=== PATIENT | male | born 1955 | race Caucasian/White ===

== ENCOUNTER 2017-11-01 14:13 | Inpatient (IN) | payer OTHER ==
[2017-11-01] MEDS ORDERED: SODIUM CHLORIDE 1,000 ML IV STA (15:47)
[2017-11-01] MEDS ORDERED: ACETAMINOPHEN 500 MG TABLET (FP) PO ONE (15:47)
[2017-11-01] MEDS ORDERED: ACETAMINOPHEN INJECTION 100 ML IVPB ONE (16:06)
--- NOTE | 2017-11-01 16:16 | PDOC ---
Attending Attestation - Resident Resident Name: Micki Bunch - ED Attending Attestation I have performed the following: I have examined & evaluated the patient, The case was reviewed & discussed with the resident, I agree w/resident's findings & plan, Exceptions are as noted - HPI HPI: 11/01/17 18:05 61yo male with hx of DM with L heel wound with black eschar and sacral wound with boggy tissue. Also with intermittent episodes of prolapse of his colostomy site. Pt denies f/c. Did not notice the eschar until today. He went to urgent care who sent her in for eval. - Physicial Exam PE: 11/01/17 18:06 Gen: aaox3, poor dentition heart: +s1s2 tachy lungs: cta b/l abd: soft, ostomy with brown stool in the bag, no prolapse at this time, buttock with 2 stage 2 sacral wounds with red/boggy tissue surrounding ext: no c/c/e, L heel with 3x2 black eschar with red warm tissue neuro: awake, alert, at baseline ms, no focal deficits - Medical Decision Making 11/01/17 16:15 I, Dr. Rose Hannah, DO, attest that this document has been prepared under my direction and personally reviewed by me in its entirety. I further attest, that it accurately reflects all work, treatment, procedures and medical decision -making performed by me. 11/01/17 18:10 61yo male with sacral wounds with surrounding erythema and diabetic foot wound -will send labs, cultures -will start broad spectrum abx to cover for gram + and gram negative -will need admission with wound care eval 11/01/17 19:08 labs reviewed abx ordered 11/01/17 19:09 resident discussed the case with CAROLINE who accepts pt to service Heart Score/ECG Review - ECG Intrepretation Comment:: 11/01/17 20:12 sinus at 89, nl axis, nl interval, sinus arrhythmia, no acute st/t wave findings
[2017-11-01 17:20] LABS: BASO % 1.3 % (0-2.0); EOS % 3.7 % (0-4.5); HEMATOCRIT 25.4 % (35.4-49); LYMPH % 18.9 % (8-40); MCH 24.5 pg (25.7-33.7); MCHC 31.6 g/dl (32.0-35.9); MEAN CELL VOLUME 77.7 fl (80-96); MEAN PLT VOLUME 7.8 fl (7.5-11.1); MONO % 5.1 % (3.8-10.2); PLATELET COUNT 611 K/MM3 (134-434); RBC 3.27 M/mm3 (4.00-5.60); RDW 20.1 % (11.9-15.9); WHITE BLOOD COUNT 6.7 K/mm3 (4.0-10.0)
[2017-11-01 17:32] LABS: INR 1.15 (0.83-1.09); VENOUS PC02 48.2 mmHg (38-52); VENOUS PH 7.33 (7.32-7.42); VENOUS PO2 40.9 mmHg (28-48)
[2017-11-01] MEDS ORDERED: AZTREONAM 2 GM in DEXTROSE 5%-WATER 100 ML IVPB ONE (17:32)
[2017-11-01] MEDS ORDERED: VANCOMYCIN 1,000 MG in DEXTROSE 5%-WATER - 250 ML IVPB ONE (17:32)
[2017-11-01 17:34] LABS: ACTIVATED PTT 29.7 SECONDS (25.2-36.5)
[2017-11-01] MEDS ORDERED: VANCOMYCIN 1 GRAM (PRE-DOCKED) 1,000 MG/250 ML BAG IVPB ONE (17:52)
[2017-11-01 18:02] LABS: URINE APPEARANCE CLEAR; URINE BILIRUBIN NEGATIVE (<2.0 mg/dL); URINE COLOR LTYELLOW; URINE GLUCOSE (UA) NEGATIVE (NEGATIVE); URINE KETONE NEGATIVE (NEGATIVE); URINE LEUK ESTERASE NEGATIVE (NEGATIVE); URINE NITRITE NEGATIVE (NEGATIVE); URINE UROBILINOGEN NEGATIVE mg/dL (0.2-1.0)
--- NOTE | 2017-11-01 18:38 | PDOC ---
History of Present Illness - General Chief Complaint: Pain Stated Complaint: LEG PAIN Time Seen by Provider: 11/01/17 15:00 History Source: Patient Exam Limitations: No Limitations - History of Present Illness Initial Comments: 11/01/17 18:33 Pt is a 61yo m somewhat poor historian with PMH of DM, colon cancer s/p colectomy with colostomy, lung ca presenting to ED with complaints of L foot pain. Pt said he was at [facility] a month ago when his foot was injured by an IV pole. Pt said the pain was getting worse and was worse yesterday when "the pain blew up". He went to a clinic and told him to go to the ED. He states his foot started to smell. He also said that he developed a decubitus ulcer on his L buttock during his stay at the hospital which also hurts. He denies fever, chills, chest pain, SOB, headache, neck pain, abdominal pain, n/v/d, dysuria, frequency, weakness. Pt says he only takes insulin for his diabetes, denies other medication use. Not on blood thinners. PCP: none PMH: see hpi PSH: colectomy 2017 Meds: insulin Allergies: PCN Social: quit tobaco 5 years ago, was smoking 2-3ppd, denies alcohol, marijuana, illlicit drug use Past History - Past Medical History Allergies/Adverse Reactions: Allergies Allergy/AdvReac Type Severity Reaction Status Date / Time Penicillins Allergy Verified 11/19/17 19:06 Home Medications: Ambulatory Orders Acetaminophen [Tylenol .Regular Strength -] 650 mg PO Q6H PRN tablet 11/15/17 Aztreonam [Azactam (Restricted To Id) -] 2 gm IVPB BID vial 11/15/17 Collagenase Clostridium Hist. [Santyl -] 1 applic TP DAILY tube 11/15/17 Insulin (Levemir) [Levemir Vial] 10 units SQ HS units 11/15/17 Lactobacillus Acidophilus [Bacid -] 1 tab PO DAILY tab 11/15/17 Picc Line Flush [Picc Line Flush -] 8 ml IVPUSH PRN PRN ml 11/15/17 Sodium Hypochlorite [Dakin's Solution 0.25% (Half-Strength) -] 1 applic TP DAILY ml 11/15/17 Vancomycin 750 mg IVPB Q24H vial 11/15/17 metroNIDAZOLE [Flagyl -] 500 mg PO TID tablet 11/15/17 Insulin Sliding Scale [Novolog Vial Sliding Scale -] 12 vial SQ DAILY 11/20/17 Melatonin/Pyridoxine HCl (B6) [Melatonin 5 mg Tablet] 1 each PO HS 11/20/17 oxyCODONE HCL [Roxicodone -] 10 mg PO Q4H PRN MDD 30mg 11/20/17 Cancer: Yes (lung,bladder,colon) CVA: No COPD: No Diabetes: Yes - Surgical History Abdominal Surgery: Yes (colon resection, with colostomy) Appendectomy: Yes - Suicide/Smoking/Psychosocial Hx Smoking History: Former smoker Have you smoked in the past 12 months: No Information on smoking cessation initiated: No Hx Alcohol Use: No Drug/Substance Use Hx: No Review of Systems - Review of Systems Able to Perform ROS?: Yes Constitutional: Yes: See HPI, Weakness, Unexplained wgt Loss. No: Chills, Fever HEENTM: No: Recent change in vision, Double Vision, Nose Congestion, Throat Pain Respiratory: No: Cough, Shortness of Breath, Wheezing, Hemoptysis Cardiac (ROS): No: Chest Pain, Lightheadedness, Palpitations, Syncope ABD/GI: No: Constipated, Diarrhea, Nausea, Rectal Bleeding, Vomiting, Abdominal cramping : No: Burning, Dysuria, Frequency, Hematuria, Incontinence Musculoskeletal: No: Back Pain, Joint Pain, Joint Swelling, Muscle Pain Integumentary: Yes: See HPI, Other (Black skin on heel of L foot. decubitus ulcer on L buttock) Neurological: No: Headache, Numbness, Paresthesia, Tingling, Tremors Hematologic/Lymphatic: No: Anemia, Blood Clots *Physical Exam - Vital Signs Last Vital Signs Temp Pulse Resp BP Pulse Ox 99.2 F 100 H 18 90/60 100 11/01/17 16:55 11/01/17 14:31 11/01/17 14:31 11/01/17 14:31 11/01/17 14:31 - Physical Exam Comments: 11/01/17 18:39 Pt is lying in bed, not comfortable, pale appearing General Appearance: Yes: Appropriately Dressed, Cachetic. No: Apparent Distress HEENT: positive: EOMI, CONCETTA, Pharynx Normal, Pale Conjunctivae, Hearing Grossly Normal. negative: Scleral Icterus (R), Scleral Icterus (L), Rhinorrhea, Sinus Tenderness Neck: positive: Trachea midline, Supple. negative: Lymphadenopathy (R), Lymphadenopathy (L) Respiratory/Chest: positive: Lungs Clear, Normal Breath Sounds. negative: Decreased Breath Sounds, Crackles, Rales, Rhonchi, Stridor, Wheezing Cardiovascular: positive: Regular Rhythm, Tachycardia. negative: Edema, JVD, Murmur Vascular Pulses: Femoral (R): 2+, Femoral (L): 2+, Carotid (R): 2+, Carotid (L) : 2+, Dorsalis-Pedis (R): 2+, Doralis-Pedis (L): 2+ Gastrointestinal/Abdominal: positive: Normal Bowel Sounds, Soft. negative: Distended, Guarding, Rebound, Tenderness Male Genitalia: positive: normal genitalia, other (no scrotal erythema). negative: testicular tenderness, testicular mass Lymphatic: negative: Adenopathy Musculoskeletal: negative: CVA Tenderness, CVA Tenderness (R), CVA Tenderness (L ) Extremity: positive: Normal Capillary Refill, Pedal Edema (of L foot with warmth ), Other (cool digits). negative: Erythema Integumentary: positive: Dry, Warm, Pale, Other (8x6cm necrotic/black eschar overlying L heel, boggy. 1 cmx2cm decubitus ulcer on L buttock, no bone or muscle exposure. Surrounding erythema and warmth. No absceses). negative: Mottled, Clammy, Diaphoresis, Petechiae Neurologic: positive: emergency management coordinator II-XII NML intact, Fully Oriented, Alert, Normal Mood/ Affect, Normal Response, Motor Strength 5/5. negative: Numbness, Sensory Deficit (full sensation in feet) ED Treatment Course - LABORATORY CBC & Chemistry Diagram: 11/15/17 12:00 11/15/17 06:24 - ADDITIONAL ORDERS Additional order review: Laboratory Results 11/01/17 11/01/17 11/01/17 16:30 16:30 16:30 PT with INR INR PTT (Actin FS) VBG pH POC VBG pCO2 POC VBG pO2 Mixed VBG HCO3 Sodium Potassium Chloride Carbon Dioxide Anion Gap BUN Creatinine Creat Clearance w eGFR Random Glucose Lactic Acid 1.5 Calcium Total Bilirubin AST ALT Alkaline Phosphatase Creatine Kinase Troponin I < 0.02 Total Protein Albumin Anti-A Titer Cancelled Blood Type Cancelled Antibody Screen Cancelled 11/01/17 11/01/17 11/01/17 16:30 16:30 16:30 PT with INR 13.00 INR 1.15 H PTT (Actin FS) 29.7 VBG pH 7.33 POC VBG pCO2 48.2 POC VBG pO2 40.9 Mixed VBG HCO3 24.9 Sodium Cancelled Potassium Cancelled Chloride Cancelled Carbon Dioxide Cancelled Anion Gap Cancelled BUN Cancelled Creatinine Cancelled Creat Clearance w eGFR Cancelled Random Glucose Cancelled Lactic Acid Calcium Cancelled Total Bilirubin Cancelled AST Cancelled ALT Cancelled Alkaline Phosphatase Cancelled Creatine Kinase Cancelled Troponin I Total Protein Cancelled Albumin Cancelled Anti-A Titer Blood Type Antibody Screen 11/01/17 16:30 RBC 3.27 L MCV 77.7 L MCHC 31.6 L RDW 20.1 H MPV 7.8 Neutrophils % 71.0 Lymphocytes % 18.9 Monocytes % 5.1 Eosinophils % 3.7 Basophils % 1.3 - RADIOLOGY Radiology Studies Ordered: Category Date Time Status ANKLE & FOOT-LEFT* [RAD] Stat Radiology 11/01/17 15:47 Completed CHEST X-RAY PORTABLE* [RAD] Stat Radiology 11/01/17 15:44 Completed - Medications Given in the ED: ED Medications Discontinued Medications Generic Name Dose Route Start Last Admin Trade Name Freq PRN Reason Stop Dose Admin Acetaminophen 1,000 mg 11/01/17 15:47 11/01/17 16:54 Tylenol - PO 11/01/17 15:48 1,000 mg ONCE ONE Administration Sodium Chloride 1,000 mls @ 1,000 mls/hr 11/01/17 15:47 11/01/17 16:54 Normal Saline - IV 11/01/17 16:46 1,000 mls/hr ASDIR STA Administration Medical Decision Making - Medical Decision Making 11/01/17 18:44 61yo m with PMH of DM, colon ca, lung ca presenting to ED with diabetic foot ulcer of L heel and decubitus ulcer on L buttock. Vitals: tachycardic, bp 90/60 on arrival however 146/90 in the room, saturating 100%ra not tachypneic Rectal temp 99.6 DDx: diabetic foot ulcer, cellulitis. Sepsis workup ordered, EKG, T&S, cadiac enzymes, cxr , UA. wound culture from L heel obtained. Pt given IV Tylenol and bolus. Pt allergic to PCN. Started on Vanc and Pt will be admitted for diabetic foot ulcer and cellulitis. Vascular consulted. 11/01/17 18:51 Still waiting for EKG! Cr 1.0, WBC 6.7, hgb 8.0 (unsure of baseline). Labs sig for K of 5.3. Waiting for UA CXR UA negative for infection. Pt admitted *DC/Admit/Observation/Transfer Diagnosis at time of Disposition: Diabetic foot ulcer Qualifiers: Diabetic foot ulcer location: heel Diabetes mellitus type: type 1 Laterality: left Non-pressure ulcer stage: with necrosis of muscle Qualified Code(s): E10.621 - Type 1 diabetes mellitus with foot ulcer; L97.423 - Non-pressure chronic ulcer of left heel and midfoot with necrosis of muscle Cellulitis Qualifiers: Site of cellulitis: unspecified site Qualified Code(s): L03.90 - Cellulitis, unspecified - Discharge Dispostion Disposition: HALFWAY FACILITY Condition at time of disposition: Improved Decision to Admit order Date/Time: Decision to Admit Order Category Date Time Status Decision to Admit to Hospital Routine Admission 11/01/17 17:35 Active - Referrals - Patient Instructions - Post Discharge Activity
[2017-11-01 18:42] LABS: URINE PROTEIN 1+ (NEGATIVE)
[2017-11-01 18:44] LABS: ALBUMIN 2.2 g/dl (3.4-5.0); ALK PHOS 77 U/L (45-117); ANION GAP 12 MMOL/L (8-16); BILIRUBIN,TOTAL 0.2 mg/dL (0.2-1); BLOOD UREA NITROGEN 22 mg/dL (7-18); CALCIUM 9.5 mg/dL (8.5-10.1); CHLORIDE 100 mmol/L (98-107); CO2 23 mmol/L (21-32); GLUCOSE,RANDOM 100 mg/dL (74-106); POTASSIUM 5.3 mmol/L (3.5-5.1); SGOT/AST 11 U/L (15-37); SGPT/ALT 12 U/L (13-61); SODIUM 135 mmol/L (136-145); TOT PROT 7.5 g/dl (6.4-8.2)
[2017-11-01 18:53] LABS: EPI CELLS RARE /HPF (FEW); URINE HYALINE CAST 3 /lpf; URINE MUCUS RARE
[2017-11-01] MEDS ORDERED: morphine CARPU-JECT 2 MG/1 ML DISP.SYRIN IVPUSH ONE (19:17)
[2017-11-01] MEDS ORDERED: MORPHINE SULFATE 2 MG/ML VIAL ONE (19:26)
--- NOTE | 2017-11-01 19:32 | PN ---
Teaching Attending Note Name of Resident: Sada Ch ATTENDING PHYSICIAN STATEMENT I saw and evaluated the patient. I reviewed the resident's note and discussed the case with the resident. I agree with the resident's findings and plan as documented. SUBJECTIVE: 61 y/o M presented with left foot nonhealing wound. 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 OBJECTIVE: Agree with physical exam as documented in H&P. CBCD WBC 6.7 K/mm3 (4.0-10.0) 11/01/17 16:30 RBC 3.27 M/mm3 (4.00-5.60) L 11/01/17 16:30 Hgb 8.0 GM/dL (11.7-16.9) L 11/01/17 16:30 Hct 25.4 % (35.4-49) L 11/01/17 16:30 MCV 77.7 fl (80-96) L 11/01/17 16:30 MCHC 31.6 g/dl (32.0-35.9) L 11/01/17 16:30 RDW 20.1 % (11.9-15.9) H 11/01/17 16:30 Plt Count 611 K/MM3 (134-434) H 11/01/17 16:30 MPV 7.8 fl (7.5-11.1) 11/01/17 16:30 CMP Sodium 135 mmol/L (136-145) L 11/01/17 17:55 Potassium 5.3 mmol/L (3.5-5.1) H 11/01/17 17:55 Chloride 100 mmol/L (98-107) 11/01/17 17:55 Carbon Dioxide 23 mmol/L (21-32) 11/01/17 17:55 Anion Gap 12 MMOL/L (8-16) 11/01/17 17:55 BUN 22 mg/dL (7-18) H 11/01/17 17:55 Creatinine 1.0 mg/dL (0.55-1.3) 11/01/17 17:55 Creat Clearance w eGFR > 60 (>60) 11/01/17 17:55 Calcium 9.5 mg/dL (8.5-10.1) 11/01/17 17:55 Total Bilirubin 0.2 mg/dL (0.2-1) 11/01/17 17:55 AST 11 U/L (15-37) L 11/01/17 17:55 ALT 12 U/L (13-61) L 11/01/17 17:55 Alkaline Phosphatase 77 U/L (45-117) 11/01/17 17:55 Total Protein 7.5 g/dl (6.4-8.2) 11/01/17 17:55 Albumin 2.2 g/dl (3.4-5.0) L 11/01/17 17:55 ASSESSMENT AND PLAN: Diabetic Foot ulcer r/o Osteomyelitis Vancomycin Follow Vanco trough Podiatry consult Hyperkalemia- D50 and insulin Repeat BMP EKG Decubitus Ulcer Wound care daily Colon CA s/p colectomy Change ostomy bag as needed
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
[2017-11-01 23:51] VITALS: BMI 19.3
--- NOTE | 2017-11-02 00:38 | HP ---
CHIEF COMPLAINT: PCP: HISTORY OF PRESENT ILLNESS: ER course was notable for: (1) (2) (3) Recent Travel: PAST MEDICAL HISTORY: PAST SURGICAL HISTORY: Social History: Smoking: Alcohol: Drugs: Family History: Allergies Penicillins Allergy (Verified 11/01/17 14:29) HOME MEDICATIONS: Home Medications Medication Instructions Recorded Insulin Aspart Prot/Insuln Asp 12 unit SQ DAILY 11/01/17 [Novolog Mix 70-30 Flexpen Syrn] REVIEW OF SYSTEMS CONSTITUTIONAL: Absent: fever, chills, diaphoresis, generalized weakness, malaise, loss of appetite, weight change HEENT: Absent: rhinorrhea, nasal congestion, throat pain, throat swelling, difficulty swallowing, mouth swelling, ear pain, eye pain, visual changes CARDIOVASCULAR: Absent: chest pain, syncope, palpitations, irregular heart rate, lightheadedness , peripheral edema RESPIRATORY: Absent: cough, shortness of breath, dyspnea with exertion, orthopnea, wheezing, stridor, hemoptysis GASTROINTESTINAL: Absent: abdominal pain, abdominal distension, nausea, vomiting, diarrhea, constipation, melena, hematochezia GENITOURINARY: Absent: dysuria, frequency, urgency, hesitancy, hematuria, flank pain, genital pain MUSCULOSKELETAL: Absent: myalgia, arthralgia, joint swelling, back pain, neck pain SKIN: Absent: rash, itching, pallor HEMATOLOGIC/IMMUNOLOGIC: Absent: easy bleeding, easy bruising, lymphadenopathy, frequent infections ENDOCRINE: Absent: unexplained weight gain, unexplained weight loss, heat intolerance, cold intolerance NEUROLOGIC: Absent: headache, focal weakness or paresthesias, dizziness, unsteady gait, seizure, mental status changes, bladder or bowel incontinence PSYCHIATRIC: Absent: anxiety, depression, suicidal or homicidal ideation, hallucinations. PHYSICAL EXAMINATION Vital Signs - 24 hr 11/01/17 11/01/17 11/01/17 14:31 16:55 17:35 Temperature 98.4 F 99.2 F Pulse Rate 100 H Pulse Rate [ Right Radial] Respiratory 18 Rate Blood Pressure 90/60 Blood Pressure [Left Arm] O2 Sat by Pulse 100 98 Oximetry (%) 11/01/17 11/01/17 11/01/17 19:08 19:09 21:00 Temperature 98.1 F Pulse Rate Pulse Rate [ 81 Right Radial] Respiratory 17 17 18 Rate Blood Pressure Blood Pressure 112/64 [Left Arm] O2 Sat by Pulse 97 97 100 Oximetry (%) 11/01/17 11/01/17 21:17 22:00 Temperature 99.0 F 98.2 F Pulse Rate 86 Pulse Rate [ 83 Right Radial] Respiratory 20 18 Rate Blood Pressure 106/65 Blood Pressure 115/66 [Left Arm] O2 Sat by Pulse 100 Oximetry (%) GENERAL: Awake, alert, and fully oriented, in no acute distress. HEAD: Normal with no signs of trauma. EYES: Pupils equal, round and reactive to light, extraocular movements intact, sclera anicteric, conjunctiva clear. No lid lag. EARS, NOSE, THROAT: Ears normal, nares patent, oropharynx clear without exudates. Moist mucous membranes. NECK: Normal range of motion, supple without lymphadenopathy, JVD, or masses. LUNGS: Breath sounds equal, clear to auscultation bilaterally. No wheezes, and no crackles. No accessory muscle use. HEART: Regular rate and rhythm, normal S1 and S2 without murmur, rub or gallop. ABDOMEN: Soft, nontender, not distended, normoactive bowel sounds, no guarding, no rebound, no masses. No hepatomegaly or splenomegaly. MUSCULOSKELETAL: Normal range of motion at all joints. No bony deformities or tenderness. No CVA tenderness. UPPER EXTREMITIES: 2+ pulses, warm, well-perfused. No cyanosis. No clubbing. No peripheral edema. LOWER EXTREMITIES: 2+ pulses, warm, well-perfused. No calf tenderness. No peripheral edema. NEUROLOGICAL: Cranial nerves II-XII intact. Normal speech. Normal gait. PSYCHIATRIC: Cooperative. Good eye contact. Appropriate mood and affect. SKIN: Warm, dry, normal turgor, no rashes or lesions noted, normal capillary refill. Laboratory Results - last 24 hr 11/01/17 11/01/17 11/01/17 16:30 16:30 16:30 WBC 6.7 RBC 3.27 L Hgb 8.0 L Hct 25.4 L MCV 77.7 L MCH 24.5 L MCHC 31.6 L RDW 20.1 H Plt Count 611 H MPV 7.8 Absolute Neuts (auto) 4.8 Neutrophils % 71.0 Lymphocytes % 18.9 Monocytes % 5.1 Eosinophils % 3.7 Basophils % 1.3 Nucleated RBC % 0 PT with INR 13.00 INR 1.15 H PTT (Actin FS) 29.7 VBG pH 7.33 POC VBG pCO2 48.2 POC VBG pO2 40.9 Mixed VBG HCO3 24.9 Sodium Potassium Chloride Carbon Dioxide Anion Gap BUN Creatinine Creat Clearance w eGFR Random Glucose Lactic Acid Calcium Total Bilirubin AST ALT Alkaline Phosphatase Creatine Kinase Troponin I Total Protein Albumin Urine Color Urine Appearance Urine pH Ur Specific [place] Urine Protein Urine Glucose (UA) Urine Ketones Urine Blood Urine Nitrite Urine Bilirubin Urine Urobilinogen Ur Leukocyte Esterase Urine WBC (Auto) Urine RBC (Auto) Ur Epithelial Cells Hyaline Casts Urine Mucus Anti-A Titer Blood Type Antibody Screen 11/01/17 11/01/17 11/01/17 16:30 16:30 16:30 WBC RBC Hgb Hct MCV MCH MCHC RDW Plt Count MPV Absolute Neuts (auto) Neutrophils % Lymphocytes % Monocytes % Eosinophils % Basophils % Nucleated RBC % PT with INR INR PTT (Actin FS) VBG pH POC VBG pCO2 POC VBG pO2 Mixed VBG HCO3 Sodium Cancelled Potassium Cancelled Chloride Cancelled Carbon Dioxide Cancelled Anion Gap Cancelled BUN Cancelled Creatinine Cancelled Creat Clearance w eGFR Cancelled Random Glucose Cancelled Lactic Acid 1.5 Calcium Cancelled Total Bilirubin Cancelled AST Cancelled ALT Cancelled Alkaline Phosphatase Cancelled Creatine Kinase Cancelled Troponin I < 0.02 Total Protein Cancelled Albumin Cancelled Urine Color Urine Appearance Urine pH Ur Specific [place] Urine Protein Urine Glucose (UA) Urine Ketones Urine Blood Urine Nitrite Urine Bilirubin Urine Urobilinogen Ur Leukocyte Esterase Urine WBC (Auto) Urine RBC (Auto) Ur Epithelial Cells Hyaline Casts Urine Mucus Anti-A Titer Blood Type Antibody Screen 11/01/17 11/01/17 11/01/17 16:30 17:41 17:55 WBC RBC Hgb Hct MCV MCH MCHC RDW Plt Count MPV Absolute Neuts (auto) Neutrophils % Lymphocytes % Monocytes % Eosinophils % Basophils % Nucleated RBC % PT with INR INR PTT (Actin FS) VBG pH POC VBG pCO2 POC VBG pO2 Mixed VBG HCO3 Sodium 135 L Potassium 5.3 H Chloride 100 Carbon Dioxide 23 Anion Gap 12 BUN 22 H Creatinine 1.0 Creat Clearance w eGFR > 60 Random Glucose 100 Lactic Acid Calcium 9.5 Total Bilirubin 0.2 AST 11 L ALT 12 L Alkaline Phosphatase 77 Creatine Kinase Troponin I Total Protein 7.5 Albumin 2.2 L Urine Color Ltyellow Urine Appearance Clear Urine pH 5.0 Ur Specific [place] 1.010 Urine Protein 1+ H Urine Glucose (UA) Negative Urine Ketones Negative Urine Blood 2+ H Urine Nitrite Negative Urine Bilirubin Negative Urine Urobilinogen Negative Ur Leukocyte Esterase Negative Urine WBC (Auto) 4 Urine RBC (Auto) 7 Ur Epithelial Cells Rare Hyaline Casts 3 Urine Mucus Rare Anti-A Titer Cancelled Blood Type Cancelled Antibody Screen Cancelled ASSESSMENT/PLAN: Hospitalist Screening - Colonoscopy Questionnaire Colonoscopy Questionnaire: Colonoscopy Questionnaire
[2017-11-02] MEDS: SODIUM CHLORIDE 1,000 ML IV SCH ×2 (05:15→18:53)
[2017-11-02] MEDS: INSULIN SLIDING SCALE (NOVOLOG) 1 VIAL SQ SCH ×4 (06:31→21:54)
[2017-11-02 07:25] LABS: BASO % 1.2 % (0-2.0); EOS % 4.5 % (0-4.5); HEMATOCRIT 25.2 % (35.4-49); HEMOGLOBIN 7.8 GM/dL (11.7-16.9); LYMPH % 14.3 % (8-40); MEAN CELL VOLUME 77.4 fl (80-96); MEAN PLT VOLUME 7.3 fl (7.5-11.1); MONO % 5.9 % (3.8-10.2); NEUT % 74.1 % (42.8-82.8); PLATELET COUNT 570 K/MM3 (134-434); RBC 3.26 M/mm3 (4.00-5.60); RDW 20.2 % (11.9-15.9); WHITE BLOOD COUNT 8.1 K/mm3 (4.0-10.0)
[2017-11-02 08:08] LABS: ALK PHOS 72 U/L (45-117); ANION GAP 10 MMOL/L (8-16); BILIRUBIN,TOTAL 0.2 mg/dL (0.2-1); BLOOD UREA NITROGEN 21 mg/dL (7-18); CHLORIDE 103 mmol/L (98-107); CO2 23 mmol/L (21-32); CREATININE 1.1 mg/dL (0.55-1.3); GLUCOSE,RANDOM 153 mg/dL (74-106); PHOSPHOROUS 3.4 mg/dL (2.5-4.9); SGOT/AST 6 U/L (15-37); SGPT/ALT 11 U/L (13-61); SODIUM 136 mmol/L (136-145); TOT PROT 6.9 g/dl (6.4-8.2)
[2017-11-02] MEDS ORDERED: MORPHINE SULFATE 2 MG/ML VIAL IVPUSH ONE (09:03)
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
[2017-11-02] MEDS: ENOXAPARIN NA (PORCINE) 40 MG/0.4 ML DISP.SYRIN SQ SCH (10:44)
--- NOTE | 2017-11-02 11:25 | EKG ---
Test Reason : Blood Pressure : / mmHG Vent. Rate : 089 BPM Atrial Rate : 089 BPM P-R Int : 124 ms QRS Dur : 076 ms QT Int : 370 ms P-R-T Axes : 033 000 022 degrees QTc Int : 450 ms SINUS RHYTHM WITH MARKED SINUS ARRHYTHMIA OTHERWISE NORMAL ECG NO PREVIOUS ECGS AVAILABLE Confirmed by ROBSON THOMAS, NANCY ([id number]) on 11/02/2017 11:25:27 AM Referred By: Confirmed By:NANCY CHANCE MD
--- NOTE | 2017-11-02 12:37 | ECHO ---
Version: 1 Name: PEDRO OLIVER Exam: Adult Echocardiogram Study Date: 11/02/2017, 8:32 AM Age: 61 Years MMode/2D Measurements & Calculations IVSd: 0.74 cm LVIDs: 3.0 cm LVIDd: 4.0 cm LVPWd: 0.81 cm Ao root diam: 3.1 cm LA dimension: 3.1 cm Doppler Measurements & Calculations MV E max cosme: 60.2 cm/sec MV A max cosme: 105.1 cm/sec MV E/A: 0.57 TR max cosme: 254.5 cm/sec TR max P.2 mmHg Procedure A two-dimensional transthoracic echocardiogram with color flow and Doppler was performed. Left Ventricle The left ventricular size, thickness and function are normal. The left ventricular ejection fraction is normal. E/A reversal consistent with but not diagnostic of poor LV compliance. The left ventricular wall motion is normal. Right Ventricle The right ventricle is normal in size and function. Atria Normal left and right atrial size and function. Mitral Valve There is mild mitral valve thickening. There is no mitral valve stenosis. There is trace to mild gi ral regurgitation. Tricuspid Valve There is mild tricuspid valve thickening. There is no tricuspid stenosis. There is mild tricuspid regurgitation. Right ventricular systolic pressure is elevated at 30-40mmHg. Aortic Valve The aortic valve is not well visualized. No hemodynamically significant valvular aortic stenosis. No aortic regurgitation is present. Pulmonic Valve The pulmonic valve is not well visualized. Great Vessels The aortic root is not well visualized. Pericardium/Pleura There is no pericardial effusion. Summary Statements The left ventricular size, thickness and function are normal The left ventricular ejection fraction is normal. The left ventricular wall motion is normal. The right ventricle is normal in size and function. There is mild tricuspid regurgitation. Right ventricular systolic pressure is elevated at 30-40mmHg. E/A reversal consistent with but not diagnostic of poor LV compliance There is trace to mild mitral regurgitation. MD Stephan Birmingham 11/02/2017, 12:37 PM Ordering Physician: MICHAEL PRIETO Referring Physician: ALEJO AMAYA Performed By: Aura Nicholson Measurements and Calculations Lat E/e': 6.2 Lat Peak E' Cosme: 9.7 Med E/e': 8.0 Med Peak E' Cosme: 7 .5 cm/sec cm/sec
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
--- NOTE | 2017-11-02 14:07 | CON.ID ---
Consult Consult Specialty:: infectious disease Referred by:: hospitalist service Reason for Consultation:: nonhealing left foot wound - History of Present Illness Chief Complaint: foot wound History of Present Illness: 61 year old man with metastaatic bladder cancer - lung, colon, s/p obstruction requiring colostomy one year ago admitted 2 months to [facility] for falls at home- lives with daughter d/marilee home with a heel ulcer- was getting VNS services at home never followed up with anyone after discharge doesn't seem to believe he has bladder cancer- no chemo or RT- no followup +43 pound weight loss no fevers - History Source History Provided By: Patient, Medical Record Limitations to Obtaining History: Clinical Condition - Past Medical History Heme/Onc: Yes: Other (bladder cancer) Endocrine: Yes: Diabetes Mellitus - Past Surgical History Past Surgical History: Yes: Colostomy - Alcohol/Substance Use Hx Alcohol Use: No - Smoking History Smoking history: Former smoker Have you smoked in the past 12 months: No - Social History Usual Living Arrangement: With Child 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 Place of : Other ([facility]) History of Recent Travel: No Home Medications - Allergies Allergies/Adverse Reactions: Allergies Allergy/AdvReac Type Severity Reaction Status Date / Time Penicillins Allergy Verified 11/01/17 14:29 - Home Medications Home Medications: Ambulatory Orders Insulin Aspart Prot/Insuln Asp [Novolog Mix 70-30 Flexpen Syrn] 12 unit SQ DAILY 11/01/17 Family Disease History - Family Disease History Family Disease History: Other: Mother ( of PUD) Review of Systems - Review of Systems Constitutional: reports: Chills, Fever Eyes: reports: No Symptoms HENT: reports: No Symptoms Neck: reports: No Symptoms Cardiovascular: reports: No Symptoms Respiratory: reports: No Symptoms Gastrointestinal: reports: No Symptoms. denies: Nausea, Vomiting Genitourinary: reports: No Symptoms Musculoskeletal: reports: Extremity Pain (bilateral leg pain) Physical Exam Vital Signs: Vital Signs Temperature 97.9 F 11/02/17 09:00 Pulse Rate 92 H 11/02/17 09:00 Respiratory Rate 20 11/02/17 09:00 Blood Pressure 118/60 11/02/17 09:00 O2 Sat by Pulse Oximetry (%) 100 11/01/17 21:17 Constitutional: Yes: Thin Eyes: Yes: WNL HENT: Yes: Atraumatic, Normocephalic. No: Pharyngeal Erythema, Thrush Neck: Yes: Supple Cardiovascular: Yes: Regular Rate and Rhythm Respiratory: Yes: Regular, CTA Bilaterally Gastrointestinal: Yes: Normal Bowel Sounds, Soft, Other (colostomy) ...Rectal Exam: Yes: Deferred Extremities: Yes: Other (foulsmelling necrotic left heel ulcer 6 by 4.5 cm, + malodor, +eschar) Edema: No Wound/Incision: Yes: Other (buttock ulcer stage 2 clean) Psychiatric: Yes: Alert, Oriented Labs: CBC, BMP 11/02/17 06:00 11/02/17 06:00 Imaging - Results Chest X-ray: Report Reviewed (multiple pulmonary masses) X-ray: Report Reviewed (foot- no bony destruction) Problem List - Problems (1) Ulcer of left heel Assessment/Plan: podiatry to evaluate for debridement clindamycin/azactam given pen allergy f/u cultures probiotics Code(s): L97.429 - NON-PRS CHRONIC ULCER OF LEFT HEEL AND MIDFOOT W UNSP SEVERT Qualifiers: Non-pressure ulcer stage: unspecified non-pressure ulcer stage Qualified Code(s): L97.429 - Non-pressure chronic ulcer of left heel and midfoot with unspecified severity (2) H/O carcinoma of bladder Code(s): Z85.51 - PERSONAL HISTORY OF MALIGNANT NEOPLASM OF BLADDER (3) Diabetes Assessment/Plan: hgb aic 8.5 Code(s): E11.9 - TYPE 2 DIABETES MELLITUS WITHOUT COMPLICATIONS (4) Anemia Code(s): D64.9 - ANEMIA, UNSPECIFIED (5) Penicillin allergy Code(s): Z88.0 - ALLERGY STATUS TO PENICILLIN
[2017-11-02] MEDS: oxyCODONE HCL 5 MG TABLET PO PRN (17:25)
[2017-11-02] MEDS: ACETAMINOPHEN 325 MG TABLET (FP) PO PRN (17:26)
--- NOTE | 2017-11-02 18:20 | PN ---
Physical Exam: SUBJECTIVE: Patient seen and examined at bedside this morning. Patient is complaining of shoulder pain, back pain, leg pain. OBJECTIVE: Vital Signs Period Temp Pulse Resp BP Sys/Kevin Pulse Ox Last 24 Hr 97.9 F-99.0 F 81-98 17-20 105-136/48-66 96-100 GENERAL: The patient is awake, alert, and fully oriented, in no acute distress. HEAD: Normal with no signs of trauma. EYES: PERRLA, EOMI, sclera anicteric, conjunctiva clear. ENT: Ears normal, nares patent, oropharynx clear without exudates, dry mucous membranes. LUNGS: Breath sounds equal, clear to auscultation bilaterally, no wheezes, no crackles, no accessory muscle use. HEART: Regular rate and rhythm, S1, S2 without murmur, rub or gallop. ABDOMEN: Soft, nontender, nondistended, normoactive bowel sounds. Colostomy bag in place. UPPER EXTREMITIES: 2+ pulses, warm, well-perfused, no edema. LOWER EXTREMITIES: + foul-smelling necrotic ulcer, heel of left foot, 2+pulses, warm, well-perfused, no edema. NEUROLOGICAL: Cranial nerves II through XII grossly intact. Normal speech, gait not observed. PSYCH: Normal mood, normal affect. SKIN: +stage 2 nonpurulent ulcer at the sacral area Laboratory Results - last 24 hr 11/01/17 11/01/17 11/01/17 16:30 17:41 17:55 WBC RBC Hgb Hct MCV MCH MCHC RDW Plt Count MPV Absolute Neuts (auto) Neutrophils % Lymphocytes % Monocytes % Eosinophils % Basophils % Nucleated RBC % ESR VBG pH 7.33 POC VBG pCO2 48.2 POC VBG pO2 40.9 Mixed VBG HCO3 24.9 Sodium 135 L Potassium 5.3 H Chloride 100 Carbon Dioxide 23 Anion Gap 12 BUN 22 H Creatinine 1.0 Creat Clearance w eGFR > 60 POC Glucometer Random Glucose 100 Hemoglobin A1c % Calcium 9.5 Phosphorus Magnesium Total Bilirubin 0.2 AST 11 L ALT 12 L Alkaline Phosphatase 77 C-Reactive Protein Total Protein 7.5 Albumin 2.2 L Urine Color Ltyellow Urine Appearance Clear Urine pH 5.0 Ur Specific [place] 1.010 Urine Protein 1+ H Urine Glucose (UA) Negative Urine Ketones Negative Urine Blood 2+ H Urine Nitrite Negative Urine Bilirubin Negative Urine Urobilinogen Negative Ur Leukocyte Esterase Negative Urine WBC (Auto) 4 Urine RBC (Auto) 7 Ur Epithelial Cells Rare Hyaline Casts 3 Urine Mucus Rare 11/02/17 11/02/17 11/02/17 06:00 06:00 06:00 WBC 8.1 RBC 3.26 L Hgb 7.8 L Hct 25.2 L MCV 77.4 L MCH 24.0 L MCHC 31.0 L RDW 20.2 H Plt Count 570 H MPV 7.3 L Absolute Neuts (auto) 6.0 Neutrophils % 74.1 Lymphocytes % 14.3 D Monocytes % 5.9 Eosinophils % 4.5 Basophils % 1.2 Nucleated RBC % 0 ESR VBG pH POC VBG pCO2 POC VBG pO2 Mixed VBG HCO3 Sodium 136 Potassium 5.0 Chloride 103 Carbon Dioxide 23 Anion Gap 10 BUN 21 H Creatinine 1.1 Creat Clearance w eGFR > 60 POC Glucometer Random Glucose 153 H Hemoglobin A1c % 8.5 H Calcium 9.0 Phosphorus 3.4 Magnesium 2.0 Total Bilirubin 0.2 AST 6 L ALT 11 L Alkaline Phosphatase 72 C-Reactive Protein 7.3 H Total Protein 6.9 Albumin 2.0 L Urine Color Urine Appearance Urine pH Ur Specific [place] Urine Protein Urine Glucose (UA) Urine Ketones Urine Blood Urine Nitrite Urine Bilirubin Urine Urobilinogen Ur Leukocyte Esterase Urine WBC (Auto) Urine RBC (Auto) Ur Epithelial Cells Hyaline Casts Urine Mucus 11/02/17 11/02/17 11/02/17 06:00 06:00 06:27 WBC RBC Hgb Hct MCV MCH MCHC RDW Plt Count MPV Absolute Neuts (auto) Neutrophils % Lymphocytes % Monocytes % Eosinophils % Basophils % Nucleated RBC % ESR 109 H VBG pH POC VBG pCO2 POC VBG pO2 Mixed VBG HCO3 Sodium Potassium Chloride Carbon Dioxide Anion Gap BUN Creatinine Creat Clearance w eGFR POC Glucometer 177 Random Glucose Hemoglobin A1c % Calcium Phosphorus Magnesium Total Bilirubin AST ALT Alkaline Phosphatase C-Reactive Protein Cancelled Total Protein Albumin Urine Color Urine Appearance Urine pH Ur Specific [place] Urine Protein Urine Glucose (UA) Urine Ketones Urine Blood Urine Nitrite Urine Bilirubin Urine Urobilinogen Ur Leukocyte Esterase Urine WBC (Auto) Urine RBC (Auto) Ur Epithelial Cells Hyaline Casts Urine Mucus 11/02/17 11/02/17 12:18 16:48 WBC RBC Hgb Hct MCV MCH MCHC RDW Plt Count MPV Absolute Neuts (auto) Neutrophils % Lymphocytes % Monocytes % Eosinophils % Basophils % Nucleated RBC % ESR VBG pH POC VBG pCO2 POC VBG pO2 Mixed VBG HCO3 Sodium Potassium Chloride Carbon Dioxide Anion Gap BUN Creatinine Creat Clearance w eGFR POC Glucometer 170 217 Random Glucose Hemoglobin A1c % Calcium Phosphorus Magnesium Total Bilirubin AST ALT Alkaline Phosphatase C-Reactive Protein Total Protein Albumin Urine Color Urine Appearance Urine pH Ur Specific [place] Urine Protein Urine Glucose (UA) Urine Ketones Urine Blood Urine Nitrite Urine Bilirubin Urine Urobilinogen Ur Leukocyte Esterase Urine WBC (Auto) Urine RBC (Auto) Ur Epithelial Cells Hyaline Casts Urine Mucus Active Medications Generic Name Dose Route Start Last Admin Trade Name Freq PRN Reason Stop Dose Admin Acetaminophen 650 mg 11/01/17 23:56 11/02/17 17:26 Tylenol - PO 650 mg Q6H PRN Administration PAIN LEVEL 1 - 3 Enoxaparin Sodium 40 mg 11/02/17 10:00 11/02/17 10:44 Lovenox - SQ 40 mg DAILY STEPHANIE Administration Sodium Chloride 1,000 mls @ 75 mls/hr 11/02/17 03:00 11/02/17 05:15 Normal Saline - IV 75 mls/hr ASDIR STEPHANIE Administration Insulin Aspart 1 vial 11/02/17 07:00 11/02/17 16:59 Novolog Vial Sliding Scale - SQ 4 unit ACHS STEPHANIE Administration Protocol Insulin Detemir 10 units 11/02/17 22:00 Levemir Vial SQ HS STEPHANIE Oxycodone HCl 5 mg 11/02/17 17:03 11/02/17 17:25 Roxicodone - PO 5 mg Q6H PRN Administration PAIN LEVEL 7 - 10 ASSESSMENT/PLAN: Patient is a 61 year old male with past medical history of DM, hx of bladder cancer with primary mets to lung and colon (currently with colostomy bag placed 1 year ago) admitted for nonhealing diabetic left heel wound. #Nonhealing diabetic wound, left heel: r/o osteomyelitis -L foot xray - no evidence of focal bone destruction or soft tissue air. -Vancomycin 1g given and Aztrenonam 2g given. -Oxycodone 5mg q6h PRN for pain. -CRP 7.3 -ID (Dr. Romero) consulted. Recommendations appreciated. -Podiatry to evaluate for debridement. -Clindamycin and Azactam started given penicillin allergy. -Continue Vancomycin and follow vanc trough levels -Daily wound care. -blood culture pending. -Probiotics. -Podiatry (Dr. An) consulted. -Vascular (Dr. Barbour) consulted. #Sacral decubitus ulcer -Proper wound care -Tylenol 650 mg PO Q6H for pain and Oxycodone 5mg q6h PRN for pain 7-10 -Turn and position Q2H #Bladder cancer w/ metastasis to lung and colon: s/p colostomy bag since 1 year ago. -Due for removal 6 months ago but patient does not want to go back to [facility] to have it removed. -Refused to go back [facility] to continue treatment and is seeking new care. -Oncology (Dr. Fried) consulted. Recommendations appreciated. -Would consider CT of chest, abdomen, pelvis to assess current state of bladder cancer. -Bone scan in view of back pains. -Currently attention to be directed toward left heel ulcer and therapy. -Diabetic control. #Sinus arrhythmia, found on EKG, no prior EKG for comparison. -Echocardiogram - LV size, thickness, and function normal; LV EF normal; RV normal in size and function; Mild TR; RV systolic pressure is elevated at 30- 40mmHg; E/A reveral consistent with but not diagnostic of poor LV complaince. Trace MR. -Electrolytes wnl #DM -HbA1c - 8.5 -Levemir 10U SQ HS -ISS -BGM ACHS #Severely malnourished: significant weight loss likely 2/2 to CA -dietitian consult #FEN -IV NS @ 75ml/hr -electrolytes wnl, routine bmp monitoring -Diabetic diet #Prophylaxis -Lovenox 40 mg SQ QD #Disposition -admit to tele -needs advanced directives, otherwise consider palliative care consult -needs prior records from [facility] Visit type - Emergency Visit Emergency Visit: Yes ED Registration Date: 11/01/17 Care time: The patient presented to the Emergency Department on the above date and was hospitalized for further evaluation of their emergent condition. - New Patient This patient is new to me today: Yes Date on this admission: 11/02/17 - Critical Care Critical Care patient: No
--- NOTE | 2017-11-02 18:36 | PN ---
Teaching Attending Note Name of Resident: Hazel Boyle ATTENDING PHYSICIAN STATEMENT I saw and evaluated the patient. I reviewed the resident's note and discussed the case with the resident. I agree with the resident's findings and plan as documented with exceptions below. SUBJECTIVE: patient seen and examined. generalized pain, no specific abdominal or left foot pain noted. Poor historian. OBJECTIVE: Vital Signs Period Temp Pulse Resp BP Sys/Kevin Pulse Ox Last 24 Hr 97.9 F-99.0 F 81-98 17-20 105-136/48-66 96-100 Intake & Output 10/30/17 10/31/17 11/01/17 11/02/17 23:59 23:59 23:59 23:59 Intake Total 100 1325 Output Total 400 1100 Balance -300 225 Weight 127 lb 1.6 oz 127 lb General: lying in bed in no acute distress Abdomen:soft, NT, ND, colostomy with soft brown stool present, positive bowel sounds Extremities: Left heel eschar with no surrounding swelling/erythema or tenderness, positive DP pulses, RLE toe scab, positive pulses Active Medications Acetaminophen (Tylenol -) 650 mg PO Q6H PRN PRN Reason: PAIN LEVEL 1 - 3 Last Admin: 11/02/17 17:26 Dose: 650 mg Enoxaparin Sodium (Lovenox -) 40 mg SQ DAILY [facility] Last Admin: 11/02/17 10:44 Dose: 40 mg Sodium Chloride (Normal Saline -) 1,000 mls @ 75 mls/hr IV ASDIR [facility] Last Admin: 11/02/17 05:15 Dose: 75 mls/hr Insulin Aspart (Novolog Vial Sliding Scale -) 1 vial SQ [facility]; Protocol Last Admin: 11/02/17 16:59 Dose: 4 unit Insulin Detemir (Levemir Vial) 10 units SQ [facility] Oxycodone HCl (Roxicodone -) 5 mg PO Q6H PRN PRN Reason: PAIN LEVEL 7 - 10 Last Admin: 11/02/17 17:25 Dose: 5 mg Laboratory Results - last 24 hr 11/01/17 11/01/17 11/01/17 16:30 17:41 17:55 WBC RBC Hgb Hct MCV MCH MCHC RDW Plt Count MPV Absolute Neuts (auto) Neutrophils % Lymphocytes % Monocytes % Eosinophils % Basophils % Nucleated RBC % ESR VBG pH 7.33 POC VBG pCO2 48.2 POC VBG pO2 40.9 Mixed VBG HCO3 24.9 Sodium 135 L Potassium 5.3 H Chloride 100 Carbon Dioxide 23 Anion Gap 12 BUN 22 H Creatinine 1.0 Creat Clearance w eGFR > 60 POC Glucometer Random Glucose 100 Hemoglobin A1c % Calcium 9.5 Phosphorus Magnesium Total Bilirubin 0.2 AST 11 L ALT 12 L Alkaline Phosphatase 77 C-Reactive Protein Total Protein 7.5 Albumin 2.2 L Urine Color Ltyellow Urine Appearance Clear Urine pH 5.0 Ur Specific [place] 1.010 Urine Protein 1+ H Urine Glucose (UA) Negative Urine Ketones Negative Urine Blood 2+ H Urine Nitrite Negative Urine Bilirubin Negative Urine Urobilinogen Negative Ur Leukocyte Esterase Negative Urine WBC (Auto) 4 Urine RBC (Auto) 7 Ur Epithelial Cells Rare Hyaline Casts 3 Urine Mucus Rare 11/02/17 11/02/17 11/02/17 06:00 06:00 06:00 WBC 8.1 RBC 3.26 L Hgb 7.8 L Hct 25.2 L MCV 77.4 L MCH 24.0 L MCHC 31.0 L RDW 20.2 H Plt Count 570 H MPV 7.3 L Absolute Neuts (auto) 6.0 Neutrophils % 74.1 Lymphocytes % 14.3 D Monocytes % 5.9 Eosinophils % 4.5 Basophils % 1.2 Nucleated RBC % 0 ESR VBG pH POC VBG pCO2 POC VBG pO2 Mixed VBG HCO3 Sodium 136 Potassium 5.0 Chloride 103 Carbon Dioxide 23 Anion Gap 10 BUN 21 H Creatinine 1.1 Creat Clearance w eGFR > 60 POC Glucometer Random Glucose 153 H Hemoglobin A1c % 8.5 H Calcium 9.0 Phosphorus 3.4 Magnesium 2.0 Total Bilirubin 0.2 AST 6 L ALT 11 L Alkaline Phosphatase 72 C-Reactive Protein 7.3 H Total Protein 6.9 Albumin 2.0 L Urine Color Urine Appearance Urine pH Ur Specific [place] Urine Protein Urine Glucose (UA) Urine Ketones Urine Blood Urine Nitrite Urine Bilirubin Urine Urobilinogen Ur Leukocyte Esterase Urine WBC (Auto) Urine RBC (Auto) Ur Epithelial Cells Hyaline Casts Urine Mucus 11/02/17 11/02/17 11/02/17 06:00 06:00 06:27 WBC RBC Hgb Hct MCV MCH MCHC RDW Plt Count MPV Absolute Neuts (auto) Neutrophils % Lymphocytes % Monocytes % Eosinophils % Basophils % Nucleated RBC % ESR 109 H VBG pH POC VBG pCO2 POC VBG pO2 Mixed VBG HCO3 Sodium Potassium Chloride Carbon Dioxide Anion Gap BUN Creatinine Creat Clearance w eGFR POC Glucometer 177 Random Glucose Hemoglobin A1c % Calcium Phosphorus Magnesium Total Bilirubin AST ALT Alkaline Phosphatase C-Reactive Protein Cancelled Total Protein Albumin Urine Color Urine Appearance Urine pH Ur Specific [place] Urine Protein Urine Glucose (UA) Urine Ketones Urine Blood Urine Nitrite Urine Bilirubin Urine Urobilinogen Ur Leukocyte Esterase Urine WBC (Auto) Urine RBC (Auto) Ur Epithelial Cells Hyaline Casts Urine Mucus 11/02/17 11/02/17 12:18 16:48 WBC RBC Hgb Hct MCV MCH MCHC RDW Plt Count MPV Absolute Neuts (auto) Neutrophils % Lymphocytes % Monocytes % Eosinophils % Basophils % Nucleated RBC % ESR VBG pH POC VBG pCO2 POC VBG pO2 Mixed VBG HCO3 Sodium Potassium Chloride Carbon Dioxide Anion Gap BUN Creatinine Creat Clearance w eGFR POC Glucometer 170 217 Random Glucose Hemoglobin A1c % Calcium Phosphorus Magnesium Total Bilirubin AST ALT Alkaline Phosphatase C-Reactive Protein Total Protein Albumin Urine Color Urine Appearance Urine pH Ur Specific [place] Urine Protein Urine Glucose (UA) Urine Ketones Urine Blood Urine Nitrite Urine Bilirubin Urine Urobilinogen Ur Leukocyte Esterase Urine WBC (Auto) Urine RBC (Auto) Ur Epithelial Cells Hyaline Casts Urine Mucus Microbiology 11/01/17 15:57 Foot - Left Heel Gram Stain - Final ASSESSMENT AND PLAN: 61 yom with reported history of bladder ca with mets to lung/colon s/p colostomy 1 year ago, IDDM, recurrent falls, admitted with Left heel eschar+/- cellulitis -Left heel eschar, r/o cellulitis -Reported bladder ca with mets to lung/colon s/p colostomy 1 year ago -IDDM -Recurrent falls Plan: ID input noted, Aztreonam/clindamcyin. Follow up blood/wound cx. Follow up podiatry input, anticipate debridement. Continue levemir 10 units for now, ISS,diabetic diet. Gentle hydration. Retrive more info from PCP/[facility]. Pain control with oxycodone/tylenol prn. DVTPPX heparin Dispo pending clinical improvement. Will need PT eval/social work consult for dispo planning once improved Plan discussed with patient in detail, all questions answered.
[2017-11-02] MEDS: LACTOBACILLUS ACIDOPHILUS 1 TABLET PO SCH (18:53)
[2017-11-02] MEDS: CLINDAMYCIN 600MG PREMIX IVPB 600 MG/50 ML BAG IVPB SCH (18:53)
[2017-11-02] MEDS: AZTREONAM 1 GM in DEXTROSE 5%-WATER - 50 ML IVPB SCH (20:23)
[2017-11-02] MEDS ORDERED: INSULIN (NOVOLOG) ASPART 100 UNITS/ML 10ML VIAL ONE (21:08)
[2017-11-02] MEDS: INSULIN (LEVEMIR) 100 UNITS/ML UNITS SQ SCH (21:54)
[2017-11-03] MEDS: ACETAMINOPHEN 325 MG TABLET (FP) PO PRN ×4 (01:38→23:17)
[2017-11-03] MEDS: oxyCODONE HCL 5 MG TABLET PO PRN ×4 (01:38→23:16)
[2017-11-03] MEDS: CLINDAMYCIN 600MG PREMIX IVPB 600 MG/50 ML BAG IVPB SCH ×3 (01:42→17:20)
[2017-11-03] MEDS: AZTREONAM 1 GM in DEXTROSE 5%-WATER - 50 ML IVPB SCH ×3 (03:03→17:20)
[2017-11-03] MEDS: SODIUM CHLORIDE 1,000 ML IV SCH ×4 (03:06→23:12)
--- NOTE | 2017-11-03 05:48 | PN ---
Progress Note (short form) - Note Progress Note: VAscular surgery Pt seen and examined. pt has extensive medical hisotory with bladder cancer, lung cancer. Pt with 2 month history of left heel ulcer. PE Left heel with eschar, with odor. Pt does not have any palpable pulses. Pt has smoked 2-3 PPD for many years. Will need imaging to look at runoff prior to any intervention on the heel Will order CTA to look at runoff. Creatinine is normal. Santyl to left heel daily Abel Barbour DO
[2017-11-03] MEDS: INSULIN SLIDING SCALE (NOVOLOG) 1 VIAL SQ SCH ×4 (06:36→23:13)
--- NOTE | 2017-11-03 07:29 | CONSULT ---
Consult - text type - Consultation Consultation Note: Podiatry Consultation: 61 year old DM M, history of bladder CA with mets, former heavy smoker, presents with 2 month history of non-healing pressure ulcer. Patient notes increased odor to the left heel. Denies F/V/N/C/SOB/CP. Afebrile. PMHx: bladder CA with mets, DM, HTN, HLP Meds: noted ALL: PCN DIOGO: L foot: DP 1/4, PT non-palpable, TG warm-warm. Medial heel pressure ulcer unstageable with eschar and underlying bogginess, periwound erythema present, malodor present, no purulent drainage, no fluctuance, no streaking cellulitis, no soft tissue crepitus, no pain to palpation. WBC: 8.1 ESR: 109 Wound Cx: pending L foot/ankle XR: no gross destruction or evidence of ST air Imp: 61 year old poorly controlled DM M with L heel unstageable pressure ulcer 1. IV abx 2. Vascular workup in progress 3. Local wound care 4. Recommend advanced imaging with triphase bone scan to evaluate for OM 5. Will need debridement, +/- bone biopsy once cleared from vascular standpoint 6. Heel offloading measures. 7. Will be on standby, thank you for the courtesy of this consultation Scott An DPM
[2017-11-03 08:10] LABS: ALBUMIN 1.9 g/dl (3.4-5.0); ALK PHOS 87 U/L (45-117); ANION GAP 8 MMOL/L (8-16); BILIRUBIN,TOTAL 0.1 mg/dL (0.2-1); BLOOD UREA NITROGEN 25 mg/dL (7-18); CALCIUM 8.2 mg/dL (8.5-10.1); CHLORIDE 105 mmol/L (98-107); CO2 23 mmol/L (21-32); CREATININE 1.3 mg/dL (0.55-1.3); GLUCOSE,RANDOM 164 mg/dL (74-106); MAGNESIUM 2.1 mg/dL (1.8-2.4); PHOSPHOROUS 3.7 mg/dL (2.5-4.9); POTASSIUM 5.1 mmol/L (3.5-5.1); SGOT/AST 13 U/L (15-37); SGPT/ALT 10 U/L (13-61); SODIUM 136 mmol/L (136-145); TOT PROT 6.8 g/dl (6.4-8.2)
[2017-11-03 08:14] LABS: BASO % 0.9 % (0-2.0); EOS % 3.6 % (0-4.5); HEMATOCRIT 23.2 % (35.4-49); HEMOGLOBIN 7.4 GM/dL (11.7-16.9); LYMPH % 22.5 % (8-40); MCH 24.9 pg (25.7-33.7); MCHC 31.9 g/dl (32.0-35.9); MEAN CELL VOLUME 78.1 fl (80-96); MEAN PLT VOLUME 7.4 fl (7.5-11.1); MONO % 5.6 % (3.8-10.2); NEUT % 67.4 % (42.8-82.8); PLATELET COUNT 560 K/MM3 (134-434); RBC 2.97 M/mm3 (4.00-5.60); RDW 20.1 % (11.9-15.9); WHITE BLOOD COUNT 8.6 K/mm3 (4.0-10.0)
--- NOTE | 2017-11-03 08:35 | PN ---
Physical Exam: SUBJECTIVE: Patient seen and examined at bedside. Complains of pain in his LLE. Complains of being cold. Denies any other associated symptoms. Denies chest pain , SOB, nausea, vomiting, diarrhea, fevers, chills. OBJECTIVE: Vital Signs Period Temp Pulse Resp BP Sys/Kevin Pulse Ox Last 24 Hr 97.8 F-98.9 F 85-98 18-20 98-124/50-66 96-96 GENERAL: A&Ox3, no acute distress EYES: PERRLA, EOMI ENT: Moist mucus membranes NECK: No JVD LUNGS: CTA, no wheezes HEART: RRR, no murmurs ABDOMEN: Soft, nontender, BS present MUSCULOSKELETAL: No CVA Tenderness EXTREMITIES: LLE has large, unstagable ulcer >4cm on heel with black eschar, pulses palpable NEUROLOGICAL: Cranial nerves II-XII intact. Laboratory Results - last 24 hr 11/02/17 11/02/17 11/02/17 06:00 12:18 16:48 WBC RBC Hgb Hct MCV MCH MCHC RDW Plt Count MPV Absolute Neuts (auto) Neutrophils % Lymphocytes % Monocytes % Eosinophils % Basophils % Nucleated RBC % ESR 109 H POC Glucometer 170 217 11/02/17 11/03/17 11/03/17 21:52 06:30 06:33 WBC 8.6 RBC 2.97 L Hgb 7.4 L Hct 23.2 L MCV 78.1 L MCH 24.9 L MCHC 31.9 L RDW 20.1 H Plt Count 560 H MPV 7.4 L Absolute Neuts (auto) 5.8 Neutrophils % 67.4 Lymphocytes % 22.5 D Monocytes % 5.6 Eosinophils % 3.6 Basophils % 0.9 Nucleated RBC % 0 ESR POC Glucometer 228 199 Active Medications Generic Name Dose Route Start Last Admin Trade Name Freq PRN Reason Stop Dose Admin Acetaminophen 650 mg 11/01/17 23:56 11/03/17 08:08 Tylenol - PO 650 mg Q6H PRN Administration PAIN LEVEL 1 - 3 Collagenase 1 applic 11/03/17 10:00 Santyl - TP DAILY STEPHANIE Protocol Enoxaparin Sodium 40 mg 11/02/17 10:00 11/02/17 10:44 Lovenox - SQ 40 mg DAILY STEPHANIE Administration Sodium Chloride 1,000 mls @ 75 mls/hr 11/02/17 03:00 11/03/17 08:09 Normal Saline - IV 75 mls/hr ASDIR STEPHANIE Administration Aztreonam 1 gm/ Dextrose 50 mls @ 100 mls/hr 11/02/17 18:45 11/03/17 03:03 IVPB 100 mls/hr Q8H-IV STEPHANIE Administration Protocol Clindamycin Phosphate 600 mg in 50 mls @ 100 mls/hr 11/02/17 18:45 11/03/17 01:42 Cleocin 600 Mg Premix Ivpb - IVPB 100 mls/hr Q8H-IV STEPHANIE Administration Protocol Insulin Aspart 1 vial 11/02/17 07:00 11/03/17 06:36 Novolog Vial Sliding Scale - SQ 2 unit ACHS STEPHANIE Administration Protocol Insulin Detemir 10 units 11/02/17 22:00 11/02/17 21:54 Levemir Vial SQ 10 unit HS STEPHANIE Administration Lactobacillus Acidophilus 1 tab 11/02/17 18:45 11/02/17 18:53 Bacid - PO 1 tab DAILY STEPHANIE Administration Oxycodone HCl 5 mg 11/02/17 17:03 11/03/17 08:08 Roxicodone - PO 5 mg Q6H PRN Administration PAIN LEVEL 7 - 10 ASSESSMENT/PLAN: Patient is a 61 year old male with past medical history of DM, hx of bladder cancer with primary mets to lung and colon (currently with colostomy bag placed 1 year ago) admitted for nonhealing diabetic left heel wound. #Nonhealing diabetic wound, left heel: currently in process of r/o osteomyelitis -L foot xray - no evidence of focal bone destruction or soft tissue air. -Podiatry recommends debridement and bone biopsy -continue aztreonam/clindamycin, probiotics -Oxycodone 5mg q6h PRN for pain. -CRP 7.3 -ID (Dr. Romero) consulted. Recommendations appreciated. -vascular Dr. Barbour following, ordered CTA w/ runoff to evaluate vasculature -Daily wound care. -blood culture negative q4 days, wound culture pending -Podiatry (Dr. An) consulted. #Sacral decubitus ulcer: stable and unchanged -Proper wound care -Tylenol 650 mg PO Q6H for pain and Oxycodone 5mg q6h PRN for pain 7-10 -Turn and position Q2H #Bladder cancer w/ metastasis to lung and colon: s/p colostomy 1 year ago. -Due for removal 6 months ago but patient does not want to go back to Surgeon to have it removed. -Refused to go back [facility] to continue treatment and is seeking new care. -Oncology (Dr. Fried) consulted. Recommendations appreciated. -Would consider CT of chest, abdomen, pelvis to assess current state of metastatic burden -Bone scan in view of back pains. -Currently attention to be directed toward left heel ulcer and therapy. -Diabetic control. #Sinus arrhythmia: found on EKG, no prior EKG for comparison. -Echocardiogram - LV size, thickness, and function normal; LV EF normal; RV normal in size and function; Mild TR; RV systolic pressure is elevated at 30- 40mmHg; E/A reveral consistent with but not diagnostic of poor LV complaince. Trace MR. -Electrolytes wnl #Diabetes: -HbA1c - 8.5 -Levemir 10U SQ HS -ISS -BGM ACHS #Severely malnourished: significant weight loss likely 2/2 to CA -dietitian consult #FEN -IV NS @ 75ml/hr -electrolytes wnl, routine bmp monitoring -Diabetic diet #Prophylaxis -Lovenox 40 mg SQ QD #Disposition -monitor on med surg -needs advanced directives, otherwise consider palliative care consult Visit type - Emergency Visit Emergency Visit: No - New Patient This patient is new to me today: No - Critical Care Critical Care patient: No
--- NOTE | 2017-11-03 11:26 | PN ---
Teaching Attending Note Name of Resident: Cyril Evans ATTENDING PHYSICIAN STATEMENT I saw and evaluated the patient. I reviewed the resident's note and discussed the case with the resident. I agree with the resident's findings and plan as documented with exceptions below. SUBJECTIVE: Patient seen and examined. no new complaints. generalized bodyaches. OBJECTIVE: Vital Signs Period Temp Pulse Resp BP Sys/Kevin Pulse Ox Last 24 Hr 97.8 F-98.9 F 85-98 18-18 98-124/50-66 96 Intake & Output 10/31/17 11/01/17 11/02/17 11/03/17 23:59 23:59 23:59 23:59 Intake Total 100 1325 150 Output Total 400 1400 100 Balance -300 -75 50 Weight 127 lb 1.6 oz 127 lb General: lying in bed in no acute distress Extermities: Palpable DP warm. Medial heel pressure ulcer unstageable with eschar and underlying bogginess, periwound erythema present, malodor present, no purulent drainage, no fluctuance, no streaking cellulitis, no soft tissue crepitus, no pain to palpation. Abdomen:soft, nT, positive colostomy Active Medications Acetaminophen (Tylenol -) 650 mg PO Q6H PRN PRN Reason: PAIN LEVEL 1 - 3 Last Admin: 11/03/17 08:08 Dose: 650 mg Collagenase (Santyl -) 1 applic TP DAILY [facility]; Protocol Enoxaparin Sodium (Lovenox -) 40 mg SQ DAILY STEPHANIE Last Admin: 11/02/17 10:44 Dose: 40 mg Aztreonam 1 gm/ Dextrose 50 mls @ 100 mls/hr IVPB Q8H-IV STEPHANIE; Protocol Last Admin: 11/03/17 03:03 Dose: 100 mls/hr Clindamycin Phosphate (Cleocin 600 Mg Premix Ivpb -) 600 mg in 50 mls @ 100 mls /hr IVPB Q8H-IV STEPHANIE; Protocol Last Admin: 11/03/17 01:42 Dose: 100 mls/hr Sodium Chloride (Normal Saline -) 1,000 mls @ 100 mls/hr IV ASDIR STEPHANIE Insulin Aspart (Novolog Vial Sliding Scale -) 1 vial SQ ACHS [facility]; Protocol Last Admin: 11/03/17 06:36 Dose: 2 unit Insulin Detemir (Levemir Vial) 10 units SQ HS [facility] Last Admin: 11/02/17 21:54 Dose: 10 unit Lactobacillus Acidophilus (Bacid -) 1 tab PO DAILY STEPHANIE Last Admin: 11/02/17 18:53 Dose: 1 tab Oxycodone HCl (Roxicodone -) 5 mg PO Q6H PRN PRN Reason: PAIN LEVEL 7 - 10 Last Admin: 11/03/17 08:08 Dose: 5 mg Sodium Polystyrene Sulfonate (Kayexalate -) 15 gm PO ONCE ONE Stop: 11/03/17 11:24 Laboratory Results - last 24 hr 11/02/17 11/02/17 11/02/17 12:18 16:48 21:52 WBC RBC Hgb Hct MCV MCH MCHC RDW Plt Count MPV Absolute Neuts (auto) Neutrophils % Lymphocytes % Monocytes % Eosinophils % Basophils % Nucleated RBC % Sodium Potassium Chloride Carbon Dioxide Anion Gap BUN Creatinine Creat Clearance w eGFR POC Glucometer 170 217 228 Random Glucose Calcium Phosphorus Magnesium Total Bilirubin AST ALT Alkaline Phosphatase Total Protein Albumin 11/03/17 11/03/17 11/03/17 06:30 06:33 08:57 WBC 8.6 RBC 2.97 L Hgb 7.4 L Hct 23.2 L MCV 78.1 L MCH 24.9 L MCHC 31.9 L RDW 20.1 H Plt Count 560 H MPV 7.4 L Absolute Neuts (auto) 5.8 Neutrophils % 67.4 Lymphocytes % 22.5 D Monocytes % 5.6 Eosinophils % 3.6 Basophils % 0.9 Nucleated RBC % 0 Sodium 136 Potassium 5.1 Chloride 105 Carbon Dioxide 23 Anion Gap 8 BUN 25 H Creatinine 1.3 Creat Clearance w eGFR 55.94 POC Glucometer 199 Random Glucose 164 H Calcium 8.2 L Phosphorus 3.7 Magnesium 2.1 Total Bilirubin 0.1 L AST 13 L ALT 10 L Alkaline Phosphatase 87 Total Protein 6.8 Albumin 1.9 L Microbiology 11/01/17 15:57 Foot - Left Heel Gram Stain - Final 11/01/17 15:57 Foot - Left Heel Wound Culture - Preliminary Proteus Species Pending Organism Pending Organism#2 Lactose Fermenting Neg Bacilli Pending Organism#3 11/01/17 17:41 Urine - Urine Clean Catch Urine Culture - Final Contaminated: Please Repeat 11/01/17 15:45 Blood - Peripheral Venous Blood Culture - Preliminary NO GROWTH OBTAINED AFTER 24 HOURS, INCUBATION TO CONTINUE FOR 4 DAYS. 11/01/17 16:40 Blood - Peripheral Venous Blood Culture - Preliminary NO GROWTH OBTAINED AFTER 24 HOURS, INCUBATION TO CONTINUE FOR 4 DAYS. ASSESSMENT AND PLAN: 61 yom with reported history of bladder ca with mets to lung/colon s/p colostomy 1 year ago, IDDM, recurrent falls, admitted with Left heel eschar+/- cellulitis -Left heel eschar, r/o cellulitis -Reported bladder ca with mets to lung/colon s/p colostomy 1 year ago -IDDM -Recurrent falls -Hyperkalemia, resolved Plan: ID input noted, Aztreonam/clindamcyin day 1. Follow up blood/wound cx. Podiatry/vascular input noted. CTA LE. Continue levemir 10 units for now, ISS,diabetic diet. Gentle hydration. Kayexalate x 1, low K diet. Retrive more info from PCP/[facility]. Oncology input noted. Pain control with oxycodone/tylenol prn. DVTPPX heparin Dispo pending clinical improvement. Will need PT eval/social work consult for dispo planning once improved Plan discussed with patient in detail, all questions answered.
[2017-11-03] MEDS: COLLAGENASE CLOSTRIDIUM HIST. 30 GRAMS TUBE TP SCH (11:27)
[2017-11-03] MEDS: LACTOBACILLUS ACIDOPHILUS 1 TABLET PO SCH (11:27)
[2017-11-03] MEDS: ENOXAPARIN NA (PORCINE) 40 MG/0.4 ML DISP.SYRIN SQ SCH (11:27)
[2017-11-03] MEDS ORDERED: SODIUM POLYSTYRENE SULFONATE 15 GM/60 ML BOTTLE PO ONE (11:30)
[2017-11-03] MEDS ORDERED: PT OWN MED DRAWER 7, Y5N ONE (17:00)
[2017-11-03] MEDS: INSULIN (LEVEMIR) 100 UNITS/ML UNITS SQ SCH (23:12)
[2017-11-04] MEDS: CLINDAMYCIN 600MG PREMIX IVPB 600 MG/50 ML BAG IVPB SCH ×3 (01:00→17:15)
[2017-11-04] MEDS ORDERED: PT OWN MED DRAWER 7, Y5N ONE (01:45)
[2017-11-04] MEDS: AZTREONAM 1 GM in DEXTROSE 5%-WATER - 50 ML IVPB SCH ×3 (01:45→17:14)
[2017-11-04] MEDS: oxyCODONE HCL 5 MG TABLET PO PRN ×3 (05:58→23:09)
[2017-11-04] MEDS: INSULIN SLIDING SCALE (NOVOLOG) 1 VIAL SQ SCH ×4 (05:59→23:08)
[2017-11-04] MEDS: ACETAMINOPHEN 325 MG TABLET (FP) PO PRN ×2 (06:02→13:57)
[2017-11-04] MEDS: COLLAGENASE CLOSTRIDIUM HIST. 30 GRAMS TUBE TP SCH (09:17)
[2017-11-04] MEDS: ENOXAPARIN NA (PORCINE) 40 MG/0.4 ML DISP.SYRIN SQ SCH (09:17)
[2017-11-04] MEDS: LACTOBACILLUS ACIDOPHILUS 1 TABLET PO SCH (09:17)
[2017-11-04] MEDS: SODIUM CHLORIDE 1,000 ML IV SCH ×2 (09:18→13:36)
--- NOTE | 2017-11-04 11:47 | PN ---
Progress Note, Physician History of Present Illness: Awake, alert No complaints offerred BC + GPCCL Afebrile WBC WNL - Current Medication List Current Medications: Active Medications Acetaminophen (Tylenol -) 650 mg PO Q6H PRN PRN Reason: PAIN LEVEL 1 - 3 Last Admin: 11/04/17 06:02 Dose: 650 mg Collagenase (Santyl -) 1 applic TP DAILY STEPHANIE; Protocol Last Admin: 11/04/17 09:17 Dose: 1 applic Enoxaparin Sodium (Lovenox -) 40 mg SQ DAILY STEPHANIE Last Admin: 11/04/17 09:17 Dose: 40 mg Aztreonam 1 gm/ Dextrose 50 mls @ 100 mls/hr IVPB Q8H-IV STEPHANIE; Protocol Last Admin: 11/04/17 09:17 Dose: 100 mls/hr Clindamycin Phosphate (Cleocin 600 Mg Premix Ivpb -) 600 mg in 50 mls @ 100 mls /hr IVPB Q8H-IV STEPHANIE; Protocol Last Admin: 11/04/17 09:17 Dose: 100 mls/hr Sodium Chloride (Normal Saline -) 1,000 mls @ 100 mls/hr IV ASDIR STEPHANIE Last Admin: 11/04/17 09:18 Dose: 100 mls/hr Insulin Aspart (Novolog Vial Sliding Scale -) 1 vial SQ ACHS [facility]; Protocol Last Admin: 11/04/17 11:21 Dose: 2 unit Insulin Detemir (Levemir Vial) 10 units SQ HS STEPHANIE Last Admin: 11/03/17 23:12 Dose: 10 unit Lactobacillus Acidophilus (Bacid -) 1 tab PO DAILY STEPHANIE Last Admin: 11/04/17 09:17 Dose: 1 tab Oxycodone HCl (Roxicodone -) 5 mg PO Q4H PRN PRN Reason: PAIN LEVEL 7 - 10 Last Admin: 11/04/17 05:58 Dose: 5 mg - Objective Vital Signs: Vital Signs Temperature 98.2 F 11/04/17 10:00 Pulse Rate 86 11/04/17 10:00 Respiratory Rate 18 11/04/17 10:00 Blood Pressure 128/63 11/04/17 10:00 O2 Sat by Pulse Oximetry (%) 99 11/04/17 09:00 Constitutional: Yes: Thin Cardiovascular: Yes: Regular Rate and Rhythm, S1, S2 Respiratory: Yes: CTA Bilaterally Gastrointestinal: Yes: Normal Bowel Sounds, Soft, Other (+ colostomy) Extremities: Yes: Other (+ L heel ulcer with foul odor) Labs: CBC, BMP 11/03/17 06:30 11/03/17 08:57 INR, PTT INR 1.15 (0.83-1.09) H 11/01/17 16:30 Assessment/Plan + BC ? significance Infected L heel ulcer Metastatic bladder ca PCN allergy Repeat BC obtained Continue clindamycin/ aztreonam Vancomycin x 1dose
[2017-11-04] MEDS ORDERED: VANCOMYCIN 1 GM PREMIX - 1 GM/200 ML BAG IVPB ONE (12:30)
[2017-11-04 12:54] LABS: ANION GAP 8 MMOL/L (8-16); BASO % 0.8 % (0-2.0); BLOOD UREA NITROGEN 28 mg/dL (7-18); CALCIUM 8.2 mg/dL (8.5-10.1); CHLORIDE 106 mmol/L (98-107); CO2 23 mmol/L (21-32); CREATININE 1.2 mg/dL (0.55-1.3); EOS % 3.7 % (0-4.5); GLUCOSE,RANDOM 172 mg/dL (74-106); HEMATOCRIT 21.3 % (35.4-49); LYMPH % 16.7 % (8-40); MCH 24.1 pg (25.7-33.7); MCHC 30.8 g/dl (32.0-35.9); MEAN CELL VOLUME 78.2 fl (80-96); MEAN PLT VOLUME 7.3 fl (7.5-11.1); MONO % 6.6 % (3.8-10.2); NEUT % 72.2 % (42.8-82.8); PLATELET COUNT 455 K/MM3 (134-434); POTASSIUM 4.7 mmol/L (3.5-5.1); RBC 2.72 M/mm3 (4.00-5.60); RDW 20.8 % (11.9-15.9); SODIUM 138 mmol/L (136-145); WHITE BLOOD COUNT 7.9 K/mm3 (4.0-10.0)
[2017-11-04 13:02] LABS: HEMOGLOBIN 6.6 GM/dL (11.7-16.9)
[2017-11-04 13:13] LABS: ANISOCYTOSIS 2+; PLATELET ESTIMATE INCREASED; TARGET CELLS 1+
--- NOTE | 2017-11-04 18:00 | PN ---
Physical Exam: SUBJECTIVE: Patient seen and examined, generalized pain, no new complaints. OBJECTIVE: Vital Signs Period Temp Pulse Resp BP Sys/Kevin Pulse Ox Last 24 Hr 97.9 F-98.4 F 86-99 18-18 100-134/55-84 96-99 General: lying in bed in no acute distress Extremities: Palpable DP warm. Medial heel pressure ulcer unstageable with eschar and underlying bogginess, periwound erythema present, malodor present, no purulent drainage, no fluctuance, no streaking cellulitis, no soft tissue crepitus, no pain to palpation. Abdomen:soft, non tender, positive colostomy Chest: decreased effort, no rales or wheezing CVS:S1S2 regular Laboratory Results - last 24 hr 11/03/17 11/04/17 11/04/17 21:18 05:57 11:20 WBC RBC Hgb Hct MCV MCH MCHC RDW Plt Count MPV Absolute Neuts (auto) Neutrophils % Lymphocytes % Monocytes % Eosinophils % Basophils % Nucleated RBC % Hypochromia Platelet Estimate Platelet Comment Basophilic Stippling Anisocytosis Microcytosis Target Cells Sodium Potassium Chloride Carbon Dioxide Anion Gap BUN Creatinine Creat Clearance w eGFR POC Glucometer 206 150 182 Random Glucose Calcium Blood Type Antibody Screen Crossmatch 11/04/17 11/04/17 11/04/17 11:50 11:50 13:46 WBC 7.9 RBC 2.72 L Hgb 6.6 L* Hct 21.3 L MCV 78.2 L MCH 24.1 L MCHC 30.8 L RDW 20.8 H Plt Count 455 H MPV 7.3 L Absolute Neuts (auto) 5.7 Neutrophils % 72.2 Lymphocytes % 16.7 D Monocytes % 6.6 Eosinophils % 3.7 Basophils % 0.8 Nucleated RBC % 0 Hypochromia 2+ Platelet Estimate Increased Platelet Comment No clumping noted Basophilic Stippling 1+ Anisocytosis 2+ Microcytosis 1+ Target Cells 1+ Sodium 138 Potassium 4.7 Chloride 106 Carbon Dioxide 23 Anion Gap 8 BUN 28 H Creatinine 1.2 Creat Clearance w eGFR > 60 POC Glucometer Random Glucose 172 H Calcium 8.2 L Blood Type O POSITIVE Antibody Screen Negative Crossmatch See Detail 11/04/17 11/04/17 15:45 16:30 WBC RBC Hgb Hct MCV MCH MCHC RDW Plt Count MPV Absolute Neuts (auto) Neutrophils % Lymphocytes % Monocytes % Eosinophils % Basophils % Nucleated RBC % Hypochromia Platelet Estimate Platelet Comment Basophilic Stippling Anisocytosis Microcytosis Target Cells Sodium Potassium Chloride Carbon Dioxide Anion Gap BUN Creatinine Creat Clearance w eGFR POC Glucometer 222 Random Glucose Calcium Blood Type O POSITIVE Antibody Screen Crossmatch Active Medications Generic Name Dose Route Start Last Admin Trade Name Vicq PRN Reason Stop Dose Admin Acetaminophen 650 mg 11/01/17 23:56 11/04/17 13:57 Tylenol - PO 650 mg Q6H PRN Administration PAIN LEVEL 1 - 3 Collagenase 1 applic 11/03/17 10:00 11/04/17 09:17 Santyl - TP 1 applic DAILY STEPHANIE Administration Protocol Enoxaparin Sodium 40 mg 11/02/17 10:00 11/04/17 09:17 Lovenox - SQ 40 mg DAILY STEPHANIE Administration Aztreonam 1 gm/ Dextrose 50 mls @ 100 mls/hr 11/02/17 18:45 11/04/17 17:14 IVPB 100 mls/hr Q8H-IV STEPHANIE Administration Protocol Clindamycin Phosphate 600 mg in 50 mls @ 100 mls/hr 11/02/17 18:45 11/04/17 17:15 Cleocin 600 Mg Premix Ivpb - IVPB 100 mls/hr Q8H-IV STEPHANIE Administration Protocol Sodium Chloride 1,000 mls @ 100 mls/hr 11/03/17 11:24 11/04/17 13:36 Normal Saline - IV Not Given ASDIR STEPHANIE Insulin Aspart 1 vial 11/02/17 07:00 11/04/17 16:31 Novolog Vial Sliding Scale - SQ 4 unit ACHS STEPHANIE Administration Protocol Insulin Detemir 10 units 11/02/17 22:00 11/03/17 23:12 Levemir Vial SQ 10 unit HS STEPHANIE Administration Lactobacillus Acidophilus 1 tab 11/02/17 18:45 11/04/17 09:17 Bacid - PO 1 tab DAILY STEPHANIE Administration Oxycodone HCl 5 mg 11/03/17 19:37 11/04/17 13:58 Roxicodone - PO 5 mg Q4H PRN Administration PAIN LEVEL 7 - 10 Microbiology 11/01/17 15:57 Foot - Left Heel Gram Stain - Final 11/01/17 15:57 Foot - Left Heel Wound Culture - Preliminary Proteus Mirabilis Staphylococcus Latex Coag Pos Group D Strep Or Entero Coccus Lactose Fermenting Neg Bacilli Lactose Fermenting Neg Bacilli#2 11/01/17 15:45 Blood - Peripheral Venous Blood Culture - Preliminary Pending Organism 11/01/17 16:40 Blood - Peripheral Venous Blood Culture - Preliminary NO GROWTH OBTAINED AFTER 48 HOURS, INCUBATION TO CONTINUE FOR 3 DAYS. 11/01/17 17:41 Urine - Urine Clean Catch Urine Culture - Final Contaminated: Please Repeat ASSESSMENT/PLAN: 61 yom with reported history of bladder ca with mets to lung/colon s/p colostomy 1 year ago, IDDM, recurrent falls, admitted with Left heel eschar+/- cellulitis -Left heel eschar, r/o cellulitis -GPC bacteremia -Acute on chronic anemia -Reported bladder ca with mets to lung/colon s/p colostomy 1 year ago -IDDM -Recurrent falls -Hyperkalemia, resolved Plan: Blood cx noted, discussed with DR. Mobley, staci IV x 1. Aztreonam/clindamcyin day 2. Follow up wound Cx. Podiatry/vascular input noted. f/u LE CTA Transfuse 1 unit PRBC, monitor h/h. Check FOBT. Heme/onc input noted. Continue levemir 10 units for now, ISS,diabetic diet. Gentle hydration. low k diet. Retrive more info from PCP/[facility]. Oncology input noted. Pain control with oxycodone/tylenol prn. DVTPPX heparin Dispo pending clinical improvement. Will need PT eval/social work consult for dispo planning once improved Plan discussed with patient and nursing in detail, all questions answered. Visit type - Emergency Visit Emergency Visit: Yes ED Registration Date: 11/01/17 Care time: The patient presented to the Emergency Department on the above date and was hospitalized for further evaluation of their emergent condition. - New Patient This patient is new to me today: No - Critical Care Critical Care patient: No - Discharge Referral Referred to [facility] Med P.C.: No
[2017-11-04] MEDS: INSULIN (LEVEMIR) 100 UNITS/ML UNITS SQ SCH (23:08)
[2017-11-05] MEDS ORDERED: PT OWN MED DRAWER 7, Y5N ONE ×2 (02:27→08:51)
[2017-11-05] MEDS: AZTREONAM 1 GM in DEXTROSE 5%-WATER - 50 ML IVPB SCH ×3 (02:32→17:07)
[2017-11-05] MEDS: CLINDAMYCIN 600MG PREMIX IVPB 600 MG/50 ML BAG IVPB SCH ×2 (02:32→09:09)
[2017-11-05] MEDS: oxyCODONE HCL 5 MG TABLET PO PRN ×4 (02:54→21:39)
[2017-11-05] MEDS: INSULIN SLIDING SCALE (NOVOLOG) 1 VIAL SQ SCH ×4 (06:13→21:40)
[2017-11-05 06:49] LABS: BASO % 0.7 % (0-2.0); EOS % 3.2 % (0-4.5); HEMOGLOBIN 8.1 GM/dL (11.7-16.9); LYMPH % 16.9 % (8-40); MCH 25.3 pg (25.7-33.7); MCHC 32.3 g/dl (32.0-35.9); MEAN CELL VOLUME 78.3 fl (80-96); MEAN PLT VOLUME 7.1 fl (7.5-11.1); MONO % 6.1 % (3.8-10.2); NEUT % 73.1 % (42.8-82.8); PLATELET COUNT 454 K/MM3 (134-434); RDW 18.9 % (11.9-15.9); WHITE BLOOD COUNT 9.3 K/mm3 (4.0-10.0)
[2017-11-05 07:21] LABS: ANION GAP 11 MMOL/L (8-16); BLOOD UREA NITROGEN 29 mg/dL (7-18); CALCIUM 8.2 mg/dL (8.5-10.1); CHLORIDE 106 mmol/L (98-107); CO2 19 mmol/L (21-32); CREATININE 1.1 mg/dL (0.55-1.3); GLUCOSE,RANDOM 143 mg/dL (74-106); MAGNESIUM 1.9 mg/dL (1.8-2.4); PHOSPHOROUS 3.4 mg/dL (2.5-4.9); POTASSIUM 4.8 mmol/L (3.5-5.1); SODIUM 136 mmol/L (136-145)
--- NOTE | 2017-11-05 08:52 | PN ---
Progress Note (short form) - Note Progress Note: Vascular surgery CTA reviewed. Awaiting CTA official read from radiology Can then formulate plan Awaiting podiatry input Abel Barbour DO
[2017-11-05] MEDS: ENOXAPARIN NA (PORCINE) 40 MG/0.4 ML DISP.SYRIN SQ SCH (09:09)
[2017-11-05] MEDS: LACTOBACILLUS ACIDOPHILUS 1 TABLET PO SCH (09:09)
[2017-11-05] MEDS: SODIUM CHLORIDE 1,000 ML IV SCH ×3 (09:10→23:05)
[2017-11-05] MEDS: COLLAGENASE CLOSTRIDIUM HIST. 30 GRAMS TUBE TP SCH (09:26)
--- NOTE | 2017-11-05 13:57 | PN ---
Progress Note (short form) - Note Progress Note: awake alert awaiting vascular and podiatry workup malodorous eschar on the heel unchanged loose stools Vital Signs Period Temp Pulse Resp BP Sys/Kevin Pulse Ox Last 24 Hr 98.2 F-98.9 F 84-101 99-139/51-76 96 cor-rrr lungs clear abd soft,nt +colostomy foor bandaged (just done by surgery) CBC, BMP 11/05/17 06:00 11/05/17 06:00 Microbiology 11/05/17 03:07 Stool Clostridium difficile Antigen (JASVIR) - Final 11/05/17 03:07 Stool Clostridium difficile Toxin Assay - Final 11/01/17 15:57 Foot - Left Heel Gram Stain - Final 11/01/17 15:57 Foot - Left Heel Wound Culture - Preliminary Proteus Mirabilis Staphylococcus Aureus Enterococcus Faecalis Klebsiella Pneumoniae Escherichia Coli 11/04/17 09:10 Blood - Peripheral Venous Blood Culture - Preliminary NO GROWTH OBTAINED AFTER 24 HOURS, INCUBATION TO CONTINUE FOR 4 DAYS. 11/04/17 08:15 Blood - Peripheral Venous Blood Culture - Preliminary NO GROWTH OBTAINED AFTER 24 HOURS, INCUBATION TO CONTINUE FOR 4 DAYS. 11/01/17 16:40 Blood - Peripheral Venous Blood Culture - Preliminary NO GROWTH OBTAINED AFTER 72 HOURS, INCUBATION TO CONTINUE FOR 2 DAYS. 11/01/17 15:45 Blood - Peripheral Venous Blood Culture - Preliminary Pending Organism 11/01/17 17:41 Urine - Urine Clean Catch Urine Culture - Final Contaminated: Please Repeat a/p bacteremia- awaiting further ID of blood culture continue vancomycin infected heel ulcer d/c clindamycin, continue azactam, add flagyl +cdiff antigen- will treat in the setting of diarrhea metastatic bladder cancer Problem List - Problems (1) Ulcer of left heel Code(s): L97.429 - NON-PRS CHRONIC ULCER OF LEFT HEEL AND MIDFOOT W UNSP SEVERT Qualifiers: Non-pressure ulcer stage: unspecified non-pressure ulcer stage Qualified Code(s): L97.429 - Non-pressure chronic ulcer of left heel and midfoot with unspecified severity (2) H/O carcinoma of bladder Code(s): Z85.51 - PERSONAL HISTORY OF MALIGNANT NEOPLASM OF BLADDER (3) Diabetes Code(s): E11.9 - TYPE 2 DIABETES MELLITUS WITHOUT COMPLICATIONS Qualifiers: Diabetes mellitus type: type 1 Diabetes mellitus complication status: with skin complications (4) Anemia Code(s): D64.9 - ANEMIA, UNSPECIFIED Qualifiers: Anemia type: iron deficiency Iron deficiency anemia type: unspecified iron deficiency Qualified Code(s): D50.9 - Iron deficiency anemia, unspecified (5) Penicillin allergy Code(s): Z88.0 - ALLERGY STATUS TO PENICILLIN
--- NOTE | 2017-11-05 14:16 | PN ---
Teaching Attending Note Name of Resident: Hazel Boyle ATTENDING PHYSICIAN STATEMENT I saw and evaluated the patient. I reviewed the resident's note and discussed the case with the resident. I agree with the resident's findings and plan as documented with exceptions below. SUBJECTIVE: Patient seen and examined. Generalized pain but no new complaints. no other complaints. OBJECTIVE: Vital Signs Period Temp Pulse Resp BP Sys/Kevin Pulse Ox Last 24 Hr 98.2 F-98.9 F 84-101 - 99-139/51-76 96 Intake & Output 11/02/17 11/03/17 11/04/17 11/05/17 23:59 23:59 23:59 23:59 Intake Total 1325 1050 2900 240 Output Total 1400 400 400 800 Balance -75 650 2500 -560 Weight 127 lb General: sitting in bed in no acute distress Chest: no rales or wheezing Abdomen: soft, NT throughout, watery brown stool in colostomy bag, positive bowel sounds Extremities: Left heel dressing opened, foul smelling, unchanged eschar with surrounding erythema seems mildly worse, mild tenderness, positive DP pulses Active Medications Acetaminophen (Tylenol -) 650 mg PO Q6H PRN PRN Reason: PAIN LEVEL 1 - 3 Last Admin: 11/04/17 13:57 Dose: 650 mg Collagenase (Santyl -) 1 applic TP DAILY STEPHANIE; Protocol Last Admin: 11/05/17 09:26 Dose: 1 applic Enoxaparin Sodium (Lovenox -) 40 mg SQ DAILY STEPHANIE Last Admin: 11/05/17 09:09 Dose: 40 mg Aztreonam 1 gm/ Dextrose 50 mls @ 100 mls/hr IVPB Q8H-IV STEPHANIE; Protocol Last Admin: 11/05/17 09:09 Dose: 100 mls/hr Sodium Chloride (Normal Saline -) 1,000 mls @ 100 mls/hr IV ASDIR STEPHANIE Last Admin: 11/05/17 12:30 Dose: Not Given Vancomycin HCl 1,000 mg/ (Dextrose) 250 mls @ 166.667 mls/hr IVPB Q12H STEPHANIE; Protocol Metronidazole (Flagyl 500mg Premixed Ivpb -) 500 mg in 100 mls @ 100 mls/hr IVPB Q8H-IV STEPHANIE Insulin Aspart (Novolog Vial Sliding Scale -) 1 vial SQ ACHS STEPHANIE; Protocol Last Admin: 11/05/17 11:04 Dose: 2 unit Insulin Detemir (Levemir Vial) 10 units SQ HS [facility] Last Admin: 11/04/17 23:08 Dose: 10 unit Lactobacillus Acidophilus (Bacid -) 1 tab PO DAILY [facility] Last Admin: 11/05/17 09:09 Dose: 1 tab Oxycodone HCl (Roxicodone -) 5 mg PO Q4H PRN PRN Reason: PAIN LEVEL 7 - 10 Last Admin: 11/05/17 11:00 Dose: 5 mg Vancomycin HCl (Vancomycin Oral Solution) 125 mg PO Q6HPO [facility] Laboratory Results - last 24 hr 11/04/17 11/04/17 11/04/17 13:46 15:45 16:30 WBC RBC Hgb Hct MCV MCH MCHC RDW Plt Count MPV Absolute Neuts (auto) Neutrophils % Lymphocytes % Monocytes % Eosinophils % Basophils % Nucleated RBC % Sodium Potassium Chloride Carbon Dioxide Anion Gap BUN Creatinine Creat Clearance w eGFR POC Glucometer 222 Random Glucose Calcium Phosphorus Magnesium Stool Occult Blood Blood Type O POSITIVE O POSITIVE Antibody Screen Negative Crossmatch See Detail 11/04/17 11/05/17 11/05/17 23:00 03:07 05:37 WBC RBC Hgb Hct MCV MCH MCHC RDW Plt Count MPV Absolute Neuts (auto) Neutrophils % Lymphocytes % Monocytes % Eosinophils % Basophils % Nucleated RBC % Sodium Potassium Chloride Carbon Dioxide Anion Gap BUN Creatinine Creat Clearance w eGFR POC Glucometer 193 183 Random Glucose Calcium Phosphorus Magnesium Stool Occult Blood Positive Blood Type Antibody Screen Crossmatch 11/05/17 11/05/17 11/05/17 06:00 06:00 11:03 WBC 9.3 RBC 3.20 L Hgb 8.1 L Hct 25.0 L D MCV 78.3 L MCH 25.3 L MCHC 32.3 RDW 18.9 H Plt Count 454 H MPV 7.1 L Absolute Neuts (auto) 6.8 Neutrophils % 73.1 Lymphocytes % 16.9 Monocytes % 6.1 Eosinophils % 3.2 Basophils % 0.7 Nucleated RBC % 0 Sodium 136 Potassium 4.8 Chloride 106 Carbon Dioxide 19 L Anion Gap 11 BUN 29 H Creatinine 1.1 Creat Clearance w eGFR > 60 POC Glucometer 168 Random Glucose 143 H Calcium 8.2 L Phosphorus 3.4 Magnesium 1.9 Stool Occult Blood Blood Type Antibody Screen Crossmatch Microbiology 11/05/17 03:07 Stool Clostridium difficile Antigen (JASVIR) - Final 11/05/17 03:07 Stool Clostridium difficile Toxin Assay - Final 11/01/17 15:57 Foot - Left Heel Gram Stain - Final 11/01/17 15:57 Foot - Left Heel Wound Culture - Preliminary Proteus Mirabilis Staphylococcus Aureus Enterococcus Faecalis Klebsiella Pneumoniae Escherichia Coli 11/04/17 09:10 Blood - Peripheral Venous Blood Culture - Preliminary NO GROWTH OBTAINED AFTER 24 HOURS, INCUBATION TO CONTINUE FOR 4 DAYS. 11/04/17 08:15 Blood - Peripheral Venous Blood Culture - Preliminary NO GROWTH OBTAINED AFTER 24 HOURS, INCUBATION TO CONTINUE FOR 4 DAYS. 11/01/17 16:40 Blood - Peripheral Venous Blood Culture - Preliminary NO GROWTH OBTAINED AFTER 72 HOURS, INCUBATION TO CONTINUE FOR 2 DAYS. 11/01/17 15:45 Blood - Peripheral Venous Blood Culture - Preliminary Pending Organism 11/01/17 17:41 Urine - Urine Clean Catch Urine Culture - Final Contaminated: Please Repeat ASSESSMENT AND PLAN: 61 yom with reported history of bladder ca with mets to lung/colon s/p colostomy 1 year ago, IDDM, recurrent falls, admitted with Left heel eschar+/- cellulitis -Left heel eschar, r/o cellulitis -GPC bacteremia -Suspected acute C defficile diarrhea -Acute on chronic anemia -Reported bladder ca with mets to lung/colon s/p colostomy 1 year ago -IDDM -Recurrent falls -Hyperkalemia, resolved Plan: Blood cx noted, ID input noted. Aztreoname day 3, vancomycin day/flagyl 1. CLindamycin d/marilee C defficile ag positive, start PO vanco given watery foul smelling stools, new from admission. FOBT pos, s/p 1 unit PRBC 11/04, appropriate response to PRBC H/o colectomy for suspected Mets to colon. Monitor h/h for now. GI input if gross bleed or h/h continues to drift down. Will need surgery follow up to address colostomy once active infection concerns resolve. Wound cx noted, polymicrobial Podiatry/vascular input noted. Called radiology, follow CTA official read. If neg, anticipate debridement with podiatry. Heme/onc input noted. Continue levemir 10 units for now, ISS,diabetic diet. Gentle hydration. low k diet. Retrive more info from PCP/Einstein. Pain control with oxycodone/tylenol prn. DVTPPX heparin Dispo pending clinical improvement. Will need PT eval/social work consult for dispo planning once improved Plan discussed with patient and nursing in detail, all questions answered.
[2017-11-05] MEDS ORDERED: VANCOMYCIN 1,000 MG in DEXTROSE 5%-WATER - 250 ML IVPB SCH (15:00)
[2017-11-05] MEDS: VANCOMYCIN 250 MG/5 ML ORAL SOLUTION PO SCH (17:06)
--- NOTE | 2017-11-05 20:02 | PN ---
Physical Exam: SUBJECTIVE: Patient seen and examined at bedside this morning. No acute events overnight. Patient has no new complaints. OBJECTIVE: Vital Signs Period Temp Pulse Resp BP Sys/Kevin Pulse Ox Last 24 Hr 98.2 F-99.1 F 84-98 -18 107-139/52-76 96 GENERAL: The patient is awake, alert, and fully oriented, in no acute distress. HEAD: Normal with no signs of trauma. EYES: PERRLA, EOMI, sclera anicteric, conjunctiva clear. ENT: Ears normal, nares patent, oropharynx clear without exudates, dry mucous membranes. LUNGS: Breath sounds equal, clear to auscultation bilaterally, no wheezes, no crackles, no accessory muscle use. HEART: Regular rate and rhythm, S1, S2 without murmur, rub or gallop. ABDOMEN: Soft, nontender, nondistended, normoactive bowel sounds. Colostomy bag in place. UPPER EXTREMITIES: 2+ pulses, warm, well-perfused, no edema. LOWER EXTREMITIES: + foul-smelling necrotic ulcer, heel of left foot, 2+pulses, warm, well-perfused, no edema. NEUROLOGICAL: Cranial nerves II through XII grossly intact. Normal speech, gait not observed. PSYCH: Normal mood, normal affect. SKIN: +stage 2 nonpurulent ulcer at the sacral area Laboratory Results - last 24 hr 11/04/17 11/05/17 11/05/17 23:00 03:07 05:37 WBC RBC Hgb Hct MCV MCH MCHC RDW Plt Count MPV Absolute Neuts (auto) Neutrophils % Lymphocytes % Monocytes % Eosinophils % Basophils % Nucleated RBC % Sodium Potassium Chloride Carbon Dioxide Anion Gap BUN Creatinine Creat Clearance w eGFR POC Glucometer 193 183 Random Glucose Calcium Phosphorus Magnesium Stool Occult Blood Positive 11/05/17 11/05/17 11/05/17 06:00 06:00 11:03 WBC 9.3 RBC 3.20 L Hgb 8.1 L Hct 25.0 L D MCV 78.3 L MCH 25.3 L MCHC 32.3 RDW 18.9 H Plt Count 454 H MPV 7.1 L Absolute Neuts (auto) 6.8 Neutrophils % 73.1 Lymphocytes % 16.9 Monocytes % 6.1 Eosinophils % 3.2 Basophils % 0.7 Nucleated RBC % 0 Sodium 136 Potassium 4.8 Chloride 106 Carbon Dioxide 19 L Anion Gap 11 BUN 29 H Creatinine 1.1 Creat Clearance w eGFR > 60 POC Glucometer 168 Random Glucose 143 H Calcium 8.2 L Phosphorus 3.4 Magnesium 1.9 Stool Occult Blood 11/05/17 16:46 WBC RBC Hgb Hct MCV MCH MCHC RDW Plt Count MPV Absolute Neuts (auto) Neutrophils % Lymphocytes % Monocytes % Eosinophils % Basophils % Nucleated RBC % Sodium Potassium Chloride Carbon Dioxide Anion Gap BUN Creatinine Creat Clearance w eGFR POC Glucometer 213 Random Glucose Calcium Phosphorus Magnesium Stool Occult Blood Active Medications Generic Name Dose Route Start Last Admin Trade Name Freq PRN Reason Stop Dose Admin Acetaminophen 650 mg 11/01/17 23:56 11/04/17 13:57 Tylenol - PO 650 mg Q6H PRN Administration PAIN LEVEL 1 - 3 Collagenase 1 applic 11/03/17 10:00 11/05/17 09:26 Santyl - TP 1 applic DAILY STEPHANIE Administration Protocol Enoxaparin Sodium 40 mg 11/02/17 10:00 11/05/17 09:09 Lovenox - SQ 40 mg DAILY STEPHANIE Administration Aztreonam 1 gm/ Dextrose 50 mls @ 100 mls/hr 11/02/17 18:45 11/05/17 17:07 IVPB 100 mls/hr Q8H-IV STEPHANIE Administration Protocol Sodium Chloride 1,000 mls @ 100 mls/hr 11/03/17 11:24 11/05/17 12:30 Normal Saline - IV Not Given ASDIR STEPHANIE Vancomycin HCl 1,000 mg/ 250 mls @ 166.667 mls/hr 11/05/17 15:00 11/05/17 15: 42 Dextrose IVPB 166.667 mls/hr BID@0300,1500 STEPHANIE Administration Protocol Metronidazole 500 mg in 100 mls @ 100 mls/hr 11/05/17 18:00 11/05/17 17:29 Flagyl 500mg Premixed Ivpb - IVPB 100 mls/hr Q8H-IV STEPHANIE Administration Insulin Aspart 1 vial 11/02/17 07:00 11/05/17 16:45 Novolog Vial Sliding Scale - SQ 4 unit ACHS STEPHANIE Administration Protocol Insulin Detemir 10 units 11/02/17 22:00 11/04/17 23:08 Levemir Vial SQ 10 unit HS STEPHANIE Administration Lactobacillus Acidophilus 1 tab 11/02/17 18:45 11/05/17 09:09 Bacid - PO 1 tab DAILY STEPHANIE Administration Oxycodone HCl 5 mg 11/03/17 19:37 11/05/17 15:07 Roxicodone - PO 5 mg Q4H PRN Administration PAIN LEVEL 7 - 10 Vancomycin HCl 125 mg 11/05/17 18:00 11/05/17 17:06 Vancomycin Oral Solution PO 125 mg Q6HPO STEPHANIE Administration ASSESSMENT/PLAN: Patient is a 61 year old male with past medical history of DM, hx of bladder cancer with primary mets to lung and colon (currently with colostomy bag placed 1 year ago) admitted for nonhealing diabetic left heel wound. #Nonhealing diabetic wound, left heel: r/o osteomyelitis -L foot xray - no evidence of focal bone destruction or soft tissue air. -Oxycodone 5mg q6h PRN for pain. -CRP 7.3 -Wound cx - Proteus mirabilis, staph coagulase positive, enterococcus, lactose fermenting gram negative bacilli -ID (Dr. Romero) consulted. Recommendations appreciated. -Podiatry to evaluate for debridement. -Azactam, Vancomycin, Flagyl -Discontinue clindamycin -Daily wound care. -blood culture pending. -Probiotics. -Podiatry (Dr. An) consulted. Recommendations appreciated. -Vascular (Dr. Barbour) consulted. Recoomedations appreciated. -Aorta with runoff CTA done. #C. difficile infection -Vancomycin 125mg PO q6h started -Isolation precaution #Sacral decubitus ulcer -Proper wound care -Tylenol 650 mg PO Q6H for pain and Oxycodone 5mg q6h PRN for pain 7-10 -Turn and position Q2H #Bladder cancer w/ metastasis to lung and colon: s/p colostomy bag since 1 year ago. -Due for removal 6 months ago but patient does not want to go back to [facility] to have it removed. -Refused to go back [facility] to continue treatment and is seeking new care. -Oncology (Dr. Fried) consulted. Recommendations appreciated. -Would consider CT of chest, abdomen, pelvis to assess current state of bladder cancer. -Bone scan in view of back pains. -Currently attention to be directed toward left heel ulcer and therapy. -Diabetic control. -Urology consulted. -Surgery consulted. #Sinus arrhythmia, found on EKG, no prior EKG for comparison. -Echocardiogram - LV size, thickness, and function normal; LV EF normal; RV normal in size and function; Mild TR; RV systolic pressure is elevated at 30- 40mmHg; E/A reveral consistent with but not diagnostic of poor LV complaince. Trace MR. -Electrolytes wnl #DM -HbA1c - 8.5 -Levemir 10U SQ HS -ISS -BGM ACHS #Severely malnourished: significant weight loss likely 2/2 to CA -dietitian consult #FEN -IV NS @ 75ml/hr -electrolytes wnl, routine bmp monitoring -Diabetic diet #Prophylaxis -Lovenox 40 mg SQ QD #Disposition -admit to tele -needs advanced directives, otherwise consider palliative care consult -needs prior records from [facility] Visit type - Emergency Visit Emergency Visit: Yes ED Registration Date: 11/01/17 Care time: The patient presented to the Emergency Department on the above date and was hospitalized for further evaluation of their emergent condition. - New Patient This patient is new to me today: Yes Date on this admission: 11/06/17 - Critical Care Critical Care patient: No
[2017-11-05] MEDS: INSULIN (LEVEMIR) 100 UNITS/ML UNITS SQ SCH (21:40)
[2017-11-05] MEDS: ACETAMINOPHEN 325 MG TABLET (FP) PO PRN (21:40)
--- NOTE | 2017-11-05 22:59 | CONSULT ---
Consult Consult Specialty:: General Surgery Reason for Consultation:: Possible SBO - History of Present Illness Chief Complaint: foot ulcer/ bladder tumor History of Present Illness: 61 yo male PMH DM, metastatic bladder cancer with mets to lung and colon (end colostomy 1 year ago) presented to the ED with complaints of a non-healing foot wound. Pt states that about 2 months ago, he was recently admitted at [facility] after a fall in his own home. During his hospital stay, he stated that he had fallen again and an IV pole ran into his foot causing his left heel foot wound. He has no abdominal pain, no vomiting or nausea, his colosomy is fucntional with normal production of gas and stool. He reports having a colostomy approximately one year ago at [facility], he was obstructed at the time. He has not had any primary treatment of the bladder cancer. He has refused radiation and chemotherapy in the past, and was a given a 1 survival prognosis more than 5 years ago. He denies fever/chills, n/v, LEO/d. Additionally, since his last hospital admission at [facility], he has had poor appetite with unintentional weight loss. We were asked to assess. 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 Place of : Other History of Recent Travel: No Home Medications - Allergies Allergies/Adverse Reactions: Allergies Allergy/AdvReac Type Severity Reaction Status Date / Time Penicillins Allergy Verified 11/01/17 14:29 - Home Medications Home Medications: Ambulatory Orders Insulin Aspart Prot/Insuln Asp [Novolog Mix 70-30 Flexpen Syrn] 12 unit SQ DAILY 11/01/17 Acetaminophen [Tylenol .Regular Strength -] 325 mg PO PRN PRN 11/02/17 Insulin Glargine,Hum.rec.anlog [Lantus] SQ 11/02/17 Family Disease History - Family Disease History Family Disease History: Other: Mother ( of PUD) Review of Systems - Review of Systems Constitutional: reports: Lethargy, Loss of Appetite, Unintentional Wgt. Loss. denies: Chills, Fever Eyes: denies: Blind Spots, Recent Change in Vision HENT: denies: Difficult Swallowing, Ocular Prosthesis, Throat Pain Neck: denies: Decreased ROM, Pain on Movement Cardiovascular: denies: Chest Pain, Palpitations Respiratory: denies: Cough, SOB Gastrointestinal: reports: Other (end colostomy). denies: Abdominal Pain, Bloating, Constipation, Diarrhea Breasts: denies: No Symptoms Reported, Pain Musculoskeletal: denies: Back Pain, Joint Swelling Integumentary: denies: Lesions, Lump Neurological: denies: Seizure, Syncope Endocrine: denies: Unexplained Weight Gain, Unexplained Weight Loss Hematology/Lymphatic: denies: Easily Bruised, Excessive Bleeding Psychiatric: denies: Anxiety, Depression Physical Exam Vital Signs: Vital Signs Temperature 99.1 F 11/05/17 19:02 Pulse Rate 91 H 11/05/17 19:02 Respiratory Rate 18 11/05/17 19:02 Blood Pressure 133/62 11/05/17 19:02 O2 Sat by Pulse Oximetry (%) 96 11/05/17 09:00 Vital Signs Period Temp Pulse Resp BP Sys/Kevin Pulse Ox Last 24 Hr 97.9 F-99.1 F 84-96 18-20 107-145/53-69 96 Constitutional: Yes: No Distress, Calm, Cachectic, Thin Eyes: Yes: Conjunctiva Clear, EOM Intact HENT: Yes: Atraumatic, Normocephalic Neck: Yes: Supple, Trachea Midline Cardiovascular: Yes: Regular Rate and Rhythm, S1, S2 Respiratory: Yes: Regular, CTA Bilaterally Gastrointestinal: Yes: Normal Bowel Sounds, Soft, Other (RLQ end colostomy, fucntional and viable). No: Distention, Tenderness ...Rectal Exam: Yes: Deferred Renal/: Yes: Bladder Distention, Hematuria. No: CVA Tenderness - Left, CVA Tenderness - Right Extremities: Yes: Other (left heel ulcer). No: Cool, Cyanosis Edema: No Peripheral Pulses WNL: Yes Integumentary: Yes: Pressure Ulcer (Scarum). No: Jaundice, Rash Neurological: Yes: Alert, Oriented Psychiatric: Yes: Alert, Oriented Labs: CBC, BMP 11/05/17 06:00 11/05/17 06:00 Imaging - Results Chest X-ray: Report Reviewed, Image Reviewed Cat Scan: Report Reviewed (large bladder tumor with local and distant mets), Image Reviewed Problem List - Problems (1) H/O carcinoma of bladder Assessment/Plan: 61 yo Male with Large obstructing bladder carcinoma with Right Hydronephrosis, with an associated SBO pattern with out obstructive symptoms clinically. His end colostomy is functional. He is not having emesis passing BM and flatus. No indication for general surgery intervention. he was not willing to consider chemo or radiation therapy in the past or now. Diet as tolerated Urology evaluation Hospice consult - goals of care, comfort care Thank you for the opportunity to participate in the care of this patient. Code(s): Z85.51 - PERSONAL HISTORY OF MALIGNANT NEOPLASM OF BLADDER (2) Anemia Code(s): D64.9 - ANEMIA, UNSPECIFIED Qualifiers: Anemia type: iron deficiency Iron deficiency anemia type: unspecified iron deficiency Qualified Code(s): D50.9 - Iron deficiency anemia, unspecified (3) Diabetes Code(s): E11.9 - TYPE 2 DIABETES MELLITUS WITHOUT COMPLICATIONS Qualifiers: Diabetes mellitus type: type 1 Diabetes mellitus complication status: with skin complications (4) Diabetic foot ulcer Code(s): E11.621 - TYPE 2 DIABETES MELLITUS WITH FOOT ULCER; L97.509 - NON- PRESSURE CHRONIC ULCER OTH PRT UNSP FOOT W UNSP SEVERITY Qualifiers: Diabetic foot ulcer location: heel Diabetes mellitus type: type 1 Laterality: left Non-pressure ulcer stage: with necrosis of muscle Qualified Code(s): E10.621 - Type 1 diabetes mellitus with foot ulcer; L97.423 - Non-pressure chronic ulcer of left heel and midfoot with necrosis of muscle (5) Ulcer of left heel Code(s): L97.429 - NON-PRS CHRONIC ULCER OF LEFT HEEL AND MIDFOOT W UNSP SEVERT Qualifiers: Non-pressure ulcer stage: unspecified non-pressure ulcer stage Qualified Code(s): L97.429 - Non-pressure chronic ulcer of left heel and midfoot with unspecified severity
[2017-11-06] MEDS: VANCOMYCIN 250 MG/5 ML ORAL SOLUTION PO SCH ×4 (00:04→17:08)
[2017-11-06] MEDS ORDERED: PT OWN MED DRAWER 7, Y5N ONE ×4 (01:38→17:03)
[2017-11-06] MEDS: oxyCODONE HCL 5 MG TABLET PO PRN ×4 (02:01→17:04)
[2017-11-06] MEDS: AZTREONAM 1 GM in DEXTROSE 5%-WATER - 50 ML IVPB SCH ×3 (02:52→17:05)
[2017-11-06] MEDS: VANCOMYCIN 1 GRAM (PRE-DOCKED) 1,000 MG/250 ML BAG IVPB SCH ×2 (03:34→14:51)
[2017-11-06] MEDS: INSULIN SLIDING SCALE (NOVOLOG) 1 VIAL SQ SCH ×4 (06:12→22:00)
[2017-11-06 07:49] LABS: BASO % 0.9 % (0-2.0); EOS % 4.8 % (0-4.5); HEMOGLOBIN 8.4 GM/dL (11.7-16.9); LYMPH % 17.3 % (8-40); MCH 25.5 pg (25.7-33.7); MCHC 32.5 g/dl (32.0-35.9); MEAN CELL VOLUME 78.5 fl (80-96); MEAN PLT VOLUME 7.1 fl (7.5-11.1); MONO % 6.1 % (3.8-10.2); NEUT % 70.9 % (42.8-82.8); PLATELET COUNT 474 K/MM3 (134-434); RBC 3.31 M/mm3 (4.00-5.60); RDW 19.7 % (11.9-15.9); WHITE BLOOD COUNT 9.1 K/mm3 (4.0-10.0)
[2017-11-06 08:48] LABS: ALBUMIN 1.5 g/dl (3.4-5.0); ALK PHOS 69 U/L (45-117); ANION GAP 6 MMOL/L (8-16); BILIRUBIN,TOTAL 0.2 mg/dL (0.2-1); BLOOD UREA NITROGEN 31 mg/dL (7-18); CALCIUM 8.1 mg/dL (8.5-10.1); CHLORIDE 104 mmol/L (98-107); CO2 24 mmol/L (21-32); CREATININE 1.1 mg/dL (0.55-1.3); GLUCOSE,RANDOM 128 mg/dL (74-106); MAGNESIUM 2.1 mg/dL (1.8-2.4); PHOSPHOROUS 3.2 mg/dL (2.5-4.9); POTASSIUM 4.8 mmol/L (3.5-5.1); SGOT/AST 11 U/L (15-37); SGPT/ALT 7 U/L (13-61); SODIUM 134 mmol/L (136-145); TOT PROT 6.2 g/dl (6.4-8.2)
--- NOTE | 2017-11-06 09:11 | PN ---
Progress Note (short form) - Note Progress Note: Podiatry F/U; Seen/evaluated at [facility]. Denies F/V/N/C/SOB/CP. Afebrile. DIOGO: L foot: lateral heel diabetic ulcer necrotic eschar that is loose, surrounding bogginess, periwound erythema, malodor present, no purulence, no soft tissue crepitus, no tenderness to palpation. Blood Cx: staph Imp: 61 year old DM M with L heel diabetic ulcer, cellulitis 1. IV abx per ID 2. Discussed case with Dr. Barbour, he said that vasculature looks okay and can proceed with foot sx 3. Plan for L heel debridement and bone biopsy in OR. NPO past midnight. Scott An DPM
[2017-11-06] MEDS: LACTOBACILLUS ACIDOPHILUS 1 TABLET PO SCH (10:21)
[2017-11-06] MEDS: COLLAGENASE CLOSTRIDIUM HIST. 30 GRAMS TUBE TP SCH (10:22)
[2017-11-06] MEDS: ENOXAPARIN NA (PORCINE) 40 MG/0.4 ML DISP.SYRIN SQ SCH (10:22)
--- NOTE | 2017-11-06 14:00 | PN ---
Progress Note, Physician Chief Complaint: left heel ulcer - Current Medication List Current Medications: Active Medications Acetaminophen (Tylenol -) 650 mg PO Q6H PRN PRN Reason: PAIN LEVEL 1 - 3 Last Admin: 11/05/17 21:40 Dose: 650 mg Collagenase (Santyl -) 1 applic TP DAILY [facility]; Protocol Last Admin: 11/06/17 10:22 Dose: Not Given Enoxaparin Sodium (Lovenox -) 40 mg SQ DAILY STEPHANIE Last Admin: 11/06/17 10:22 Dose: Not Given Aztreonam 1 gm/ Dextrose 50 mls @ 100 mls/hr IVPB Q8H-IV STEPHANIE; Protocol Last Admin: 11/06/17 10:21 Dose: 100 mls/hr Sodium Chloride (Normal Saline -) 1,000 mls @ 100 mls/hr IV ASDIR STEPHANIE Last Admin: 11/05/17 23:05 Dose: 100 mls/hr Metronidazole (Flagyl 500mg Premixed Ivpb -) 500 mg in 100 mls @ 100 mls/hr IVPB Q8H-IV STEPHANIE Last Admin: 11/06/17 11:06 Dose: 100 mls/hr Vancomycin HCl (Vancomycin (Pre-Docked)) 1,000 mg in 250 mls @ 166.667 mls/hr IVPB BID@0300,1500 STEPHANIE; Protocol Last Admin: 11/06/17 03:34 Dose: 166.667 mls/hr Insulin Aspart (Novolog Vial Sliding Scale -) 1 vial SQ ACHS [facility]; Protocol Last Admin: 11/06/17 12:38 Dose: Not Given Insulin Detemir (Levemir Vial) 10 units SQ HS [facility] Last Admin: 11/05/17 21:40 Dose: 10 unit Lactobacillus Acidophilus (Bacid -) 1 tab PO DAILY STEPHANIE Last Admin: 11/06/17 10:21 Dose: 1 tab Oxycodone HCl (Roxicodone -) 5 mg PO Q4H PRN PRN Reason: PAIN LEVEL 7 - 10 Last Admin: 11/06/17 11:06 Dose: 5 mg Vancomycin HCl (Vancomycin Oral Solution) 125 mg PO Q6HPO STEPHANIE Last Admin: 11/06/17 06:12 Dose: 125 mg - Objective Vital Signs: Vital Signs Temperature 97.9 F 11/06/17 05:00 Pulse Rate 87 11/06/17 05:00 Respiratory Rate 20 10/02/18 05:00 Blood Pressure 145/69 11/06/17 05:00 O2 Sat by Pulse Oximetry (%) 96 11/05/17 21:00 Constitutional: Yes: Calm Eyes: Yes: WNL HENT: Yes: WNL Neck: Yes: WNL Cardiovascular: Yes: WNL Respiratory: Yes: WNL Gastrointestinal: Yes: WNL Musculoskeletal: Yes: WNL Extremities: Yes: Other (left heel eschar) Edema: No Edema: LLE: Trace, RLE: Trace Peripheral Pulses WNL: No Peripheral Pulses: Left Femoral: 2+, Right Femoral: 2+ Neurological: Yes: WNL ...Motor Strength: WNL Psychiatric: Yes: WNL Labs: CBC, BMP 11/06/17 06:15 11/06/17 06:15 INR, PTT INR 1.15 (0.83-1.09) H 11/01/17 16:30 Problem List - Problems (1) Ulcer of left heel Assessment/Plan: CTA reviewed. NO areas of stenosis Cleared for podiatry intervention for heel debridement. Code(s): L97.429 - NON-PRS CHRONIC ULCER OF LEFT HEEL AND MIDFOOT W UNSP SEVERT Qualifiers: Non-pressure ulcer stage: unspecified non-pressure ulcer stage Qualified Code(s): L97.429 - Non-pressure chronic ulcer of left heel and midfoot with unspecified severity
--- NOTE | 2017-11-06 14:11 | PN ---
Physical Exam: SUBJECTIVE: Patient seen and examined at bedside this morning. No acute events overnight. Patient has no new complaints. OBJECTIVE: Vital Signs Period Temp Pulse Resp BP Sys/Kevin Pulse Ox Last 24 Hr 97.9 F-99.1 F 84-96 18-20 107-145/53-69 96 GENERAL: The patient is awake, alert, and fully oriented, in no acute distress. HEAD: Normal with no signs of trauma. EYES: PERRLA, EOMI, sclera anicteric, conjunctiva clear. ENT: Ears normal, nares patent, oropharynx clear without exudates, dry mucous membranes. LUNGS: Breath sounds equal, clear to auscultation bilaterally, no wheezes, no crackles, no accessory muscle use. HEART: Regular rate and rhythm, S1, S2 without murmur, rub or gallop. ABDOMEN: Soft, nontender, nondistended, normoactive bowel sounds. Colostomy bag with loose stool. UPPER EXTREMITIES: 2+ pulses, warm, well-perfused, no edema. LOWER EXTREMITIES: + foul-smelling necrotic ulcer with surrounding erythema, heel of left foot, 2+pulses, warm, well-perfused, no edema. NEUROLOGICAL: Cranial nerves II through XII grossly intact. Normal speech, gait not observed. PSYCH: Normal mood, normal affect. SKIN: +stage 2 nonpurulent ulcer at the sacral area Laboratory Results - last 24 hr 11/05/17 11/05/17 11/06/17 16:46 21:37 06:08 WBC RBC Hgb Hct MCV MCH MCHC RDW Plt Count MPV Absolute Neuts (auto) Neutrophils % Lymphocytes % Monocytes % Eosinophils % Basophils % Nucleated RBC % Sodium Potassium Chloride Carbon Dioxide Anion Gap BUN Creatinine Creat Clearance w eGFR POC Glucometer 213 233 140 Random Glucose Calcium Phosphorus Magnesium Total Bilirubin AST ALT Alkaline Phosphatase Total Protein Albumin 11/06/17 11/06/17 11/06/17 06:15 06:15 11:22 WBC 9.1 RBC 3.31 L Hgb 8.4 L Hct 26.0 L MCV 78.5 L MCH 25.5 L MCHC 32.5 RDW 19.7 H Plt Count 474 H MPV 7.1 L Absolute Neuts (auto) 6.4 Neutrophils % 70.9 Lymphocytes % 17.3 Monocytes % 6.1 Eosinophils % 4.8 H Basophils % 0.9 Nucleated RBC % 0 Sodium 134 L Potassium 4.8 Chloride 104 Carbon Dioxide 24 Anion Gap 6 L BUN 31 H Creatinine 1.1 Creat Clearance w eGFR > 60 POC Glucometer 138 Random Glucose 128 H Calcium 8.1 L Phosphorus 3.2 Magnesium 2.1 Total Bilirubin 0.2 AST 11 L ALT 7 L Alkaline Phosphatase 69 Total Protein 6.2 L Albumin 1.5 L Active Medications Generic Name Dose Route Start Last Admin Trade Name Freq PRN Reason Stop Dose Admin Acetaminophen 650 mg 11/01/17 23:56 11/05/17 21:40 Tylenol - PO 650 mg Q6H PRN Administration PAIN LEVEL 1 - 3 Collagenase 1 applic 11/03/17 10:00 11/06/17 10:22 Santyl - TP Not Given DAILY STEPHANIE Protocol Enoxaparin Sodium 40 mg 11/02/17 10:00 11/06/17 10:22 Lovenox - SQ Not Given DAILY STEPHANIE Aztreonam 1 gm/ Dextrose 50 mls @ 100 mls/hr 11/02/17 18:45 11/06/17 10:21 IVPB 100 mls/hr Q8H-IV STEPHANIE Administration Protocol Sodium Chloride 1,000 mls @ 100 mls/hr 11/03/17 11:24 11/05/17 23:05 Normal Saline - IV 100 mls/hr ASDIR STEPHANIE Administration Metronidazole 500 mg in 100 mls @ 100 mls/hr 11/05/17 18:00 11/06/17 11:06 Flagyl 500mg Premixed Ivpb - IVPB 100 mls/hr Q8H-IV STEPAHNIE Administration Vancomycin HCl 1,000 mg in 250 mls @ 166.667 mls/hr 11/06/17 03:00 11/06/17 03:34 Vancomycin (Pre-Docked) IVPB 166.667 mls/hr BID@0300,1500 STEPHANIE Administration Protocol Insulin Aspart 1 vial 11/02/17 07:00 11/06/17 12:38 Novolog Vial Sliding Scale - SQ Not Given ACHS STEPHANIE Protocol Insulin Detemir 10 units 11/02/17 22:00 11/05/17 21:40 Levemir Vial SQ 10 unit HS STEPHANIE Administration Lactobacillus Acidophilus 1 tab 11/02/17 18:45 11/06/17 10:21 Bacid - PO 1 tab DAILY STEPHANIE Administration Oxycodone HCl 5 mg 11/03/17 19:37 11/06/17 11:06 Roxicodone - PO 5 mg Q4H PRN Administration PAIN LEVEL 7 - 10 Vancomycin HCl 125 mg 11/05/17 18:00 11/06/17 14:01 Vancomycin Oral Solution PO 125 mg Q6HPO STEPHANIE Administration ASSESSMENT/PLAN: Patient is a 61 year old male with past medical history of DM, hx of bladder cancer with primary mets to lung and colon (currently with colostomy bag placed 1 year ago) admitted for nonhealing diabetic left heel wound. #Nonhealing diabetic wound, left heel: r/o osteomyelitis -L foot xray - no evidence of focal bone destruction or soft tissue air. -Oxycodone 5mg q6h PRN for pain. -CRP 7.3 -Wound cx - Proteus mirabilis, staph coagulase positive, enterococcus, lactose fermenting gram negative bacilli -ID (Dr. Romero) consulted. Recommendations appreciated. -Podiatry to evaluate for debridement. -Azactam, IV Vancomycin, IV Flagyl -Vanc trough level prior to 4th dose in the am. -Daily wound care. -blood culture pending. -Probiotics. -Podiatry (Dr. An) consulted. Recommendations appreciated. -IV antibiotics per ID -Plan for L heel debridement and bone biopsy in OR. -NPO past midnight. -Will hold lovenox in the AM. -Vascular (Dr. Barbour) consulted. Recommedations appreciated. -Aorta with runoff CTA done. #C. difficile infection -Vancomycin 125mg PO q6h started -Isolation precaution #Sacral decubitus ulcer -On antibiotics. -Proper wound care -Tylenol 650 mg PO Q6H for pain and Oxycodone 5mg q6h PRN for pain 7-10 -Turn and position Q2H #Bladder cancer w/ metastasis to lung and colon: s/p colostomy bag since 1 year ago. -Due for removal 6 months ago but patient does not want to go back to Surgeon to have it removed. -Refused to go back [facility] to continue treatment and is seeking new care. -Oncology (Dr. Fried) consulted. Recommendations appreciated. -Would consider CT of chest, abdomen, pelvis to assess current state of bladder cancer. -Bone scan in view of back pains. -Currently attention to be directed toward left heel ulcer and therapy. -Diabetic control. -Urology consulted. -Surgery consulted. Recommendations appreciated. #Sinus arrhythmia, found on EKG, no prior EKG for comparison. -Echocardiogram - LV size, thickness, and function normal; LV EF normal; RV normal in size and function; Mild TR; RV systolic pressure is elevated at 30- 40mmHg; E/A reveral consistent with but not diagnostic of poor LV complaince. Trace MR. -Electrolytes wnl #DM -HbA1c - 8.5 -Levemir 10U SQ HS -ISS -BGM ACHS #Severely malnourished: significant weight loss likely 2/2 to CA -dietitian consult #FEN -IV NS @ 75ml/hr -electrolytes wnl, routine bmp monitoring -Diabetic diet #Prophylaxis -Lovenox 40 mg SQ QD #Disposition -admit to tele -needs advanced directives, otherwise consider palliative care consult Visit type - Emergency Visit Emergency Visit: Yes ED Registration Date: 11/01/17 Care time: The patient presented to the Emergency Department on the above date and was hospitalized for further evaluation of their emergent condition. - New Patient This patient is new to me today: Yes Date on this admission: 11/06/17 - Critical Care Critical Care patient: No
--- NOTE | 2017-11-06 14:52 | PN ---
Progress Note (short form) - Note Progress Note: awake alert comfortable for heel debridement in am malodorous eschar on the heel unchanged Vital Signs Period Temp Pulse Resp BP Sys/Kevin Pulse Ox Last 24 Hr 97.9 F-99.1 F 84-96 18-20 107-145/53-69 96 cor-rrr lungs clear abd soft,nt +ostomy +stool ext dressing intact CBC, BMP 11/06/17 06:15 11/06/17 06:15 Microbiology 11/04/17 09:10 Blood - Peripheral Venous Blood Culture - Preliminary NO GROWTH OBTAINED AFTER 48 HOURS, INCUBATION TO CONTINUE FOR 3 DAYS. 11/01/17 15:45 Blood - Peripheral Venous Blood Culture - Preliminary Staphylococcus Species 11/04/17 08:15 Blood - Peripheral Venous Blood Culture - Preliminary NO GROWTH OBTAINED AFTER 48 HOURS, INCUBATION TO CONTINUE FOR 3 DAYS. 11/01/17 16:40 Blood - Peripheral Venous Blood Culture - Preliminary NO GROWTH OBTAINED AFTER 96 HOURS, INCUBATION TO CONTINUE FOR 1 DAYS. 11/01/17 15:57 Foot - Left Heel Gram Stain - Final 11/01/17 15:57 Foot - Left Heel Wound Culture - Final Proteus Mirabilis Staphylococcus Aureus Enterococcus Faecalis Klebsiella Pneumoniae Escherichia Coli 11/05/17 03:07 Stool Clostridium difficile Antigen (JASVIR) - Final 11/05/17 03:07 Stool Clostridium difficile Toxin Assay - Final 11/01/17 17:41 Urine - Urine Clean Catch Urine Culture - Final Contaminated: Please Repeat a/p bacteremia- awaiting further ID of blood culture continue vancomycin check trough in am infected heel ulcer d/c clindamycin, continue azactam, add flagyl +cdiff antigen- will treat in the setting of diarrhea metastatic bladder cancer - ct scan noted, consider pallliative care Problem List - Problems (1) Ulcer of left heel Code(s): L97.429 - NON-PRS CHRONIC ULCER OF LEFT HEEL AND MIDFOOT W UNSP SEVERT Qualifiers: Non-pressure ulcer stage: unspecified non-pressure ulcer stage Qualified Code(s): L97.429 - Non-pressure chronic ulcer of left heel and midfoot with unspecified severity (2) H/O carcinoma of bladder Code(s): Z85.51 - PERSONAL HISTORY OF MALIGNANT NEOPLASM OF BLADDER (3) Diabetes Code(s): E11.9 - TYPE 2 DIABETES MELLITUS WITHOUT COMPLICATIONS Qualifiers: Diabetes mellitus type: type 1 Diabetes mellitus complication status: with skin complications (4) Anemia Code(s): D64.9 - ANEMIA, UNSPECIFIED Qualifiers: Anemia type: iron deficiency Iron deficiency anemia type: unspecified iron deficiency Qualified Code(s): D50.9 - Iron deficiency anemia, unspecified (5) Penicillin allergy Code(s): Z88.0 - ALLERGY STATUS TO PENICILLIN
--- NOTE | 2017-11-06 15:08 | PN ---
Teaching Attending Note Name of Resident: Hazel Boyle ATTENDING PHYSICIAN STATEMENT I saw and evaluated the patient. I reviewed the resident's note and discussed the case with the resident. I agree with the resident's findings and plan as documented. SUBJECTIVE:asymptomatic. states BM are less frequent. denies CP, SOB, fever, chills, N/V/C/D OBJECTIVE: Last Vital Signs Temp Pulse Resp BP Pulse Ox 98.5 F 90 20 91/50 L 96 11/06/17 14:51 11/06/17 14:51 11/06/17 14:51 11/06/17 14:51 11/05/17 21:00 General NAD Extremiteis L foot wrapped. requested that I do not remove dressing as just changed ASSESSMENT AND PLAN: 61 yo M with reported history of bladder ca with mets to lung/colon s/p colostomy 1 year ago, IDDM, recurrent falls, admitted with Left heel eschar+/- cellulitis 1. Left heel eschar, r/o cellulitis- CTA showing good blood flow to extremity. NPO tonight for debridement in the AM. on Aztreonam/flagyl. further recommendations per podiatry post-op. pain control. vasc surgeon on board. 2.GPC bacteremia- was not speciated. repeat Bcx negative. on Vanco IV. ID on board 3. Suspected acute C defficile diarrhea- cdiff toxin neg ag pos. would treat in setting of active diarrhea. started on vanco po. monitor BM. on bacid. ID on board. contact precautions 4. Acute on chronic anemia- s/p 1 unit PRBC this hospital stay. hgb now stable. no indication for transfusion 5. Reported bladder ca with mets to lung/colon s/p colostomy 1 year ago- bladder obstruction iwth mild hydro. outpatient follow up 6. DM- cont home regimen. titrate to optimize control. 7. Hyperkalemia- resolved 8. DVT ppx- lovenox.
[2017-11-06] MEDS: SODIUM CHLORIDE 1,000 ML IV SCH (17:07)
[2017-11-06] MEDS: INSULIN (LEVEMIR) 100 UNITS/ML UNITS SQ SCH (22:01)
[2017-11-07] MEDS: VANCOMYCIN 250 MG/5 ML ORAL SOLUTION PO SCH ×4 (00:25→17:34)
[2017-11-07] MEDS: AZTREONAM 1 GM in DEXTROSE 5%-WATER - 50 ML IVPB SCH ×3 (03:17→17:34)
[2017-11-07] MEDS: VANCOMYCIN 1 GRAM (PRE-DOCKED) 1,000 MG/250 ML BAG IVPB SCH ×2 (03:57→14:17)
[2017-11-07] MEDS: SODIUM CHLORIDE 1,000 ML IV SCH ×3 (03:59→22:15)
[2017-11-07] MEDS: INSULIN SLIDING SCALE (NOVOLOG) 1 VIAL SQ SCH ×4 (06:17→22:17)
[2017-11-07] MEDS ORDERED: MIDAZOLAM HCL 2 MG/2 ML SINGLE DOSE VIAL ONE (07:29)
[2017-11-07] MEDS ORDERED: PROPOFOL 20 ML ONE ×2 (07:29→08:19)
[2017-11-07] MEDS ORDERED: DEXAMETHASONE SOD PHOSPHATE 4 MG/1 ML VIAL ONE (07:30)
[2017-11-07] MEDS ORDERED: ONDANSETRON 4 MG/2 ML VIAL IVPUSH PRN ×2 (07:31→09:19)
[2017-11-07] MEDS ORDERED: BUPIVACAINE HCL/PF 0.5% (5MG/ML) 10 ML VIAL ONE (07:34)
[2017-11-07] MEDS ORDERED: LIDOCAINE HCL 2% (20ML MULTI-DOSE VIAL) NR ONE (07:34)
[2017-11-07] MEDS ORDERED: SODIUM CHLORIDE 0.9% P/F 10 ML VIAL IJ ONE (07:38)
[2017-11-07] MEDS ORDERED: LACTATED RINGERS SOLUTION 1,000 ML IV SCH ×2 (07:45→09:19)
[2017-11-07 07:46] LABS: HEMATOCRIT 26.8 % (35.4-49); HEMOGLOBIN 8.4 GM/dL (11.7-16.9); MCH 24.9 pg (25.7-33.7); MCHC 31.3 g/dl (32.0-35.9); MEAN CELL VOLUME 79.5 fl (80-96); MEAN PLT VOLUME 7.4 fl (7.5-11.1); PLATELET COUNT 498 K/MM3 (134-434); RBC 3.37 M/mm3 (4.00-5.60); RDW 19.5 % (11.9-15.9); WHITE BLOOD COUNT 9.6 K/mm3 (4.0-10.0)
[2017-11-07] MEDS ORDERED: BUPIVACAINE HCL/PF 0.5% (5MG/ML) 10 ML VIAL IJ ONE (08:01)
[2017-11-07] MEDS ORDERED: LIDOCAINE HCL 2% (50ML VIAL) INF ONE ×2 (08:01)
[2017-11-07] MEDS ORDERED: SUCCINYLCHOLINE CHLORIDE 200 MG/10 ML VIAL ONE (08:12)
[2017-11-07 08:24] LABS: ALBUMIN 1.5 g/dl (3.4-5.0); ALK PHOS 67 U/L (45-117); ANION GAP 7 MMOL/L (8-16); BILIRUBIN,TOTAL 0.2 mg/dL (0.2-1); BLOOD UREA NITROGEN 28 mg/dL (7-18); CHLORIDE 104 mmol/L (98-107); CO2 24 mmol/L (21-32); GLUCOSE,RANDOM 99 mg/dL (74-106); POTASSIUM 4.9 mmol/L (3.5-5.1); SGOT/AST 14 U/L (15-37); SGPT/ALT 9 U/L (13-61); SODIUM 135 mmol/L (136-145); TOT PROT 6.2 g/dl (6.4-8.2)
--- NOTE | 2017-11-07 08:46 | OP ---
Operative Note - Note: Operative Date: 11/07/17 Pre-Operative Diagnosis: L heel diabetic ulcer, cellulitis, osteomyelitis Operation: L heel debridement with bone biopsy Findings: see op note Post-Operative Diagnosis: Same as Pre-op Surgeon: Puneet An Anesthesiologist/HOTEL [employer] MOTEL ROOM SERVICE SUPERVISOR: Jigar Gardner Anesthesia: Local, MAC Specimens Removed: bone and soft tissue left heel Estimated Blood Loss (mls): 10 Instrument used (Debridements only): #15 blade scalpel and scissors Operative Report Dictated: Yes
[2017-11-07] MEDS ORDERED: oxyCODONE HCL 5 MG TABLET PO PRN (08:51)
--- NOTE | 2017-11-07 09:39 | OP ---
DATE OF OPERATION: 11/07/2017 PREOPERATIVE DIAGNOSIS: Left heel diabetic ulcer, cellulitis, and osteomyelitis. POSTOPERATIVE DIAGNOSIS: Left heel diabetic ulcer, cellulitis, and osteomyelitis. PROCEDURE: Left heel debridement and lavage with bony biopsy. SURGEON: Puneet An DPM UROLOGIC SURGEON: None. ANESTHESIA: IV sedation with location. HEMOSTASIS: Surgical dissection. ESTIMATED BLOOD LOSS: 10 mL. PATHOLOGY: Bone and soft tissue, left heel. COMPLICATIONS: None. DESCRIPTION OF PROCEDURE: The patient was brought to the operating room and placed on the operating table in the supine position. Following the induction of IV sedation, local anesthesia was achieved utilizing 14 mL of a mix of 1% lidocaine plain and 0.5% Marcaine plain. The left heel was scrubbed, prepped, and draped in the usual aseptic fashion. Attention was directed to the left heel, where a foul-smelling necrotic ulcer with surrounding cellulitis was visualized and appreciated. I began by performing an excisional debridement of the left heel ulcer to the level of subcutaneous tissue, eschar, and fat utilizing a sterile 15 blade and scissors. There was extensive necrotic liquefactive tissue from the heel. Debridement was continued until there was fairly viable tissue persistent. Surgical site was copiously irrigated with sterile saline mixed with Bacitracin in pulse lavage fashion. A wound culture was taken. Next a 0.5-cm linear longitudinal incision was made just lateral and superior to the heel ulcer. The incision was deepened using blunt dissection, taking care to retract vital neural and vascular structures. Next, a Jamshidi type needle was introduced into the incision site until there was calcaneus palpated. A small cylinder of bone was removed from the calcaneus. This was sent for bone culture. The Jamshidi was introduced again, and again, a small cylinder of bone was taken for bone pathology. Following conclusion of the procedure, the surgical site was coapted utilizing 3-0 nylon in a simple interrupted suture fashion. Following the conclusion of the procedure, the surgical site was covered with Xeroform, and a sterile compressive dressing was applied to the left foot consisting of sterile gauze, ABD, Kerlix, and Thomas wrap. Patient tolerated the procedure and anesthesia well without complications. He was transferred from the operating room to the recovery unit with vital signs stable and neurovasculature intact to the left foot. JOCELYNN CROSS/[id number] cc: [facility]
[2017-11-07] MEDS: COLLAGENASE CLOSTRIDIUM HIST. 30 GRAMS TUBE TP SCH (10:59)
--- NOTE | 2017-11-07 11:42 | PN ---
Teaching Attending Note Name of Resident: Hazel Boyle ATTENDING PHYSICIAN STATEMENT I reviewed the resident's note and discussed the case with the resident. I agree with the resident's findings and plan as documented. OBJECTIVE:pt not seen as was in the [employer] SPECIALIST reports decreased diarrhea Last Vital Signs Temp Pulse Resp BP Pulse Ox 98.2 F 84 20 140/62 100 11/07/17 09:35 11/07/17 09:35 11/07/17 09:35 11/07/17 09:35 11/07/17 09:15 ASSESSMENT AND PLAN: 61 yo M with reported history of bladder ca with mets to lung/colon s/p colostomy 1 year ago, IDDM, recurrent falls, admitted with Left heel eschar+/- cellulitis 1. Left heel eschar, r/o cellulitis- currently in the OR for debridement of heel eschar. will f/u recommendations. on Aztreonam/flagyl. further recommendations per podiatry post-op. pain control. vasc surgeon on board. 2.GPC bacteremia- was not speciated. repeat Bcx negative. on Vanco IV. ID on board 3. Suspected acute C difficile diarrhea- cdiff toxin neg ag pos. would treat in setting of active diarrhea. on vanco po. monitor BM. on bacid. ID on board. contact precautions 4. Acute on chronic anemia- s/p 1 unit PRBC this hospital stay. hgb now stable. no indication for transfusion 5. Reported bladder ca with mets to lung/colon s/p colostomy 1 year ago- bladder obstruction iwth mild hydro. outpatient follow up 6. DM- cont home regimen. titrate to optimize control. 7. Hyperkalemia- resolved 8. DVT ppx- lovenox.
--- NOTE | 2017-11-07 11:45 | PN ---
Progress Note (short form) - Note Progress Note: awake alert hungry wants to eat comfortable s/p debridement of the heel Vital Signs Period Temp Pulse Resp BP Sys/Kevin Pulse Ox Last 24 Hr 97.6 F-98.8 F 84-899 14-20 91-146/50-82 98-100 cor-rrr lungs clear abd soft,nt ext -post op dressing intact CBC, BMP 11/07/17 06:25 11/07/17 06:25 Microbiology 11/04/17 09:10 Blood - Peripheral Venous Blood Culture - Preliminary NO GROWTH OBTAINED AFTER 72 HOURS, INCUBATION TO CONTINUE FOR 2 DAYS. 11/04/17 08:15 Blood - Peripheral Venous Blood Culture - Preliminary NO GROWTH OBTAINED AFTER 72 HOURS, INCUBATION TO CONTINUE FOR 2 DAYS. 11/01/17 16:40 Blood - Peripheral Venous Blood Culture - Final NO GROWTH AFTER 5 DAYS INCUBATION 11/01/17 15:45 Blood - Peripheral Venous Blood Culture - Preliminary Staphylococcus Species 11/01/17 15:57 Foot - Left Heel Gram Stain - Final 11/01/17 15:57 Foot - Left Heel Wound Culture - Final Proteus Mirabilis Staphylococcus Aureus Enterococcus Faecalis Klebsiella Pneumoniae Escherichia Coli 11/05/17 03:07 Stool Clostridium difficile Antigen (JASVIR) - Final 11/05/17 03:07 Stool Clostridium difficile Toxin Assay - Final 11/01/17 17:41 Urine - Urine Clean Catch Urine Culture - Final Contaminated: Please Repeat Current Medications Acetaminophen (Tylenol -) 650 mg PO Q6H PRN PRN Reason: PAIN LEVEL 1 - 3 Collagenase (Santyl -) 1 applic TP DAILY STEPHANIE; Protocol Last Admin: 11/07/17 10:59 Dose: 1 applic Enoxaparin Sodium (Lovenox -) 40 mg SQ DAILY STEPHANIE Aztreonam 1 gm/ Dextrose 50 mls @ 100 mls/hr IVPB Q8H-IV STEPHANIE; Protocol Last Admin: 11/07/17 10:58 Dose: 100 mls/hr Metronidazole (Flagyl 500mg Premixed Ivpb -) 500 mg in 100 mls @ 100 mls/hr IVPB Q8H-IV STEPHANIE Last Admin: 11/07/17 10:55 Dose: 100 mls/hr Lactated Ringer's (Lactated Ringers Solution) 1,000 mls @ 75 mls/hr IV ASDIR STEPHANIE Last Admin: 11/07/17 10:59 Dose: Not Given Sodium Chloride (Normal Saline -) 1,000 mls @ 100 mls/hr IV ASDIR STEPHANIE Last Admin: 11/07/17 10:54 Dose: 100 mls/hr Vancomycin HCl (Vancomycin (Pre-Docked)) 1,000 mg in 250 mls @ 166.667 mls/hr IVPB BID@0300,1500 STEPHANIE; Protocol Insulin Aspart (Novolog Vial Sliding Scale -) 1 vial SQ ACHS STEPHANIE; Protocol Insulin Detemir (Levemir Vial) 10 units SQ HS STEPHANIE Lactobacillus Acidophilus (Bacid -) 1 tab PO DAILY STEPHANIE Ondansetron HCl (Zofran Injection) 4 mg IVPUSH Q6H PRN PRN Reason: NAUSEA AND/OR VOMITING Oxycodone HCl (Roxicodone -) 5 mg PO Q4H PRN PRN Reason: PAIN LEVEL 7 - 10 Sodium Hypochlorite (Dakin's Solution 0.25% (Half-Strength) -) 1 applic TP DAILY STEPHANIE Vancomycin HCl (Vancomycin Oral Solution) 125 mg PO Q6HPO STEPHANIE a/p bacteremia- awaiting further ID of blood culture-d/w Micro continue vancomycin check trough today infected heel ulcer vanco/flagyl/azactam +cdiff antigen- will treat in the setting of diarrhea metastatic bladder cancer - ct scan noted, consider pallliative care penicillin allergy noted- no details available Problem List - Problems (1) Ulcer of left heel Code(s): L97.429 - NON-PRS CHRONIC ULCER OF LEFT HEEL AND MIDFOOT W UNSP SEVERT Qualifiers: Qualified Code(s): L97.429 - Non-pressure chronic ulcer of left heel and midfoot with unspecified severity (2) H/O carcinoma of bladder Code(s): Z85.51 - PERSONAL HISTORY OF MALIGNANT NEOPLASM OF BLADDER (3) Diabetes Code(s): E11.9 - TYPE 2 DIABETES MELLITUS WITHOUT COMPLICATIONS (4) Anemia Code(s): D64.9 - ANEMIA, UNSPECIFIED Qualifiers: Qualified Code(s): D50.9 - Iron deficiency anemia, unspecified (5) Penicillin allergy Code(s): Z88.0 - ALLERGY STATUS TO PENICILLIN
[2017-11-07] MEDS: SODIUM HYPOCHLORITE 0.25%- 473 ML BULK BOTTLE TP SCH (12:09)
--- NOTE | 2017-11-07 14:13 | PN ---
Physical Exam: SUBJECTIVE: Patient seen and examined at bedside. Patient was brought to the OR this morning and underwent left heel debridement with bone biopsy. As per nursing, patient had less diarrhea last night with some small solid stools. OBJECTIVE: Vital Signs Period Temp Pulse Resp BP Sys/Kevin Pulse Ox Last 24 Hr 97.6 F-98.8 F 84-899 14-20 91-146/50-82 98-100 GENERAL: The patient is awake, alert, and fully oriented, in no acute distress. HEAD: Normal with no signs of trauma. EYES: PERRLA, EOMI, sclera anicteric, conjunctiva clear. ENT: Ears normal, nares patent, oropharynx clear without exudates, dry mucous membranes. LUNGS: Breath sounds equal, clear to auscultation bilaterally, no wheezes, no crackles, no accessory muscle use. HEART: Regular rate and rhythm, S1, S2 without murmur, rub or gallop. ABDOMEN: Soft, nontender, nondistended, normoactive bowel sounds. Colostomy bag with loose stool. UPPER EXTREMITIES: 2+ pulses, warm, well-perfused, no edema. LOWER EXTREMITIES: L foot - post-op dressing intact. NEUROLOGICAL: Cranial nerves II through XII grossly intact. Normal speech, gait not observed. PSYCH: Normal mood, normal affect. SKIN: +stage 2 nonpurulent ulcer at the sacral area Laboratory Results - last 24 hr 11/06/17 11/06/17 11/07/17 16:29 21:59 06:13 WBC RBC Hgb Hct MCV MCH MCHC RDW Plt Count MPV Sodium Potassium Chloride Carbon Dioxide Anion Gap BUN Creatinine Creat Clearance w eGFR POC Glucometer 250 199 113 Random Glucose Calcium Phosphorus Magnesium Total Bilirubin AST ALT Alkaline Phosphatase Total Protein Albumin 11/07/17 11/07/17 11/07/17 06:25 06:25 12:07 WBC 9.6 RBC 3.37 L Hgb 8.4 L Hct 26.8 L MCV 79.5 L MCH 24.9 L MCHC 31.3 L RDW 19.5 H Plt Count 498 H MPV 7.4 L Sodium 135 L Potassium 4.9 Chloride 104 Carbon Dioxide 24 Anion Gap 7 L BUN 28 H Creatinine 1.0 Creat Clearance w eGFR > 60 POC Glucometer 107 Random Glucose 99 Calcium 8.0 L Phosphorus 3.0 Magnesium 2.0 Total Bilirubin 0.2 AST 14 L ALT 9 L Alkaline Phosphatase 67 Total Protein 6.2 L Albumin 1.5 L Active Medications Generic Name Dose Route Start Last Admin Trade Name Freq PRN Reason Stop Dose Admin Acetaminophen 650 mg 11/07/17 09:19 Tylenol - PO Q6H PRN PAIN LEVEL 1 - 3 Collagenase 1 applic 11/07/17 10:00 11/07/17 10:59 Santyl - TP 1 applic DAILY STEPHANIE Administration Protocol Enoxaparin Sodium 40 mg 11/07/17 10:00 Lovenox - SQ DAILY STEPHANIE Aztreonam 1 gm/ Dextrose 50 mls @ 100 mls/hr 11/07/17 10:45 11/07/17 10:58 IVPB 100 mls/hr Q8H-IV STEPHANIE Administration Protocol Metronidazole 500 mg in 100 mls @ 100 mls/hr 11/07/17 10:00 11/07/17 10:55 Flagyl 500mg Premixed Ivpb - IVPB 100 mls/hr Q8H-IV STEPHANIE Administration Lactated Ringer's 1,000 mls @ 75 mls/hr 11/07/17 09:19 11/07/17 10:59 Lactated Ringers Solution IV Not Given ASDIR STEPHANIE Sodium Chloride 1,000 mls @ 100 mls/hr 11/07/17 09:19 11/07/17 10:54 Normal Saline - IV 100 mls/hr ASDIR STEPHANIE Administration Vancomycin HCl 1,000 mg in 250 mls @ 166.667 mls/hr 11/07/17 15:00 Vancomycin (Pre-Docked) IVPB BID@0300,1500 [facility] Protocol Insulin Aspart 1 vial 11/07/17 11:00 11/07/17 12:09 Novolog Vial Sliding Scale - SQ Not Given ACHS [facility] Protocol Insulin Detemir 10 units 11/07/17 22:00 Levemir Vial SQ HS STEPHANIE Lactobacillus Acidophilus 1 tab 11/07/17 10:00 Bacid - PO DAILY STEPHANIE Ondansetron HCl 4 mg 11/07/17 09:19 Zofran Injection IVPUSH Q6H PRN NAUSEA AND/OR VOMITING Oxycodone HCl 5 mg 11/07/17 09:19 Roxicodone - PO Q4H PRN PAIN LEVEL 7 - 10 Sodium Hypochlorite 1 applic 11/07/17 10:00 11/07/17 12:09 Dakin's Solution 0.25% (Half-Strength) - TP Not Given DAILY [facility] Vancomycin HCl 125 mg 11/07/17 12:00 Vancomycin Oral Solution PO Q6HPO [facility] ASSESSMENT/PLAN: Patient is a 61 year old male with past medical history of DM, hx of bladder cancer with primary mets to lung and colon (currently with colostomy bag placed 1 year ago) admitted for nonhealing diabetic left heel wound. #Nonhealing diabetic wound, left heel: r/o osteomyelitis -L foot xray - no evidence of focal bone destruction or soft tissue air. -Oxycodone 5mg q6h PRN for pain. -CRP 7.3 -Wound cx - Proteus mirabilis, staph coagulase positive, enterococcus, lactose fermenting gram negative bacilli -ID (Dr. Romero) consulted. Recommendations appreciated. -Podiatry to evaluate for debridement. -IV Azactam, IV Vancomycin, IV Flagyl -Vanc trough level prior to 4th dose today -Daily wound care. -blood culture negative -Probiotics. -Podiatry (Dr. An) consulted. Recommendations appreciated. -IV antibiotics per ID -s/p L heel debridement and bone biopsy -Resume diabetic diet and lovenox. -Vascular (Dr. Barbour) consulted. Recommedations appreciated. -Aorta with runoff CTA done. #C. difficile infection: will treat in the setting of diarrhea -Continue Vancomycin 125mg PO q6h -Isolation precaution #Sacral decubitus ulcer -On antibiotics. -Proper wound care -Tylenol 650 mg PO Q6H for pain and Oxycodone 5mg q6h PRN for pain 7-10 -Turn and position Q2H #Bladder cancer w/ metastasis to lung and colon: s/p colostomy bag since 1 year ago. -Due for removal 6 months ago but patient does not want to go back to [facility] to have it removed. -Refused to go back [facility] to continue treatment and is seeking new care. -Oncology (Dr. Fried) consulted. Recommendations appreciated. -Would consider CT of chest, abdomen, pelvis to assess current state of bladder cancer. -Bone scan in view of back pains. -Currently attention to be directed toward left heel ulcer and therapy. -Diabetic control. -Urology consulted. -Surgery consulted. Recommendations appreciated. #Sinus arrhythmia, found on EKG, no prior EKG for comparison. -Echocardiogram - LV size, thickness, and function normal; LV EF normal; RV normal in size and function; Mild TR; RV systolic pressure is elevated at 30- 40mmHg; E/A reveral consistent with but not diagnostic of poor LV complaince. Trace MR. -Electrolytes wnl #DM -HbA1c - 8.5 -Levemir 10U SQ HS -ISS -BGM ACHS #Severely malnourished: significant weight loss likely 2/2 to CA -dietitian consult #FEN -IV NS @ 75ml/hr -electrolytes wnl, routine bmp monitoring -Diabetic diet #Prophylaxis -Lovenox 40 mg SQ QD #Disposition -admit to tele -Palliative care consulted Visit type - Emergency Visit Emergency Visit: Yes ED Registration Date: 11/01/17 Care time: The patient presented to the Emergency Department on the above date and was hospitalized for further evaluation of their emergent condition. - New Patient This patient is new to me today: Yes Date on this admission: 11/07/17 - Critical Care Critical Care patient: No
[2017-11-07] MEDS: LACTOBACILLUS ACIDOPHILUS 1 TABLET PO SCH (14:17)
[2017-11-07] MEDS: ACETAMINOPHEN 325 MG TABLET (FP) PO PRN ×2 (14:17→23:26)
[2017-11-07] MEDS: oxyCODONE HCL 5 MG TABLET PO PRN ×3 (14:18→23:27)
[2017-11-07] MEDS: INSULIN (LEVEMIR) 100 UNITS/ML UNITS SQ SCH (22:18)
[2017-11-08] MEDS: VANCOMYCIN 250 MG/5 ML ORAL SOLUTION PO SCH ×4 (00:23→18:03)
[2017-11-08] MEDS: AZTREONAM 1 GM in DEXTROSE 5%-WATER - 50 ML IVPB SCH ×3 (02:17→18:03)
[2017-11-08] MEDS ORDERED: PT OWN MED DRAWER 7, Y5N ONE (02:18)
[2017-11-08] MEDS: VANCOMYCIN 1 GRAM (PRE-DOCKED) 1,000 MG/250 ML BAG IVPB SCH ×2 (02:43→15:17)
[2017-11-08] MEDS: SODIUM CHLORIDE 1,000 ML IV SCH ×2 (06:02→09:35)
[2017-11-08] MEDS: INSULIN SLIDING SCALE (NOVOLOG) 1 VIAL SQ SCH ×4 (06:03→22:31)
[2017-11-08] MEDS: oxyCODONE HCL 5 MG TABLET PO PRN ×4 (06:06→22:26)
[2017-11-08] MEDS: ACETAMINOPHEN 325 MG TABLET (FP) PO PRN ×2 (06:07→18:19)
[2017-11-08] MEDS ORDERED: INSULIN (NOVOLOG) ASPART 100 UNITS/ML 10ML VIAL ONE (06:35)
[2017-11-08] MEDS ORDERED: INSULIN (LEVEMIR) 100 UNITS/ML UNITS SQ ONE (06:35)
[2017-11-08 08:34] LABS: HEMOGLOBIN 7.9 GM/dL (11.7-16.9); MCH 25.3 pg (25.7-33.7); MCHC 31.5 g/dl (32.0-35.9); MEAN CELL VOLUME 80.1 fl (80-96); MEAN PLT VOLUME 7.1 fl (7.5-11.1); PLATELET COUNT 462 K/MM3 (134-434); RBC 3.12 M/mm3 (4.00-5.60); RDW 19.8 % (11.9-15.9); WHITE BLOOD COUNT 7.2 K/mm3 (4.0-10.0)
[2017-11-08 08:55] LABS: ANION GAP 4 MMOL/L (8-16); BLOOD UREA NITROGEN 29 mg/dL (7-18); CALCIUM 7.8 mg/dL (8.5-10.1); CHLORIDE 109 mmol/L (98-107); CO2 26 mmol/L (21-32); GLUCOSE,RANDOM 121 mg/dL (74-106); POTASSIUM 4.6 mmol/L (3.5-5.1); SODIUM 139 mmol/L (136-145)
[2017-11-08] MEDS: ENOXAPARIN NA (PORCINE) 40 MG/0.4 ML DISP.SYRIN SQ SCH (09:43)
[2017-11-08] MEDS: SODIUM HYPOCHLORITE 0.25%- 473 ML BULK BOTTLE TP SCH (09:43)
[2017-11-08] MEDS: LACTOBACILLUS ACIDOPHILUS 1 TABLET PO SCH (09:43)
[2017-11-08] MEDS: COLLAGENASE CLOSTRIDIUM HIST. 30 GRAMS TUBE TP SCH (09:44)
--- NOTE | 2017-11-08 12:20 | PN ---
Progress Note (short form) - Note Progress Note: Podiatry F/U: Seen/evaluated at bedside NAD. Denies F/V/N/C/SOB/CP. AFebrile. S/p L heel debridement and bone biopsy POD#1. DIOGO: L foot: heel ulcer fibrotic, no malodor, no purulence, no fluctuance, decreasing periwound erythema, no streaking cellulitis, no signs of acute infection. Sutures coapted laterally. No gangrenous changes. OR Cx: pending OR Path: pending IMp: 61 year old DM M s/p L heel debridement and bone biopsy POD#1 1. IV abx per ID 2. F/U OR cx 3. Dakins wet to dry L foot 4. Toe touch WB L foot 5. Recommend JASMYNE placement, assuming he'll need detention IV abx Scott An DPM
--- NOTE | 2017-11-08 17:08 | PN ---
Progress Note (short form) - Note Progress Note: awake alert s/p debridement of the heel Vital Signs Period Temp Pulse Resp BP Sys/Kevin Pulse Ox Last 24 Hr 97.1 F-98.3 F 77-91 20-20 116-141/64-73 98-98 cor-rrr lungs clear foot is bandaged pathology pending CBC, BMP 11/08/17 08:00 11/08/17 08:00 Microbiology 11/07/17 08:15 Foot - Left Heel Gram Stain - Final 11/07/17 08:15 Foot - Left Heel Wound Culture - Preliminary Proteus Species Group D Strep Or Entero Coccus Lactose Fermenting Neg Bacilli Pending Organism 11/07/17 08:15 Bone Gram Stain - Final 11/07/17 08:15 Bone Tissue Culture - Preliminary Proteus Species Group D Strep Or Entero Coccus 11/01/17 15:45 Blood - Peripheral Venous Blood Culture - Final Staphylococcus Auricularis 11/04/17 09:10 Blood - Peripheral Venous Blood Culture - Preliminary NO GROWTH OBTAINED AFTER 96 HOURS, INCUBATION TO CONTINUE FOR 1 DAYS. 11/04/17 08:15 Blood - Peripheral Venous Blood Culture - Preliminary NO GROWTH OBTAINED AFTER 96 HOURS, INCUBATION TO CONTINUE FOR 1 DAYS. 11/01/17 16:40 Blood - Peripheral Venous Blood Culture - Final NO GROWTH AFTER 5 DAYS INCUBATION 11/01/17 15:57 Foot - Left Heel Gram Stain - Final 11/01/17 15:57 Foot - Left Heel Wound Culture - Final Proteus Mirabilis Staphylococcus Aureus Enterococcus Faecalis Klebsiella Pneumoniae Escherichia Coli 11/05/17 03:07 Stool Clostridium difficile Antigen (JASVIR) - Final 11/05/17 03:07 Stool Clostridium difficile Toxin Assay - Final 11/01/17 17:41 Urine - Urine Clean Catch Urine Culture - Final Contaminated: Please Repeat a/p bacteremia- contaminant-no need to treat infected heel ulcer- r/o osteo vanco/flagyl/azactam vanco trough 24, decrease dose to daily +cdiff antigen- will treat in the setting of diarrhea metastatic bladder cancer - ct scan noted, consider pallliative care penicillin allergy noted- no details available Problem List - Problems (1) Ulcer of left heel Code(s): L97.429 - NON-PRS CHRONIC ULCER OF LEFT HEEL AND MIDFOOT W UNSP SEVERT Qualifiers: Non-pressure ulcer stage: unspecified non-pressure ulcer stage Qualified Code(s): L97.429 - Non-pressure chronic ulcer of left heel and midfoot with unspecified severity (2) H/O carcinoma of bladder Code(s): Z85.51 - PERSONAL HISTORY OF MALIGNANT NEOPLASM OF BLADDER (3) Diabetes Code(s): E11.9 - TYPE 2 DIABETES MELLITUS WITHOUT COMPLICATIONS Qualifiers: Diabetes mellitus type: type 1 Diabetes mellitus complication status: with skin complications (4) Anemia Code(s): D64.9 - ANEMIA, UNSPECIFIED Qualifiers: Anemia type: iron deficiency Iron deficiency anemia type: unspecified iron deficiency Qualified Code(s): D50.9 - Iron deficiency anemia, unspecified (5) Penicillin allergy Code(s): Z88.0 - ALLERGY STATUS TO PENICILLIN
--- NOTE | 2017-11-08 17:28 | PATH ---
Surgical Pathology Report Patient Name: PEDRO OLIVER Med. Rec. #: [id number] /Age/Gender: 1955 (Age: 61) / M Account: [id number] Location: [facility] MED/SURG Taken: 11/07/2017 Received: 11/07/2017 Reported: 11/08/2017 Physicians: JOCELYNN Hurst M.D. Specimen(s) Received A: BONE TISSUE LEFT FOOT B: SOFT TISSUE DEBRIDEMENT LEFT FOOT Clinical History Diabetic foot ulcer, cellulitis Final Diagnosis A. BONE TISSUE, LEFT FOOT, BIOPSY: FRAGMENT OF BONE, NEGATIVE FOR OSTEOMYELITIS. B. SOFT TISSUE DEBRIDEMENT, LEFT FOOT, EXCISION: FIBROADIPOSE TISSUE SHOWING NECROSIS, ACUTE AND CHRONIC INFLAMMATION WITH ABSCESS FORMATION. Electronically Signed Clinton Montano M.D. Gross Description A. Received in formalin labeled "bone tissue left foot," is a 0.5 cm in length x 0.1 cm in diameter frausto, cylindrical portion of bone. The specimen is submitted in toto in one cassette. B. Received in formalin labeled "soft tissue debridement left foot," is a 6.0 x 5.8 x 0.8 cm aggregate of frausto-lima, necrotic portions of skin and soft tissue. Transmissions Systems Operator sections are submitted in one cassette. /11/07/2017 saudi11/07/2017
--- NOTE | 2017-11-08 17:45 | PN ---
Teaching Attending Note Name of Resident: Hazel Boyle ATTENDING PHYSICIAN STATEMENT I saw and evaluated the patient. I reviewed the resident's note and discussed the case with the resident. I agree with the resident's findings and plan as documented. SUBJECTIVE:c/o urinary frequency and some some suprapubic tenderness. denies CP , SOB, fever, chills, N/V/C/D OBJECTIVE: Last Vital Signs Temp Pulse Resp BP Pulse Ox 97.5 F L 91 H 20 129/68 98 11/08/17 15:03 11/08/17 15:03 11/08/17 15:03 11/08/17 15:03 11/08/17 09:00 general NAD Abdomen soft +suprapubic tendenress. +colostomy ASSESSMENT AND PLAN: 61 yo M with reported history of bladder ca with mets to lung/colon s/p colostomy 1 year ago, IDDM, recurrent falls, admitted with Left heel eschar+/- cellulitis 1. Left heel eschar, r/o cellulitis-s/p L heel debridement with bone cx 11/07. will f/u Cx sent. cont aztreonam/flagyl. pain control. vasc surgeon, podiatry, ID on board. 2.GPC bacteremia- was not speciated. repeat Bcx negative. on Vanco IV. vanco level elevated. d/w ID about dose adjustment. ID on board 3. suprapubic tenderness- will check UA for infection although been on abx. 4 Suspected acute C difficile diarrhea- cdiff toxin neg ag pos. diarrhea is improving with less frequency. on vanco po and bacid. ID on board. contact precautions 5. Acute on chronic anemia- s/p 1 unit PRBC this hospital stay. hgb now stable. no indication for transfusion 6. Reported bladder ca with mets to lung/colon s/p colostomy 1 year ago- bladder obstruction iwth mild hydro. outpatient follow up 7. DM- cont home regimen. titrate to optimize control. 8. Hyperkalemia- resolved 9. DVT ppx- lovenox.
--- NOTE | 2017-11-08 19:29 | PN ---
Physical Exam: SUBJECTIVE: Patient seen and examined at bedside this morning. No acute events overnight. Patient complains of abdominal pain today with sitting, relieved by lying down. Otherwise, denies chest pain, shortness of breath, palpitations or urinary symptoms. OBJECTIVE: Vital Signs Period Temp Pulse Resp BP Sys/Kevin Pulse Ox Last 24 Hr 97.1 F-98.2 F 77-91 20-20 126-141/65-73 98-98 GENERAL: The patient is awake, alert, and fully oriented, in no acute distress. HEAD: Normal with no signs of trauma. EYES: PERRLA, EOMI, sclera anicteric, conjunctiva clear. ENT: Ears normal, nares patent, oropharynx clear without exudates, dry mucous membranes. LUNGS: Breath sounds equal, clear to auscultation bilaterally, no wheezes, no crackles, no accessory muscle use. HEART: Regular rate and rhythm, S1, S2 without murmur, rub or gallop. ABDOMEN: Soft, +suprapubic tenderness on palpation, nondistended, normoactive bowel sounds. Colostomy bag empty. UPPER EXTREMITIES: 2+ pulses, warm, well-perfused, no edema. LOWER EXTREMITIES: L foot - post-op dressing intact. NEUROLOGICAL: Cranial nerves II through XII grossly intact. Normal speech, gait not observed. PSYCH: Normal mood, normal affect. SKIN: +stage 2 nonpurulent ulcer at the sacral area Laboratory Results - last 24 hr 11/07/17 11/08/17 11/08/17 22:16 06:00 08:00 WBC 7.2 RBC 3.12 L Hgb 7.9 L Hct 25.0 L MCV 80.1 MCH 25.3 L MCHC 31.5 L RDW 19.8 H Plt Count 462 H MPV 7.1 L Sodium Potassium Chloride Carbon Dioxide Anion Gap BUN Creatinine Creat Clearance w eGFR POC Glucometer 181 196 Random Glucose Calcium 11/08/17 11/08/17 11/08/17 08:00 11:54 16:46 WBC RBC Hgb Hct MCV MCH MCHC RDW Plt Count MPV Sodium 139 Potassium 4.6 Chloride 109 H Carbon Dioxide 26 Anion Gap 4 L BUN 29 H Creatinine 1.0 Creat Clearance w eGFR > 60 POC Glucometer 112 211 Random Glucose 121 H Calcium 7.8 L Active Medications Generic Name Dose Route Start Last Admin Trade Name Freq PRN Reason Stop Dose Admin Acetaminophen 650 mg 11/07/17 09:19 11/08/17 18:19 Tylenol - PO 650 mg Q6H PRN Administration PAIN LEVEL 1 - 3 Collagenase 1 applic 11/07/17 10:00 11/08/17 09:44 Santyl - TP Not Given DAILY [facility] Protocol Enoxaparin Sodium 40 mg 11/07/17 10:00 11/08/17 09:43 Lovenox - SQ 40 mg DAILY STEPHANIE Administration Aztreonam 1 gm/ Dextrose 50 mls @ 100 mls/hr 11/07/17 10:45 11/08/17 18:03 IVPB 100 mls/hr Q8H-IV STEPHANIE Administration Protocol Metronidazole 500 mg in 100 mls @ 100 mls/hr 11/07/17 10:00 11/08/17 18:02 Flagyl 500mg Premixed Ivpb - IVPB 100 mls/hr Q8H-IV STEPHANIE Administration Vancomycin HCl 1 gm in 200 mls @ 200 mls/hr 11/09/17 10:00 Vancomycin 1 Gm Premix - IVPB DAILY STEPHANIE Insulin Aspart 1 vial 11/07/17 11:00 11/08/17 16:55 Novolog Vial Sliding Scale - SQ 4 units ACHS STEPHANIE Administration Protocol Insulin Detemir 10 units 11/07/17 22:00 11/07/17 22:18 Levemir Vial SQ 10 unit HS STEPHANIE Administration Lactobacillus Acidophilus 1 tab 11/07/17 10:00 11/08/17 09:43 Bacid - PO 1 tab DAILY STEPHANIE Administration Ondansetron HCl 4 mg 11/07/17 09:19 Zofran Injection IVPUSH Q6H PRN NAUSEA AND/OR VOMITING Oxycodone HCl 5 mg 11/07/17 09:19 11/08/17 15:38 Roxicodone - PO 5 mg Q4H PRN Administration PAIN LEVEL 7 - 10 Sodium Hypochlorite 1 applic 11/07/17 10:00 11/08/17 09:43 Dakin's Solution 0.25% (Half-Strength) - TP Not Given DAILY STEPHANIE Vancomycin HCl 125 mg 11/07/17 12:00 11/08/17 18:03 Vancomycin Oral Solution PO 125 mg Q6HPO STEPHANIE Administration Imaging Echo - LV size, thickness and function are normal. LVEF is normal. LV wall motion is normal. RV is normal in size and function. Mild tricuspid regurgitation. Right ventricular systolic pressure is elevated at 30-40mmHg. E/ A reversal consistent with but not diagnostic of poor LV compliance. There is trace to mild mitral regurgitation. CTA of abd/pelvis with BLE runoffs - Limited study for the evaluation of the SFAs due to motion however within the limitations of the exam and no significant stenotic or occlusive disease seen in the aortoiliac, femoro- popliteal or infrapopliteal arteries. Multiple large lobulated masses some containing calcifications and other demonstrating low internal density suggestive of necrosis. These masses are inseparable from the dome of the urinary bladder and terminal ileum. Findings could be secondary to either mesenteric primary neoplasm, adenocarcinoma within urachal remnant or small bowel in origin. Innumerable metastatic lesions seen throughout the mesentery and both lung doan. Multiple mildly dilated small bowel loops up to 3.4 cm suspicious for early bowel obstruction. Distal right ureter obstructed by large right pelvic inlet mass resulting in moderate hydronephrosis. Architectural distortion with irregular interlobular septal thickening in the right lung bases and lingula with traction bronchiectasis likely lung scarring however underlying lymphangitic spread of tumor cannot be excluded. Xray of Left foot and ankle - The ankle mortise is intact. There is mild soft tissue swelling over the lateral malleolus. The alignment is satisfactory without gross evidence of a fracture or dislocation. Mild soft tissue swelling over dorsal aspect of the foot. Mild osteoarthritic changes involving the first MTP joint. There is no gross evidence of focal bone destruction or soft tissue air. CXR - Multiple nodular opacities in the lungs suggestive of metastasis. Microbiology 11/07/17 08:15 Foot - Left Heel Gram Stain - Final 11/07/17 08:15 Foot - Left Heel Wound Culture - Preliminary Proteus Species Group D Strep Or Entero Coccus Lactose Fermenting Neg Bacilli Pending Organism 11/07/17 08:15 Bone Gram Stain - Final 11/07/17 08:15 Bone Tissue Culture - Preliminary Proteus Species Group D Strep Or Entero Coccus 11/01/17 15:45 Blood - Peripheral Venous Blood Culture - Final Staphylococcus Auricularis 11/04/17 09:10 Blood - Peripheral Venous Blood Culture - Preliminary NO GROWTH OBTAINED AFTER 96 HOURS, INCUBATION TO CONTINUE FOR 1 DAYS. 11/04/17 08:15 Blood - Peripheral Venous Blood Culture - Preliminary NO GROWTH OBTAINED AFTER 96 HOURS, INCUBATION TO CONTINUE FOR 1 DAYS. ASSESSMENT/PLAN: Patient is a 61 year old male with past medical history of DM, hx of bladder cancer with primary mets to lung and colon (currently with colostomy bag placed 1 year ago) admitted for nonhealing diabetic left heel wound. #Nonhealing diabetic wound, left heel: s/p L heel debridement and bone biopsy POD1 -Oxycodone 5mg q6h PRN for pain. -Wound cx - Proteus mirabilis, staph coagulase positive, enterococcus, lactose fermenting gram negative bacilli -Bone cx - Proteus mirabilis, enterococcus -ID (Dr. Romero) consulted. Recommendations appreciated. -IV Azactam, IV Vancomycin, IV Flagyl -Vanc trough level -24. Reduce Vanc dose to daily. -Daily wound care. -Probiotics. -Podiatry (Dr. An) consulted. Recommendations appreciated. -IV antibiotics per ID -s/p L heel debridement and bone biopsy -Dakins wet to dry L foot -Toe touch WB L foot -Recommend JASMYNE placement, assuming he'll need senior care IV antibiotics. -Vascular (Dr. Barbour) consulted. Recommedations appreciated. #C. difficile infection: will treat in the setting of diarrhea -Continue Vancomycin 125mg PO q6h -Isolation precaution #Abdominal tenderness -Patient complains of suprapubic tenderness today. -UA and Urine cx done to rule out UTI. #Sacral decubitus ulcer -On antibiotics. -Proper wound care -Tylenol 650 mg PO Q6H for pain and Oxycodone 5mg q6h PRN for pain 7-10 -Turn and position Q2H #Bladder cancer w/ metastasis to lung and colon: s/p colostomy bag since 1 year ago. -Due for removal 6 months ago but patient does not want to go back to [facility] to have it removed. -Refused to go back [facility] to continue treatment and is seeking new care. -Oncology (Dr. Fried) consulted. Recommendations appreciated. -Would consider CT of chest, abdomen, pelvis to assess current state of bladder cancer. -Bone scan in view of back pains. -Currently attention to be directed toward left heel ulcer and therapy. -Diabetic control. -Urology consulted. -Surgery consulted. Recommendations appreciated. #Sinus arrhythmia, found on EKG, no prior EKG for comparison. -Echocardiogram - LV size, thickness, and function normal; LV EF normal; RV normal in size and function; Mild TR; RV systolic pressure is elevated at 30- 40mmHg; E/A reveral consistent with but not diagnostic of poor LV complaince. Trace MR. -Electrolytes wnl #DM -HbA1c - 8.5 -Levemir 10U SQ HS -ISS -BGM ACHS #Severely malnourished: significant weight loss likely 2/2 to CA -dietitian consult #FEN -not on any standing fluids -encourage increased oral fluid intake -electrolytes wnl, routine bmp monitoring -Diabetic diet #Prophylaxis -Lovenox 40 mg SQ QD #Disposition -admit to tele -Palliative care consulted Visit type - Emergency Visit Emergency Visit: Yes ED Registration Date: 11/01/17 Care time: The patient presented to the Emergency Department on the above date and was hospitalized for further evaluation of their emergent condition. - New Patient This patient is new to me today: Yes Date on this admission: 11/08/17 - Critical Care Critical Care patient: No
[2017-11-08] MEDS: INSULIN (LEVEMIR) 100 UNITS/ML UNITS SQ SCH (22:27)
[2017-11-09] MEDS: VANCOMYCIN 250 MG/5 ML ORAL SOLUTION PO SCH ×3 (00:05→12:30)
[2017-11-09] MEDS: AZTREONAM 1 GM in DEXTROSE 5%-WATER - 50 ML IVPB SCH ×3 (01:32→17:25)
[2017-11-09] MEDS ORDERED: INSULIN (NOVOLOG) ASPART 100 UNITS/ML 10ML VIAL ONE ×3 (05:46→21:00)
[2017-11-09] MEDS: INSULIN SLIDING SCALE (NOVOLOG) 1 VIAL SQ SCH ×4 (06:20→21:38)
--- NOTE | 2017-11-09 07:30 | PN ---
Progress Note (short form) - Note Progress Note: Podiatry F/U: Seen/evaluated at bedside NAD. Denies F/V/N/C/SOB/CP. Afebrile. S/p L heel debridement and bone biopsy. DIOGO: L foot: posterior heel diabetic ulcer fibrotic base, no purulence, no fluctuance , no malodor, mild decrease in periwound erythema, no streaking cellulitis, no signs of active infection. Minimal tenderness to palpation. Bone Cx: proteus, group D strep Imp: 61 year old M s/p L heel debridement and bone biopsy 1. IV abx 2. Can cleanse with dakins and use santyl daily to L heel 3. Heel offloading measures 4. Needs IV abx for tx of osteomyelitis 5. Will f/u in wound healing center upon discharge. [phone]. Scott An DPM
[2017-11-09 08:15] LABS: HEMATOCRIT 26.4 % (35.4-49); HEMOGLOBIN 8.3 GM/dL (11.7-16.9); MCH 25.1 pg (25.7-33.7); MCHC 31.6 g/dl (32.0-35.9); MEAN CELL VOLUME 79.5 fl (80-96); PLATELET COUNT 480 K/MM3 (134-434); RBC 3.32 M/mm3 (4.00-5.60); RDW 19.6 % (11.9-15.9); WHITE BLOOD COUNT 9.1 K/mm3 (4.0-10.0)
[2017-11-09 08:21] LABS: ANION GAP 5 MMOL/L (8-16); BLOOD UREA NITROGEN 32 mg/dL (7-18); CALCIUM 7.9 mg/dL (8.5-10.1); CHLORIDE 107 mmol/L (98-107); CO2 25 mmol/L (21-32); CREATININE 1.1 mg/dL (0.55-1.3); GLUCOSE,RANDOM 104 mg/dL (74-106); SODIUM 137 mmol/L (136-145)
[2017-11-09] MEDS ORDERED: PT OWN MED DRAWER 7, Y5N ONE (09:44)
[2017-11-09] MEDS: SODIUM HYPOCHLORITE 0.25%- 473 ML BULK BOTTLE TP SCH (09:58)
[2017-11-09] MEDS: VANCOMYCIN 1 GM PREMIX - 1 GM/200 ML BAG IVPB SCH (09:58)
[2017-11-09] MEDS: ENOXAPARIN NA (PORCINE) 40 MG/0.4 ML DISP.SYRIN SQ SCH (09:58)
[2017-11-09] MEDS: oxyCODONE HCL 5 MG TABLET PO PRN ×3 (09:59→18:12)
[2017-11-09] MEDS: LACTOBACILLUS ACIDOPHILUS 1 TABLET PO SCH (09:59)
[2017-11-09] MEDS: COLLAGENASE CLOSTRIDIUM HIST. 30 GRAMS TUBE TP SCH (10:00)
[2017-11-09] MEDS ORDERED: VANCOMYCIN 1 GRAM (PRE-DOCKED) 1,000 MG/250 ML BAG IVPB SCH (10:00)
--- NOTE | 2017-11-09 13:40 | PN ---
Teaching Attending Note Name of Resident: Hazel Boyle ATTENDING PHYSICIAN STATEMENT I saw and evaluated the patient. I reviewed the resident's note and discussed the case with the resident. I agree with the resident's findings and plan as documented. SUBJECTIVE:continues to have suprapbic pain which he now states starts in his lower back and radiates around. states hes had this pain for several months since he has been mostly bedbound since his colostomy surgery. said he is unable to sit in a chair as his intestines sticks into the bag several inches and similar when ambulating. denies CP, SOB, fever, chills, N/V/C/D RN reports less frequent BM OBJECTIVE: Last Vital Signs Temp Pulse Resp BP Pulse Ox 98.4 F 89 20 146/72 99 11/09/17 10:00 11/09/17 10:00 11/09/17 10:00 11/09/17 10:00 11/09/17 09:00 general NAD Abdomen soft +suprapubic tendenress. +colostomy ASSESSMENT AND PLAN: 61 yo M with reported history of bladder ca with mets to lung/colon s/p colostomy 1 year ago, IDDM, recurrent falls, admitted with Left heel eschar+/- cellulitis 1. Left heel OM with surrounding cellulitis-s/p L heel debridement with bone cx 11/07. +Bone Cx showing now OM. will need 6-8weeks of IV abx. cont aztreonam/ flagyl. PICC line placement prior to d/c. pain control. [facility] surgeon, podiatry , ID on board. f/u official cx report 2.GPC bacteremia- was not speciated. repeat Bcx negative. on Vanco IV. vanco level elevated and vanco decreased to daily. will need to check trough prior to 4th dose. (Sunday) ID on board 3. suprapubic tenderness- UCx pending. appears to be more referred pain and chronic issue. will f/u 4 Suspected acute C difficile diarrhea- cdiff toxin neg ag pos. diarrhea is improving with less frequency. on vanco po and bacid. ID on board. contact precautions 5. Acute on chronic anemia- s/p 1 unit PRBC this hospital stay. hgb now stable. no indication for transfusion 6. Reported bladder ca with mets to lung/colon s/p colostomy 1 year ago- appears pt likely has a stomal hernia which can be repaired although it may be of benefit to have reversal of the colostomy if able to be reversed. pt states he is unable to reach his doctor informed him that he should try to make appt with a doctor in the same group if his specific doctor is not available. 7. DM- cont home regimen. titrate to optimize control. 8. Hyperkalemia- resolved 9. DVT ppx- lovenox. 10. pt will likely require JASMYNE for intermediate IV abx for OM treatment. agreeable to placement. will notify CM to start paperwork
--- NOTE | 2017-11-09 14:53 | PN ---
Progress Note (short form) - Note Progress Note: awake alert s/p debridement of the heel Vital Signs Period Temp Pulse Resp BP Sys/Kevin Pulse Ox Last 24 Hr 97.5 F-98.4 F 87-96 20-20 129-146/68-77 99-99 cor-rrr lungs clear abd soft, ext heel wound is clean, no purulence, no exposed bone CBC, BMP 11/09/17 07:30 11/09/17 07:30 Microbiology 11/07/17 08:15 Bone Gram Stain - Final 11/07/17 08:15 Bone Tissue Culture - Final Proteus Mirabilis Enterococcus Faecalis 11/07/17 08:15 Bone Anaerobic Culture - Preliminary Pending Organism 11/07/17 08:15 Foot - Left Heel Gram Stain - Final 11/07/17 08:15 Foot - Left Heel Wound Culture - Preliminary Proteus Mirabilis Group D Strep Or Entero Coccus Lactose Fermenting Neg Bacilli Presumptive Mssa (Pbp2a Neg) Pending Organism#2 11/07/17 17:00 Urine - Urine Clean Catch Urine Culture - Final 11/04/17 09:10 Blood - Peripheral Venous Blood Culture - Final NO GROWTH AFTER 5 DAYS INCUBATION 11/04/17 08:15 Blood - Peripheral Venous Blood Culture - Final NO GROWTH AFTER 5 DAYS INCUBATION 11/01/17 15:45 Blood - Peripheral Venous Blood Culture - Final Staphylococcus Auricularis 11/01/17 16:40 Blood - Peripheral Venous Blood Culture - Final NO GROWTH AFTER 5 DAYS INCUBATION 11/01/17 15:57 Foot - Left Heel Gram Stain - Final 11/01/17 15:57 Foot - Left Heel Wound Culture - Final Proteus Mirabilis Staphylococcus Aureus Enterococcus Faecalis Klebsiella Pneumoniae Escherichia Coli 11/05/17 03:07 Stool Clostridium difficile Antigen (JASVIR) - Final 11/05/17 03:07 Stool Clostridium difficile Toxin Assay - Final 11/01/17 17:41 Urine - Urine Clean Catch Urine Culture - Final Contaminated: Please Repeat a/p bacteremia- contaminant-no need to treat infected heel ulcer- + bone biopsy vanco/flagyl/azactam vanco trough 24, decrease dose to daily +cdiff antigen- d/c vancomycin po, he is on flagyl metastatic bladder cancer - ct scan noted, consider pallliative care penicillin allergy noted- no details available Problem List - Problems (1) Ulcer of left heel Code(s): L97.429 - NON-PRS CHRONIC ULCER OF LEFT HEEL AND MIDFOOT W UNSP SEVERT Qualifiers: Non-pressure ulcer stage: unspecified non-pressure ulcer stage Qualified Code(s): L97.429 - Non-pressure chronic ulcer of left heel and midfoot with unspecified severity (2) H/O carcinoma of bladder Code(s): Z85.51 - PERSONAL HISTORY OF MALIGNANT NEOPLASM OF BLADDER (3) Diabetes Code(s): E11.9 - TYPE 2 DIABETES MELLITUS WITHOUT COMPLICATIONS Qualifiers: Diabetes mellitus type: type 1 Diabetes mellitus complication status: with skin complications (4) Anemia Code(s): D64.9 - ANEMIA, UNSPECIFIED Qualifiers: Anemia type: iron deficiency Iron deficiency anemia type: unspecified iron deficiency Qualified Code(s): D50.9 - Iron deficiency anemia, unspecified (5) Penicillin allergy Code(s): Z88.0 - ALLERGY STATUS TO PENICILLIN
--- NOTE | 2017-11-09 14:59 | PN ---
Physical Exam: SUBJECTIVE: Patient seen and examined at bedside this morning. No acute events overnight. Patient still complains of abdominal pain. Patient reports that he is more comfortable lying down, as sitting up or walking around makes his intestines stick out into the colostomy bag. OBJECTIVE: Vital Signs Period Temp Pulse Resp BP Sys/Kevin Pulse Ox Last 24 Hr 97.5 F-98.4 F 87-96 20-20 129-146/68-77 99-99 GENERAL: The patient is awake, alert, and fully oriented, in no acute distress. HEAD: Normal with no signs of trauma. EYES: PERRLA, EOMI, sclera anicteric, conjunctiva clear. ENT: Ears normal, nares patent, oropharynx clear without exudates, dry mucous membranes. LUNGS: Breath sounds equal, clear to auscultation bilaterally, no wheezes, no crackles, no accessory muscle use. HEART: Regular rate and rhythm, S1, S2 without murmur, rub or gallop. ABDOMEN: Soft, +suprapubic tenderness on palpation, nondistended, normoactive bowel sounds. Colostomy bag empty. UPPER EXTREMITIES: 2+ pulses, warm, well-perfused, no edema. LOWER EXTREMITIES: L foot - post-op dressing intact. NEUROLOGICAL: Cranial nerves II through XII grossly intact. Normal speech, gait not observed. PSYCH: Normal mood, normal affect. SKIN: +stage 2 nonpurulent ulcer at the sacral area Laboratory Results - last 24 hr 11/08/17 11/08/17 11/09/17 16:46 22:29 06:17 WBC RBC Hgb Hct MCV MCH MCHC RDW Plt Count MPV Sodium Potassium Chloride Carbon Dioxide Anion Gap BUN Creatinine Creat Clearance w eGFR POC Glucometer 211 189 114 Random Glucose Calcium 11/09/17 11/09/17 07:30 07:30 WBC 9.1 RBC 3.32 L Hgb 8.3 L Hct 26.4 L MCV 79.5 L MCH 25.1 L MCHC 31.6 L RDW 19.6 H Plt Count 480 H MPV 7.0 L Sodium 137 Potassium 5.0 Chloride 107 Carbon Dioxide 25 Anion Gap 5 L BUN 32 H Creatinine 1.1 Creat Clearance w eGFR > 60 POC Glucometer Random Glucose 104 Calcium 7.9 L Active Medications Generic Name Dose Route Start Last Admin Trade Name Freq PRN Reason Stop Dose Admin Acetaminophen 650 mg 11/07/17 09:19 11/08/17 18:19 Tylenol - PO 650 mg Q6H PRN Administration PAIN LEVEL 1 - 3 Amino Acids 30 ml 11/09/17 17:30 Prosource No Carb Liquid Pkt PO BID@0800,1730 STEPHANIE Collagenase 1 applic 11/07/17 10:00 11/09/17 10:00 Santyl - TP Not Given DAILY STEPHANIE Protocol Enoxaparin Sodium 40 mg 11/07/17 10:00 11/09/17 09:58 Lovenox - SQ 40 mg DAILY STEPHANIE Administration Aztreonam 1 gm/ Dextrose 50 mls @ 100 mls/hr 11/07/17 10:45 11/09/17 09:57 IVPB 100 mls/hr Q8H-IV STEPHANIE Administration Protocol Metronidazole 500 mg in 100 mls @ 100 mls/hr 11/07/17 10:00 11/09/17 09:57 Flagyl 500mg Premixed Ivpb - IVPB 100 mls/hr Q8H-IV STEPHANIE Administration Vancomycin HCl 1 gm in 200 mls @ 200 mls/hr 11/09/17 10:00 11/09/17 09:58 Vancomycin 1 Gm Premix - IVPB 200 mls/hr DAILY STEPHANIE Administration Insulin Aspart 1 vial 11/07/17 11:00 11/09/17 11:00 Novolog Vial Sliding Scale - SQ Not Given ACHS [facility] Protocol Insulin Detemir 10 units 11/07/17 22:00 11/08/17 22:27 Levemir Vial SQ 10 unit HS STEPHANIE Administration Lactobacillus Acidophilus 1 tab 11/07/17 10:00 11/09/17 09:59 Bacid - PO 1 tab DAILY STEPHANIE Administration Ondansetron HCl 4 mg 11/07/17 09:19 Zofran Injection IVPUSH Q6H PRN NAUSEA AND/OR VOMITING Oxycodone HCl 5 mg 11/07/17 09:19 11/09/17 13:28 Roxicodone - PO 5 mg Q4H PRN Administration PAIN LEVEL 7 - 10 Sodium Hypochlorite 1 applic 11/07/17 10:00 11/09/17 09:58 Dakin's Solution 0.25% (Half-Strength) - TP Not Given DAILY STEPHANIE Imaging Echo - LV size, thickness and function are normal. LVEF is normal. LV wall motion is normal. RV is normal in size and function. Mild tricuspid regurgitation. Right ventricular systolic pressure is elevated at 30-40mmHg. E/ A reversal consistent with but not diagnostic of poor LV compliance. There is trace to mild mitral regurgitation. CTA of abd/pelvis with BLE runoffs - Limited study for the evaluation of the SFAs due to motion however within the limitations of the exam and no significant stenotic or occlusive disease seen in the aortoiliac, femoro- popliteal or infrapopliteal arteries. Multiple large lobulated masses some containing calcifications and other demonstrating low internal density suggestive of necrosis. These masses are inseparable from the dome of the urinary bladder and terminal ileum. Findings could be secondary to either mesenteric primary neoplasm, adenocarcinoma within urachal remnant or small bowel in origin. Innumerable metastatic lesions seen throughout the mesentery and both lung doan. Multiple mildly dilated small bowel loops up to 3.4 cm suspicious for early bowel obstruction. Distal right ureter obstructed by large right pelvic inlet mass resulting in moderate hydronephrosis. Architectural distortion with irregular interlobular septal thickening in the right lung bases and lingula with traction bronchiectasis likely lung scarring however underlying lymphangitic spread of tumor cannot be excluded. Xray of Left foot and ankle - The ankle mortise is intact. There is mild soft tissue swelling over the lateral malleolus. The alignment is satisfactory without gross evidence of a fracture or dislocation. Mild soft tissue swelling over dorsal aspect of the foot. Mild osteoarthritic changes involving the first MTP joint. There is no gross evidence of focal bone destruction or soft tissue air. CXR - Multiple nodular opacities in the lungs suggestive of metastasis. Microbiology 11/07/17 08:15 Foot - Left Heel Gram Stain - Final 11/07/17 08:15 Foot - Left Heel Wound Culture - Preliminary Proteus Mirabilis Group D Strep Or Entero Coccus Lactose Fermenting Neg Bacilli Presumptive Mssa (Pbp2a Neg) Bacteroides Fragilis 11/07/17 08:15 Bone Gram Stain - Final 11/07/17 08:15 Bone Tissue Culture - Final Proteus Mirabilis Enterococcus Faecalis 11/07/17 08:15 Bone Anaerobic Culture - Preliminary Pending Organism 11/07/17 17:00 Urine - Urine Clean Catch Urine Culture - Final 11/04/17 09:10 Blood - Peripheral Venous Blood Culture - Final NO GROWTH AFTER 5 DAYS INCUBATION 11/04/17 08:15 Blood - Peripheral Venous Blood Culture - Final NO GROWTH AFTER 5 DAYS INCUBATION ASSESSMENT/PLAN: Patient is a 61 year old male with past medical history of DM, hx of bladder cancer with primary mets to lung and colon (currently with colostomy bag placed 1 year ago) admitted for nonhealing diabetic left heel wound. #Nonhealing diabetic wound, left heel: s/p L heel debridement and bone biopsy POD1 -Oxycodone 5mg q6h PRN for pain. -Wound cx - Proteus mirabilis, enterococcus, lactose fermenting gram negative bacilli, presumptive MSSA, Bacteroides fragilis -Bone cx - Proteus mirabilis, enterococcus faecalis -ID (Dr. Romero) consulted. Recommendations appreciated. -IV Azactam, IV Vancomycin, IV Flagyl -Vanc trough level -24. Reduce Vanc dose to daily. -Daily wound care. -Probiotics. -Podiatry (Dr. An) consulted. Recommendations appreciated. -IV antibiotics per ID -s/p L heel debridement and bone biopsy -Dakins wet to dry L foot -Toe touch WB L foot -Recommend JASMYNE placement, needs IV abx for tx of osteomyelitis -Will f/u in wound healing center upon discharge. [phone]. -Vascular (Dr. Barbour) consulted. Recommedations appreciated. #C. difficile infection: will treat in the setting of diarrhea -Continue Vancomycin 125mg PO q6h -Isolation precaution #Sacral decubitus ulcer -On antibiotics. -Proper wound care -Tylenol 650 mg PO Q6H for pain and Oxycodone 5mg q6h PRN for pain 7-10 -Turn and position Q2H #Bladder cancer w/ metastasis to lung and colon: s/p colostomy bag since 1 year ago. -Due for removal 6 months ago but patient does not want to go back to Surgeon to have it removed. -Refused to go back [facility] to continue treatment and is seeking new care. -Called daughterIzzy to ask about hospital records. She said they could not find the doctors or the records and in the process of looking for them. -Faxed a release form signed by patient to [facility] to request for patient's records. -Oncology (Dr. Fried) consulted. Recommendations appreciated. -Would consider CT of chest, abdomen, pelvis to assess current state of bladder cancer. -Bone scan in view of back pains. -Currently attention to be directed toward left heel ulcer and therapy. -Diabetic control. -Urology consulted. -Surgery consulted. Recommendations appreciated. #Sinus arrhythmia, found on EKG, no prior EKG for comparison. -Echocardiogram - LV size, thickness, and function normal; LV EF normal; RV normal in size and function; Mild TR; RV systolic pressure is elevated at 30- 40mmHg; E/A reveral consistent with but not diagnostic of poor LV complaince. Trace MR. -Electrolytes wnl #DM -HbA1c - 8.5 -Levemir 10U SQ HS -ISS -BGM ACHS #Severely malnourished: significant weight loss likely 2/2 to CA -dietitian consult #FEN -not on any standing fluids -encourage increased oral fluid intake -electrolytes wnl, routine bmp monitoring -Diabetic diet #Prophylaxis -Lovenox 40 mg SQ QD #Disposition -admit to tele -Palliative care consulted Visit type - Emergency Visit Emergency Visit: Yes ED Registration Date: 11/01/17 Care time: The patient presented to the Emergency Department on the above date and was hospitalized for further evaluation of their emergent condition. - New Patient This patient is new to me today: Yes Date on this admission: 11/10/17 - Critical Care Critical Care patient: No
[2017-11-09] MEDS: ACETAMINOPHEN 325 MG TABLET (FP) PO PRN (17:08)
[2017-11-09] MEDS: AMINO ACIDS/PROTEIN HYDROLYS 30 ML LIQUID.PKT PO SCH (17:24)
[2017-11-09] MEDS: INSULIN (LEVEMIR) 100 UNITS/ML UNITS SQ SCH (21:33)
[2017-11-10] MEDS: AZTREONAM 1 GM in DEXTROSE 5%-WATER - 50 ML IVPB SCH ×3 (01:35→18:22)
[2017-11-10] MEDS: INSULIN SLIDING SCALE (NOVOLOG) 1 VIAL SQ SCH ×4 (06:14→22:12)
[2017-11-10 08:52] LABS: HEMATOCRIT 26.2 % (35.4-49); HEMOGLOBIN 8.3 GM/dL (11.7-16.9); MCHC 31.8 g/dl (32.0-35.9); MEAN CELL VOLUME 78.5 fl (80-96); PLATELET COUNT 473 K/MM3 (134-434); RBC 3.34 M/mm3 (4.00-5.60); RDW 19.6 % (11.9-15.9); WHITE BLOOD COUNT 8.4 K/mm3 (4.0-10.0)
[2017-11-10 09:39] LABS: ANION GAP 7 MMOL/L (8-16); BLOOD UREA NITROGEN 30 mg/dL (7-18); CALCIUM 8.2 mg/dL (8.5-10.1); CHLORIDE 105 mmol/L (98-107); CO2 25 mmol/L (21-32); CREATININE 0.9 mg/dL (0.55-1.3); GLUCOSE,RANDOM 92 mg/dL (74-106); SODIUM 137 mmol/L (136-145)
[2017-11-10] MEDS: oxyCODONE HCL 5 MG TABLET PO PRN ×3 (09:41→23:58)
[2017-11-10] MEDS: LACTOBACILLUS ACIDOPHILUS 1 TABLET PO SCH (09:41)
[2017-11-10] MEDS: ACETAMINOPHEN 325 MG TABLET (FP) PO PRN ×2 (09:43→19:05)
[2017-11-10] MEDS: AMINO ACIDS/PROTEIN HYDROLYS 30 ML LIQUID.PKT PO SCH ×2 (09:45→18:22)
[2017-11-10] MEDS: ENOXAPARIN NA (PORCINE) 40 MG/0.4 ML DISP.SYRIN SQ SCH (09:45)
[2017-11-10] MEDS: SODIUM HYPOCHLORITE 0.25%- 473 ML BULK BOTTLE TP SCH (09:46)
[2017-11-10] MEDS: COLLAGENASE CLOSTRIDIUM HIST. 30 GRAMS TUBE TP SCH (09:47)
--- NOTE | 2017-11-10 10:11 | PN ---
Progress Note (short form) - Note Progress Note: asymptomatic today. dneies Cp, SOB, fever, chills, N/v/. cont to have loose stool through colostomy Current Medications Generic Name Dose Route Start Last Admin Trade Name Freq PRN Reason Stop Dose Admin Acetaminophen 650 mg 11/07/17 09:19 11/10/17 09:43 Tylenol - PO 650 mg Q6H PRN Administration PAIN LEVEL 1 - 3 Amino Acids 30 ml 11/09/17 17:30 11/10/17 09:45 Prosource No Carb Liquid Pkt PO 30 ml BID@0800,1730 STEPHANIE Administration Collagenase 1 applic 11/07/17 10:00 11/10/17 09:47 Santyl - TP 1 applic DAILY STEPHANIE Administration Protocol Enoxaparin Sodium 40 mg 11/07/17 10:00 11/10/17 09:45 Lovenox - SQ 40 mg DAILY STEPHANIE Administration Aztreonam 1 gm/ Dextrose 50 mls @ 100 mls/hr 11/07/17 10:45 11/10/17 09:44 IVPB 100 mls/hr Q8H-IV STEPHANIE Administration Protocol Metronidazole 500 mg in 100 mls @ 100 mls/hr 11/07/17 10:00 11/10/17 09:44 Flagyl 500mg Premixed Ivpb - IVPB 100 mls/hr Q8H-IV STEPHANIE Administration Vancomycin HCl 1 gm in 200 mls @ 200 mls/hr 11/09/17 10:00 11/09/17 09:58 Vancomycin 1 Gm Premix - IVPB 200 mls/hr DAILY STEPHANIE Administration Insulin Aspart 1 vial 11/07/17 11:00 11/10/17 06:14 Novolog Vial Sliding Scale - SQ Not Given ACHS STEPHANIE Protocol Insulin Detemir 10 units 11/07/17 22:00 11/09/17 21:33 Levemir Vial SQ 10 unit HS STEPHANIE Administration Lactobacillus Acidophilus 1 tab 11/07/17 10:00 11/10/17 09:41 Bacid - PO 1 tab DAILY STEPHANIE Administration Ondansetron HCl 4 mg 11/07/17 09:19 Zofran Injection IVPUSH Q6H PRN NAUSEA AND/OR VOMITING Oxycodone HCl 5 mg 11/07/17 09:19 11/10/17 09:41 Roxicodone - PO 5 mg Q4H PRN Administration PAIN LEVEL 7 - 10 Sodium Hypochlorite 1 applic 11/07/17 10:00 11/10/17 09:46 Dakin's Solution 0.25% (Half-Strength) - TP 1 applic DAILY STEPHANIE Administration Last Vital Signs Temp Pulse Resp BP Pulse Ox 98.3 F 92 H 20 150/83 99 11/10/17 06:00 11/10/17 06:00 11/10/17 06:00 11/10/17 06:00 11/09/17 21:00 general NAD Abdomen soft +suprapubic tendenress. +colostomy CBCD WBC 8.4 K/mm3 (4.0-10.0) 11/10/17 08:10 RBC 3.34 M/mm3 (4.00-5.60) L 11/10/17 08:10 Hgb 8.3 GM/dL (11.7-16.9) L 11/10/17 08:10 Hct 26.2 % (35.4-49) L 11/10/17 08:10 MCV 78.5 fl (80-96) L 11/10/17 08:10 MCHC 31.8 g/dl (32.0-35.9) L 11/10/17 08:10 RDW 19.6 % (11.9-15.9) H 11/10/17 08:10 Plt Count 473 K/MM3 (134-434) H 11/10/17 08:10 MPV 7.0 fl (7.5-11.1) L 11/10/17 08:10 CMP Sodium 137 mmol/L (136-145) 11/10/17 08:10 Potassium 5.0 mmol/L (3.5-5.1) 11/10/17 08:10 Chloride 105 mmol/L (98-107) 11/10/17 08:10 Carbon Dioxide 25 mmol/L (21-32) 11/10/17 08:10 Anion Gap 7 MMOL/L (8-16) L 11/10/17 08:10 BUN 30 mg/dL (7-18) H 11/10/17 08:10 Creatinine 0.9 mg/dL (0.55-1.3) 11/10/17 08:10 Creat Clearance w eGFR > 60 (>60) 11/10/17 08:10 Calcium 8.2 mg/dL (8.5-10.1) L 11/10/17 08:10 Total Bilirubin 0.2 mg/dL (0.2-1) 11/07/17 06:25 AST 14 U/L (15-37) L 11/07/17 06:25 ALT 9 U/L (13-61) L 11/07/17 06:25 Alkaline Phosphatase 67 U/L (45-117) 11/07/17 06:25 Total Protein 6.2 g/dl (6.4-8.2) L 11/07/17 06:25 Albumin 1.5 g/dl (3.4-5.0) L 11/07/17 06:25 Microbiology 11/07/17 08:15 Gram Stain - Final Foot - Left Heel Wound Culture - Preliminary Proteus Mirabilis Enterococcus Faecalis Escherichia Coli Staphylococcus Aureus Bacteroides Fragilis 11/07/17 08:15 Gram Stain - Final Bone Tissue Culture - Final Proteus Mirabilis Enterococcus Faecalis Anaerobic Culture - Preliminary Pending Organism 11/07/17 17:00 Urine Culture - Final Urine - Urine Clean Catch 11/04/17 09:10 Blood Culture - Final Blood - Peripheral Venous NO GROWTH AFTER 5 DAYS INCUBATION 11/04/17 08:15 Blood Culture - Final Blood - Peripheral Venous NO GROWTH AFTER 5 DAYS INCUBATION ASSESSMENT AND PLAN: 61 yo M with reported history of bladder ca with mets to lung/colon s/p colostomy 1 year ago, IDDM, recurrent falls, admitted with Left heel eschar+/- cellulitis 1. Left heel OM with surrounding cellulitis-s/p L heel debridement with bone cx 11/07. +Bone Cx showing now OM. will need 6-8weeks of IV abx. cont aztreonam/ flagyl. PICC line placement prior to d/c. pain control. vasc surgeon, podiatry , ID on board. f/u official cx report 2.Staph Auricularis bacteremia- repeat Bcx negative. on Vanco IV. vanco level elevated and vanco decreased to daily. will need to check trough prior to 4th dose. (Sunday) ID on board 3. suprapubic tenderness- more likely back pain radiating to the front as pt resistant to getting out of bed. symptoms now resolvd. Ucx negative. 4 Suspected acute C difficile diarrhea- cdiff toxin neg ag pos. claims stool output is now his baseline. vanco po d/c is still on flagyl and bacid. ID on board. contact precautions 5. Acute on chronic anemia- s/p 1 unit PRBC this hospital stay. hgb now stable. no indication for transfusion 6. Reported bladder ca with mets to lung/colon s/p colostomy 1 year ago- appears pt likely has a stomal hernia which can be repaired although it may be of benefit to have reversal of the colostomy if able to be reversed. pt states he is unable to reach his doctor informed him that he should try to make appt with a doctor in the same group if his specific doctor is not available. 7. DM- cont home regimen. titrate to optimize control. 8. Hyperkalemia- resolved 9. DVT ppx- lovenox. 10. 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 agreeable to placement. awaiting acceptance Visit type - Emergency Visit Emergency Visit: Yes ED Registration Date: 11/01/17 Care time: The patient presented to the Emergency Department on the above date and was hospitalized for further evaluation of their emergent condition. - New Patient This patient is new to me today: No - Critical Care Critical Care patient: No - Discharge Referral Referred to [facility] No
[2017-11-10] MEDS: VANCOMYCIN 1 GM PREMIX - 1 GM/200 ML BAG IVPB SCH (11:17)
--- NOTE | 2017-11-10 15:07 | PN ---
Progress Note (short form) - Note Progress Note: Podiatry F/U: S/P L heel debridement and bone biopsy. Doing well, afebrile VSS. Pain controlled to L heel. DIOGO: L foot: posterior medial heel ulcer fibrotic, mild periwound erythema, no purulence, no fluctuance, no streaking cellulitis, no soft tissue crepitus, no signs of active infection. OR Cx: mixed orgs Imp: 61 year old DM M s/p L heel debridement and bone bx 1. IV abx per ID 2. For PICC line 3. Local wound care: santyl + dakins wet to dry 4. Heel offloading 5. Will f/u in wound care upon discharge Scott An DPM
[2017-11-10] MEDS ORDERED: MELATONIN 5 MG TABLETS PO ONE (21:15)
[2017-11-10] MEDS: INSULIN (LEVEMIR) 100 UNITS/ML UNITS SQ SCH (22:12)
[2017-11-11] MEDS: AZTREONAM 1 GM in DEXTROSE 5%-WATER - 50 ML IVPB SCH ×3 (01:32→17:26)
[2017-11-11] MEDS: INSULIN SLIDING SCALE (NOVOLOG) 1 VIAL SQ SCH ×4 (06:36→23:08)
[2017-11-11] MEDS: ACETAMINOPHEN 325 MG TABLET (FP) PO PRN ×2 (10:33→19:56)
[2017-11-11] MEDS: oxyCODONE HCL 5 MG TABLET PO PRN ×2 (10:33→19:56)
[2017-11-11] MEDS: AMINO ACIDS/PROTEIN HYDROLYS 30 ML LIQUID.PKT PO SCH ×2 (10:34→17:26)
[2017-11-11] MEDS: VANCOMYCIN 1 GM PREMIX - 1 GM/200 ML BAG IVPB SCH (10:35)
[2017-11-11] MEDS: LACTOBACILLUS ACIDOPHILUS 1 TABLET PO SCH (10:35)
[2017-11-11] MEDS: ENOXAPARIN NA (PORCINE) 40 MG/0.4 ML DISP.SYRIN SQ SCH (10:35)
[2017-11-11] MEDS: COLLAGENASE CLOSTRIDIUM HIST. 30 GRAMS TUBE TP SCH (10:36)
[2017-11-11] MEDS: SODIUM HYPOCHLORITE 0.25%- 473 ML BULK BOTTLE TP SCH (10:36)
[2017-11-11] MEDS ORDERED: INSULIN (NOVOLOG) ASPART 100 UNITS/ML 10ML VIAL ONE (11:29)
--- NOTE | 2017-11-11 14:14 | PN ---
Teaching Attending Note Name of Resident: Cyril Evans ATTENDING PHYSICIAN STATEMENT I saw and evaluated the patient. I reviewed the resident's note and discussed the case with the resident. I agree with the resident's findings and plan as documented. SUBJECTIVE:asymptomatic. denies CP, SOB, fever, chills, N/V/C/D OBJECTIVE: Last Vital Signs Temp Pulse Resp BP Pulse Ox 97.8 F 83 18 148/75 99 11/11/17 10:00 11/11/17 10:00 11/11/17 10:00 11/11/17 10:11/10/17 21:00 General NAD ASSESSMENT AND PLAN: 61 yo M with reported history of bladder ca with mets to lung/colon s/p colostomy 1 year ago, IDDM, recurrent falls, admitted with Left heel eschar+/- cellulitis 1. Left heel OM with surrounding cellulitis-s/p L heel debridement with bone cx 11/07. +Bone Cx showing now OM. will need 6-8weeks of IV abx. cont aztreonam/ flagyl. PICC line placement prior to d/c. pain control. vasc surgeon, podiatry , ID on board. f/u official cx report 2.Staph Auricularis bacteremia- repeat Bcx negative. on Vanco IV. vanco level elevated and vanco decreased to daily. will need to check trough prior to 4th dose. (Sunday) ID on board 3. suprapubic tenderness- more likely back pain radiating to the front as pt resistant to getting out of bed. symptoms now resolvd. Ucx negative. 4 Suspected acute C difficile diarrhea- cdiff toxin neg ag pos. claims stool output is now his baseline. vanco po d/c is still on flagyl and bacid. ID on board. contact precautions 5. Acute on chronic anemia- s/p 1 unit PRBC this hospital stay. hgb now stable. no indication for transfusion 6. Reported bladder ca with mets to lung/colon s/p colostomy 1 year ago- appears pt likely has a stomal hernia which can be repaired although it may be of benefit to have reversal of the colostomy if able to be reversed. pt states he is unable to reach his doctor informed him that he should try to make appt with a doctor in the same group if his specific doctor is not available. 7. DM- cont home regimen. titrate to optimize control. 8. Hyperkalemia- resolved 9. DVT ppx- lovenox. 10. pt will likely require JASMYNE for halfway IV abx for OM treatment. agreeable to placement. awaiting acceptance
--- NOTE | 2017-11-11 16:05 | PN ---
Physical Exam: SUBJECTIVE: Patient seen and examined at bedside. Denies chest pain, SOB, nausea ,vomiting, diarrhea, fevers, chills. Denies pain on the foot. No overnight events OBJECTIVE: Vital Signs Period Temp Pulse Resp BP Sys/Kevin Pulse Ox Last 24 Hr 97.4 F-98.4 F 83-90 18-20 128-148/69-75 99-99 GENERAL: A&Ox3, no acute distress EYES: PERRLA, EOMI ENT: Moist mucus membranes NECK: No JVD LUNGS: CTA, no wheezes HEART: RRR, no murmurs ABDOMEN: Soft, nontender, BS present, ostomy in place MUSCULOSKELETAL: No CVA Tenderness EXTREMITIES: 2+ pulses, no edema. NEUROLOGICAL: Cranial nerves II-XII intact. Laboratory Results - last 24 hr 11/10/17 11/10/17 11/11/17 17:10 22:10 05:44 POC Glucometer 241 235 223 11/11/17 11:47 POC Glucometer 114 Active Medications Generic Name Dose Route Start Last Admin Trade Name Freq PRN Reason Stop Dose Admin Acetaminophen 650 mg 11/07/17 09:19 11/11/17 10:33 Tylenol - PO 650 mg Q6H PRN Administration PAIN LEVEL 1 - 3 Amino Acids 30 ml 11/09/17 17:30 11/11/17 10:34 Prosource No Carb Liquid Pkt PO 30 ml BID@0800,1730 STEPHANIE Administration Collagenase 1 applic 11/07/17 10:00 11/11/17 10:36 Santyl - TP 1 applic DAILY STEPHANIE Administration Protocol Enoxaparin Sodium 40 mg 11/07/17 10:00 11/11/17 10:35 Lovenox - SQ 40 mg DAILY STEPHANIE Administration Aztreonam 1 gm/ Dextrose 50 mls @ 100 mls/hr 11/07/17 10:45 11/11/17 10:34 IVPB 100 mls/hr Q8H-IV STEPHANIE Administration Protocol Metronidazole 500 mg in 100 mls @ 100 mls/hr 11/07/17 10:00 11/11/17 10:34 Flagyl 500mg Premixed Ivpb - IVPB 100 mls/hr Q8H-IV STEPHANIE Administration Vancomycin HCl 1 gm in 200 mls @ 200 mls/hr 11/09/17 10:00 11/11/17 10:35 Vancomycin 1 Gm Premix - IVPB 200 mls/hr DAILY STEPHANIE Administration Insulin Aspart 1 vial 11/07/17 11:00 11/11/17 11:48 Novolog Vial Sliding Scale - SQ Not Given ACHS [facility] Protocol Insulin Detemir 10 units 11/07/17 22:00 11/10/17 22:12 Levemir Vial SQ 10 unit HS STEPHANIE Administration Lactobacillus Acidophilus 1 tab 11/07/17 10:00 11/11/17 10:35 Bacid - PO 1 tab DAILY STEPHANIE Administration Ondansetron HCl 4 mg 11/07/17 09:19 Zofran Injection IVPUSH Q6H PRN NAUSEA AND/OR VOMITING Oxycodone HCl 5 mg 11/07/17 09:19 11/11/17 10:33 Roxicodone - PO 5 mg Q4H PRN Administration PAIN LEVEL 7 - 10 Sodium Hypochlorite 1 applic 11/07/17 10:00 11/11/17 10:36 Dakin's Solution 0.25% (Half-Strength) - TP 1 applic DAILY STEPHANIE Administration -Wound cx - Proteus mirabilis, enterococcus, lactose fermenting gram negative bacilli, presumptive MSSA, Bacteroides fragilis -Bone cx - Proteus mirabilis, enterococcus faecalis ASSESSMENT/PLAN: Patient is a 61 year old male with past medical history of DM, hx of bladder cancer with primary mets to lung and colon (currently with colostomy bag placed 1 year ago) admitted for nonhealing diabetic left heel wound. #L Heel Osteomyelitis: s/p bone biopsy on 11/07 -Oxycodone 5mg q6h PRN for pain. -ID (Dr. Romero) consulted -continue IV Azactam, IV Vancomycin daily, IV Flagyl -Podiatry (Dr. An) consulted. Recommendations appreciated. -will need picc line for 6-8 weeks of IV abx -Vascular (Dr. Barbour) consulted. Recommedations appreciated. #C. difficile infection: will treat in the setting of diarrhea -Continue Vancomycin 125mg PO q6h -Isolation precaution #Sacral decubitus ulcer -On antibiotics. -Proper wound care -Tylenol 650 mg PO Q6H for pain and Oxycodone 5mg q6h PRN for pain 7-10 -Turn and position Q2H #Bladder cancer w/ metastasis to lung and colon: s/p colostomy bag since 1 year ago, does not want it removed -Refused to go back [facility] to continue treatment and is seeking new care. -Oncology (Dr. Fried) consulted. Recommendations appreciated. -Diabetic control. -Urology consulted. -Surgery consulted #DM -HbA1c - 8.5 -Levemir 10U SQ HS -ISS -BGM ACHS #Severely malnourished: significant weight loss likely 2/2 to CA -dietitian consult #FEN -not on any standing fluids -encourage increased oral fluid intake -electrolytes wnl, routine bmp monitoring -Diabetic diet #Prophylaxis -Lovenox 40 mg SQ QD #Disposition -continue to monitor on med surg -will send on ceftriaxone/flagyl -awaiting rehab placement -Palliative care consulted Visit type - Emergency Visit Emergency Visit: No - New Patient This patient is new to me today: No - Critical Care Critical Care patient: No
[2017-11-11] MEDS: INSULIN (LEVEMIR) 100 UNITS/ML UNITS SQ SCH (23:09)
[2017-11-12] MEDS: AZTREONAM 1 GM in DEXTROSE 5%-WATER - 50 ML IVPB SCH ×2 (02:03→09:35)
[2017-11-12] MEDS: INSULIN SLIDING SCALE (NOVOLOG) 1 VIAL SQ SCH ×4 (06:42→23:00)
[2017-11-12] MEDS ORDERED: INSULIN (LEVEMIR) 100 UNITS/ML UNITS SQ ONE (06:45)
[2017-11-12] MEDS ORDERED: INSULIN (NOVOLOG) ASPART 100 UNITS/ML 10ML VIAL ONE (06:46)
[2017-11-12] MEDS ORDERED: PT OWN MED DRAWER 7, Y5N ONE ×3 (09:24→22:42)
[2017-11-12] MEDS: oxyCODONE HCL 5 MG TABLET PO PRN ×2 (09:33→19:48)
[2017-11-12] MEDS: ACETAMINOPHEN 325 MG TABLET (FP) PO PRN ×2 (09:34→19:47)
[2017-11-12] MEDS: AMINO ACIDS/PROTEIN HYDROLYS 30 ML LIQUID.PKT PO SCH ×2 (09:35→17:56)
[2017-11-12] MEDS: LACTOBACILLUS ACIDOPHILUS 1 TABLET PO SCH (09:36)
[2017-11-12] MEDS: ENOXAPARIN NA (PORCINE) 40 MG/0.4 ML DISP.SYRIN SQ SCH (09:37)
[2017-11-12] MEDS: VANCOMYCIN 1 GM PREMIX - 1 GM/200 ML BAG IVPB SCH (12:26)
--- NOTE | 2017-11-12 14:14 | PN ---
Progress Note (short form) - Note Progress Note: awake alert s/p debridement of the heel daughter reports he gets sob with penicilin Vital Signs Period Temp Pulse Resp BP Sys/Kevin Pulse Ox Last 24 Hr 97.6 F-98.3 F 83-89 17-20 122-141/64-74 99 cor-rrr lungs clear heel examined +yellow exudate, +erythema, no purulence Microbiology 11/07/17 08:15 Bone Gram Stain - Final 11/07/17 08:15 Bone Tissue Culture - Final Proteus Mirabilis Enterococcus Faecalis 11/07/17 08:15 Bone Anaerobic Culture - Final Bacteroides Fragilis a/p bacteremia- contaminant-no need to treat infected heel ulcer- + bone biopsy-osteo repeat vancomycin trough in am, change flagyl to po continue vanco/azacatam given nature of penicillin allergy to complete 6 weeks, now on day #11 iv antibiotics will need picc line +cdiff antigen- d/c vancomycin po, he is on flagyl-am not convinced he had cdiff colitis metastatic bladder cancer - ct scan noted, consider pallliative care penicillin allergy noted- per daughter gets SOB Problem List - Problems (1) Ulcer of left heel Code(s): L97.429 - NON-PRS CHRONIC ULCER OF LEFT HEEL AND MIDFOOT W UNSP SEVERT Qualifiers: Non-pressure ulcer stage: unspecified non-pressure ulcer stage Qualified Code(s): L97.429 - Non-pressure chronic ulcer of left heel and midfoot with unspecified severity (2) H/O carcinoma of bladder Code(s): Z85.51 - PERSONAL HISTORY OF MALIGNANT NEOPLASM OF BLADDER (3) Diabetes Code(s): E11.9 - TYPE 2 DIABETES MELLITUS WITHOUT COMPLICATIONS Qualifiers: Diabetes mellitus type: type 1 Diabetes mellitus complication status: with skin complications (4) Anemia Code(s): D64.9 - ANEMIA, UNSPECIFIED Qualifiers: Anemia type: iron deficiency Iron deficiency anemia type: unspecified iron deficiency Qualified Code(s): D50.9 - Iron deficiency anemia, unspecified (5) Penicillin allergy Code(s): Z88.0 - ALLERGY STATUS TO PENICILLIN
--- NOTE | 2017-11-12 14:45 | PN ---
Teaching Attending Note Name of Resident: Hazel Boyle ATTENDING PHYSICIAN STATEMENT I saw and evaluated the patient. I reviewed the resident's note and discussed the case with the resident. I agree with the resident's findings and plan as documented. SUBJECTIVE:resting comfortable OBJECTIVE: Last Vital Signs Temp Pulse Resp BP Pulse Ox 98.4 F 88 18 154/79 99 11/12/17 14:25 11/12/17 14:25 11/12/17 14:25 11/12/17 14:25 11/11/17 21:00 General NAD ASSESSMENT AND PLAN: 61 yo M with reported history of bladder ca with mets to lung/colon s/p colostomy 1 year ago, IDDM, recurrent falls, admitted with Left heel eschar+/- cellulitis 1. Left heel OM with surrounding cellulitis-s/p L heel debridement with bone cx 11/07. +Bone Cx with polymicrobial organisms. on Azactam/Vanco day 11. dose adjust based off todays vanco level. will need PICC line and 6 weeks of abx. pain control. vasc surgeon, podiatry, ID on board. f/u official cx report 2.Staph Auricularis bacteremia- contaminate. does not require treatment 3. suprapubic tenderness- more likely back pain radiating to the front as pt resistant to getting out of bed. symptoms now resolvd. Ucx negative. 4 Suspected acute C difficile diarrhea- cdiff toxin neg ag pos. claims stool output is now his baseline. flagyl IV can switch to po. add bacid. ID on board. contact precautions 5. Acute on chronic anemia- s/p 1 unit PRBC this hospital stay. hgb now stable. no indication for transfusion 6. Reported bladder ca with mets to lung/colon s/p colostomy 1 year ago- appears pt likely has a stomal hernia or prolapse of the intestines. as per pt his colostomy was to be reversed but was unable to reach surgeon. unsure if pt is a candidate for reversal with mets to the colon. pt to f/u with oncologist and surgeon. 7. DM- cont home regimen. titrate to optimize control. 8. Hyperkalemia- resolved 9. DVT ppx- lovenox. 10. pt will likely require [facility] for jail IV abx for OM treatment. agreeable to placement. awaiting acceptance
[2017-11-12] MEDS: SODIUM HYPOCHLORITE 0.25%- 473 ML BULK BOTTLE TP SCH (15:01)
[2017-11-12] MEDS: COLLAGENASE CLOSTRIDIUM HIST. 30 GRAMS TUBE TP SCH (15:01)
--- NOTE | 2017-11-12 15:29 | PN ---
Physical Exam: SUBJECTIVE: Patient seen and examined at bedside. No overnight events. No new complaints. OBJECTIVE: Vital Signs Period Temp Pulse Resp BP Sys/Kevin Pulse Ox Last 24 Hr 97.6 F-98.4 F 83-89 17-20 122-154/64-79 99 GENERAL: AAOx3, NAD EYES: PERRLA, EOMI, sclera anicteric, conjunctiva clear. ENT: Ears normal, nares patent, oropharynx clear without exudates, dry mucous membranes. LUNGS:CTAB, no wheezes, no crackles, no accessory muscle use. HEART: RRR, S1, S2 without murmur, rub or gallop. ABDOMEN: Soft, +suprapubic tenderness on palpation, nondistended, normoactive bowel sounds. Colostomy bag empty. UPPER EXTREMITIES: 2+ pulses, warm, well-perfused, no edema. LOWER EXTREMITIES: L heel - +erythema around the wound, no purulent discharge NEUROLOGICAL: No focal def. Normal speech, gait not observed. PSYCH: Normal mood, normal affect. SKIN: +stage 2 nonpurulent ulcer at the sacral area Laboratory Results - last 24 hr 11/11/17 11/11/17 11/12/17 17:21 21:28 06:41 POC Glucometer 250 219 174 Vancomycin Pre-Dose 11/12/17 11/12/17 09:20 12:09 POC Glucometer 145 Vancomycin Pre-Dose 21.2 Active Medications Generic Name Dose Route Start Last Admin Trade Name Freq PRN Reason Stop Dose Admin Acetaminophen 650 mg 11/07/17 09:19 11/12/17 09:34 Tylenol - PO 650 mg Q6H PRN Administration PAIN LEVEL 1 - 3 Amino Acids 30 ml 11/09/17 17:30 11/12/17 09:35 Prosource No Carb Liquid Pkt PO 30 ml BID@0800,1730 STEPHANIE Administration Collagenase 1 applic 11/07/17 10:00 11/12/17 15:01 Santyl - TP 1 applic DAILY STEPHANIE Administration Protocol Enoxaparin Sodium 40 mg 11/07/17 10:00 11/12/17 09:37 Lovenox - SQ 40 mg DAILY STEPHANIE Administration Metronidazole 500 mg in 100 mls @ 100 mls/hr 11/07/17 10:00 11/12/17 09:36 Flagyl 500mg Premixed Ivpb - IVPB 100 mls/hr Q8H-IV STEPHANIE Administration Aztreonam 2 gm/ Dextrose 100 mls @ 100 mls/hr 11/12/17 22:00 IVPB BID STEPHANIE Protocol Vancomycin HCl 1,000 mg in 250 mls @ 200 mls/hr 11/13/17 13:00 Vancomycin (Pre-Docked) IVPB DAILY@1300 STEPHANIE Protocol Insulin Aspart 1 vial 11/07/17 11:00 11/12/17 12:25 Novolog Vial Sliding Scale - SQ Not Given ACHS STEPHANIE Protocol Insulin Detemir 10 units 11/07/17 22:00 11/11/17 23:09 Levemir Vial SQ 10 unit HS STEPHANIE Administration Lactobacillus Acidophilus 1 tab 11/07/17 10:00 11/12/17 09:36 Bacid - PO 1 tab DAILY STEPHANIE Administration Ondansetron HCl 4 mg 11/07/17 09:19 Zofran Injection IVPUSH Q6H PRN NAUSEA AND/OR VOMITING Oxycodone HCl 5 mg 11/11/17 19:22 11/12/17 09:33 Roxicodone - PO 5 mg Q4H PRN Administration PAIN LEVEL 7 - 10 Sodium Hypochlorite 1 applic 11/07/17 10:00 11/12/17 15:01 Dakin's Solution 0.25% (Half-Strength) - TP 1 applic DAILY STEPHANIE Administration ASSESSMENT/PLAN: Patient is a 61 year old male with past medical history of DM, hx of bladder cancer with primary mets to lung and colon (currently with colostomy bag placed 1 year ago) admitted for nonhealing diabetic left heel wound. Problem List - Problems (1) H/O carcinoma of bladder Assessment/Plan: Unlcear as to prior treaments. Had been seen at [facility]. * Known colon and liver mets. * His most pressing issue is the foot ulcer but while this is being treated we can continue evaluation of bladder ca. * Triphasic bone scan * CT chest/ abdomen and pelvis for staging purposes. (2) Diabetic foot ulcer Assessment/Plan: * s/p debridment and biopsy. * ID consult appreciated- on Aztreonam and Vanco (3) Anemia Assessment/Plan: His anemia most likely multifactorial * May represent anemia chronic disease. (4) Diabetes Assessment/Plan: Insulin dependent diabetic. * ADA diet. * ISS with novolog. * BGM ACHS * poor control * endocrine consulted Visit type - Emergency Visit Emergency Visit: Yes ED Registration Date: 11/01/17 Care time: The patient presented to the Emergency Department on the above date and was hospitalized for further evaluation of their emergent condition. - New Patient This patient is new to me today: No - Critical Care Critical Care patient: No
--- NOTE | 2017-11-12 17:28 | PN ---
Physical Exam: SUBJECTIVE: Patient seen and examined at bedside this morning. No acute events overnight. Patient still reports abdominal pain when sitting down and refuses physical therapy. OBJECTIVE: Vital Signs Period Temp Pulse Resp BP Sys/Kevin Pulse Ox Last 24 Hr 97.6 F-98.4 F 83-89 17-20 122-154/64-79 99 GENERAL: The patient is awake, alert, and fully oriented, in no acute distress. HEAD: Normal with no signs of trauma. EYES: PERRLA, EOMI, sclera anicteric, conjunctiva clear. ENT: Ears normal, nares patent, oropharynx clear without exudates, dry mucous membranes. LUNGS: Breath sounds equal, clear to auscultation bilaterally, no wheezes, no crackles, no accessory muscle use. HEART: Regular rate and rhythm, S1, S2 without murmur, rub or gallop. ABDOMEN: Soft, +suprapubic tenderness on palpation, nondistended, normoactive bowel sounds. Colostomy bag empty. UPPER EXTREMITIES: 2+ pulses, warm, well-perfused, no edema. LOWER EXTREMITIES: L heel - +erythema around the wound, no purulent discharge NEUROLOGICAL: Cranial nerves II through XII grossly intact. Normal speech, gait not observed. PSYCH: Normal mood, normal affect. SKIN: +stage 2 nonpurulent ulcer at the sacral area Laboratory Results - last 24 hr 11/11/17 11/11/17 11/12/17 17:21 21:28 06:41 POC Glucometer 250 219 174 Vancomycin Pre-Dose 11/12/17 11/12/17 09:20 12:09 POC Glucometer 145 Vancomycin Pre-Dose 21.2 Active Medications Generic Name Dose Route Start Last Admin Trade Name Freq PRN Reason Stop Dose Admin Acetaminophen 650 mg 11/07/17 09:19 11/12/17 09:34 Tylenol - PO 650 mg Q6H PRN Administration PAIN LEVEL 1 - 3 Amino Acids 30 ml 11/09/17 17:30 11/12/17 09:35 Prosource No Carb Liquid Pkt PO 30 ml BID@0800,1730 STEPHANIE Administration Collagenase 1 applic 11/07/17 10:00 11/12/17 15:01 Santyl - TP 1 applic DAILY STEPHANIE Administration Protocol Enoxaparin Sodium 40 mg 11/07/17 10:00 11/12/17 09:37 Lovenox - SQ 40 mg DAILY STEPHANIE Administration Aztreonam 2 gm/ Dextrose 100 mls @ 100 mls/hr 11/12/17 22:00 IVPB BID STEPHANIE Protocol Vancomycin HCl 1,000 mg in 250 mls @ 200 mls/hr 11/13/17 13:00 Vancomycin (Pre-Docked) IVPB DAILY@1300 STEPHANIE Protocol Insulin Aspart 1 vial 11/07/17 11:00 11/12/17 12:25 Novolog Vial Sliding Scale - SQ Not Given ACHS [facility] Protocol Insulin Detemir 10 units 11/07/17 22:00 11/11/17 23:09 Levemir Vial SQ 10 unit HS STEPHANIE Administration Lactobacillus Acidophilus 1 tab 11/07/17 10:00 11/12/17 09:36 Bacid - PO 1 tab DAILY STEPHANIE Administration Metronidazole 500 mg 11/12/17 22:00 Flagyl - PO TID STEPHANIE Ondansetron HCl 4 mg 11/07/17 09:19 Zofran Injection IVPUSH Q6H PRN NAUSEA AND/OR VOMITING Oxycodone HCl 5 mg 11/11/17 19:22 11/12/17 09:33 Roxicodone - PO 5 mg Q4H PRN Administration PAIN LEVEL 7 - 10 Sodium Hypochlorite 1 applic 11/07/17 10:00 11/12/17 15:01 Dakin's Solution 0.25% (Half-Strength) - TP 1 applic DAILY STEPHANIE Administration Imaging Echo - LV size, thickness and function are normal. LVEF is normal. LV wall motion is normal. RV is normal in size and function. Mild tricuspid regurgitation. Right ventricular systolic pressure is elevated at 30-40mmHg. E/ A reversal consistent with but not diagnostic of poor LV compliance. There is trace to mild mitral regurgitation. CTA of abd/pelvis with BLE runoffs - Limited study for the evaluation of the SFAs due to motion however within the limitations of the exam and no significant stenotic or occlusive disease seen in the aortoiliac, femoro- popliteal or infrapopliteal arteries. Multiple large lobulated masses some containing calcifications and other demonstrating low internal density suggestive of necrosis. These masses are inseparable from the dome of the urinary bladder and terminal ileum. Findings could be secondary to either mesenteric primary neoplasm, adenocarcinoma within urachal remnant or small bowel in origin. Innumerable metastatic lesions seen throughout the mesentery and both lung doan. Multiple mildly dilated small bowel loops up to 3.4 cm suspicious for early bowel obstruction. Distal right ureter obstructed by large right pelvic inlet mass resulting in moderate hydronephrosis. Architectural distortion with irregular interlobular septal thickening in the right lung bases and lingula with traction bronchiectasis likely lung scarring however underlying lymphangitic spread of tumor cannot be excluded. Xray of Left foot and ankle - The ankle mortise is intact. There is mild soft tissue swelling over the lateral malleolus. The alignment is satisfactory without gross evidence of a fracture or dislocation. Mild soft tissue swelling over dorsal aspect of the foot. Mild osteoarthritic changes involving the first MTP joint. There is no gross evidence of focal bone destruction or soft tissue air. CXR - Multiple nodular opacities in the lungs suggestive of metastasis. Microbiology 11/07/17 08:15 Foot - Left Heel Gram Stain - Final 11/07/17 08:15 Foot - Left Heel Wound Culture - Preliminary Proteus Mirabilis Group D Strep Or Entero Coccus Lactose Fermenting Neg Bacilli Presumptive Mssa (Pbp2a Neg) Bacteroides Fragilis 11/07/17 08:15 Bone Gram Stain - Final 11/07/17 08:15 Bone Tissue Culture - Final Proteus Mirabilis Enterococcus Faecalis 11/07/17 08:15 Bone Anaerobic Culture - Preliminary Pending Organism 11/07/17 17:00 Urine - Urine Clean Catch Urine Culture - Final 11/04/17 09:10 Blood - Peripheral Venous Blood Culture - Final NO GROWTH AFTER 5 DAYS INCUBATION 11/04/17 08:15 Blood - Peripheral Venous Blood Culture - Final NO GROWTH AFTER 5 DAYS INCUBATION ASSESSMENT/PLAN: Patient is a 61 year old male with past medical history of DM, hx of bladder cancer with primary mets to lung and colon (currently with colostomy bag placed 1 year ago) admitted for nonhealing diabetic left heel wound. #Nonhealing diabetic wound, left heel: s/p L heel debridement and bone biopsy POD1 -Oxycodone 5mg q6h PRN for pain. -Wound cx - Proteus mirabilis, enterococcus, lactose fermenting gram negative bacilli, presumptive MSSA, Bacteroides fragilis -Bone cx - Proteus mirabilis, enterococcus faecalis -ID (Dr. Romero) consulted. Recommendations appreciated. -Continue IV vancomycin and aztreonam -Can switch Flagyl to PO. -Vanc trough level -21. Vanc dose reduced to daily already. -Will monitor renal function and repeat vanc trough in the AM. -Will continue IV antibiotics for 1 months as outpatient. -Refer to IR prior to discharge for PICC line. -Daily wound care. -Probiotics. -Podiatry (Dr. An) consulted. Recommendations appreciated. -s/p L heel debridement and bone biopsy -Dakins wet to dry L foot -Toe touch WB L foot -Recommend JASMYNE placement, needs IV abx for tx of osteomyelitis -Will f/u in wound healing center upon discharge. [phone]. -Vascular (Dr. Barbour) consulted. Recommendations appreciated. #+ C. difficile -Discontinue Vancomycin 125mg PO q6h -Isolation precaution #Sacral decubitus ulcer -On antibiotics. -Proper wound care -Tylenol 650 mg PO Q6H for pain and Oxycodone 5mg q6h PRN for pain 7-10 -Turn and position Q2H #Bladder cancer w/ metastasis to lung and colon: s/p colostomy bag since 1 year ago. -Due for removal 6 months ago but patient does not want to go back to Sur[facility] to have it removed. -Refused to go back [facility] to continue treatment and is seeking new care. -Called daughter, Izzy to ask about hospital records. She said they could not find the doctors or the records and in the process of looking for them. -Faxed a release form signed by patient to [facility] to request for patient's records. -Oncology (Dr. Fried) consulted. Recommendations appreciated. -Would consider CT of chest, abdomen, pelvis to assess current state of bladder cancer. -Bone scan in view of back pains. -Currently attention to be directed toward left heel ulcer and therapy. -Diabetic control. -Urology consulted. -Surgery consulted. Recommendations appreciated. #Sinus arrhythmia, found on EKG, no prior EKG for comparison. -Echocardiogram - LV size, thickness, and function normal; LV EF normal; RV normal in size and function; Mild TR; RV systolic pressure is elevated at 30- 40mmHg; E/A reveral consistent with but not diagnostic of poor LV complaince. Trace MR. -Electrolytes wnl #DM -HbA1c - 8.5 -Levemir 10U SQ HS -ISS -BGM ACHS #Severely malnourished: significant weight loss likely 2/2 to CA -dietitian consult #FEN -not on any standing fluids -encourage increased oral fluid intake -electrolytes wnl, routine bmp monitoring -Diabetic diet #Prophylaxis -Lovenox 40 mg SQ QD #Disposition -admit to tele -Palliative care consulted -Will need 1 month of IV antibiotics as outpatient. Will discharge to SNF. Visit type - Emergency Visit Emergency Visit: Yes ED Registration Date: 11/01/17 Care time: The patient presented to the Emergency Department on the above date and was hospitalized for further evaluation of their emergent condition. - New Patient This patient is new to me today: Yes Date on this admission: 11/12/17 - Critical Care Critical Care patient: No
[2017-11-12] MEDS: AZTREONAM 2 GM in DEXTROSE 5%-WATER 100 ML IVPB SCH (22:43)
[2017-11-12] MEDS: INSULIN (LEVEMIR) 100 UNITS/ML UNITS SQ SCH (22:44)
[2017-11-12] MEDS: metroNIDAZOLE 250 MG TABLET PO SCH (22:44)
[2017-11-13] MEDS: oxyCODONE HCL 5 MG TABLET PO PRN ×3 (00:12→20:25)
[2017-11-13] MEDS: INSULIN SLIDING SCALE (NOVOLOG) 1 VIAL SQ SCH ×4 (06:02→22:39)
[2017-11-13] MEDS: metroNIDAZOLE 250 MG TABLET PO SCH ×3 (06:04→22:39)
[2017-11-13 07:13] LABS: BASO % 1.1 % (0-2.0); EOS % 6.9 % (0-4.5); HEMATOCRIT 24.2 % (35.4-49); HEMOGLOBIN 7.6 GM/dL (11.7-16.9); LYMPH % 21.1 % (8-40); MCH 24.9 pg (25.7-33.7); MCHC 31.4 g/dl (32.0-35.9); MEAN CELL VOLUME 79.3 fl (80-96); MEAN PLT VOLUME 7.3 fl (7.5-11.1); MONO % 7.2 % (3.8-10.2); NEUT % 63.7 % (42.8-82.8); PLATELET COUNT 458 K/MM3 (134-434); RBC 3.05 M/mm3 (4.00-5.60); RDW 20.5 % (11.9-15.9)
[2017-11-13 07:42] LABS: ALBUMIN 1.5 g/dl (3.4-5.0); ALK PHOS 82 U/L (45-117); ANION GAP 2 MMOL/L (8-16); BILIRUBIN,TOTAL 0.1 mg/dL (0.2-1); BLOOD UREA NITROGEN 36 mg/dL (7-18); CALCIUM 8.4 mg/dL (8.5-10.1); CHLORIDE 106 mmol/L (98-107); CO2 26 mmol/L (21-32); CREATININE 0.9 mg/dL (0.55-1.3); GLUCOSE,RANDOM 104 mg/dL (74-106); MAGNESIUM 2.1 mg/dL (1.8-2.4); PHOSPHOROUS 3.2 mg/dL (2.5-4.9); POTASSIUM 4.7 mmol/L (3.5-5.1); SGOT/AST 14 U/L (15-37); SGPT/ALT 10 U/L (13-61); SODIUM 134 mmol/L (136-145); TOT PROT 6.2 g/dl (6.4-8.2)
[2017-11-13] MEDS: LACTOBACILLUS ACIDOPHILUS 1 TABLET PO SCH (09:42)
[2017-11-13] MEDS: AMINO ACIDS/PROTEIN HYDROLYS 30 ML LIQUID.PKT PO SCH ×2 (09:42→18:18)
[2017-11-13] MEDS: ENOXAPARIN NA (PORCINE) 40 MG/0.4 ML DISP.SYRIN SQ SCH (09:42)
[2017-11-13] MEDS ORDERED: PT OWN MED DRAWER 7, Y5N ONE ×2 (09:43→20:43)
[2017-11-13] MEDS: COLLAGENASE CLOSTRIDIUM HIST. 30 GRAMS TUBE TP SCH (09:46)
[2017-11-13] MEDS: SODIUM HYPOCHLORITE 0.25%- 473 ML BULK BOTTLE TP SCH (09:46)
[2017-11-13 10:58] LABS: ANISOCYTOSIS 1+; MACROCYTOSIS 1+; OVALOCYTE 1+; PLATELET ESTIMATE NORMAL
[2017-11-13] MEDS: AZTREONAM 2 GM in DEXTROSE 5%-WATER 100 ML IVPB SCH ×2 (11:34→22:39)
--- NOTE | 2017-11-13 12:30 | CON.GU ---
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 History of Recent Travel: No Home Medications - Allergies Allergies/Adverse Reactions: Allergies Allergy/AdvReac Type Severity Reaction Status Date / Time Penicillins Allergy Verified 11/01/17 14:29 - Home Medications Home Medications: Ambulatory Orders Insulin Aspart Prot/Insuln Asp [Novolog Mix 70-30 Flexpen Syrn] 12 unit SQ DAILY 11/01/17 Acetaminophen [Tylenol .Regular Strength -] 325 mg PO PRN PRN 11/02/17 Insulin Glargine,Hum.rec.anlog [Lantus] SQ 11/02/17 Family Disease History - Family Disease History Family Disease History: Other: Mother ( of PUD) Physical Exam- Vital Signs: Vital Signs Temperature 98.2 F 11/13/17 09:06 Pulse Rate 87 11/13/17 09:06 Respiratory Rate 17 11/13/17 09:06 Blood Pressure 137/69 11/13/17 09:06 O2 Sat by Pulse Oximetry (%) 99 11/12/17 21:00 Labs: CBC, BMP 11/13/17 06:45 11/13/17 06:45 Imaging - Results X-ray: Report Reviewed Problem List - Problems (1) Bladder cancer metastasized to intrapelvic lymph nodes Assessment/Plan: Pt w long hx of bladder ca w lymph node lung and colon mets pt now w finding of bladder mass. Prior tx unclear as pt not reported to been seen for condition in over one year Will need PRT scan and lung abd and head ct Currently voiding follow pvr and cr (currently 0.9) no indication for cystoscopy at this time Code(s): C67.9 - MALIGNANT NEOPLASM OF BLADDER, UNSPECIFIED; C77.5 - SECONDARY AND UNSP MALIGNANT NEOPLASM OF INTRAPELV NODES
[2017-11-13] MEDS ORDERED: VANCOMYCIN 1 GRAM (PRE-DOCKED) 1,000 MG/250 ML BAG IVPB SCH (13:00)
--- NOTE | 2017-11-13 15:20 | PN ---
Teaching Attending Note Name of Resident: Hazel Boyle ATTENDING PHYSICIAN STATEMENT I saw and evaluated the patient. I reviewed the resident's note and discussed the case with the resident. I agree with the resident's findings and plan as documented with exceptions below. SUBJECTIVE: Patient seen and examined. no pain or new concerns today. OBJECTIVE: Vital Signs Period Temp Pulse Resp BP Sys/Kevin Pulse Ox Last 24 Hr 98.1 F-98.5 F 84-118 17-22 130-158/66-78 99-99 Intake & Output 11/10/17 11/11/17 11/12/17 11/13/17 23:59 23:59 23:59 23:59 Intake Total 434 668 8476 100 Output Total 500 1050 400 900 Balance 50 -300 810 -800 General; sitting in bed in no acute distress Chest: no rales or wheezing Abdomen:soft, mild suprapubic tenderness, no CVA tenderness Extremities: left heel dressing Active Medications Acetaminophen (Tylenol -) 650 mg PO Q6H PRN PRN Reason: PAIN LEVEL 1 - 3 Last Admin: 11/12/17 19:47 Dose: 650 mg Amino Acids (Prosource No Carb Liquid Pkt) 30 ml PO BID@0800,1730 [facility] Last Admin: 11/13/17 09:42 Dose: 30 ml Collagenase (Santyl -) 1 applic TP DAILY [facility]; Protocol Last Admin: 11/13/17 09:46 Dose: 1 applic Enoxaparin Sodium (Lovenox -) 40 mg SQ DAILY [facility] Last Admin: 11/13/17 09:42 Dose: 40 mg Aztreonam 2 gm/ Dextrose 100 mls @ 100 mls/hr IVPB BID [facility]; Protocol Last Admin: 11/13/17 11:34 Dose: 100 mls/hr Insulin Aspart (Novolog Vial Sliding Scale -) 1 vial SQ ACHS [facility]; Protocol Last Admin: 11/13/17 12:31 Dose: Not Given Insulin Detemir (Levemir Vial) 10 units SQ HS [facility] Last Admin: 11/12/17 22:44 Dose: 10 unit Lactobacillus Acidophilus (Bacid -) 1 tab PO DAILY [facility] Last Admin: 11/13/17 09:42 Dose: 1 tab Metronidazole (Flagyl -) 500 mg PO TID [facility] Last Admin: 11/13/17 06:04 Dose: 500 mg Ondansetron HCl (Zofran Injection) 4 mg IVPUSH Q6H PRN PRN Reason: NAUSEA AND/OR VOMITING Oxycodone HCl (Roxicodone -) 5 mg PO Q4H PRN PRN Reason: PAIN LEVEL 7 - 10 Last Admin: 11/13/17 00:12 Dose: 5 mg Sodium Hypochlorite (Dakin's Solution 0.25% (Half-Strength) -) 1 applic TP DAILY [facility] Last Admin: 11/13/17 09:46 Dose: 1 applic Laboratory Results - last 24 hr 11/12/17 11/12/17 11/13/17 17:39 22:37 05:59 WBC RBC Hgb Hct MCV MCH MCHC RDW Plt Count MPV Absolute Neuts (auto) Neutrophils % Lymphocytes % Monocytes % Eosinophils % Basophils % Nucleated RBC % Hypochromia Platelet Estimate Polychromasia Poikilocytosis Anisocytosis Microcytosis Macrocytosis Ovalocytes Sodium Potassium Chloride Carbon Dioxide Anion Gap BUN Creatinine Creat Clearance w eGFR POC Glucometer 176 230 117 Random Glucose Calcium Phosphorus Magnesium Total Bilirubin AST ALT Alkaline Phosphatase Total Protein Albumin Vancomycin Pre-Dose 11/13/17 11/13/17 11/13/17 06:45 06:45 11:10 WBC 8.0 RBC 3.05 L Hgb 7.6 L Hct 24.2 L MCV 79.3 L MCH 24.9 L MCHC 31.4 L RDW 20.5 H Plt Count 458 H MPV 7.3 L Absolute Neuts (auto) 5.1 Neutrophils % 63.7 Lymphocytes % 21.1 D Monocytes % 7.2 Eosinophils % 6.9 H Basophils % 1.1 Nucleated RBC % 0 Hypochromia 1+ Platelet Estimate Normal Polychromasia 0 Poikilocytosis 0 Anisocytosis 1+ Microcytosis 1+ Macrocytosis 1+ Ovalocytes 1+ Sodium 134 L Potassium 4.7 Chloride 106 Carbon Dioxide 26 Anion Gap 2 L BUN 36 H Creatinine 0.9 Creat Clearance w eGFR > 60 POC Glucometer Random Glucose 104 Calcium 8.4 L Phosphorus 3.2 Magnesium 2.1 Total Bilirubin 0.1 L AST 14 L ALT 10 L Alkaline Phosphatase 82 Total Protein 6.2 L Albumin 1.5 L Vancomycin Pre-Dose 20.2 11/13/17 12:04 WBC RBC Hgb Hct MCV MCH MCHC RDW Plt Count MPV Absolute Neuts (auto) Neutrophils % Lymphocytes % Monocytes % Eosinophils % Basophils % Nucleated RBC % Hypochromia Platelet Estimate Polychromasia Poikilocytosis Anisocytosis Microcytosis Macrocytosis Ovalocytes Sodium Potassium Chloride Carbon Dioxide Anion Gap BUN Creatinine Creat Clearance w eGFR POC Glucometer 128 Random Glucose Calcium Phosphorus Magnesium Total Bilirubin AST ALT Alkaline Phosphatase Total Protein Albumin Vancomycin Pre-Dose Microbiology 11/07/17 08:15 Bone Gram Stain - Final 11/07/17 08:15 Bone Tissue Culture - Final Proteus Mirabilis Enterococcus Faecalis 11/07/17 08:15 Bone Anaerobic Culture - Final Bacteroides Fragilis 11/07/17 08:15 Foot - Left Heel Gram Stain - Final 11/07/17 08:15 Foot - Left Heel Wound Culture - Final Proteus Mirabilis Enterococcus Faecalis Escherichia Coli Staphylococcus Aureus Bacteroides Fragilis 11/07/17 17:00 Urine - Urine Clean Catch Urine Culture - Final 11/04/17 09:10 Blood - Peripheral Venous Blood Culture - Final NO GROWTH AFTER 5 DAYS INCUBATION 11/04/17 08:15 Blood - Peripheral Venous Blood Culture - Final NO GROWTH AFTER 5 DAYS INCUBATION 11/01/17 15:45 Blood - Peripheral Venous Blood Culture - Final Staphylococcus Auricularis 11/01/17 16:40 Blood - Peripheral Venous Blood Culture - Final NO GROWTH AFTER 5 DAYS INCUBATION 11/01/17 15:57 Foot - Left Heel Gram Stain - Final 11/01/17 15:57 Foot - Left Heel Wound Culture - Final Proteus Mirabilis Staphylococcus Aureus Enterococcus Faecalis Klebsiella Pneumoniae Escherichia Coli 11/05/17 03:07 Stool Clostridium difficile Antigen (JASVIR) - Final 11/05/17 03:07 Stool Clostridium difficile Toxin Assay - Final 11/01/17 17:41 Urine - Urine Clean Catch Urine Culture - Final Contaminated: Please Repeat ASSESSMENT AND PLAN: 61 yom with reported history of bladder ca with mets to lung/colon s/p colostomy 1 year ago, IDDM, recurrent falls, admitted with Left heel eschar+/- cellulitis -Left heel osteomyelitis/Cellulits s/p Debridement -Staph auricularis bacteremia, likely contaminant -Suspected acute C defficile diarrhea -Acute on chronic anemia -Reported bladder ca with mets to lung/colon s/p colostomy 1 year ago with necrotic bladder mass and right hydronephrosis -IDDM -Recurrent falls -Hyperkalemia, resolved Plan: Vanco level noted. discussed with Dr. sotelo, hold vanco dose tomorrow. Start 750 mg daily from 11/15 Aztreonam/vanco day . Heel offloading, dressing per podiatry. Flagyl PO. off po vancomycin. Oncology/urology input noted. Outpatient follow up. Patient interested in estabilishing care in the area, wondering about chemotx/ surgery. Discussed in detail about the extensive spread, guarded prognosis and need for follow up with oncology/urology and surgery. Patient relays understanding and agreable to comply with the same. ISS, levtabir. Bowel regimen on narcotics once diarrhea concerns resolved DVTPPX lovenox Dispo to SNF in 24 hours pending disposition arrangements. Plan discussed with patient in detail, all questions answered.
[2017-11-13] MEDS: ACETAMINOPHEN 325 MG TABLET (FP) PO PRN (16:26)
--- NOTE | 2017-11-13 19:05 | PN ---
Physical Exam: SUBJECTIVE: Patient seen and examined at bedside this morning. No acute events overnight. Patient has no new complaints. OBJECTIVE: Vital Signs Period Temp Pulse Resp BP Sys/Kevin Pulse Ox Last 24 Hr 98.2 F-98.5 F 84-94 17-22 130-137/66-74 99-99 GENERAL: The patient is awake, alert, and fully oriented, in no acute distress. HEAD: Normal with no signs of trauma. EYES: PERRLA, EOMI, sclera anicteric, conjunctiva clear. ENT: Ears normal, nares patent, oropharynx clear without exudates, dry mucous membranes. LUNGS: Breath sounds equal, clear to auscultation bilaterally, no wheezes, no crackles, no accessory muscle use. HEART: Regular rate and rhythm, S1, S2 without murmur, rub or gallop. ABDOMEN: Soft, +suprapubic tenderness on palpation, nondistended, normoactive bowel sounds. Colostomy bag empty. UPPER EXTREMITIES: 2+ pulses, warm, well-perfused, no edema. LOWER EXTREMITIES: L heel - +erythema around the wound, no purulent discharge NEUROLOGICAL: Cranial nerves II through XII grossly intact. Normal speech, gait not observed. PSYCH: Normal mood, normal affect. SKIN: +stage 2 nonpurulent ulcer at the sacral area Laboratory Results - last 24 hr 11/12/17 11/13/17 11/13/17 22:37 05:59 06:45 WBC 8.0 RBC 3.05 L Hgb 7.6 L Hct 24.2 L MCV 79.3 L MCH 24.9 L MCHC 31.4 L RDW 20.5 H Plt Count 458 H MPV 7.3 L Absolute Neuts (auto) 5.1 Neutrophils % 63.7 Lymphocytes % 21.1 D Monocytes % 7.2 Eosinophils % 6.9 H Basophils % 1.1 Nucleated RBC % 0 Hypochromia 1+ Platelet Estimate Normal Polychromasia 0 Poikilocytosis 0 Anisocytosis 1+ Microcytosis 1+ Macrocytosis 1+ Ovalocytes 1+ Sodium Potassium Chloride Carbon Dioxide Anion Gap BUN Creatinine Creat Clearance w eGFR POC Glucometer 230 117 Random Glucose Calcium Phosphorus Magnesium Total Bilirubin AST ALT Alkaline Phosphatase Total Protein Albumin Vancomycin Pre-Dose 11/13/17 11/13/17 11/13/17 06:45 11:10 12:04 WBC RBC Hgb Hct MCV MCH MCHC RDW Plt Count MPV Absolute Neuts (auto) Neutrophils % Lymphocytes % Monocytes % Eosinophils % Basophils % Nucleated RBC % Hypochromia Platelet Estimate Polychromasia Poikilocytosis Anisocytosis Microcytosis Macrocytosis Ovalocytes Sodium 134 L Potassium 4.7 Chloride 106 Carbon Dioxide 26 Anion Gap 2 L BUN 36 H Creatinine 0.9 Creat Clearance w eGFR > 60 POC Glucometer 128 Random Glucose 104 Calcium 8.4 L Phosphorus 3.2 Magnesium 2.1 Total Bilirubin 0.1 L AST 14 L ALT 10 L Alkaline Phosphatase 82 Total Protein 6.2 L Albumin 1.5 L Vancomycin Pre-Dose 20.2 11/13/17 17:50 WBC RBC Hgb Hct MCV MCH MCHC RDW Plt Count MPV Absolute Neuts (auto) Neutrophils % Lymphocytes % Monocytes % Eosinophils % Basophils % Nucleated RBC % Hypochromia Platelet Estimate Polychromasia Poikilocytosis Anisocytosis Microcytosis Macrocytosis Ovalocytes Sodium Potassium Chloride Carbon Dioxide Anion Gap BUN Creatinine Creat Clearance w eGFR POC Glucometer 192 Random Glucose Calcium Phosphorus Magnesium Total Bilirubin AST ALT Alkaline Phosphatase Total Protein Albumin Vancomycin Pre-Dose Active Medications Generic Name Dose Route Start Last Admin Trade Name Freq PRN Reason Stop Dose Admin Acetaminophen 650 mg 11/07/17 09:19 11/13/17 16:26 Tylenol - PO 650 mg Q6H PRN Administration PAIN LEVEL 1 - 3 Amino Acids 30 ml 11/09/17 17:30 11/13/17 18:18 Prosource No Carb Liquid Pkt PO 30 ml BID@0800,1730 [facility] Administration Collagenase 1 applic 11/07/17 10:00 11/13/17 09:46 Santyl - TP 1 applic DAILY [facility] Administration Protocol Enoxaparin Sodium 40 mg 11/07/17 10:00 11/13/17 09:42 Lovenox - SQ 40 mg DAILY [facility] Administration Aztreonam 2 gm/ Dextrose 100 mls @ 100 mls/hr 11/12/17 22:00 11/13/17 11:34 IVPB 100 mls/hr BID [facility] Administration Protocol Insulin Aspart 1 vial 11/07/17 11:00 11/13/17 18:18 Novolog Vial Sliding Scale - SQ 2 units ACHS [facility] Administration Protocol Insulin Detemir 10 units 11/07/17 22:00 11/12/17 22:44 Levemir Vial SQ 10 unit HS [facility] Administration Lactobacillus Acidophilus 1 tab 11/07/17 10:00 11/13/17 09:42 Bacid - PO 1 tab DAILY [facility] Administration Metronidazole 500 mg 11/12/17 22:00 11/13/17 16:11 Flagyl - PO 500 mg TID [facility] Administration Ondansetron HCl 4 mg 11/07/17 09:19 Zofran Injection IVPUSH Q6H PRN NAUSEA AND/OR VOMITING Oxycodone HCl 5 mg 11/11/17 19:22 11/13/17 16:25 Roxicodone - PO 5 mg Q4H PRN Administration PAIN LEVEL 7 - 10 Sodium Hypochlorite 1 applic 11/07/17 10:00 11/13/17 09:46 Dakin's Solution 0.25% (Half-Strength) - TP 1 applic DAILY [facility] Administration Imaging Echo - LV size, thickness and function are normal. LVEF is normal. LV wall motion is normal. RV is normal in size and function. Mild tricuspid regurgitation. Right ventricular systolic pressure is elevated at 30-40mmHg. E/ A reversal consistent with but not diagnostic of poor LV compliance. There is trace to mild mitral regurgitation. CTA of abd/pelvis with BLE runoffs - Limited study for the evaluation of the SFAs due to motion however within the limitations of the exam and no significant stenotic or occlusive disease seen in the aortoiliac, femoro- popliteal or infrapopliteal arteries. Multiple large lobulated masses some containing calcifications and other demonstrating low internal density suggestive of necrosis. These masses are inseparable from the dome of the urinary bladder and terminal ileum. Findings could be secondary to either mesenteric primary neoplasm, adenocarcinoma within urachal remnant or small bowel in origin. Innumerable metastatic lesions seen throughout the mesentery and both lung doan. Multiple mildly dilated small bowel loops up to 3.4 cm suspicious for early bowel obstruction. Distal right ureter obstructed by large right pelvic inlet mass resulting in moderate hydronephrosis. Architectural distortion with irregular interlobular septal thickening in the right lung bases and lingula with traction bronchiectasis likely lung scarring however underlying lymphangitic spread of tumor cannot be excluded. Xray of Left foot and ankle - The ankle mortise is intact. There is mild soft tissue swelling over the lateral malleolus. The alignment is satisfactory without gross evidence of a fracture or dislocation. Mild soft tissue swelling over dorsal aspect of the foot. Mild osteoarthritic changes involving the first MTP joint. There is no gross evidence of focal bone destruction or soft tissue air. CXR - Multiple nodular opacities in the lungs suggestive of metastasis. Microbiology 11/07/17 08:15 Foot - Left Heel Gram Stain - Final 11/07/17 08:15 Foot - Left Heel Wound Culture - Preliminary Proteus Mirabilis Group D Strep Or Entero Coccus Lactose Fermenting Neg Bacilli Presumptive Mssa (Pbp2a Neg) Bacteroides Fragilis 11/07/17 08:15 Bone Gram Stain - Final 11/07/17 08:15 Bone Tissue Culture - Final Proteus Mirabilis Enterococcus Faecalis 11/07/17 08:15 Bone Anaerobic Culture - Preliminary Pending Organism 11/07/17 17:00 Urine - Urine Clean Catch Urine Culture - Final 11/04/17 09:10 Blood - Peripheral Venous Blood Culture - Final NO GROWTH AFTER 5 DAYS INCUBATION 11/04/17 08:15 Blood - Peripheral Venous Blood Culture - Final NO GROWTH AFTER 5 DAYS INCUBATION ASSESSMENT/PLAN: Patient is a 61 year old male with past medical history of DM, hx of bladder cancer with primary mets to lung and colon (currently with colostomy bag placed 1 year ago) admitted for nonhealing diabetic left heel wound. #Nonhealing diabetic wound, left heel: s/p L heel debridement and bone biopsy POD1 -Oxycodone 5mg q6h PRN for pain. -Wound cx - Proteus mirabilis, enterococcus, lactose fermenting gram negative bacilli, presumptive MSSA, Bacteroides fragilis -Bone cx - Proteus mirabilis, enterococcus faecalis -ID (Dr. Romero) consulted. Recommendations appreciated. -Continue IV vancomycin and aztreonam, PO Flagyl. -Vanc trough level -20.2. Will hold vancomycin tomorrow. -Repeat vanc trough level tomorrow. -If remains elevated, will reduce dose to 750mg on . -renal function wnl -Will continue IV antibiotics for 1 month as outpatient. -Refer to IR prior to discharge for PICC line. -Daily wound care. -Probiotics. -Podiatry (Dr. An) consulted. Recommendations appreciated. -s/p L heel debridement and bone biopsy -Dakins wet to dry L foot -Toe touch WB L foot -Recommend JASMYNE placement, needs IV abx for tx of osteomyelitis -Will f/u in wound healing center upon discharge. [phone]. -Vascular (Dr. Barbour) consulted. Recommendations appreciated. #+ C. difficile -Discontinue Vancomycin 125mg PO q6h -Isolation precaution #Sacral decubitus ulcer -On antibiotics. -Proper wound care -Tylenol 650 mg PO Q6H for pain and Oxycodone 5mg q6h PRN for pain 7-10 -Turn and position Q2H #Bladder cancer w/ metastasis to lung and colon: s/p colostomy bag since 1 year ago. -Due for removal 6 months ago but patient does not want to go back to [facility] to have it removed. -Refused to go back [facility] to continue treatment and is seeking new care. -Called daughter, Izzy to ask about hospital records. She said they could not find the doctors or the records and in the process of looking for them. -Faxed a release form signed by patient to [facility] to request for patient's records. -Oncology (Dr. Fried) consulted. Recommendations appreciated. -Would consider CT of chest, abdomen, pelvis to assess current state of bladder cancer. -Bone scan in view of back pains. -Currently attention to be directed toward left heel ulcer and therapy. -Diabetic control. -Urology (Dr. Hernandez) consulted. Recommendations appreciated. -Will need PRT scan and lung, abd and head CT -Currently voiding follow pvr and cr -No indication for cystoscopy at this time. -Surgery consulted. Recommendations appreciated. #Sinus arrhythmia, found on EKG, no prior EKG for comparison. -Echocardiogram - LV size, thickness, and function normal; LV EF normal; RV normal in size and function; Mild TR; RV systolic pressure is elevated at 30- 40mmHg; E/A reveral consistent with but not diagnostic of poor LV complaince. Trace MR. -Electrolytes wnl #DM -HbA1c - 8.5 -Levemir 10U SQ HS -ISS -BGM ACHS #Severely malnourished: significant weight loss likely 2/2 to CA -dietitian consult #FEN -not on any standing fluids -encourage increased oral fluid intake -electrolytes wnl, routine bmp monitoring -Diabetic diet #Prophylaxis -Lovenox 40 mg SQ QD #Disposition -Palliative care consulted -Will need 1 month of IV antibiotics as outpatient. Will discharge to SNF. Visit type - Emergency Visit Emergency Visit: Yes ED Registration Date: 11/01/17 Care time: The patient presented to the Emergency Department on the above date and was hospitalized for further evaluation of their emergent condition. - New Patient This patient is new to me today: Yes Date on this admission: 11/13/17 - Critical Care Critical Care patient: No
[2017-11-13] MEDS: INSULIN (LEVEMIR) 100 UNITS/ML UNITS SQ SCH (22:40)
[2017-11-14] MEDS: ACETAMINOPHEN 325 MG TABLET (FP) PO PRN ×2 (00:52→23:53)
[2017-11-14] MEDS: oxyCODONE HCL 5 MG TABLET PO PRN ×4 (00:53→23:53)
[2017-11-14 06:12] LABS: BASO % 0.8 % (0-2.0); EOS % 6.1 % (0-4.5); HEMATOCRIT 23.7 % (35.4-49); HEMOGLOBIN 7.4 GM/dL (11.7-16.9); LYMPH % 17.4 % (8-40); MCHC 31.3 g/dl (32.0-35.9); MEAN CELL VOLUME 79.9 fl (80-96); MEAN PLT VOLUME 7.3 fl (7.5-11.1); NEUT % 68.7 % (42.8-82.8); PLATELET COUNT 451 K/MM3 (134-434); RBC 2.97 M/mm3 (4.00-5.60); RDW 20.4 % (11.9-15.9); WHITE BLOOD COUNT 8.3 K/mm3 (4.0-10.0)
[2017-11-14] MEDS: metroNIDAZOLE 250 MG TABLET PO SCH ×3 (06:30→23:04)
[2017-11-14] MEDS: INSULIN SLIDING SCALE (NOVOLOG) 1 VIAL SQ SCH ×4 (06:31→23:05)
[2017-11-14 06:35] LABS: ANION GAP 9 MMOL/L (8-16); BLOOD UREA NITROGEN 39 mg/dL (7-18); CALCIUM 8.4 mg/dL (8.5-10.1); CHLORIDE 105 mmol/L (98-107); CO2 24 mmol/L (21-32); CREATININE 0.9 mg/dL (0.55-1.3); GLUCOSE,RANDOM 147 mg/dL (74-106); POTASSIUM 4.6 mmol/L (3.5-5.1); SODIUM 138 mmol/L (136-145)
[2017-11-14] MEDS: LACTOBACILLUS ACIDOPHILUS 1 TABLET PO SCH (10:57)
[2017-11-14] MEDS: ENOXAPARIN NA (PORCINE) 40 MG/0.4 ML DISP.SYRIN SQ SCH (10:57)
[2017-11-14] MEDS: AMINO ACIDS/PROTEIN HYDROLYS 30 ML LIQUID.PKT PO SCH ×2 (10:58→17:45)
[2017-11-14] MEDS: COLLAGENASE CLOSTRIDIUM HIST. 30 GRAMS TUBE TP SCH (10:59)
[2017-11-14] MEDS: SODIUM HYPOCHLORITE 0.25%- 473 ML BULK BOTTLE TP SCH (10:59)
[2017-11-14] MEDS: AZTREONAM 2 GM in DEXTROSE 5%-WATER 100 ML IVPB SCH ×2 (11:04→23:04)
--- NOTE | 2017-11-14 13:02 | PN ---
Progress Note (short form) - Note Progress Note: awake alert s/p debridement of the heel daughter reports he gets sob with penicilin feels well eating lunch Vital Signs Period Temp Pulse Resp BP Sys/Kevin Pulse Ox Last 24 Hr 98.1 F-98.5 F 85-94 18-22 127-142/64-79 99 cor-rrr lungs clear abd soft, +ostomy ext no edema dressing just done by nurse CBC, BMP 11/14/17 06:00 11/14/17 06:00 Microbiology 11/07/17 08:15 Bone Gram Stain - Final 11/07/17 08:15 Bone Tissue Culture - Final Proteus Mirabilis Enterococcus Faecalis 11/07/17 08:15 Bone Anaerobic Culture - Final Bacteroides Fragilis 11/07/17 08:15 Foot - Left Heel Gram Stain - Final 11/07/17 08:15 Foot - Left Heel Wound Culture - Final Proteus Mirabilis Enterococcus Faecalis Escherichia Coli Staphylococcus Aureus Bacteroides Fragilis 11/07/17 17:00 Urine - Urine Clean Catch Urine Culture - Final 11/04/17 09:10 Blood - Peripheral Venous Blood Culture - Final NO GROWTH AFTER 5 DAYS INCUBATION 11/04/17 08:15 Blood - Peripheral Venous Blood Culture - Final NO GROWTH AFTER 5 DAYS INCUBATION 11/01/17 15:45 Blood - Peripheral Venous Blood Culture - Final Staphylococcus Auricularis 11/01/17 16:40 Blood - Peripheral Venous Blood Culture - Final NO GROWTH AFTER 5 DAYS INCUBATION 11/01/17 15:57 Foot - Left Heel Gram Stain - Final 11/01/17 15:57 Foot - Left Heel Wound Culture - Final Proteus Mirabilis Staphylococcus Aureus Enterococcus Faecalis Klebsiella Pneumoniae Escherichia Coli 11/05/17 03:07 Stool Clostridium difficile Antigen (JASVIR) - Final 11/05/17 03:07 Stool Clostridium difficile Toxin Assay - Final 11/01/17 17:41 Urine - Urine Clean Catch Urine Culture - Final Contaminated: Please Repeat a/p bacteremia- contaminant-no need to treat infected heel ulcer- + bone biopsy culture-osteo change flagyl to po continue vanco/azacatam given nature of penicillin allergy, continue po flagyl for bacteroides to complete 6 weeks, now on day #13 iv antibiotics reduce dose of vancomycin to 750 will need picc line +cdiff antigen- d/c vancomycin po, he is on flagyl-am not convinced he had cdiff colitis metastatic bladder cancer - ct scan noted, consider pallliative care penicillin allergy noted- per daughter gets SOB d/w hospitalist please call back if needed Problem List - Problems (1) Ulcer of left heel Code(s): L97.429 - NON-PRS CHRONIC ULCER OF LEFT HEEL AND MIDFOOT W UNSP SEVERT Qualifiers: Non-pressure ulcer stage: unspecified non-pressure ulcer stage Qualified Code(s): L97.429 - Non-pressure chronic ulcer of left heel and midfoot with unspecified severity (2) H/O carcinoma of bladder Code(s): Z85.51 - PERSONAL HISTORY OF MALIGNANT NEOPLASM OF BLADDER (3) Diabetes Code(s): E11.9 - TYPE 2 DIABETES MELLITUS WITHOUT COMPLICATIONS Qualifiers: Diabetes mellitus type: type 1 Diabetes mellitus complication status: with skin complications (4) Anemia Code(s): D64.9 - ANEMIA, UNSPECIFIED Qualifiers: Anemia type: iron deficiency Iron deficiency anemia type: unspecified iron deficiency Qualified Code(s): D50.9 - Iron deficiency anemia, unspecified (5) Penicillin allergy Code(s): Z88.0 - ALLERGY STATUS TO PENICILLIN
[2017-11-14] MEDS ORDERED: PICC LINE 8 ML FLUSH PROTOCOL IVPUSH PRN (13:58)
--- NOTE | 2017-11-14 15:10 | PN ---
Teaching Attending Note Name of Resident: Hazel Boyle ATTENDING PHYSICIAN STATEMENT I saw and evaluated the patient. I reviewed the resident's note and discussed the case with the resident. I agree with the resident's findings and plan as documented with exceptions below. SUBJECTIVE: Patient seen and examined. no new complaints. OBJECTIVE: Vital Signs Period Temp Pulse Resp BP Sys/Kevin Pulse Ox Last 24 Hr 98.1 F-98.5 F 85-94 18-22 127-142/64-79 98-99 Intake & Output 11/11/17 11/12/17 11/13/17 11/14/17 23:59 23:59 23:59 23:59 Intake Total 750 1210 100 Output Total 9626 441 4977 800 Balance -300 810 -1700 -800 General: lying in bed in no acute distress Chest: no rales or wheezing Abdomen:soft, NT, colostomy in place, no suprapubic tenderness or CVA tenderness Extremities: left foot dressing Active Medications Acetaminophen (Tylenol -) 650 mg PO Q6H PRN PRN Reason: PAIN LEVEL 1 - 3 Last Admin: 11/14/17 00:52 Dose: 650 mg Amino Acids (Prosource No Carb Liquid Pkt) 30 ml PO BID@0800,1730 [facility] Last Admin: 11/14/17 10:58 Dose: 30 ml Collagenase (Santyl -) 1 applic TP DAILY [facility]; Protocol Last Admin: 11/14/17 10:59 Dose: 1 applic IV Flush (Picc Line Flush) 8 ml IVPUSH PRN PRN PRN Reason: Protocol Aztreonam 2 gm/ Dextrose 100 mls @ 100 mls/hr IVPB BID [facility]; Protocol Last Admin: 11/14/17 11:04 Dose: 100 mls/hr Insulin Aspart (Novolog Vial Sliding Scale -) 1 vial SQ ACHS [facility]; Protocol Last Admin: 11/14/17 11:16 Dose: Not Given Insulin Detemir (Levemir Vial) 10 units SQ HS [facility] Last Admin: 11/13/17 22:40 Dose: 10 unit Lactobacillus Acidophilus (Bacid -) 1 tab PO DAILY [facility] Last Admin: 11/14/17 10:57 Dose: 1 tab Metronidazole (Flagyl -) 500 mg PO TID [facility] Last Admin: 11/14/17 14:58 Dose: 500 mg Ondansetron HCl (Zofran Injection) 4 mg IVPUSH Q6H PRN PRN Reason: NAUSEA AND/OR VOMITING Oxycodone HCl (Roxicodone -) 5 mg PO Q4H PRN PRN Reason: PAIN LEVEL 7 - 10 Last Admin: 11/14/17 10:57 Dose: 5 mg Sodium Hypochlorite (Dakin's Solution 0.25% (Half-Strength) -) 1 applic TP DAILY [facility] Last Admin: 11/14/17 10:59 Dose: 1 applic Laboratory Results - last 24 hr 11/13/17 11/13/17 11/14/17 17:50 22:37 06:00 WBC RBC Hgb Hct MCV MCH MCHC RDW Plt Count MPV Absolute Neuts (auto) Neutrophils % Lymphocytes % Monocytes % Eosinophils % Basophils % Nucleated RBC % Sodium Potassium Chloride Carbon Dioxide Anion Gap BUN Creatinine Creat Clearance w eGFR POC Glucometer 192 296 Random Glucose Calcium Random Vancomycin 20.9 11/14/17 11/14/17 11/14/17 06:00 06:00 06:27 WBC 8.3 RBC 2.97 L Hgb 7.4 L Hct 23.7 L MCV 79.9 L MCH 25.0 L MCHC 31.3 L RDW 20.4 H Plt Count 451 H MPV 7.3 L Absolute Neuts (auto) 5.7 Neutrophils % 68.7 Lymphocytes % 17.4 Monocytes % 7.0 Eosinophils % 6.1 H Basophils % 0.8 Nucleated RBC % 0 Sodium 138 Potassium 4.6 Chloride 105 Carbon Dioxide 24 Anion Gap 9 BUN 39 H Creatinine 0.9 Creat Clearance w eGFR > 60 POC Glucometer 178 Random Glucose 147 H Calcium 8.4 L Random Vancomycin 11/14/17 11:14 WBC RBC Hgb Hct MCV MCH MCHC RDW Plt Count MPV Absolute Neuts (auto) Neutrophils % Lymphocytes % Monocytes % Eosinophils % Basophils % Nucleated RBC % Sodium Potassium Chloride Carbon Dioxide Anion Gap BUN Creatinine Creat Clearance w eGFR POC Glucometer 122 Random Glucose Calcium Random Vancomycin Microbiology 11/07/17 08:15 Bone Gram Stain - Final 11/07/17 08:15 Bone Tissue Culture - Final Proteus Mirabilis Enterococcus Faecalis 11/07/17 08:15 Bone Anaerobic Culture - Final Bacteroides Fragilis 11/07/17 08:15 Foot - Left Heel Gram Stain - Final 11/07/17 08:15 Foot - Left Heel Wound Culture - Final Proteus Mirabilis Enterococcus Faecalis Escherichia Coli Staphylococcus Aureus Bacteroides Fragilis 11/07/17 17:00 Urine - Urine Clean Catch Urine Culture - Final 11/04/17 09:10 Blood - Peripheral Venous Blood Culture - Final NO GROWTH AFTER 5 DAYS INCUBATION 11/04/17 08:15 Blood - Peripheral Venous Blood Culture - Final NO GROWTH AFTER 5 DAYS INCUBATION 11/01/17 15:45 Blood - Peripheral Venous Blood Culture - Final Staphylococcus Auricularis 11/01/17 16:40 Blood - Peripheral Venous Blood Culture - Final NO GROWTH AFTER 5 DAYS INCUBATION 11/01/17 15:57 Foot - Left Heel Gram Stain - Final 11/01/17 15:57 Foot - Left Heel Wound Culture - Final Proteus Mirabilis Staphylococcus Aureus Enterococcus Faecalis Klebsiella Pneumoniae Escherichia Coli 11/05/17 03:07 Stool Clostridium difficile Antigen (JASVIR) - Final 11/05/17 03:07 Stool Clostridium difficile Toxin Assay - Final 11/01/17 17:41 Urine - Urine Clean Catch Urine Culture - Final Contaminated: Please Repeat ASSESSMENT AND PLAN: 61 yom with reported history of bladder ca with mets to lung/colon s/p colostomy 1 year ago, IDDM, recurrent falls, admitted with Left heel eschar+/- cellulitis -Left heel osteomyelitis/Cellulits s/p Debridement -Staph auricularis bacteremia, likely contaminant -Suspected acute C defficile diarrhea -Acute on chronic anemia -Reported bladder ca with mets to lung/colon s/p colostomy 1 year ago with necrotic bladder mass and right hydronephrosis -IDDM -Recurrent falls -Hyperkalemia, resolved Plan: Vanco level noted. discussed with Dr. sotelo, hold vanco dose today, Start 750 mg daily tomorrow. . Aztreonam/vanco/PO flagyl day . PICC line prior to d.c. Heel offloading, dressing per podiatry. Oncology/urology input noted. Outpatient follow up. Patient interested in estabilishing care in the area, wondering about chemotx/ surgery. Discussed in detail about the extensive spread, guarded prognosis and need for follow up with oncology/urology and surgery. Patient relays understanding and agreable to comply with the same. Transfuse 1 unit PRBC. ISS, levemir. Bowel regimen on narcotics once diarrhea concerns resolved Bladder scan with no concerns for retention DVTPPX lovenox Dispo to SNF pending disposition arrangements. Plan discussed with patient in detail, all questions answered.
--- NOTE | 2017-11-14 15:54 | PN ---
Physical Exam: SUBJECTIVE: Patient seen and examined at bedside. Patient reported 2 episodes of hematuria that started in the afternoon. No shortness of breath, no weakness , no palpitations, no dysuria, no abdominal pain. OBJECTIVE: Vital Signs Period Temp Pulse Resp BP Sys/Kevin Pulse Ox Last 24 Hr 97.9 F-98.5 F 85-94 18-22 127-142/64-80 98-99 GENERAL: The patient is awake, alert, and fully oriented, in no acute distress. HEAD: Normal with no signs of trauma. EYES: PERRLA, EOMI, sclera anicteric, conjunctiva clear. ENT: Ears normal, nares patent, oropharynx clear without exudates, dry mucous membranes. LUNGS: Breath sounds equal, clear to auscultation bilaterally, no wheezes, no crackles, no accessory muscle use. HEART: Regular rate and rhythm, S1, S2 without murmur, rub or gallop. ABDOMEN: Soft, +suprapubic tenderness on palpation, nondistended, normoactive bowel sounds. Colostomy bag empty. UPPER EXTREMITIES: 2+ pulses, warm, well-perfused, no edema. LOWER EXTREMITIES: L heel - +erythema around the wound, no purulent discharge NEUROLOGICAL: Cranial nerves II through XII grossly intact. Normal speech, gait not observed. PSYCH: Normal mood, normal affect. SKIN: +stage 2 nonpurulent ulcer at the sacral area Laboratory Results - last 24 hr 11/13/17 11/13/17 11/14/17 17:50 22:37 06:00 WBC RBC Hgb Hct MCV MCH MCHC RDW Plt Count MPV Absolute Neuts (auto) Neutrophils % Lymphocytes % Monocytes % Eosinophils % Basophils % Nucleated RBC % Sodium Potassium Chloride Carbon Dioxide Anion Gap BUN Creatinine Creat Clearance w eGFR POC Glucometer 192 296 Random Glucose Calcium Random Vancomycin 20.9 11/14/17 11/14/17 11/14/17 06:00 06:00 06:27 WBC 8.3 RBC 2.97 L Hgb 7.4 L Hct 23.7 L MCV 79.9 L MCH 25.0 L MCHC 31.3 L RDW 20.4 H Plt Count 451 H MPV 7.3 L Absolute Neuts (auto) 5.7 Neutrophils % 68.7 Lymphocytes % 17.4 Monocytes % 7.0 Eosinophils % 6.1 H Basophils % 0.8 Nucleated RBC % 0 Sodium 138 Potassium 4.6 Chloride 105 Carbon Dioxide 24 Anion Gap 9 BUN 39 H Creatinine 0.9 Creat Clearance w eGFR > 60 POC Glucometer 178 Random Glucose 147 H Calcium 8.4 L Random Vancomycin 11/14/17 11:14 WBC RBC Hgb Hct MCV MCH MCHC RDW Plt Count MPV Absolute Neuts (auto) Neutrophils % Lymphocytes % Monocytes % Eosinophils % Basophils % Nucleated RBC % Sodium Potassium Chloride Carbon Dioxide Anion Gap BUN Creatinine Creat Clearance w eGFR POC Glucometer 122 Random Glucose Calcium Random Vancomycin Active Medications Generic Name Dose Route Start Last Admin Trade Name Freq PRN Reason Stop Dose Admin Acetaminophen 650 mg 11/07/17 09:19 11/14/17 00:52 Tylenol - PO 650 mg Q6H PRN Administration PAIN LEVEL 1 - 3 Amino Acids 30 ml 11/09/17 17:30 11/14/17 10:58 Prosource No Carb Liquid Pkt PO 30 ml BID@0800,1730 [facility] Administration Collagenase 1 applic 11/07/17 10:00 11/14/17 10:59 Santyl - TP 1 applic DAILY [facility] Administration Protocol IV Flush 8 ml 11/14/17 13:58 Picc Line Flush IVPUSH PRN PRN Protocol Aztreonam 2 gm/ Dextrose 100 mls @ 100 mls/hr 11/12/17 22:00 11/14/17 11:04 IVPB 100 mls/hr BID [facility]PH[facility]IE Administration Protocol Insulin Aspart 1 vial 11/07/17 11:00 11/14/17 11:16 Novolog Vial Sliding Scale - SQ Not Given ACHS [facility] Protocol Insulin Detemir 10 units 11/07/17 22:00 11/13/17 22:40 Levemir Vial SQ 10 unit HS [facility] Administration Lactobacillus Acidophilus 1 tab 11/07/17 10:00 11/14/17 10:57 Bacid - PO 1 tab DAILY [facility] Administration Metronidazole 500 mg 11/12/17 22:00 11/14/17 14:58 Flagyl - PO 500 mg TID [facility] Administration Ondansetron HCl 4 mg 11/07/17 09:19 Zofran Injection IVPUSH Q6H PRN NAUSEA AND/OR VOMITING Oxycodone HCl 5 mg 11/11/17 19:22 11/14/17 10:57 Roxicodone - PO 5 mg Q4H PRN Administration PAIN LEVEL 7 - 10 Sodium Hypochlorite 1 applic 11/07/17 10:00 11/14/17 10:59 Dakin's Solution 0.25% (Half-Strength) - TP 1 applic DAILY [facility] Administration Imaging Echo - LV size, thickness and function are normal. LVEF is normal. LV wall motion is normal. RV is normal in size and function. Mild tricuspid regurgitation. Right ventricular systolic pressure is elevated at 30-40mmHg. E/ A reversal consistent with but not diagnostic of poor LV compliance. There is trace to mild mitral regurgitation. CTA of abd/pelvis with BLE runoffs - Limited study for the evaluation of the SFAs due to motion however within the limitations of the exam and no significant stenotic or occlusive disease seen in the aortoiliac, femoro- popliteal or infrapopliteal arteries. Multiple large lobulated masses some containing calcifications and other demonstrating low internal density suggestive of necrosis. These masses are inseparable from the dome of the urinary bladder and terminal ileum. Findings could be secondary to either mesenteric primary neoplasm, adenocarcinoma within urachal remnant or small bowel in origin. Innumerable metastatic lesions seen throughout the mesentery and both lung doan. Multiple mildly dilated small bowel loops up to 3.4 cm suspicious for early bowel obstruction. Distal right ureter obstructed by large right pelvic inlet mass resulting in moderate hydronephrosis. Architectural distortion with irregular interlobular septal thickening in the right lung bases and lingula with traction bronchiectasis likely lung scarring however underlying lymphangitic spread of tumor cannot be excluded. Xray of Left foot and ankle - The ankle mortise is intact. There is mild soft tissue swelling over the lateral malleolus. The alignment is satisfactory without gross evidence of a fracture or dislocation. Mild soft tissue swelling over dorsal aspect of the foot. Mild osteoarthritic changes involving the first MTP joint. There is no gross evidence of focal bone destruction or soft tissue air. CXR - Multiple nodular opacities in the lungs suggestive of metastasis. Microbiology 11/07/17 08:15 Foot - Left Heel Gram Stain - Final 11/07/17 08:15 Foot - Left Heel Wound Culture - Preliminary Proteus Mirabilis Group D Strep Or Entero Coccus Lactose Fermenting Neg Bacilli Presumptive Mssa (Pbp2a Neg) Bacteroides Fragilis 11/07/17 08:15 Bone Gram Stain - Final 11/07/17 08:15 Bone Tissue Culture - Final Proteus Mirabilis Enterococcus Faecalis 11/07/17 08:15 Bone Anaerobic Culture - Preliminary Pending Organism 11/07/17 17:00 Urine - Urine Clean Catch Urine Culture - Final 11/04/17 09:10 Blood - Peripheral Venous Blood Culture - Final NO GROWTH AFTER 5 DAYS INCUBATION 11/04/17 08:15 Blood - Peripheral Venous Blood Culture - Final NO GROWTH AFTER 5 DAYS INCUBATION ASSESSMENT/PLAN: Patient is a 61 year old male with past medical history of DM, hx of bladder cancer with primary mets to lung and colon (currently with colostomy bag placed 1 year ago) admitted for nonhealing diabetic left heel wound. #Nonhealing diabetic wound, left heel: s/p L heel debridement and bone biopsy POD1 -Oxycodone 5mg q6h PRN for pain. -Wound cx - Proteus mirabilis, enterococcus, lactose fermenting gram negative bacilli, presumptive MSSA, Bacteroides fragilis -Bone cx - Proteus mirabilis, enterococcus faecalis -ID (Dr. Romero) consulted. Recommendations appreciated. -Continue IV vancomycin and aztreonam, PO Flagyl. To complete 6 weeks, now on day #13 -Vanc trough level -20.9. -Reduce vancomycin dose to 750mg. -renal function wnl -For PICC line prior to discharge. -Daily wound care. -Probiotics. -Podiatry (Dr. An) consulted. Recommendations appreciated. -s/p L heel debridement and bone biopsy -Dakins wet to dry L foot -Toe touch WB L foot -Recommend JASMYNE placement, needs IV abx for tx of osteomyelitis -Will f/u in wound healing center upon discharge. [phone]. -Vascular (Dr. Barbour) consulted. Recommendations appreciated. #+ C. difficile -Discontinue Vancomycin 125mg PO q6h -Isolation precaution #Sacral decubitus ulcer -On antibiotics. -Proper wound care -Tylenol 650 mg PO Q6H for pain and Oxycodone 5mg q6h PRN for pain 7-10 -Turn and position Q2H #Bladder cancer w/ metastasis to lung and colon: s/p colostomy bag since 1 year ago. -Patient today reports 2 bouts of gross hematuria; likely from Bladder CA. -Bladder scan q6h ordered. Insert junior with >300. -Will monitor H/H. -Called daughterIzzy to ask about hospital records. She said they could not find the doctors or the records and in the process of looking for them. -Faxed a release form signed by patient to [facility] to request for patient's records. -Oncology (Dr. Fried) consulted. Recommendations appreciated. -Would consider CT of chest, abdomen, pelvis to assess current state of bladder cancer. -Bone scan in view of back pains. -Currently attention to be directed toward left heel ulcer and therapy. -Diabetic control. -Urology (Dr. Hernandez) consulted. Recommendations appreciated. -Will need PRT scan and lung, abd and head CT -Currently voiding follow pvr and cr -No indication for cystoscopy at this time. -Surgery consulted. Recommendations appreciated. #Sinus arrhythmia, found on EKG, no prior EKG for comparison. -Echocardiogram - LV size, thickness, and function normal; LV EF normal; RV normal in size and function; Mild TR; RV systolic pressure is elevated at 30- 40mmHg; E/A reveral consistent with but not diagnostic of poor LV complaince. Trace MR. -Electrolytes wnl #DM -HbA1c - 8.5 -Levemir 10U SQ HS -ISS -BGM ACHS #Severely malnourished: significant weight loss likely 2/2 to CA -dietitian consult #FEN -not on any standing fluids -encourage increased oral fluid intake -electrolytes wnl, routine bmp monitoring -Diabetic diet #Prophylaxis -Lovenox 40 mg SQ QD #Disposition -Palliative care consulted -Will need 1 month of IV antibiotics as outpatient. Will discharge to SNF. Visit type - Emergency Visit Emergency Visit: Yes ED Registration Date: 11/01/17 Care time: The patient presented to the Emergency Department on the above date and was hospitalized for further evaluation of their emergent condition. - New Patient This patient is new to me today: Yes Date on this admission: 11/14/17 - Critical Care Critical Care patient: No
[2017-11-14] MEDS ORDERED: INSULIN (NOVOLOG) ASPART 100 UNITS/ML 10ML VIAL ONE (18:15)
[2017-11-14] MEDS: INSULIN (LEVEMIR) 100 UNITS/ML UNITS SQ SCH (23:05)
[2017-11-15] MEDS: INSULIN SLIDING SCALE (NOVOLOG) 1 VIAL SQ SCH ×3 (06:21→16:48)
[2017-11-15] MEDS: metroNIDAZOLE 250 MG TABLET PO SCH ×2 (06:21→16:47)
[2017-11-15] MEDS ORDERED: INSULIN (LEVEMIR) 100 UNITS/ML UNITS SQ ONE (06:55)
[2017-11-15] MEDS ORDERED: INSULIN (NOVOLOG) ASPART 100 UNITS/ML 10ML VIAL ONE (06:55)
[2017-11-15 07:15] LABS: EOS % 6.3 % (0-4.5); HEMOGLOBIN 7.2 GM/dL (11.7-16.9); LYMPH % 19.6 % (8-40); MCH 24.8 pg (25.7-33.7); MCHC 31.1 g/dl (32.0-35.9); MEAN CELL VOLUME 79.6 fl (80-96); MEAN PLT VOLUME 7.4 fl (7.5-11.1); MONO % 5.6 % (3.8-10.2); NEUT % 67.5 % (42.8-82.8); PLATELET COUNT 464 K/MM3 (134-434); RBC 2.89 M/mm3 (4.00-5.60); RDW 20.3 % (11.9-15.9); WHITE BLOOD COUNT 7.8 K/mm3 (4.0-10.0)
[2017-11-15 07:43] LABS: ALBUMIN 1.5 g/dl (3.4-5.0); ALK PHOS 82 U/L (45-117); ANION GAP 5 MMOL/L (8-16); BILIRUBIN,TOTAL 0.1 mg/dL (0.2-1); BLOOD UREA NITROGEN 39 mg/dL (7-18); CALCIUM 8.2 mg/dL (8.5-10.1); CHLORIDE 103 mmol/L (98-107); CO2 27 mmol/L (21-32); CREATININE 0.9 mg/dL (0.55-1.3); GLUCOSE,RANDOM 115 mg/dL (74-106); MAGNESIUM 2.3 mg/dL (1.8-2.4); POTASSIUM 4.6 mmol/L (3.5-5.1); SGOT/AST 15 U/L (15-37); SGPT/ALT 9 U/L (13-61); SODIUM 135 mmol/L (136-145); TOT PROT 6.4 g/dl (6.4-8.2)
--- NOTE | 2017-11-15 08:22 | PN ---
Teaching Attending Note Name of Resident: Hazel Boyle ATTENDING PHYSICIAN STATEMENT I saw and evaluated the patient. I reviewed the resident's note and discussed the case with the resident. I agree with the resident's findings and plan as documented with exceptions below. SUBJECTIVE: Patient seen and examined. no new complaints. OBJECTIVE: Vital Signs Period Temp Pulse Resp BP Sys/Kevin Pulse Ox Last 24 Hr 97.6 F-98.4 F 85-95 20-20 133-143/62-80 98-98 Intake & Output 11/12/17 11/13/17 11/14/17 11/15/17 23:59 23:59 23:59 23:59 Intake Total 1210 100 200 450 Output Total 400 1800 1500 1500 Balance 810 -1700 -1300 -1050 General: lying in bed in no acute distress Abdomen: soft, colostomy present, non tender Extremities: Left foot dressing, further exam deferred Active Medications Acetaminophen (Tylenol -) 650 mg PO Q6H PRN PRN Reason: PAIN LEVEL 1 - 3 Last Admin: 11/14/17 23:53 Dose: 650 mg Amino Acids (Prosource No Carb Liquid Pkt) 30 ml PO BID@0800,1730 [facility] Last Admin: 11/14/17 17:45 Dose: 30 ml Collagenase (Santyl -) 1 applic TP DAILY [facility]; Protocol Last Admin: 11/14/17 10:59 Dose: 1 applic IV Flush (Picc Line Flush) 8 ml IVPUSH PRN PRN PRN Reason: Protocol Aztreonam 2 gm/ Dextrose 100 mls @ 100 mls/hr IVPB BID [facility]; Protocol Last Admin: 11/14/17 23:04 Dose: 100 mls/hr Insulin Aspart (Novolog Vial Sliding Scale -) 1 vial SQ ACHS [facility] [place]; Protocol Last Admin: 11/15/17 06:21 Dose: Not Given Insulin Detemir (Levemir Vial) 10 units SQ HS [facility] [place] Last Admin: 11/14/17 23:05 Dose: 10 unit Lactobacillus Acidophilus (Bacid -) 1 tab PO DAILY [facility] [place] Last Admin: 11/14/17 10:57 Dose: 1 tab Metronidazole (Flagyl -) 500 mg PO TID [facility] Last Admin: 11/15/17 06:21 Dose: 500 mg Ondansetron HCl (Zofran Injection) 4 mg IVPUSH Q6H PRN PRN Reason: NAUSEA AND/OR VOMITING Oxycodone HCl (Roxicodone -) 5 mg PO Q4H PRN PRN Reason: PAIN LEVEL 7 - 10 Last Admin: 11/14/17 23:53 Dose: 5 mg Sodium Hypochlorite (Dakin's Solution 0.25% (Half-Strength) -) 1 applic TP DAILY [facility] Last Admin: 11/14/17 10:59 Dose: 1 applic Laboratory Results - last 24 hr 11/14/17 11/14/17 11/14/17 11:14 16:20 23:01 WBC RBC Hgb Hct MCV MCH MCHC RDW Plt Count MPV Absolute Neuts (auto) Neutrophils % Lymphocytes % Monocytes % Eosinophils % Basophils % Nucleated RBC % Sodium Potassium Chloride Carbon Dioxide Anion Gap BUN Creatinine Creat Clearance w eGFR POC Glucometer 122 195 213 Random Glucose Calcium Phosphorus Magnesium Total Bilirubin AST ALT Alkaline Phosphatase Total Protein Albumin 11/15/17 11/15/17 11/15/17 06:19 06:24 06:24 WBC 7.8 RBC 2.89 L Hgb 7.2 L Hct 23.0 L MCV 79.6 L MCH 24.8 L MCHC 31.1 L RDW 20.3 H Plt Count 464 H MPV 7.4 L Absolute Neuts (auto) 5.2 Neutrophils % 67.5 Lymphocytes % 19.6 Monocytes % 5.6 Eosinophils % 6.3 H Basophils % 1.0 Nucleated RBC % 0 Sodium 135 L Potassium 4.6 Chloride 103 Carbon Dioxide 27 Anion Gap 5 L BUN 39 H Creatinine 0.9 Creat Clearance w eGFR > 60 POC Glucometer 130 Random Glucose 115 H Calcium 8.2 L Phosphorus 4.0 Magnesium 2.3 Total Bilirubin 0.1 L AST 15 ALT 9 L Alkaline Phosphatase 82 Total Protein 6.4 Albumin 1.5 L Microbiology 11/07/17 08:15 Bone Gram Stain - Final 11/07/17 08:15 Bone Tissue Culture - Final Proteus Mirabilis Enterococcus Faecalis 11/07/17 08:15 Bone Anaerobic Culture - Final Bacteroides Fragilis 11/07/17 08:15 Foot - Left Heel Gram Stain - Final 11/07/17 08:15 Foot - Left Heel Wound Culture - Final Proteus Mirabilis Enterococcus Faecalis Escherichia Coli Staphylococcus Aureus Bacteroides Fragilis 11/07/17 17:00 Urine - Urine Clean Catch Urine Culture - Final 11/04/17 09:10 Blood - Peripheral Venous Blood Culture - Final NO GROWTH AFTER 5 DAYS INCUBATION 11/04/17 08:15 Blood - Peripheral Venous Blood Culture - Final NO GROWTH AFTER 5 DAYS INCUBATION 11/01/17 15:45 Blood - Peripheral Venous Blood Culture - Final Staphylococcus Auricularis 11/01/17 16:40 Blood - Peripheral Venous Blood Culture - Final NO GROWTH AFTER 5 DAYS INCUBATION 11/01/17 15:57 Foot - Left Heel Gram Stain - Final 11/01/17 15:57 Foot - Left Heel Wound Culture - Final Proteus Mirabilis Staphylococcus Aureus Enterococcus Faecalis Klebsiella Pneumoniae Escherichia Coli 11/05/17 03:07 Stool Clostridium difficile Antigen (JASVIR) - Final 11/05/17 03:07 Stool Clostridium difficile Toxin Assay - Final 11/01/17 17:41 Urine - Urine Clean Catch Urine Culture - Final Contaminated: Please Repeat ASSESSMENT AND PLAN: 61 yom with reported history of bladder ca with mets to lung/colon s/p colostomy 1 year ago, IDDM, recurrent falls, admitted with Left heel eschar+/- cellulitis -Left heel osteomyelitis/Cellulits s/p Debridement -Staph auricularis bacteremia, likely contaminant -Suspected acute C defficile diarrhea -Acute on chronic anemia, suspect from hematuria -Reported bladder ca with mets to lung/colon s/p colostomy 1 year ago with necrotic bladder mass and right hydronephrosis -IDDM -Recurrent falls -Hyperkalemia, resolved Plan: Start vancomycin 750 mg Daily today, repeat level in 3-4 days. Aztreonam/vanco/PO flagyl day 14/. PICC line prior to d.c. Heel offloading, dressing per podiatry. Oncology/urology input noted. Outpatient follow up. Hematuria overnight. Bladder scan, with no concerns for retention. Resolved. H/ h stable. Discussed with Dr. Hernandez, outpatient follow up. Patient interested in establishing care in the area, wondering about chemotx/ surgery. Discussed in detail about the extensive spread, guarded prognosis and need for follow up with oncology/urology and surgery. Patient relays understanding and agreeable to comply with the same. Palliative care input noted. ISS, levemir. Bowel regimen on narcotics once diarrhea concerns resolved DVTPPX lovenox Dispo to SNF today after PICC line insertion. Plan discussed with patient in detail, all questions answered.
--- NOTE | 2017-11-15 09:42 | PN ---
Progress Note (short form) - Note Progress Note: Podiatry Brief Note: s/p L heel debridement and bone biopsy. Mixed orgs from bone. IV abx per Infectious Disease. Continue local wound care with santyl and dakins wet to dry. Heel offloading measures. For dispo to SNF and will f/u with me in wound healing center. Pod stable for D/C. Scott An DPM
[2017-11-15] MEDS: AZTREONAM 2 GM in DEXTROSE 5%-WATER 100 ML IVPB SCH (10:00)
[2017-11-15] MEDS: AMINO ACIDS/PROTEIN HYDROLYS 30 ML LIQUID.PKT PO SCH ×2 (10:00→16:48)
[2017-11-15] MEDS: LACTOBACILLUS ACIDOPHILUS 1 TABLET PO SCH (10:00)
[2017-11-15] MEDS: SODIUM HYPOCHLORITE 0.25%- 473 ML BULK BOTTLE TP SCH (10:03)
[2017-11-15] MEDS: COLLAGENASE CLOSTRIDIUM HIST. 30 GRAMS TUBE TP SCH (10:03)
[2017-11-15 12:42] LABS: HEMATOCRIT 24.8 % (35.4-49); HEMOGLOBIN 7.9 GM/dL (11.7-16.9); MCH 25.3 pg (25.7-33.7); MCHC 31.7 g/dl (32.0-35.9); MEAN CELL VOLUME 79.6 fl (80-96); MEAN PLT VOLUME 7.3 fl (7.5-11.1); PLATELET COUNT 527 K/MM3 (134-434); RBC 3.11 M/mm3 (4.00-5.60); RDW 20.6 % (11.9-15.9); WHITE BLOOD COUNT 8.6 K/mm3 (4.0-10.0)
[2017-11-15] MEDS ORDERED: VANCOMYCIN 750 MG in DEXTROSE 5%-WATER - 250 ML IVPB ONE (12:47)
[2017-11-15] MEDS: oxyCODONE HCL 5 MG TABLET PO PRN (13:29)
[2017-11-15 14:28] VITALS: BP 119/64; PULSE 92; TEMP 98.9
--- NOTE | 2017-11-15 19:18 | DS ---
Physical Exam: SUBJECTIVE: Patient seen and examined at bedside this morning. Patient reported hematuria today is clearing. He remains hemodynamically stable. OBJECTIVE: Vital Signs Period Temp Pulse Resp BP Sys/Kevin Pulse Ox Last 24 Hr 97.6 F-98.9 F 85-93 20-20 119-142/62-73 97-98 PHYSICAL EXAM GENERAL: The patient is awake, alert, and fully oriented, in no acute distress. HEAD: Normal with no signs of trauma. EYES: PERRLA, EOMI, sclera anicteric, conjunctiva clear. ENT: Ears normal, nares patent, oropharynx clear without exudates, dry mucous membranes. LUNGS: Breath sounds equal, clear to auscultation bilaterally, no wheezes, no crackles, no accessory muscle use. HEART: Regular rate and rhythm, S1, S2 without murmur, rub or gallop. ABDOMEN: Soft, +suprapubic tenderness on palpation, nondistended, normoactive bowel sounds. Colostomy bag empty. UPPER EXTREMITIES: 2+ pulses, warm, well-perfused, no edema. LOWER EXTREMITIES: L heel - +erythema around the wound, no purulent discharge NEUROLOGICAL: Cranial nerves II through XII grossly intact. Normal speech, gait not observed. PSYCH: Normal mood, normal affect. SKIN: +stage 2 nonpurulent ulcer at the sacral area LABS Laboratory Results - last 24 hr 11/14/17 11/15/17 11/15/17 23:01 06:19 06:24 WBC 7.8 RBC 2.89 L Hgb 7.2 L Hct 23.0 L MCV 79.6 L MCH 24.8 L MCHC 31.1 L RDW 20.3 H Plt Count 464 H MPV 7.4 L Absolute Neuts (auto) 5.2 Neutrophils % 67.5 Lymphocytes % 19.6 Monocytes % 5.6 Eosinophils % 6.3 H Basophils % 1.0 Nucleated RBC % 0 Sodium Potassium Chloride Carbon Dioxide Anion Gap BUN Creatinine Creat Clearance w eGFR POC Glucometer 213 130 Random Glucose Calcium Phosphorus Magnesium Total Bilirubin AST ALT Alkaline Phosphatase Total Protein Albumin Random Vancomycin Blood Type Antibody Screen Crossmatch 11/15/17 11/15/17 11/15/17 06:24 09:00 10:08 WBC RBC Hgb Hct MCV MCH MCHC RDW Plt Count MPV Absolute Neuts (auto) Neutrophils % Lymphocytes % Monocytes % Eosinophils % Basophils % Nucleated RBC % Sodium 135 L Potassium 4.6 Chloride 103 Carbon Dioxide 27 Anion Gap 5 L BUN 39 H Creatinine 0.9 Creat Clearance w eGFR > 60 POC Glucometer Random Glucose 115 H Calcium 8.2 L Phosphorus 4.0 Magnesium 2.3 Total Bilirubin 0.1 L AST 15 ALT 9 L Alkaline Phosphatase 82 Total Protein 6.4 Albumin 1.5 L Random Vancomycin 13.9 L Blood Type O POSITIVE Antibody Screen Negative Crossmatch See Detail 11/15/17 11/15/17 11/15/17 11:28 12:00 16:34 WBC 8.6 RBC 3.11 L Hgb 7.9 L Hct 24.8 L MCV 79.6 L MCH 25.3 L MCHC 31.7 L RDW 20.6 H Plt Count 527 H MPV 7.3 L Absolute Neuts (auto) Neutrophils % Lymphocytes % Monocytes % Eosinophils % Basophils % Nucleated RBC % Sodium Potassium Chloride Carbon Dioxide Anion Gap BUN Creatinine Creat Clearance w eGFR POC Glucometer 91 161 Random Glucose Calcium Phosphorus Magnesium Total Bilirubin AST ALT Alkaline Phosphatase Total Protein Albumin Random Vancomycin Blood Type Antibody Screen Crossmatch Imaging Echo - LV size, thickness and function are normal. LVEF is normal. LV wall motion is normal. RV is normal in size and function. Mild tricuspid regurgitation. Right ventricular systolic pressure is elevated at 30-40mmHg. E/ A reversal consistent with but not diagnostic of poor LV compliance. There is trace to mild mitral regurgitation. CTA of abd/pelvis with BLE runoffs - Limited study for the evaluation of the SFAs due to motion however within the limitations of the exam and no significant stenotic or occlusive disease seen in the aortoiliac, femoro- popliteal or infrapopliteal arteries. Multiple large lobulated masses some containing calcifications and other demonstrating low internal density suggestive of necrosis. These masses are inseparable from the dome of the urinary bladder and terminal ileum. Findings could be secondary to either mesenteric primary neoplasm, adenocarcinoma within urachal remnant or small bowel in origin. Innumerable metastatic lesions seen throughout the mesentery and both lung doan. Multiple mildly dilated small bowel loops up to 3.4 cm suspicious for early bowel obstruction. Distal right ureter obstructed by large right pelvic inlet mass resulting in moderate hydronephrosis. Architectural distortion with irregular interlobular septal thickening in the right lung bases and lingula with traction bronchiectasis likely lung scarring however underlying lymphangitic spread of tumor cannot be excluded. Xray of Left foot and ankle - The ankle mortise is intact. There is mild soft tissue swelling over the lateral malleolus. The alignment is satisfactory without gross evidence of a fracture or dislocation. Mild soft tissue swelling over dorsal aspect of the foot. Mild osteoarthritic changes involving the first MTP joint. There is no gross evidence of focal bone destruction or soft tissue air. CXR - Multiple nodular opacities in the lungs suggestive of metastasis. Microbiology 11/07/17 08:15 Bone Gram Stain - Final 11/07/17 08:15 Bone Tissue Culture - Final Proteus Mirabilis Enterococcus Faecalis 11/07/17 08:15 Bone Anaerobic Culture - Final Bacteroides Fragilis 11/07/17 08:15 Foot - Left Heel Gram Stain - Final 11/07/17 08:15 Foot - Left Heel Wound Culture - Final Proteus Mirabilis Enterococcus Faecalis Escherichia Coli Staphylococcus Aureus Bacteroides Fragilis 11/07/17 17:00 Urine - Urine Clean Catch Urine Culture - Final 11/04/17 09:10 Blood - Peripheral Venous Blood Culture - Final NO GROWTH AFTER 5 DAYS INCUBATION 11/04/17 08:15 Blood - Peripheral Venous Blood Culture - Final NO GROWTH AFTER 5 DAYS INCUBATION 11/01/17 15:45 Blood - Peripheral Venous Blood Culture - Final Staphylococcus Auricularis 11/01/17 16:40 Blood - Peripheral Venous Blood Culture - Final NO GROWTH AFTER 5 DAYS INCUBATION 11/01/17 15:57 Foot - Left Heel Gram Stain - Final 11/01/17 15:57 Foot - Left Heel Wound Culture - Final Proteus Mirabilis Staphylococcus Aureus Enterococcus Faecalis Klebsiella Pneumoniae Escherichia Coli 11/05/17 03:07 Stool Clostridium difficile Antigen (JASVIR) - Final 11/05/17 03:07 Stool Clostridium difficile Toxin Assay - Final 11/01/17 17:41 Urine - Urine Clean Catch Urine Culture - Final Contaminated: Please Repeat HOSPITAL COURSE: Date of Admission:11/01/17 Date of Discharge: 11/15/17 Patient is a 61 year old male with past medical history of DM, hx of bladder cancer with primary mets to lung and colon (currently with colostomy bag placed 1 year ago) admitted for nonhealing diabetic left heel wound. Patient was started on IV Vancomycin and Aztreonam. ID, podiatry and vascular surgery consulted. Foot xray and MRI of the left foot done. Patient underwent left heel debridement and bone biopsy. Wound cultures was positive for Proteus mirabilis, enterococcus, lactose fermenting gram negative bacilli, presumptive MSSA, Bacteroides fragilis and bone cultures was positive for Proteus and Enterococcus. Patient was started on IV vancomycin, IV aztreonam and IV flagyl to complete for 6 weeks. Patient also had episodes of watery stools, cultures became positive for C. difficile, and patient was started on PO vancomycin. This was discontinued when IV flagyl was switched to PO prior to discharge. Patient also had episodes of hematuria, likely from the bladder cancer. Ulices- Onc consulted, but patient refused any further work-up and treatment. Urology was consulted, no cystoscopy or any other interventions recommended at this time. CBC was followed, 1 unit of pRBC transfuse, and patient remained hemodynamically stable. Patient was discharged to SNF to continue IV vancomycin , IV aztreonam and PO flagyl for 28 more days. PICC line placed prior to discharge. Minutes to complete discharge: 35 Discharge Summary Reason For Visit: DIABETIC FOOT ULCER; CELLULITIS Condition: Improved - Instructions Diet, Activity, Other Instructions: You were admitted because of a non-healing wound on your left foot. You underwent debridement of the wound, where the foot doctor removed the damaged and infected tissue to improve healing, and you were started on IV antibiotics. You also had bloody urine. This is likely caused by the bladder cancer. Please follow-up with your cancer doctor for further evaluation and management. You were noted with low blood counts (hemoglobin) and received 1 unit of blood You will need close monitoring of your blood counts outpatient. Your history suggests extensive bladder cancer with reported metastasis to lungs /intestines. You are strongly advised to follow with your oncologist and urologist for continued management as cancer seems to have been noted with extensive spread. Or you can follow up with Dr. Fried and Dr. Hernandez who saw you in the hospital within 1 week. Please ensure to call on discharge for follow up appointments. It is very important that you continue discussion about ongoing goals of care and further treatment plan with your team of doctors. Advise follow up with surgeon to address further colostomy care and plan You will be discharged to a long term facility where you will continue the following antibiotics for 28 more days (UNTIL DEC 13, 2017), then as directed by Dr. Romero. 1. Aztreonam 2gm IV twice a day 2. Vancomycin 750mg IV once a day 3. Flagyl 500mg three times a day. Routine PICC line care and flushes. PICC Line to be removed per instructions by Dr. Romero on antibiotic completion. Continue your home medications as prescribed. Following lab work in 3 days: Vanco trough level with results to Dr. Romero CBC (Complete blood count). Weekly CBC, BMP, LFTs, vanco level while on antibiotics. Wound care: Clean the wound on the left heel with santyl and dakins wet to dry. Do not put pressure on the left heel. Left heel offloading measures. Follow-ups: -[employer], Dr An, at the wound healing center. Please call to schedule an appointment. -Please follow up with Dr. Romero in 1-2 weeks of discharge -Follow-up with your cancer doctor. If you do not have one, you may call Dr. Fried's office to schedule an appointment. -Urologist Dr. Hernandez in 1-2 weeks -Primary care doctor in 1 week. -Surgery Dr. Schmidt in 2-3 weeks Call 911 or go the ED if with any worsening fever, chills, chest pain, shortness of breath, or any new concerns noted. Referrals: Puneet An MD [Staff Physician] - Hector Hernandez MD., MD [Staff Physician] - Marian Romero MD [Staff Physician] - ON STAFF,NOT [Primary Care Provider] - Abel Barbour MD [Staff Physician] - Will Fried MD [Staff Physician] - Disposition: CUSTODIAL FACILITY - Home Medications Comprehensive Discharge Medication List: Ambulatory Orders Acetaminophen [Tylenol .Regular Strength -] 650 mg PO Q6H PRN tablet 11/15/17 Amino Acids/Protein Hydrolys [Prosource No Carb Liquid Pkt] 30 ml PO BID@0800, 1730 packet 11/15/17 Aztreonam [Azactam (Restricted To Id) -] 2 gm IVPB BID vial 11/15/17 Collagenase Clostridium Hist. [Santyl -] 1 applic TP DAILY tube 11/15/17 Insulin (Levemir) [Levemir Vial] 10 units SQ HS units 11/15/17 Insulin Sliding Scale [Novolog Vial Sliding Scale -] 1 vial SQ ACHS units 10/11 /18 Lactobacillus Acidophilus [Bacid -] 1 tab PO DAILY tab 11/15/17 Picc Line Flush [Picc Line Flush -] 8 ml IVPUSH PRN PRN ml 11/15/17 Sodium Hypochlorite [Dakin's Solution 0.25% (Half-Strength) -] 1 applic TP DAILY ml 11/15/17 Vancomycin 750 mg IVPB Q24H vial 11/15/17 metroNIDAZOLE [Flagyl -] 500 mg PO TID tablet 11/15/17 oxyCODONE HCL [Roxicodone -] 5 mg PO Q4H PRN tablet MDD 30mg 11/15/17 This patient is new to me today: Yes Date on this admission: 11/23/17 Emergency Visit: Yes ED Registration Date: 11/01/17 Care time: The patient presented to the Emergency Department on the above date and was hospitalized for further evaluation of their emergent condition. Critical Care patient: No - Discharge Referral Referred to [facility] No
[2017-11-16] MEDS ORDERED: VANCOMYCIN 750 MG in DEXTROSE 5%-WATER - 250 ML IVPB SCH (13:00)
== END 2017-11-15 18:48 | DRG 380 ==
LOC: JER 14:13 → JERBED 17:35 → J7W 21:43
PROVIDERS: ADMIT Internal Medicine; ATTEND Hospitalist
PROC: 30233N1 Transfusion of Nonautologous Red Blood Cells into Peripheral Vein, Percutaneous Approach (ICD-10-PCS; 2017-11-04)
PROC: 0QBM0ZX Excision of Left Tarsal, Open Approach, Diagnostic (ICD-10-PCS; 2017-11-07)
PROC: 0QBM0ZX Excision of Left Tarsal, Open Approach, Diagnostic (ICD-10-PCS; 2017-11-07)
PROC: 0JBR0ZZ Excision of Left Foot Subcutaneous Tissue and Fascia, Open Approach (ICD-10-PCS; principal; 2017-11-07 07:30)
PROC: 02HV33Z Insertion of Infusion Device into Superior Vena Cava, Percutaneous Approach (ICD-10-PCS; 2017-11-15)
PROC: B518ZZA Fluoroscopy of Superior Vena Cava, Guidance (ICD-10-PCS; 2017-11-15)
PROC: B548ZZA Ultrasonography of Superior Vena Cava, Guidance (ICD-10-PCS; 2017-11-15)
DX: E11.621 Type 2 diabetes mellitus with foot ulcer (principal); E43 Unspecified severe protein-calorie malnutrition; L89.152 Pressure ulcer of sacral region, stage 2; R78.81 Bacteremia; A04.72 Enterocolitis due to Clostridium difficile, not specified as recurrent; R64 Cachexia; C78.00 Secondary malignant neoplasm of unspecified lung; E11.69 Type 2 diabetes mellitus with other specified complication; C77.5 Secondary and unspecified malignant neoplasm of intrapelvic lymph nodes; E11.65 Type 2 diabetes mellitus with hyperglycemia; L97.429 Non-pressure chronic ulcer of left heel and midfoot with unspecified severity; E87.5 Hyperkalemia; L03.116 Cellulitis of left lower limb; N13.30 Unspecified hydronephrosis; C67.9 Malignant neoplasm of bladder, unspecified; Z68.1 Body mass index [BMI] 19.9 or less, adult; Z88.0 Allergy status to penicillin; B96.4 Proteus (mirabilis) (morganii) as the cause of diseases classified elsewhere; B95.61 Methicillin susceptible Staphylococcus aureus infection as the cause of diseases classified elsewhere; B95.2 Enterococcus as the cause of diseases classified elsewhere; B96.1 Klebsiella pneumoniae [K. pneumoniae] as the cause of diseases classified elsewhere; B96.29 Other Escherichia coli [E. coli] as the cause of diseases classified elsewhere; Z93.3 Colostomy status; Z85.038 Personal history of other malignant neoplasm of large intestine; Z90.49 Acquired absence of other specified parts of digestive tract; Z87.891 Personal history of nicotine dependence; I49.8 Other specified cardiac arrhythmias; D63.1 Anemia in chronic kidney disease; Z91.81 History of falling; D50.9 Iron deficiency anemia, unspecified; Z79.4 Long term (current) use of insulin; Z51.5 Encounter for palliative care
CPT/HCPCS: 36415; 36430; 36511; 36569; 71045-TC-FY; 73610-TC-LT-FY; 73630-TC-LT; 75635-TC; 75820-TC-FY; 77001-TC-FY; 80048; 80053; 81003; 81015; 82272; 82803; 82962; 83036; 83605; 83735; 84100; 84484; 85025; 85027; 85610; 85651; 85730; 86140; 86850; 86900; 86901; 86922; 87040; 87070; 87075; 87076; 87086; 87186; 87205; 87324; 87449; 88304-TC; 88311-TC; 93005; 93010; 93306-TC; 94760; 97161-GP; 99285-25; C1751; E0186; G0480; J7030; P9038; P9058

== ENCOUNTER 2017-11-19 18:38 | Inpatient (IN) | payer OTHER ==
--- NOTE | 2017-11-19 20:29 | PDOC ---
History of Present Illness - General Chief Complaint: Revisit, Lab Variance Stated Complaint: ABNORMAL LABS Time Seen by Provider: 11/19/17 19:53 History Source: Patient - History of Present Illness Initial Comments: 61 y/o M w/PMH of DM, Bladder Ca (with mets to lung and colon, now w/colostomy bag), recently d/c'd from [facility] on 11/15/17 for L heel ulcer (requiring I&D and PICC line for abx) now presents from [facility] to the ER due to urinary retention. Pt was not able to urinate starting on and junior was placed. 2-3 days ago he was not able to urinate despite junior being in place and he started developing worsening lower abd pain and distention. He also started have gross blood in junior bag but is unsure of amount and is not sure if the bag was ever emptied when he started having bleeding. He also c/o chills starting today and worsening of his back pain at his ulcer site. He denies any N /V/F, blood in stool, CP, SOB, edema, light-headedness, dizziness, LEO. Labs were done at [place] today which were remarkable for: WBC 26.6, H/H 5.2/ 17 (baseline ~8), Plt 742, BUN/Cr 94/3.9 (baseline Cr 0.9), Na 125, K 6.1 PMH: DM, Bladder ca w/mets to lung and colon (now with colostomy bag), L heel ulcer, sacral decub ulcer SH: smoked 2-3ppd, quit 5 years ago, denies alcohol, denies drug use FH: DM in mother, HTN in father Allergies: Penicillins Past History - Past Medical History Allergies/Adverse Reactions: Allergies Allergy/AdvReac Type Severity Reaction Status Date / Time Penicillins Allergy Verified 11/19/17 19:06 Home Medications: Ambulatory Orders Acetaminophen [Tylenol .Regular Strength -] 650 mg PO Q6H PRN tablet 11/15/17 Amino Acids/Protein Hydrolys [Prosource No Carb Liquid Pkt] 30 ml PO BID@0800, 1730 packet 11/15/17 Aztreonam [Azactam (Restricted To Id) -] 2 gm IVPB BID vial 11/15/17 Collagenase Clostridium Hist. [Santyl -] 1 applic TP DAILY tube 11/15/17 Insulin (Levemir) [Levemir Vial] 10 units SQ HS units 11/15/17 Insulin Sliding Scale [Novolog Vial Sliding Scale -] 1 vial SQ ACHS units 11/15 Lactobacillus Acidophilus [Bacid -] 1 tab PO DAILY tab 11/15/17 Picc Line Flush [Picc Line Flush -] 8 ml IVPUSH PRN PRN ml 11/15/17 Sodium Hypochlorite [Dakin's Solution 0.25% (Half-Strength) -] 1 applic TP DAILY ml 11/15/17 Vancomycin 750 mg IVPB Q24H vial 11/15/17 metroNIDAZOLE [Flagyl -] 500 mg PO TID tablet 11/15/17 oxyCODONE HCL [Roxicodone -] 5 mg PO Q4H PRN tablet MDD 30mg 11/15/17 Cancer: Yes (lung,bladder,colon) CVA: No COPD: No Diabetes: Yes - Surgical History Abdominal Surgery: Yes (colon resection, with colostomy) Appendectomy: Yes - Suicide/Smoking/Psychosocial Hx Smoking History: Former smoker Have you smoked in the past 12 months: No Information on smoking cessation initiated: No Hx Alcohol Use: No Drug/Substance Use Hx: No Substance Use Type: None Review of Systems - Review of Systems Able to Perform ROS?: Yes Constitutional: Yes: Chills. No: Fever Respiratory: No: Cough, Shortness of Breath Cardiac (ROS): No: Chest Pain ABD/GI: Yes: Abdominal Distended (lower abdomen), Other (lower abdomen tenderness. Colostomy in place.). No: Blood Streaked Bowels, Nausea, Vomiting : Yes: Hematuria (gross hematuria), Other (retention despite haivng junior) Musculoskeletal: Yes: Back Pain (at ulcer site) Neurological: No: Headache, Dizziness *Physical Exam - Vital Signs Last Vital Signs Temp Pulse Resp BP Pulse Ox 98.9 F 103 H 20 107/60 100 11/19/17 19:07 11/19/17 19:07 11/19/17 19:07 11/19/17 19:07 11/19/17 19:07 - Physical Exam General Appearance: Yes: Nourished, Appropriately Dressed, Disheveled, Thin HEENT: positive: EOMI Respiratory/Chest: positive: Lungs Clear (auscultated anteriorly), Normal Breath Sounds. negative: Respiratory Distress Cardiovascular: positive: Regular Rhythm, Regular Rate, S1, S2 Gastrointestinal/Abdominal: positive: Normal Bowel Sounds, Distended (in Lower abdomen), Tenderness (Lower abdomen), Other (Colostomy in place) Extremity: negative: Pedal Edema Neurologic: positive: Fully Oriented, Alert ED Treatment Course - LABORATORY CBC & Chemistry Diagram: 11/19/17 22:27 11/19/17 22:27 Medical Decision Making - Medical Decision Making 11/19/17 20:30 -Pt with urinary retention despite having junior in with some gross blood drainage. -Labs on 11/19 at [facility] showed: WBC 26.6; H/H 5.2/17; Plt 742; BUN/Cr 94/3.9; K 6.1 ; Na 125 -Will check CBC, CMP, Cardiac profile, EKG, Type and Screen, UA, UCx, Renal/ Bladder U/S -Morphine 2mg for pain -IVF NS 500 ml to start for hyponatremia and hyperkalemia 11/19/17 20:56 -EKG with no peaked T-waves. NSR @ [address] segment elevations or depressions noted. No TWI noted. QTc 415 ms. 11/19/17 23:16 -WBC 24.6 w/87.5% neutrophils. H/H 4.9 and 15.4 -Awaiting type and screen UA and other labs. 11/19/17 23:24 -INR 1.69 11/19/17 23:48 -Type and screen complete, 2 units PRBC ordered. Will give PRBC in place of fluids for now. 11/19/17 23:50 Renal/Bladder US: Impression - Limited study with moderate right-sided hydronephrosis and prostatic enlargement. The prostate gland is markedly enlarged. A total prostate volume of 112.8 cc was calculated. 11/20/17 00:38 UA with 3+ blood and 1959 RBC LE negative 11/20/17 05:27 CXR with RLL pna possibly. Will give aztreonam 2g IV. Pt with penicillin allergy (unknown what the reaction was). 11/20/17 06:[address] Richardson Mauricio from Imaging communication studies professor. Pt with junior out of place and blood pooling on top w/ b/l hydronephrosis. Junior repositioned. Dr. Hernandez consulted. Spoke with Dr. Hernandez who recommends placing a 20 or 22 Fr junior at this time. Microblog sent to admitting symphony. 11/20/17 06:42 Case signed out to Ame Hough. Pt to be admitted to inpatient m/s. *DC/Admit/Observation/Transfer Diagnosis at time of Disposition: Urinary retention, Anemia requiring transfusions - Discharge Dispostion Condition at time of disposition: Fair Decision to Admit order: Yes - Referrals - Patient Instructions - Post Discharge Activity
[2017-11-19] MEDS ORDERED: morphine CARPU-JECT 2 MG/1 ML DISP.SYRIN IVPUSH ONE (20:31)
--- NOTE | 2017-11-19 20:38 | PDOC ---
Attending Attestation - Resident Resident Name: Geoffrey Barbour - ED Attending Attestation I have performed the following: I have examined & evaluated the patient, The case was reviewed & discussed with the resident, I agree w/resident's findings & plan, Exceptions are as noted - HPI HPI: 11/19/17 20:38 The patient is a 61 year old male, with a significant past medical history of DM , bladder cancer, colon cancer (s/p colectomy with colostomy), lung cancer, who presents to the emergency department with, hematuria. Patient was recently discharged to [facility] 11/15. As per patient, he has been experiencing urinary retention for the past 3 days. He had a junior catheter placed 3 days ago and has observed only bright red blood in the bag. The patient also endorses chills, 2 days of lower abdominal pain and pain to his sacral decubitus ulcer. [facility] also notes that the patient had a white count of 26. He denies any recent headache or dizziness. He denies any recent nausea, vomit, diarrhea or constipation. He denies any recent chest pain or shortness of breath. Allergies: Penicillins. Past surgical history:Colectomy with colostomy. Social History: Former smoker (Quit 5 years ago, was 2-3 packs per day) . Denies EtOH use and recreational drug use. <Heriberto Holland - Last Filed: 11/19/17 20:38> - Resident Resident Name: Geoffrey Barbour - HPI HPI: 11/20/17 07:51 61M pmh dm, CA of bladder, colon, lung here with hematuria a/w retention x3d in context of junior. - Physicial Exam PE: 11/20/17 07:54 Ill appearing, AOX3 LCTAB Abd soft, Colostomy pink, patent non-tender Blood around meatus of penis, +suprapubic tenderness - Medical Decision Making 11/20/17 07:55 Urinary retention, hematuria consider traumatic junior placement with mechanical obstruction by clots vs mass evaluate source of infection [id number] Tx anemia as needed 11/20/17 07:58 <Sean Hartmann - Last Filed: 11/20/17 07:58> Attestations - Attestations 11/19/17 20:38 Documentation prepared by Heriberto Holland, acting as medical device sales consultant for Sean Hartmann MD. <Heriberto Holland - Last Filed: 11/19/17 20:38>
[2017-11-19] MEDS ORDERED: SODIUM CHLORIDE 500 ML IV STA (20:46)
[2017-11-19] MEDS ORDERED: MORPHINE SULFATE 2 MG/ML VIAL ONE (22:33)
[2017-11-19 22:42] LABS: BASO % 0.2 % (0-2.0); EOS % 0.3 % (0-4.5); HEMATOCRIT 15.4 % (35.4-49); LYMPH % 6.1 % (8-40); MCH 25.2 pg (25.7-33.7); MCHC 31.7 g/dl (32.0-35.9); MEAN CELL VOLUME 79.4 fl (80-96); MEAN PLT VOLUME 7.1 fl (7.5-11.1); MONO % 5.9 % (3.8-10.2); NEUT % 87.5 % (42.8-82.8); PLATELET COUNT 709 K/MM3 (134-434); RBC 1.94 M/mm3 (4.00-5.60); RDW 20.7 % (11.9-15.9); WHITE BLOOD COUNT 24.6 K/mm3 (4.0-10.0)
[2017-11-19 22:45] LABS: HEMOGLOBIN 4.9 GM/dL (11.7-16.9)
[2017-11-19 23:02] LABS: INR 1.69 (0.83-1.09)
[2017-11-19 23:20] LABS: ANISOCYTOSIS 2+; PLATELET ESTIMATE INCREASED
[2017-11-19 23:25] LABS: ALBUMIN 1.4 g/dl (3.4-5.0); ALK PHOS 75 U/L (45-117); ANION GAP 15 MMOL/L (8-16); BILIRUBIN,TOTAL 0.3 mg/dL (0.2-1); BLOOD UREA NITROGEN 99 mg/dL (7-18); CALCIUM 7.9 mg/dL (8.5-10.1); CHLORIDE 95 mmol/L (98-107); CO2 16 mmol/L (21-32); CREATININE 4.4 mg/dL (0.55-1.3); GLUCOSE,RANDOM 98 mg/dL (74-106); MAGNESIUM 2.2 mg/dL (1.8-2.4); POTASSIUM 5.7 mmol/L (3.5-5.1); SGOT/AST 17 U/L (15-37); SGPT/ALT 6 U/L (13-61); SODIUM 126 mmol/L (136-145); TOT PROT 5.7 g/dl (6.4-8.2)
[2017-11-19 23:31] LABS: URINE APPEARANCE CLOUDY; URINE BILIRUBIN NEGATIVE (<2.0 mg/dL); URINE COLOR AMBER; URINE GLUCOSE (UA) NEGATIVE (NEGATIVE); URINE KETONE NEGATIVE (NEGATIVE); URINE LEUK ESTERASE NEGATIVE (NEGATIVE); URINE NITRITE NEGATIVE (NEGATIVE); URINE PROTEIN 3+ (NEGATIVE); URINE UROBILINOGEN NEGATIVE mg/dL (0.2-1.0)
[2017-11-19] MEDS ORDERED: KCL 10 MEQ IVPB 10 MEQ/100 ML INFUS.BAG IVPB SCH (23:45)
[2017-11-20] MEDS ORDERED: ACETAMINOPHEN 325 MG TABLET (FP) ONE (00:40)
[2017-11-20] MEDS ORDERED: ACETAMINOPHEN 325 MG TABLET (FP) PO ONE (00:40)
[2017-11-20] MEDS ORDERED: SODIUM CHLORIDE 1,000 ML IV SCH (05:00)
[2017-11-20] MEDS ORDERED: AZTREONAM 2 GM in DEXTROSE 5%-WATER - 50 ML IVPB ONE (05:27)
[2017-11-20] MEDS: SODIUM CHLORIDE 1,000 ML IV SCH (05:48)
[2017-11-20] MEDS ORDERED: AZTREONAM 2 GM in DEXTROSE 5%-WATER 100 ML IVPB ONE (05:49)
[2017-11-20] MEDS ORDERED: morphine CARPU-JECT 2 MG/1 ML DISP.SYRIN IVPUSH PRN (07:40)
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
[2017-11-20] MEDS ORDERED: morphine CARPU-JECT 2 MG/1 ML DISP.SYRIN IVPUSH ONE (07:47)
[2017-11-20] MEDS ORDERED: MORPHINE SULFATE 2 MG/ML VIAL ONE ×2 (08:37→13:14)
[2017-11-20 10:08] LABS: HEMATOCRIT 21.9 % (35.4-49); HEMOGLOBIN 7.3 GM/dL (11.7-16.9); MCH 27.6 pg (25.7-33.7); MCHC 33.4 g/dl (32.0-35.9); MEAN CELL VOLUME 82.5 fl (80-96); PLATELET COUNT 678 K/MM3 (134-434); RBC 2.66 M/mm3 (4.00-5.60); WHITE BLOOD COUNT 20.8 K/mm3 (4.0-10.0)
[2017-11-20 10:42] LABS: ALBUMIN 1.3 g/dl (3.4-5.0); ALK PHOS 75 U/L (45-117); ANION GAP 15 MMOL/L (8-16); BILIRUBIN,TOTAL 0.5 mg/dL (0.2-1); BLOOD UREA NITROGEN 96 mg/dL (7-18); CALCIUM 7.8 mg/dL (8.5-10.1); CHLORIDE 97 mmol/L (98-107); CO2 15 mmol/L (21-32); CREATININE 4.6 mg/dL (0.55-1.3); GLUCOSE,RANDOM 92 mg/dL (74-106); POTASSIUM 5.7 mmol/L (3.5-5.1); SGOT/AST 15 U/L (15-37); SGPT/ALT 6 U/L (13-61); SODIUM 127 mmol/L (136-145); TOT PROT 5.6 g/dl (6.4-8.2)
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
[2017-11-20] MEDS: INSULIN SLIDING SCALE (NOVOLOG) 1 VIAL SQ SCH ×3 (11:31→22:03)
--- NOTE | 2017-11-20 12:17 | CONSULT ---
Consult Consult Specialty:: Nephrology Reason for Consultation:: JOSSELYN - History of Present Illness Chief Complaint: sent in for urinary retention History of Present Illness: Pt is a 61 year old man with pmhx of DM, bladder cancer with mets to the lung and colon, left heel ulcer, and colostomy back who was sent in from the [place] for urinary retention. He was found to be in acute renal failure and I was called to evaluate him. He has a junior but is not making urine. When nurse flushed the catheter, blood tinged saline came out from around the catheter. Pt is waiting for urology. He complains of suprapubic discomfort. He denies shortness of breath. He denies fevers or chills. 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 [Santyl -] 1 applic TP DAILY tube 11/15/17 Insulin (Levemir) [Levemir Vial] 10 units SQ HS units 11/15/17 Lactobacillus Acidophilus [Bacid -] 1 tab PO DAILY tab 11/15/17 Picc Line Flush [Picc Line Flush -] 8 ml IVPUSH PRN PRN ml 11/15/17 Sodium Hypochlorite [Dakin's Solution 0.25% (Half-Strength) -] 1 applic TP DAILY ml 11/15/17 Vancomycin 750 mg IVPB Q24H vial 11/15/17 metroNIDAZOLE [Flagyl -] 500 mg PO TID tablet 11/15/17 Insulin Sliding Scale [Novolog Vial Sliding Scale -] 12 vial SQ DAILY 11/20/17 Melatonin/Pyridoxine HCl (B6) [Melatonin 5 mg Tablet] 1 each PO HS 11/20/17 oxyCODONE HCL [Roxicodone -] 10 mg PO Q4H PRN MDD 30mg 11/20/17 Family Disease History - Family Disease History Family Disease History: Other: Mother ( of PUD) Review of Systems - Review of Systems Constitutional: reports: Malaise Eyes: reports: No Symptoms HENT: reports: No Symptoms Neck: reports: No Symptoms Cardiovascular: reports: No Symptoms Respiratory: reports: No Symptoms Gastrointestinal: reports: Abdominal Pain Genitourinary: reports: Other (obstruction) Musculoskeletal: reports: Muscle Weakness Neurological: reports: No Symptoms Endocrine: reports: No Symptoms Hematology/Lymphatic: reports: No Symptoms Psychiatric: reports: No Symptoms Physical Exam Vital Signs: Vital Signs Temperature 97.6 F 11/20/17 10:11 Pulse Rate 97 H 11/20/17 10:11 Respiratory Rate 18 11/20/17 10:11 Blood Pressure 122/64 11/20/17 10:11 O2 Sat by Pulse Oximetry (%) 100 11/20/17 10:11 Constitutional: Yes: Calm Eyes: Yes: Conjunctiva Clear HENT: Yes: Atraumatic Neck: Yes: Supple Cardiovascular: Yes: Tachycardia, S1, S2 Respiratory: Yes: CTA Bilaterally Gastrointestinal: Yes: Soft, Tenderness, Other (colostomy) Renal/: Yes: Anuria, Junior Present Musculoskeletal: Yes: Muscle Weakness Edema: No Neurological: Yes: Oriented Psychiatric: Yes: Oriented Labs: CBC, BMP 11/20/17 09:45 11/20/17 09:45 Laboratory Tests 11/14/17 11/15/17 11/19/17 06:00 06:24 22:27 WBC 24.6 H Hgb 4.9 L* Sodium Chloride Carbon Dioxide BUN Creatinine 0.9 0.9 Calcium Urine Protein Urine Blood 11/19/17 11/19/17 11/20/17 22:27 22:40 09:45 WBC Hgb 7.3 L Sodium Chloride Carbon Dioxide BUN 99 H Creatinine 4.4 H Calcium 7.9 L Urine Protein 3+ H D Urine Blood 3+ H 11/20/17 09:45 WBC Hgb Sodium 127 L Chloride 97 L Carbon Dioxide 15 L BUN Creatinine 4.6 H Calcium 7.8 L Urine Protein Urine Blood Imaging - Results Ultrasound: Report Reviewed Problem List - Problems (1) JOSSELYN (acute kidney injury) Code(s): N17.9 - ACUTE KIDNEY FAILURE, UNSPECIFIED (2) Hyperkalemia Code(s): E87.5 - HYPERKALEMIA (3) Anemia requiring transfusions Code(s): D64.9 - ANEMIA, UNSPECIFIED (4) Urinary retention Code(s): R33.9 - RETENTION OF URINE, UNSPECIFIED (5) Anemia Code(s): D64.9 - ANEMIA, UNSPECIFIED Qualifiers: Anemia type: iron deficiency Iron deficiency anemia type: unspecified iron deficiency Qualified Code(s): D50.9 - Iron deficiency anemia, unspecified Assessment/Plan Current Medications Generic Name Dose Route Start Last Admin Trade Name Freq PRN Reason Stop Dose Admin Acetaminophen 650 mg 11/20/17 10:25 Tylenol - PO Q6H PRN FEVER Sodium Chloride 1,000 mls @ 83 mls/hr 11/20/17 05:30 11/20/17 05:48 Normal Saline - IV 83 mls/hr ASDIR STEPHANIE Administration Insulin Aspart 1 vial 11/20/17 11:00 11/20/17 11:31 Novolog Vial Sliding Scale - SQ Not Given ACHS STEPHANIE Protocol Morphine Sulfate 2 mg 11/20/17 07:40 11/20/17 13:16 Morphine Injection - IVPUSH 2 mg Q4H PRN Administration PAIN LEVEL 7 - 10 Impression 1. JOSSELYN 2. hyperkalemia 3. bladder cancer with mets to lung and colon 4. urinary obstruction 5. hematuria 6. anemia Plan - urology eval for obstruction - pt is not putting out urine, may need nephrostomy tubes - potassium is elevated - will treat medically - josselyn is likely from obstruction - will follow Dr Canales
--- NOTE | 2017-11-20 12:53 | EKG ---
Test Reason : Blood Pressure : / mmHG Vent. Rate : 099 BPM Atrial Rate : 099 BPM P-R Int : 112 ms QRS Dur : 082 ms QT Int : 324 ms P-R-T Axes : 037 002 024 degrees QTc Int : 415 ms NORMAL SINUS RHYTHM NORMAL ECG WHEN COMPARED WITH ECG OF 01-NOV-2017 19:33, NO SIGNIFICANT CHANGE WAS FOUND Confirmed by MD SENIA, JULIAN ([id number]) on 11/20/2017 12:53:34 PM Referred By: Confirmed By:JULIAN CONN MD
[2017-11-20] MEDS ORDERED: INSULIN REGULAR HUMAN 100 UNITS/ML *VIAL SQ ONE (14:36)
[2017-11-20] MEDS ORDERED: DEXTROSE 50%-WATER - 25 GM/50 ML VIAL IVPUSH ONE (14:36)
[2017-11-20] MEDS ORDERED: SODIUM BICARBONATE 8.4% 50 MEQ/50 ML DISP.SYRIN IVPUSH ONE (14:36)
[2017-11-20] MEDS ORDERED: CALCIUM GLUCONATE 10% - 1,000 MG/10 ML VIAL IVPB ONE (14:36)
[2017-11-20] MEDS ORDERED: ALBUTEROL SO4 0.083% IH SOL 2.5 MG/3 ML VIAL.NEB. NEB PRN (14:36)
--- NOTE | 2017-11-20 14:37 | PN ---
Progress Note, Physician Chief Complaint: PATIENT SEEN IN ED ASLEEP EVENTS AND NOTES REVIEWED FEELING BETTER AFTER PRBC TRANSFUSION C/O GENERALIZED WEAKNESS/PAIN - Current Medication List Current Medications: Active Medications Acetaminophen (Tylenol -) 650 mg PO Q6H PRN PRN Reason: FEVER Sodium Chloride (Normal Saline -) 1,000 mls @ 83 mls/hr IV ASDIR STEPHANIE Last Admin: 11/20/17 05:48 Dose: 83 mls/hr Insulin Aspart (Novolog Vial Sliding Scale -) 1 vial SQ ACHS [facility]; Protocol Last Admin: 11/20/17 11:31 Dose: Not Given Morphine Sulfate (Morphine Injection -) 2 mg IVPUSH Q4H PRN PRN Reason: PAIN LEVEL 7 - 10 Last Admin: 11/20/17 13:16 Dose: 2 mg - Objective Vital Signs: Vital Signs Temperature 97.6 F 11/20/17 10:11 Pulse Rate 92 H 11/20/17 13:26 Respiratory Rate 18 11/20/17 13:26 Blood Pressure 120/66 11/20/17 13:26 O2 Sat by Pulse Oximetry (%) 99 11/20/17 13:26 Constitutional: Yes: Cachectic, Mild Distress Eyes: Yes: WNL HENT: Yes: WNL Neck: Yes: WNL Cardiovascular: Yes: WNL Respiratory: Yes: CTA Bilaterally Gastrointestinal: Yes: Soft, Other (COLOSTOMY,) Genitourinary: Yes: Hematuria Musculoskeletal: Yes: Muscle Weakness Extremities: Yes: Other Edema: No Peripheral Pulses WNL: Yes Integumentary: Yes: Pressure Ulcer, Rash, Skin Tear, Other Wound/Incision: Yes: Open to air Neurological: Yes: Pre-Existing Deficit ...Motor Strength: LLE, RLE Psychiatric: Yes: Other Labs: CBC, BMP 11/20/17 09:45 11/20/17 09:45 INR, PTT INR 1.69 (0.83-1.09) H 11/19/17 22:27 Problem List - Problems (1) JOSSELYN (acute kidney injury) Code(s): N17.9 - ACUTE KIDNEY FAILURE, UNSPECIFIED (2) Anemia requiring transfusions Code(s): D64.9 - ANEMIA, UNSPECIFIED (3) Hyperkalemia Code(s): E87.5 - HYPERKALEMIA (4) Urinary retention Code(s): R33.9 - RETENTION OF URINE, UNSPECIFIED (5) Anemia Code(s): D64.9 - ANEMIA, UNSPECIFIED Qualifiers: Anemia type: iron deficiency Iron deficiency anemia type: unspecified iron deficiency Qualified Code(s): D50.9 - Iron deficiency anemia, unspecified (6) Bladder cancer metastasized to intrapelvic lymph nodes Code(s): C67.9 - MALIGNANT NEOPLASM OF BLADDER, UNSPECIFIED; C77.5 - SECONDARY AND UNSP MALIGNANT NEOPLASM OF INTRAPELV NODES (7) Diabetes Code(s): E11.9 - TYPE 2 DIABETES MELLITUS WITHOUT COMPLICATIONS Qualifiers: Diabetes mellitus type: type 1 Diabetes mellitus complication status: with skin complications (8) Diabetic foot ulcer Code(s): E11.621 - TYPE 2 DIABETES MELLITUS WITH FOOT ULCER; L97.509 - NON- PRESSURE CHRONIC ULCER OTH PRT UNSP FOOT W UNSP SEVERITY Qualifiers: Diabetic foot ulcer location: heel Diabetes mellitus type: type 1 Laterality: left Non-pressure ulcer stage: with necrosis of muscle Qualified Code(s): E10.621 - Type 1 diabetes mellitus with foot ulcer; L97.423 - Non-pressure chronic ulcer of left heel and midfoot with necrosis of muscle (9) H/O carcinoma of bladder Code(s): Z85.51 - PERSONAL HISTORY OF MALIGNANT NEOPLASM OF BLADDER (10) Ulcer of left heel Code(s): L97.429 - NON-PRS CHRONIC ULCER OF LEFT HEEL AND MIDFOOT W UNSP SEVERT Qualifiers: Non-pressure ulcer stage: unspecified non-pressure ulcer stage Qualified Code(s): L97.429 - Non-pressure chronic ulcer of left heel and midfoot with unspecified severity Assessment/Plan IV ABX PER ID CHECK CULTURES ONCOLOGY F/U FOR TREATMENT OPTIONS ANEMIA MONITOR H/H CHECK TRANSFUSE NEEDED PT EVAL ADVANCED DIRECTIVES DM CHECK BGM, ADA
[2017-11-20] MEDS ORDERED: SODIUM BICARBONATE 8.4% 50 MEQ/50 ML VIAL IVPUSH ONE (14:45)
[2017-11-20] MEDS ORDERED: AZTREONAM 1 GM in DEXTROSE 5%-WATER - 50 ML IVPB SCH (16:45)
--- NOTE | 2017-11-20 16:45 | PN ---
Progress Note (short form) - Note Progress Note: ID Consult dictated Acute renal failure Leukocytosis R/O sepsis Metastatic bladder ca Osteomyelitis, heel PCN allergy Await c/s Check vanco level Adjust aztreonam for renal failure Local wound care
--- NOTE | 2017-11-20 17:48 | CON.GU ---
Consult Consult Specialty:: Referred by:: medicine Reason for Consultation:: metastatic bladder cancer - History of Present Illness Chief Complaint: gross hematuria History of Present Illness: 61 year old male with metastatic bladder cancer with large lesions with hydronephrosis. Patient reports that he was diagnosed 5 years ago. No cystectomy done. 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 [Santyl -] 1 applic TP DAILY tube 11/15/17 Insulin (Levemir) [Levemir Vial] 10 units SQ HS units 11/15/17 Lactobacillus Acidophilus [Bacid -] 1 tab PO DAILY tab 11/15/17 Picc Line Flush [Picc Line Flush -] 8 ml IVPUSH PRN PRN ml 11/15/17 Sodium Hypochlorite [Dakin's Solution 0.25% (Half-Strength) -] 1 applic TP DAILY ml 11/15/17 Vancomycin 750 mg IVPB Q24H vial 11/15/17 metroNIDAZOLE [Flagyl -] 500 mg PO TID tablet 11/15/17 Insulin Sliding Scale [Novolog Vial Sliding Scale -] 12 vial SQ DAILY 11/20/17 Melatonin/Pyridoxine HCl (B6) [Melatonin 5 mg Tablet] 1 each PO HS 11/20/17 oxyCODONE HCL [Roxicodone -] 10 mg PO Q4H PRN MDD 30mg 11/20/17 Family Disease History - Family Disease History Family Disease History: Other: Mother ( of PUD) Review of Systems - Review of Systems Genitourinary: reports: Burning, Dysuria, Frequency, Hematuria, Incontinence, Pain, Urgency Physical Exam- Vital Signs: Vital Signs Temperature 97.6 F 11/20/17 10:11 Pulse Rate 92 H 11/20/17 13:26 Respiratory Rate 18 11/20/17 13:26 Blood Pressure 120/66 11/20/17 13:26 O2 Sat by Pulse Oximetry (%) 99 11/20/17 13:26 Renal/: Yes: Bladder Distention, Brown Present, Hematuria. No: CVA Tenderness - Left, CVA Tenderness - Right Labs: CBC, BMP 11/20/17 09:45 11/20/17 09:45 Imaging - Results Cat Scan: Report Reviewed Problem List - Problems (1) Urinary retention Assessment/Plan: catheter replaced with a 3 way 24 aust[place]ian, irrigated to clear. CBI ordered. Code(s): R33.9 - RETENTION OF URINE, UNSPECIFIED (2) Bladder cancer metastasized to intrapelvic lymph nodes Assessment/Plan: patient is beyond surgical management. He has resultant hydronephrosis. would consider nephrostomy tube. Medical Oncology to see the patient as well. Code(s): C67.9 - MALIGNANT NEOPLASM OF BLADDER, UNSPECIFIED; C77.5 - SECONDARY AND UNSP MALIGNANT NEOPLASM OF INTRAPELV NODES
[2017-11-20] MEDS ORDERED: DEXTROSE 50%-WATER - 25 GM/50 ML VIAL ONE (18:04)
--- NOTE | 2017-11-20 18:23 | PN ---
Teaching Attending Note Name of Resident: Kelby Lo ATTENDING PHYSICIAN STATEMENT I saw and evaluated the patient. I reviewed the resident's note and discussed the case with the resident. I agree with the resident's findings and plan as documented. SUBJECTIVE: Patient seen and examined Spoke with daughter at bedside Agree with dealing with hematuria, hyperkalemia, foot ulcer as primary considerations. OBJECTIVE: Can do total body scans for staging. Not a candidate for chemotherapy. ??Perhaps an imunotherapy candidate in future?? To monitor. ASSESSMENT AND PLAN:
--- NOTE | 2017-11-20 18:32 | PN ---
Progress Note (short form) - Note Progress Note: Will transfuse and additional unit of PRBC's now and recheck CBC at midnight. IF Hgb< 7 please transfuse additional unit. Problem List - Problems (1) H/O carcinoma of bladder (2) Anemia requiring transfusions
[2017-11-20] MEDS: MORPHINE SULFATE 2 MG/ML VIAL IVPUSH PRN ×2 (18:35→22:53)
[2017-11-20] MEDS: SODIUM BICARBONATE 650 MG TABLET PO SCH ×2 (18:47→22:52)
[2017-11-20] MEDS ORDERED: INSULIN REGULAR HUMAN 100 UNITS/ML *VIAL IVPUSH ONE (19:00)
[2017-11-20 19:22] LABS: BASO % 0.1 % (0-2.0); EOS % 0.3 % (0-4.5); HEMATOCRIT 24.3 % (35.4-49); HEMOGLOBIN 7.8 GM/dL (11.7-16.9); LYMPH % 4.5 % (8-40); MCH 26.8 pg (25.7-33.7); MCHC 32.2 g/dl (32.0-35.9); MEAN CELL VOLUME 83.1 fl (80-96); MONO % 5.5 % (3.8-10.2); NEUT % 89.6 % (42.8-82.8); PLATELET COUNT 768 K/MM3 (134-434); RBC 2.92 M/mm3 (4.00-5.60); RDW 19.1 % (11.9-15.9); WHITE BLOOD COUNT 19.7 K/mm3 (4.0-10.0)
[2017-11-20] MEDS ORDERED: SODIUM POLYSTYRENE SULFONATE 15 GM/60 ML BOTTLE PO ONE (20:00)
[2017-11-21] MEDS: SODIUM CHLORIDE 1,000 ML IV SCH ×2 (06:45→10:58)
[2017-11-21] MEDS: INSULIN SLIDING SCALE (NOVOLOG) 1 VIAL SQ SCH ×4 (06:45→21:55)
[2017-11-21] MEDS: MORPHINE SULFATE 2 MG/ML VIAL IVPUSH PRN ×4 (06:49→20:43)
[2017-11-21 08:27] LABS: BASO % 0.3 % (0-2.0); EOS % 1.2 % (0-4.5); HEMOGLOBIN 8.7 GM/dL (11.7-16.9); LYMPH % 7.3 % (8-40); MCH 27.2 pg (25.7-33.7); MCHC 32.2 g/dl (32.0-35.9); MEAN CELL VOLUME 84.4 fl (80-96); MEAN PLT VOLUME 7.1 fl (7.5-11.1); MONO % 6.2 % (3.8-10.2); PLATELET COUNT 752 K/MM3 (134-434); RDW 18.1 % (11.9-15.9); WHITE BLOOD COUNT 16.5 K/mm3 (4.0-10.0)
[2017-11-21] MEDS: ALBUTEROL SO4 0.083% IH SOL 2.5 MG/3 ML VIAL.NEB. NEB PRN (08:40)
[2017-11-21 09:11] LABS: ALBUMIN 1.3 g/dl (3.4-5.0); ALK PHOS 82 U/L (45-117); ANION GAP 16 MMOL/L (8-16); BILIRUBIN,TOTAL 0.3 mg/dL (0.2-1); BLOOD UREA NITROGEN 103 mg/dL (7-18); CHLORIDE 97 mmol/L (98-107); CO2 14 mmol/L (21-32); CREATININE 4.8 mg/dL (0.55-1.3); GLUCOSE,RANDOM 84 mg/dL (74-106); MAGNESIUM 2.5 mg/dL (1.8-2.4); POTASSIUM 5.7 mmol/L (3.5-5.1); SGOT/AST 17 U/L (15-37); SGPT/ALT < 6 U/L (13-61); SODIUM 126 mmol/L (136-145); TOT PROT 5.6 g/dl (6.4-8.2)
[2017-11-21] MEDS: AZTREONAM 1 GM in DEXTROSE 5%-WATER - 50 ML IVPB SCH (10:49)
[2017-11-21] MEDS: SODIUM BICARBONATE 650 MG TABLET PO SCH ×2 (10:57→21:33)
--- NOTE | 2017-11-21 11:40 | PN ---
Progress Note, Physician History of Present Illness: Much more awake and alert today Mor comfortable No c/o pain No fever/ chills Afebrile WBC improved 16K Vancomycin trough noted - Current Medication List Current Medications: Active Medications Acetaminophen (Tylenol -) 650 mg PO Q6H PRN PRN Reason: FEVER Albuterol Sulfate (Ventolin 0.083% Nebulizer Soln -) 1 amp NEB Q10M PRN PRN Reason: SHORT OF BREATH/WHEEZING Last Admin: 11/21/17 08:40 Dose: 1 amp Sodium Chloride (Normal Saline -) 1,000 mls @ 83 mls/hr IV ASDIR STEPHANIE Last Admin: 11/21/17 10:58 Dose: 83 mls/hr Aztreonam 1 gm/ Dextrose 50 mls @ 100 mls/hr IVPB DAILY [facility]; Protocol Last Admin: 11/21/17 10:49 Dose: 100 mls/hr Insulin Aspart (Novolog Vial Sliding Scale -) 1 vial SQ ACHS STEPHANIE; Protocol Last Admin: 11/21/17 11:07 Dose: Not Given Metronidazole (Flagyl -) 500 mg PO TID STEPHANIE Morphine Sulfate (Morphine Sulfate) 2 mg IVPUSH Q4H PRN PRN Reason: PAIN LEVEL 7 - 10 Last Admin: 11/21/17 06:49 Dose: 2 mg Sodium Bicarbonate (Sodium Bicarbonate -) 650 mg PO BID STEPHANIE Last Admin: 11/21/17 10:57 Dose: 650 mg - Objective Vital Signs: Vital Signs Temperature 97.5 F L 11/21/17 06:00 Pulse Rate 105 H 11/21/17 06:00 Respiratory Rate 20 11/21/17 06:00 Blood Pressure 124/66 11/21/17 06:00 O2 Sat by Pulse Oximetry (%) 99 11/20/17 21:00 Constitutional: Yes: No Distress, Cachectic Cardiovascular: Yes: Regular Rate and Rhythm, S1, S2 Respiratory: Yes: CTA Bilaterally Gastrointestinal: Yes: Normal Bowel Sounds, Soft, Other (+ ostomy). No: Tenderness Genitourinary: Yes: Other (CBI in progress) Edema: No Labs: CBC, BMP 11/21/17 06:30 11/21/17 06:30 INR, PTT INR 1.69 (0.83-1.09) H 11/19/17 22:27 Assessment/Plan Acute renal failure Gross hematuria Leukocytosis-improved Osteomyelitis, heel PCN allergy Hold vancomycin, repeat random level am Continue aztreonam/ flagyl Local wound care
--- NOTE | 2017-11-21 11:55 | PN ---
Progress Note, Physician History of Present Illness: Pt seen and examined at bedside. He says he feels better than he did yesterday. He had the junior changed and is on a CBI. - Current Medication List Current Medications: Active Medications Acetaminophen (Tylenol -) 650 mg PO Q6H PRN PRN Reason: FEVER Albuterol Sulfate (Ventolin 0.083% Nebulizer Soln -) 1 amp NEB Q10M PRN PRN Reason: SHORT OF BREATH/WHEEZING Last Admin: 11/21/17 08:40 Dose: 1 amp Sodium Chloride (Normal Saline -) 1,000 mls @ 83 mls/hr IV ASDIR STEPHANIE Last Admin: 11/21/17 10:58 Dose: 83 mls/hr Aztreonam 1 gm/ Dextrose 50 mls @ 100 mls/hr IVPB DAILY [facility]; Protocol Last Admin: 11/21/17 10:49 Dose: 100 mls/hr Insulin Aspart (Novolog Vial Sliding Scale -) 1 vial SQ ACHS STEPHANIE; Protocol Last Admin: 11/21/17 11:07 Dose: Not Given Metronidazole (Flagyl -) 500 mg PO TID STEPHANIE Morphine Sulfate (Morphine Sulfate) 2 mg IVPUSH Q4H PRN PRN Reason: PAIN LEVEL 7 - 10 Last Admin: 11/21/17 06:49 Dose: 2 mg Sodium Bicarbonate (Sodium Bicarbonate -) 650 mg PO BID STEPHANIE Last Admin: 11/21/17 10:57 Dose: 650 mg - Objective Vital Signs: Vital Signs Temperature 97.5 F L 11/21/17 06:00 Pulse Rate 105 H 11/21/17 06:00 Respiratory Rate 20 11/21/17 06:00 Blood Pressure 124/66 11/21/17 06:00 O2 Sat by Pulse Oximetry (%) 99 11/20/17 21:00 Constitutional: Yes: Calm Eyes: Yes: Conjunctiva Clear HENT: Yes: Atraumatic Cardiovascular: Yes: S1, S2 Respiratory: Yes: CTA Bilaterally Gastrointestinal: Yes: Other (colostomy) Genitourinary: Yes: Kevin Present Musculoskeletal: Yes: Muscle Weakness Edema: No Neurological: Yes: Oriented Psychiatric: Yes: Oriented Labs: CBC, BMP 11/21/17 06:30 11/21/17 06:30 INR, PTT INR 1.69 (0.83-1.09) H 11/19/17 22:27 Problem List - Problems (1) JOSSELYN (acute kidney injury) Code(s): N17.9 - ACUTE KIDNEY FAILURE, UNSPECIFIED (2) Hyperkalemia Code(s): E87.5 - HYPERKALEMIA (3) Anemia requiring transfusions Code(s): D64.9 - ANEMIA, UNSPECIFIED (4) Urinary retention Code(s): R33.9 - RETENTION OF URINE, UNSPECIFIED (5) Anemia Code(s): D64.9 - ANEMIA, UNSPECIFIED Qualifiers: Anemia type: iron deficiency Iron deficiency anemia type: unspecified iron deficiency Qualified Code(s): D50.9 - Iron deficiency anemia, unspecified Assessment/Plan Current Medications Generic Name Dose Route Start Last Admin Trade Name Freq PRN Reason Stop Dose Admin Acetaminophen 650 mg 11/20/17 10:25 Tylenol - PO Q6H PRN FEVER Albuterol Sulfate 1 amp 11/20/17 14:49 11/21/17 08:40 Ventolin 0.083% Nebulizer Soln - NEB 1 amp Q10M PRN Administration SHORT OF BREATH/WHEEZING Sodium Chloride 1,000 mls @ 83 mls/hr 11/20/17 05:30 11/21/17 10:58 Normal Saline - IV 83 mls/hr ASDIR STEPHANIE Administration Aztreonam 1 gm/ Dextrose 50 mls @ 100 mls/hr 11/21/17 10:00 11/21/17 10:49 IVPB 100 mls/hr DAILY STEPHANIE Administration Protocol Insulin Aspart 1 vial 11/20/17 11:00 11/21/17 11:07 Novolog Vial Sliding Scale - SQ Not Given ACHS STEPHANIE Protocol Metronidazole 500 mg 11/21/17 14:00 Flagyl - PO TID STEPHANIE Morphine Sulfate 2 mg 11/20/17 18:06 11/21/17 06:49 Morphine Sulfate IVPUSH 2 mg Q4H PRN Administration PAIN LEVEL 7 - 10 Sodium Bicarbonate 650 mg 11/20/17 18:21 11/21/17 10:57 Sodium Bicarbonate - PO 650 mg BID STEPHANIE Administration Impression 1. JOSSELYN 2. hyperkalemia 3. bladder cancer with mets to lung and colon 4. urinary obstruction 5. hematuria 6. anemia Plan - recall urology - change fluids to 1/2 ns with 75 of bicarb - pt is not putting out urine, may need nephrostomy tubes - potassium is elevated again - josselyn is likely from obstruction - will follow Dr Canales
[2017-11-21] MEDS ORDERED: CALCIUM GLUCONATE 10% - 1,000 MG/10 ML VIAL IVPB ONE (12:03)
[2017-11-21] MEDS ORDERED: SODIUM BICARBONATE 8.4% 50 MEQ/50 ML VIAL ONE (12:30)
--- NOTE | 2017-11-21 12:33 | CONS ---
DATE OF CONSULTATION: 11/20/2017 HISTORY OF PRESENT ILLNESS: The patient is a 61-year-old male with a history of metastatic bladder cancer, chronic osteomyelitis of the heel, evaluated for chronic osteomyelitis. History was obtained from the chart as he cannot give a history secondary to lethargy. He was hospitalized at [facility] from November 01 through November 15, at which time he was diagnosed with osteomyelitis of the left heel. He was discharged to complete a 6-week course of vancomycin, Azactam, and Flagyl at the shelter. At the present time, he is day 19. He is now admitted from the shelter with a 2-3-day history of increasing abdominal distension and pain as well as acute urinary retention. Patient developed gross hematuria. He was evaluated in the emergency room where he had gross hematuria and was noted to be in acute renal failure. An ultrasound was performed on the abdomen and shows right hydronephrosis. He was also noted to have a markedly elevated white blood cell count. Patient complains of suprapubic pain. He denies any associated fever or chills. His last admission was significant for left heel ulcer with confirmed chronic osteomyelitis. He underwent incision and drainage and insertion of a PICC line to complete a 6-week course of antibiotic therapy. Because of the PENICILLIN allergy, he was placed on vancomycin, Azactam, and Flagyl. PAST MEDICAL HISTORY: Positive for metastatic bladder cancer with lung and colon involvement, diabetes mellitus, left heel osteomyelitis and chronic ulcer, sacral decubitus ulcer. PAST SURGICAL HISTORY: Status post colostomy and appendectomy. ALLERGIES: To PENICILLIN, and according to the reports, he had developed shortness of breath with PENICILLIN. MEDICATIONS: Tylenol, vancomycin, Azactam, Flagyl, Ventolin, morphine. SOCIAL HISTORY: He [facility] in a [facility] facility. He is a former smoker. SYSTEMS REVIEW: Neurologic: No loss of consciousness, seizure activity, or focal weakness. Cardiac: Negative for chest pain or palpitations. Respiratory: Negative for cough or sputum production. Gastrointestinal: Status post colostomy. Genitourinary: As per HPI. LABORATORY DATA: White count 20.8, hematocrit 21.9, platelet count 678. BUN 96, creatinine 4.6. Urinalysis 25 white cells, 1959 red cells. Blood and urine cultures pending. Chest x-ray pulmonary nodules, basilar atelectasis versus infiltrate. CT scan of the abdomen and pelvis shows lung metastases, hydronephrosis, and pelvic masses. PHYSICAL EXAMINATION: General: The patient is cachectic and chronically ill-appearing. Vital signs: Temperature 97.6, maximum temperature 99.7, blood pressure 122/64, pulse 97 and regular, respirations 18 per minute. HEENT: Sclerae anicteric. Heart: Heart sounds S1, S2. Lungs: Diminished breath sounds bilaterally. Abdomen: Soft. No tenderness elicited. Positive colostomy. Suprapubic tenderness to palpation. Extremities: Negative for edema. Brown catheter is in place. Gross hematuria is noted. Positive sacral decubitus ulcer. IMPRESSION: 1. Acute renal failure. 2. Leukocytosis, rule out sepsis. 3. Metastatic bladder cancer. 4. Osteomyelitis and chronic infected heel ulcer. 5. Anemia. PLAN: Hold vancomycin. Will check random level. Adjust Azactam for acute renal failure. Continue Flagyl. Local wound care, left heel. Will follow. Thank you for the kind referral. NAN LAY M.D. [id number]
[2017-11-21] MEDS ORDERED: INSULIN REGULAR HUMAN 100 UNITS/ML *VIAL IVPUSH ONE (13:00)
[2017-11-21] MEDS ORDERED: SODIUM BICARBONATE 8.4% 50 MEQ/50 ML DISP.SYRIN IV ONE (13:15)
[2017-11-21] MEDS ORDERED: CALCIUM GLUCONATE 10% - 1,000 MG in SODIUM CHLORIDE 100 ML IVPB ONE (13:15)
[2017-11-21] MEDS ORDERED: DEXTROSE 50%-WATER - 25 GM/50 ML VIAL IVPUSH ONE (13:15)
[2017-11-21] MEDS ORDERED: SODIUM BICARBONATE 8.4% 50 MEQ/50 ML DISP.SYRIN IVPUSH ONE (13:15)
[2017-11-21] MEDS ORDERED: INSULIN REGULAR HUMAN 100 UNITS/ML *VIAL SQ ONE (13:20)
--- NOTE | 2017-11-21 15:07 | PN ---
Progress Note (short form) - Note Progress Note: Briefly, pt is a 61 y/o M w/ PMHx bladder cancer with mets to lung and colon s/ p colostomy (2015), DM, recently admitted to [facility] (11/01-11/15) for non-healing L foot ulcer, now re-admitted with urinary retention. Pt seen by vascular last admission, CTA with runoff done (no stenosis identified), pt was discharged to [facility] with a 6 week course of IV vancomycin and aztreonam, PO Flagyl ( followed by ID). Pt had debridement of L heel ulcer and bone biopsy with Podiatry (Dr An, 11/07/17), bone bx yielded Proteus Mirabilis and E Fragilis. Vascular reconsulted for evaluation of L heel ulcer. Per pt, ulcer initially began 3 months ago while admitted to an OSH, pt states he tripped over an IV pole which caused the ulcer. Has not been ambulatory for the past few months due to multiple hospital admissions. States no changes to ulcer or pain since he was discharged last week. Denies fever/chills, h/o tobacco abuse. Has a history of a prior wound to his R foot which he states began as a blister due to edema. Reports ulcer healing on its own without any intervention. Gen: awake, alert, nad Ext: R foot with no open ulcers or wounds. Dry, scaling skin, 1+ pitting edema to ankle. L foot with approx 4x4x2 cm ulcer to lateral aspect of heel. Wound base with moderate fibrinous exudate, scant serous drainage. No purulent drainage, no foul odor, No surrounding erythema. 2+ pitting edema to mid calf. Vas: 2+ dp/pt b/l P: -Santyl to L heel ulcer (apply damp to dry gauze over santyl and cover with kerlix) BID -Offloading at all times (pt with both heels on bed at time of evaluation) -Continue abx per ID -Care per primary team d/w attending Dr Barbour
[2017-11-21] MEDS: SODIUM BICARBONATE 8.4% - 75 MEQ in SODIUM CHLORIDE 0.45% 1,000 ML IV SCH (15:13)
[2017-11-21] MEDS: metroNIDAZOLE 250 MG TABLET PO SCH ×2 (15:18→21:33)
--- NOTE | 2017-11-21 15:36 | PN ---
Physical Exam: SUBJECTIVE: Patient seen and examined at bedside. No overnight events. No new complaints. Denies CP,LEO,SOB, abdominal pain, nausea or vomiting. OBJECTIVE: Vital Signs Period Temp Pulse Resp BP Sys/Kevin Pulse Ox Last 24 Hr 97.5 F-98.9 F 95-105 18-20 108-124/54-66 99-99 GENERAL: AAOx3, NAD HEAD: NCAT EYES: PERRLA,EOMI, sclera anicteric, pale conjunctiva EARS, NOSE, THROAT: dry mucous membranes. NECK:Supple no JVD, or masses. Axillary lymph nodes palpable bilaterally, Right side has multiple mobile soft nodes and left has one small soft mobile node. LUNGS: CTAB. No wheezes, and no crackles. No accessory muscle use. HEART: RRR, normal S1 and S2 without murmur, rub or gallop. ABDOMEN: Soft, NT/ND, NABS, colostomy bag present with fecal material and prolapsed intestine visible. no guarding, no rebound, no masses. MUSCULOSKELETAL: Normal range of motion at all joints. No bony deformities or tenderness. No CVA tenderness. 6x4 cm L heel ulcer, 3x2 cm scab wound on 4th digit of R foot. UPPER EXTREMITIES: 2+ pulses, warm, well-perfused. No cyanosis. No clubbing. LOWER EXTREMITIES: 2+ pulses, warm, well-perfused. No calf tenderness. No peripheral edema. NEUROLOGICAL: Cranial nerves II-XII intact. No focal deficits. Normal speech. Gait not observed. vibratory sense present in bilateral lower ext. PSYCHIATRIC: Cooperative. Good eye contact. Appropriate mood and affect. Laboratory Results - last 24 hr 11/19/17 11/20/17 11/20/17 22:27 18:00 18:38 WBC 19.7 H RBC 2.92 L Hgb 7.8 L Hct 24.3 L MCV 83.1 MCH 26.8 MCHC 32.2 RDW 19.1 H Plt Count 768 H MPV 7.0 L Absolute Neuts (auto) 17.6 H Neutrophils % 89.6 H Lymphocytes % 4.5 L D Monocytes % 5.5 Eosinophils % 0.3 Basophils % 0.1 Nucleated RBC % 0 Sodium Potassium Chloride Carbon Dioxide Anion Gap BUN Creatinine Creat Clearance w eGFR POC Glucometer 132 Random Glucose Calcium Magnesium Total Bilirubin AST ALT Alkaline Phosphatase Total Protein Albumin Random Vancomycin Blood Type O POSITIVE Antibody Screen Negative Crossmatch See Detail 11/20/17 11/20/17 11/21/17 19:08 22:01 06:30 WBC RBC Hgb Hct MCV MCH MCHC RDW Plt Count MPV Absolute Neuts (auto) Neutrophils % Lymphocytes % Monocytes % Eosinophils % Basophils % Nucleated RBC % Sodium Potassium 5.2 H Chloride Carbon Dioxide Anion Gap BUN Creatinine Creat Clearance w eGFR POC Glucometer 121 Random Glucose Calcium Magnesium Total Bilirubin AST ALT Alkaline Phosphatase Total Protein Albumin Random Vancomycin 34.2 H* Blood Type Antibody Screen Crossmatch 11/21/17 11/21/17 11/21/17 06:30 06:30 06:44 WBC 16.5 H RBC 3.20 L Hgb 8.7 L Hct 27.0 L MCV 84.4 MCH 27.2 MCHC 32.2 RDW 18.1 H Plt Count 752 H MPV 7.1 L Absolute Neuts (auto) 14.0 H Neutrophils % 85.0 H Lymphocytes % 7.3 L D Monocytes % 6.2 Eosinophils % 1.2 D Basophils % 0.3 Nucleated RBC % 0 Sodium 126 L Potassium 5.7 H Chloride 97 L Carbon Dioxide 14 L Anion Gap 16 BUN 103 H Creatinine 4.8 H Creat Clearance w eGFR 12.39 POC Glucometer 98 Random Glucose 84 Calcium 8.0 L Magnesium 2.5 H Total Bilirubin 0.3 AST 17 ALT < 6 L Alkaline Phosphatase 82 Total Protein 5.6 L Albumin 1.3 L Random Vancomycin Blood Type Antibody Screen Crossmatch 11/21/17 11/21/17 11:06 13:00 WBC RBC Hgb Hct MCV MCH MCHC RDW Plt Count MPV Absolute Neuts (auto) Neutrophils % Lymphocytes % Monocytes % Eosinophils % Basophils % Nucleated RBC % Sodium Potassium 4.9 Chloride Carbon Dioxide Anion Gap BUN Creatinine Creat Clearance w eGFR POC Glucometer 127 Random Glucose Calcium Magnesium Total Bilirubin AST ALT Alkaline Phosphatase Total Protein Albumin Random Vancomycin Blood Type Antibody Screen Crossmatch Active Medications Generic Name Dose Route Start Last Admin Trade Name Freq PRN Reason Stop Dose Admin Acetaminophen 650 mg 11/20/17 10:25 Tylenol - PO Q6H PRN FEVER Albuterol Sulfate 1 amp 11/20/17 14:49 11/21/17 08:40 Ventolin 0.083% Nebulizer Soln - NEB 1 amp Q10M PRN Administration SHORT OF BREATH/WHEEZING Aztreonam 1 gm/ Dextrose 50 mls @ 100 mls/hr 11/21/17 10:00 11/21/17 10:49 IVPB 100 mls/hr DAILY STEPHANIE Administration Protocol Sodium Bicarbonate 75 meq/ 1,075 mls @ 75 mls/hr 11/21/17 13:15 11/21/17 15: 13 Sodium Chloride IV 75 mls/hr Q14H STEPHANIE Administration Insulin Aspart 1 vial 11/20/17 11:00 11/21/17 11:07 Novolog Vial Sliding Scale - SQ Not Given ACHS STEPHANIE Protocol Insulin Human Regular 6 units 11/21/17 13:20 Novolin R Vial *For Ivpush Or Iv Drip Only* SQ 11/21/17 13:21 ONCE ONE Metronidazole 500 mg 11/21/17 14:00 11/21/17 15:18 Flagyl - PO 500 mg TID STEPHANIE Administration Morphine Sulfate 2 mg 11/20/17 18:06 11/21/17 06:49 Morphine Sulfate IVPUSH 2 mg Q4H PRN Administration PAIN LEVEL 7 - 10 Sodium Bicarbonate 650 mg 11/20/17 18:21 11/21/17 10:57 Sodium Bicarbonate - PO 650 mg BID STEPHANIE Administration ASSESSMENT/PLAN: Problem List - Problems (1) Anemia requiring transfusions Assessment/Plan: Anemia most likely 2/2 acute blood loss from hematuria. * Urology consulted. * normal transfusion thresholds. * will continue to monitor H/H * repeat CBC in AM (2) Thrombocytosis Assessment/Plan: This is a common issue with disseminated malignancy * No further w/u * He is going to nephrostomy tube tomorrow. (3) Coagulopathy Assessment/Plan: * He will be going for nephrostomy tube tomorrow. * Will give vit. k 10mg SQ one time today * recheck pt, ptt, fibrinogen in AM (4) H/O carcinoma of bladder Assessment/Plan: He may be candidate for immunotherapy * most pressing issue is the sepsis and anemia * This can be revisited once clinically stable. * can consider Triphasic bone scan * CT chest/ abdomen and pelvis for staging purposes. Visit type - Emergency Visit Emergency Visit: Yes ED Registration Date: 11/20/17 Care time: The patient presented to the Emergency Department on the above date and was hospitalized for further evaluation of their emergent condition. - New Patient This patient is new to me today: No - Critical Care Critical Care patient: No
[2017-11-21] MEDS ORDERED: PHYTONADIONE 10 MG/1 ML AMP SQ ONE (16:19)
[2017-11-21 16:42] LABS: INR 1.55 (0.83-1.09); PROTHROMBIN TIME (PATIENT) 18.4 SEC (9.7-13.0)
[2017-11-21 16:45] VITALS: BMI 24.1
--- NOTE | 2017-11-21 17:41 | PN ---
Progress Note, Physician Chief Complaint: Urinary retention Anemia thrombocytosis History of Present Illness: NAD receiving nursing care at is time noted decubitus ulcer stage II Brown intact severe generalized pain - Current Medication List Current Medications: Active Medications Acetaminophen (Tylenol -) 650 mg PO Q6H PRN PRN Reason: FEVER Albuterol Sulfate (Ventolin 0.083% Nebulizer Soln -) 1 amp NEB Q10M PRN PRN Reason: SHORT OF BREATH/WHEEZING Last Admin: 11/21/17 08:40 Dose: 1 amp Collagenase (Santyl -) 1 applic TP DAILY [facility]; Protocol Aztreonam 1 gm/ Dextrose 50 mls @ 100 mls/hr IVPB DAILY [facility]; Protocol Last Admin: 11/21/17 10:49 Dose: 100 mls/hr Sodium Bicarbonate 75 meq/ (Sodium Chloride) 1,075 mls @ 75 mls/hr IV Q14H [facility] Last Admin: 11/21/17 15:13 Dose: 75 mls/hr Insulin Aspart (Novolog Vial Sliding Scale -) 1 vial SQ ACHS [facility]; Protocol Last Admin: 11/21/17 16:52 Dose: 2 units Insulin Human Regular (Novolin R Vial *For Ivpush Or Iv Drip Only*) 6 units SQ ONCE ONE Stop: 11/21/17 13:21 Metronidazole (Flagyl -) 500 mg PO TID [facility] Last Admin: 11/21/17 15:18 Dose: 500 mg Morphine Sulfate (Morphine Sulfate) 2 mg IVPUSH Q4H PRN PRN Reason: PAIN LEVEL 7 - 10 Last Admin: 11/21/17 16:45 Dose: 2 mg Sodium Bicarbonate (Sodium Bicarbonate -) 650 mg PO BID [facility] Last Admin: 11/21/17 10:57 Dose: 650 mg - Objective Vital Signs: Vital Signs Temperature 98.8 F 11/21/17 13:45 Pulse Rate 99 H 11/21/17 13:45 Respiratory Rate 18 11/21/17 13:45 Blood Pressure 118/66 11/21/17 13:45 O2 Sat by Pulse Oximetry (%) 99 11/20/17 21:00 Constitutional: Yes: Well Nourished, No Distress, Calm Cardiovascular: Yes: Regular Rate and Rhythm Respiratory: Yes: Regular Gastrointestinal: Yes: Normal Bowel Sounds, Soft Genitourinary: Yes: Brown Present Musculoskeletal: Yes: Muscle Weakness Labs: CBC, BMP 11/21/17 06:30 11/21/17 13:00 INR, PTT INR 1.55 (0.83-1.09) H 11/21/17 15:05 Problem List - Problems (1) Anemia requiring transfusions Assessment/Plan: -received 3 units of PRBC this admission -Also Guaiac positive -Chronic anemia, transfuse if Hg below 7.0 Code(s): D64.9 - ANEMIA, UNSPECIFIED (2) Urinary retention Assessment/Plan: -Seen by Urology -Brown catheter -plan for BL nephrostomy Code(s): R33.9 - RETENTION OF URINE, UNSPECIFIED (3) Bladder cancer metastasized to intrapelvic lymph nodes Code(s): C67.9 - MALIGNANT NEOPLASM OF BLADDER, UNSPECIFIED; C77.5 - SECONDARY AND UNSP MALIGNANT NEOPLASM OF INTRAPELV NODES (4) Hypoalbuminemia Assessment/Plan: -2/2 to decreased PO intake -On prosource Code(s): E88.09 - OTH DISORDERS OF PLASMA-PROTEIN METABOLISM, NEC Assessment/Plan see problem list teds Physical therapy
[2017-11-21] MEDS: COLLAGENASE CLOSTRIDIUM HIST. 30 GRAMS TUBE TP SCH (18:05)
[2017-11-21] MEDS ORDERED: INSULIN (NOVOLOG) ASPART 100 UNITS/ML 10ML VIAL ONE (21:09)
[2017-11-22] MEDS: MORPHINE SULFATE 2 MG/ML VIAL IVPUSH PRN ×6 (03:09→23:05)
[2017-11-22] MEDS: SODIUM BICARBONATE 8.4% - 75 MEQ in SODIUM CHLORIDE 0.45% 1,000 ML IV SCH ×3 (03:28→22:39)
[2017-11-22] MEDS: metroNIDAZOLE 250 MG TABLET PO SCH ×3 (05:45→22:04)
[2017-11-22] MEDS: oxyCODONE HCL 5 MG TABLET PO PRN ×2 (05:45→22:04)
[2017-11-22] MEDS: INSULIN SLIDING SCALE (NOVOLOG) 1 VIAL SQ SCH ×4 (06:55→22:08)
[2017-11-22 08:06] LABS: BASO % 0.6 % (0-2.0); EOS % 3.7 % (0-4.5); HEMOGLOBIN 8.1 GM/dL (11.7-16.9); LYMPH % 10.9 % (8-40); MCH 27.2 pg (25.7-33.7); MCHC 32.5 g/dl (32.0-35.9); MEAN CELL VOLUME 83.5 fl (80-96); MEAN PLT VOLUME 6.7 fl (7.5-11.1); MONO % 8.9 % (3.8-10.2); NEUT % 75.9 % (42.8-82.8); PLATELET COUNT 745 K/MM3 (134-434); RBC 2.99 M/mm3 (4.00-5.60); RDW 18.5 % (11.9-15.9)
[2017-11-22 08:32] LABS: INR 1.43 (0.83-1.09); PROTHROMBIN TIME (PATIENT) 16.9 SEC (9.7-13.0)
[2017-11-22 08:39] LABS: ALBUMIN 1.2 g/dl (3.4-5.0); ALK PHOS 87 U/L (45-117); ANION GAP 14 MMOL/L (8-16); BILIRUBIN,TOTAL 0.4 mg/dL (0.2-1); BLOOD UREA NITROGEN 101 mg/dL (7-18); CALCIUM 7.8 mg/dL (8.5-10.1); CHLORIDE 100 mmol/L (98-107); CO2 17 mmol/L (21-32); CREATININE 4.6 mg/dL (0.55-1.3); GLUCOSE,RANDOM 100 mg/dL (74-106); POTASSIUM 4.9 mmol/L (3.5-5.1); SGOT/AST 12 U/L (15-37); SGPT/ALT < 6 U/L (13-61); SODIUM 131 mmol/L (136-145); TOT PROT 5.3 g/dl (6.4-8.2)
[2017-11-22] MEDS: SODIUM BICARBONATE 650 MG TABLET PO SCH ×2 (10:00→13:18)
[2017-11-22] MEDS: AZTREONAM 1 GM in DEXTROSE 5%-WATER - 50 ML IVPB SCH ×2 (10:00→16:49)
--- NOTE | 2017-11-22 11:12 | PN ---
Progress Note, Physician History of Present Illness: awake and alert More comfortable No c/o pain No fever/ chills Afebrile WBC improved 11k Vancomycin trough pending - Current Medication List Current Medications: Active Medications Acetaminophen (Tylenol -) 650 mg PO Q6H PRN PRN Reason: FEVER Albuterol Sulfate (Ventolin 0.083% Nebulizer Soln -) 1 amp NEB Q10M PRN PRN Reason: SHORT OF BREATH/WHEEZING Last Admin: 11/21/17 08:40 Dose: 1 amp Collagenase (Santyl -) 1 applic TP DAILY [facility]; Protocol Last Admin: 11/21/17 18:05 Dose: Not Given Aztreonam 1 gm/ Dextrose 50 mls @ 100 mls/hr IVPB DAILY [facility]; Protocol Last Admin: 11/21/17 10:49 Dose: 100 mls/hr Sodium Bicarbonate 75 meq/ (Sodium Chloride) 1,075 mls @ 75 mls/hr IV Q14H [facility]PH[facility] Last Admin: 11/22/17 03:28 Dose: 75 mls/hr Insulin Aspart (Novolog Vial Sliding Scale -) 1 vial SQ ACHS [facility]; Protocol Last Admin: 11/22/17 06:55 Dose: Not Given Metronidazole (Flagyl -) 500 mg PO TID [facility] Last Admin: 11/22/17 05:45 Dose: 500 mg Morphine Sulfate (Morphine Sulfate) 4 mg IVPUSH Q4H PRN PRN Reason: PAIN LEVEL 7 - 10 Last Admin: 11/22/17 07:01 Dose: 4 mg Oxycodone HCl (Roxicodone -) 5 mg PO Q4H PRN PRN Reason: PAIN LEVEL 4 - 6 Last Admin: 11/22/17 05:45 Dose: 5 mg Phytonadione (Aqua Mephyton Injection -) 5 mg SQ DAILY [facility] Stop: 11/23/17 10:01 Sodium Bicarbonate (Sodium Bicarbonate -) 650 mg PO BID [facility] Last Admin: 11/21/17 21:33 Dose: 650 mg - Objective Vital Signs: Vital Signs Temperature 97.5 F L 11/22/17 06:00 Pulse Rate 87 11/22/17 10:56 Respiratory Rate 16 11/22/17 10:56 Blood Pressure 120/70 11/22/17 10:56 O2 Sat by Pulse Oximetry (%) 100 11/22/17 10:56 Constitutional: Yes: No Distress, Cachectic Cardiovascular: Yes: Regular Rate and Rhythm, S1, S2 Respiratory: Yes: CTA Bilaterally Gastrointestinal: Yes: Normal Bowel Sounds, Soft. No: Tenderness Edema: No Integumentary: Yes: Other (+ sacral decubitus) Labs: CBC, BMP 11/22/17 07:00 11/22/17 07:00 INR, PTT INR 1.43 (0.83-1.09) H 11/22/17 07:00 Fibrinogen 616.0 mg/dL (238-498) H 11/22/17 07:00 Assessment/Plan Acute renal failure Gross hematuria Leukocytosis-improved Osteomyelitis, heel PCN allergy For bilateral percutaneous nephrostomies Hold vancomycin, repeat random level pending Continue aztreonam/ flagyl Local wound care
[2017-11-22] MEDS ORDERED: PT OWN MED DRAWER 7, Y5N ONE ×2 (12:57→18:19)
[2017-11-22] MEDS: PHYTONADIONE 10 MG/1 ML AMP SQ SCH (13:19)
--- NOTE | 2017-11-22 14:09 | PN ---
Progress Note, Physician Chief Complaint: patient seen and examiend came back from IR s/p nephrosotomy tube placemen draining serosanginos liquid - Current Medication List Current Medications: Active Medications Acetaminophen (Tylenol -) 650 mg PO Q6H PRN PRN Reason: FEVER Albuterol Sulfate (Ventolin 0.083% Nebulizer Soln -) 1 amp NEB Q10M PRN PRN Reason: SHORT OF BREATH/WHEEZING Last Admin: 11/21/17 08:40 Dose: 1 amp Collagenase (Santyl -) 1 applic TP DAILY [facility]; Protocol Last Admin: 11/21/17 18:05 Dose: Not Given Aztreonam 1 gm/ Dextrose 50 mls @ 100 mls/hr IVPB DAILY [facility]; Protocol Last Admin: 11/22/17 10:00 Dose: Not Given Sodium Bicarbonate 75 meq/ (Sodium Chloride) 1,075 mls @ 75 mls/hr IV Q14H [facility] Last Admin: 11/22/17 03:28 Dose: 75 mls/hr Insulin Aspart (Novolog Vial Sliding Scale -) 1 vial SQ ACHS [facility]; Protocol Last Admin: 11/22/17 13:17 Dose: Not Given Metronidazole (Flagyl -) 500 mg PO TID [facility] Last Admin: 11/22/17 05:45 Dose: 500 mg Morphine Sulfate (Morphine Sulfate) 4 mg IVPUSH Q4H PRN PRN Reason: PAIN LEVEL 7 - 10 Last Admin: 11/22/17 12:59 Dose: 4 mg Oxycodone HCl (Roxicodone -) 5 mg PO Q4H PRN PRN Reason: PAIN LEVEL 4 - 6 Last Admin: 11/22/17 05:45 Dose: 5 mg Phytonadione (Aqua Mephyton Injection -) 5 mg SQ DAILY [facility] Stop: 11/23/17 10:01 Last Admin: 11/22/17 13:19 Dose: 5 mg Sodium Bicarbonate (Sodium Bicarbonate -) 650 mg PO BID [facility] Last Admin: 11/22/17 13:18 Dose: 650 mg - Objective Vital Signs: Vital Signs Temperature 97.5 F L 11/22/17 12:38 Pulse Rate 88 11/22/17 12:38 Respiratory Rate 20 11/22/17 12:38 Blood Pressure 114/62 11/22/17 12:38 O2 Sat by Pulse Oximetry (%) 100 11/22/17 11:33 Constitutional: Yes: Calm Cardiovascular: Yes: Regular Rate and Rhythm, S1, S2 Respiratory: Yes: CTA Bilaterally Gastrointestinal: Yes: Normal Bowel Sounds, Soft, Other (colostomy) ...Rectal Exam: Yes: WNL Genitourinary: Yes: Junior Present, Other (nephrostomy tube) Labs: CBC, BMP 11/22/17 07:00 11/22/17 07:00 INR, PTT INR 1.43 (0.83-1.09) H 11/22/17 07:00 Fibrinogen 616.0 mg/dL (238-498) H 11/22/17 07:00 Problem List - Problems (1) Anemia requiring transfusions Assessment/Plan: h/h 8.03/01 hematuria [id number] h/h Code(s): D64.9 - ANEMIA, UNSPECIFIED (2) Thrombocytosis Assessment/Plan: metastatic cancer monitor platelet count Code(s): D47.3 - ESSENTIAL (HEMORRHAGIC) THROMBOCYTHEMIA (3) Bladder cancer metastasized to intrapelvic lymph nodes Assessment/Plan: s/p nephrostomy tube placement junior in place urology Code(s): C67.9 - MALIGNANT NEOPLASM OF BLADDER, UNSPECIFIED; C77.5 - SECONDARY AND UNSP MALIGNANT NEOPLASM OF INTRAPELV NODES (4) Leukocytosis Assessment/Plan: aztreonam and flagyl wbc trending down Code(s): D72.829 - ELEVATED WHITE BLOOD CELL COUNT, UNSPECIFIED (5) JOSSELYN (acute kidney injury) Assessment/Plan: on ivf with bicarb repeat labs in AM s/p nephrosotmy tube placement potassium in better Code(s): N17.9 - ACUTE KIDNEY FAILURE, UNSPECIFIED
--- NOTE | 2017-11-22 16:58 | PN ---
Progress Note, Physician History of Present Illness: Pt seen and examined at bedside. He is s/p bilateral nephrostomy tubes. - Current Medication List Current Medications: Active Medications Acetaminophen (Tylenol -) 650 mg PO Q6H PRN PRN Reason: FEVER Albuterol Sulfate (Ventolin 0.083% Nebulizer Soln -) 1 amp NEB Q10M PRN PRN Reason: SHORT OF BREATH/WHEEZING Last Admin: 11/21/17 08:40 Dose: 1 amp Collagenase (Santyl -) 1 applic TP DAILY [facility]; Protocol Last Admin: 11/21/17 18:05 Dose: Not Given Aztreonam 1 gm/ Dextrose 50 mls @ 100 mls/hr IVPB DAILY [facility]; Protocol Last Admin: 11/22/17 16:49 Dose: 100 mls/hr Sodium Bicarbonate 75 meq/ (Sodium Chloride) 1,075 mls @ 75 mls/hr IV Q14H [facility] Last Admin: 11/22/17 03:28 Dose: 75 mls/hr Insulin Aspart (Novolog Vial Sliding Scale -) 1 vial SQ ACHS [facility]; Protocol Last Admin: 11/22/17 13:17 Dose: Not Given Metronidazole (Flagyl -) 500 mg PO TID [facility] Last Admin: 11/22/17 14:09 Dose: 500 mg Morphine Sulfate (Morphine Sulfate) 4 mg IVPUSH Q4H PRN PRN Reason: PAIN LEVEL 7 - 10 Last Admin: 11/22/17 12:59 Dose: 4 mg Oxycodone HCl (Roxicodone -) 5 mg PO Q4H PRN PRN Reason: PAIN LEVEL 4 - 6 Last Admin: 11/22/17 05:45 Dose: 5 mg Phytonadione (Aqua Mephyton Injection -) 5 mg SQ DAILY [facility] Stop: 11/23/17 10:01 Last Admin: 11/22/17 13:19 Dose: 5 mg Sodium Bicarbonate (Sodium Bicarbonate -) 650 mg PO BID [facility] Last Admin: 11/22/17 13:18 Dose: 650 mg - Objective Vital Signs: Vital Signs Temperature 97.3 F L 11/22/17 14:42 Pulse Rate 92 H 11/22/17 14:42 Respiratory Rate 20 11/22/17 12:38 Blood Pressure 111/54 L 11/22/17 14:42 O2 Sat by Pulse Oximetry (%) 100 11/22/17 11:33 Constitutional: Yes: Calm Eyes: Yes: Conjunctiva Clear HENT: Yes: Atraumatic Cardiovascular: Yes: S1, S2 Respiratory: Yes: CTA Bilaterally Gastrointestinal: Yes: Soft Genitourinary: Yes: Brown Present, Other (bilateral nephrostomy tubes) Musculoskeletal: Yes: Muscle Weakness Edema: No Neurological: Yes: Oriented Psychiatric: Yes: Oriented Labs: CBC, BMP 11/22/17 07:00 11/22/17 07:00 INR, PTT INR 1.43 (0.83-1.09) H 11/22/17 07:00 Fibrinogen 616.0 mg/dL (238-498) H 11/22/17 07:00 Problem List - Problems (1) JOSSELYN (acute kidney injury) Code(s): N17.9 - ACUTE KIDNEY FAILURE, UNSPECIFIED (2) Hyperkalemia Code(s): E87.5 - HYPERKALEMIA (3) Anemia requiring transfusions Code(s): D64.9 - ANEMIA, UNSPECIFIED (4) Urinary retention Code(s): R33.9 - RETENTION OF URINE, UNSPECIFIED (5) Anemia Code(s): D64.9 - ANEMIA, UNSPECIFIED Qualifiers: Anemia type: iron deficiency Iron deficiency anemia type: unspecified iron deficiency Qualified Code(s): D50.9 - Iron deficiency anemia, unspecified Assessment/Plan Current Medications Generic Name Dose Route Start Last Admin Trade Name Freq PRN Reason Stop Dose Admin Acetaminophen 650 mg 11/20/17 10:25 Tylenol - PO Q6H PRN FEVER Albuterol Sulfate 1 amp 11/20/17 14:49 11/21/17 08:40 Ventolin 0.083% Nebulizer Soln - NEB 1 amp Q10M PRN Administration SHORT OF BREATH/WHEEZING Collagenase 1 applic 11/21/17 15:45 11/21/17 18:05 Santyl - TP Not Given DAILY [facility] Protocol Aztreonam 1 gm/ Dextrose 50 mls @ 100 mls/hr 11/21/17 10:00 11/22/17 16:49 IVPB 100 mls/hr DAILY [facility] Administration Protocol Sodium Bicarbonate 75 meq/ 1,075 mls @ 75 mls/hr 11/21/17 13:15 11/22/17 03: 28 Sodium Chloride IV 75 mls/hr Q14H [facility]IE Administration Insulin Aspart 1 vial 11/20/17 11:00 11/22/17 13:17 Novolog Vial Sliding Scale - SQ Not Given ACHS [facility] Protocol Metronidazole 500 mg 11/21/17 14:00 11/22/17 14:09 Flagyl - PO 500 mg TID [facility]IE Administration Morphine Sulfate 4 mg 11/21/17 17:51 11/22/17 12:59 Morphine Sulfate IVPUSH 4 mg Q4H PRN Administration PAIN LEVEL 7 - 10 Oxycodone HCl 5 mg 11/21/17 17:50 11/22/17 05:45 Roxicodone - PO 5 mg Q4H PRN Administration PAIN LEVEL 4 - 6 Phytonadione 5 mg 11/22/17 11:00 11/22/17 13:19 Aqua Mephyton Injection - SQ 11/23/17 10:01 5 mg DAILY [facility]IE Administration Sodium Bicarbonate 650 mg 11/20/17 18:21 11/22/17 13:18 Sodium Bicarbonate - PO 650 mg BID STEPHANIE Administration Impression 1. JOSSELYN 2. hyperkalemia 3. bladder cancer with mets to lung and colon 4. urinary obstruction 5. hematuria 6. anemia Plan - monitor urine output - cont fluids - d/c po bicarb - repeat labs in am - potassium improved - discuss GOC - josselyn is likely from obstruction - will follow Dr Canales
[2017-11-22] MEDS: COLLAGENASE CLOSTRIDIUM HIST. 30 GRAMS TUBE TP SCH (17:00)
--- NOTE | 2017-11-22 17:21 | CONSULT ---
Consult Consult Specialty:: Podiatry Reason for Consultation:: necrotic wound left heel - History of Present Illness Chief Complaint: wound left heel History of Present Illness: wound started at [facility] [place] while admitted. Intervention 11/07/[address] An. Patient admitted again for other issues. 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 [Santyl -] 1 applic TP DAILY tube 11/15/17 Insulin (Levemir) [Levemir Vial] 10 units SQ HS units 11/15/17 Lactobacillus Acidophilus [Bacid -] 1 tab PO DAILY tab 11/15/17 Picc Line Flush [Picc Line Flush -] 8 ml IVPUSH PRN PRN ml 11/15/17 Sodium Hypochlorite [Dakin's Solution 0.25% (Half-Strength) -] 1 applic TP DAILY ml 11/15/17 Vancomycin 750 mg IVPB Q24H vial 11/15/17 metroNIDAZOLE [Flagyl -] 500 mg PO TID tablet 11/15/17 Insulin Sliding Scale [Novolog Vial Sliding Scale -] 12 vial SQ DAILY 11/20/17 Melatonin/Pyridoxine HCl (B6) [Melatonin 5 mg Tablet] 1 each PO HS 11/20/17 oxyCODONE HCL [Roxicodone -] 10 mg PO Q4H PRN MDD 30mg 11/20/17 Family Disease History - Family Disease History Family Disease History: Other: Mother ( of PUD) Review of Systems - Review of Systems Integumentary: reports: Wound (necrotic wound left heel,) Physical Exam Vital Signs: Vital Signs Temperature 97.3 F L 11/22/17 14:42 Pulse Rate 92 H 11/22/17 14:42 Respiratory Rate 20 11/22/17 12:38 Blood Pressure 111/54 L 11/22/17 14:42 O2 Sat by Pulse Oximetry (%) 100 11/22/17 11:33 Labs: CBC, BMP 11/22/17 07:00 11/22/17 07:00 Assessment/Plan osteomyelitis left heel? necrotic heel left Applied Santyl dressing bedside. recommend X-ray left heel. Will re-consult Dr. An original heel surgeon to continue care of left heel. Abx as per ID. offload heel. heel pads b/l. HBO consult recommended.
[2017-11-23] MEDS: MORPHINE SULFATE 2 MG/ML VIAL IVPUSH PRN ×4 (06:42→21:55)
[2017-11-23] MEDS: metroNIDAZOLE 250 MG TABLET PO SCH ×3 (06:42→21:56)
[2017-11-23] MEDS: INSULIN SLIDING SCALE (NOVOLOG) 1 VIAL SQ SCH ×4 (06:47→21:57)
[2017-11-23 07:41] LABS: BASO % 0.7 % (0-2.0); HEMATOCRIT 23.4 % (35.4-49); HEMOGLOBIN 7.6 GM/dL (11.7-16.9); LYMPH % 10.9 % (8-40); MCH 27.3 pg (25.7-33.7); MCHC 32.5 g/dl (32.0-35.9); MEAN CELL VOLUME 83.9 fl (80-96); MEAN PLT VOLUME 6.4 fl (7.5-11.1); MONO % 10.1 % (3.8-10.2); NEUT % 74.3 % (42.8-82.8); PLATELET COUNT 732 K/MM3 (134-434); RBC 2.79 M/mm3 (4.00-5.60); RDW 18.5 % (11.9-15.9); WHITE BLOOD COUNT 9.6 K/mm3 (4.0-10.0)
[2017-11-23] MEDS: ALBUTEROL SO4 0.083% IH SOL 2.5 MG/3 ML VIAL.NEB. NEB PRN (08:00)
[2017-11-23 08:26] LABS: ALBUMIN 1.2 g/dl (3.4-5.0); ALK PHOS 110 U/L (45-117); ANION GAP 9 MMOL/L (8-16); BILIRUBIN,TOTAL 0.2 mg/dL (0.2-1); BLOOD UREA NITROGEN 88 mg/dL (7-18); CALCIUM 7.9 mg/dL (8.5-10.1); CHLORIDE 107 mmol/L (98-107); CO2 23 mmol/L (21-32); CREATININE 2.7 mg/dL (0.55-1.3); GLUCOSE,RANDOM 171 mg/dL (74-106); POTASSIUM 4.1 mmol/L (3.5-5.1); SGOT/AST 12 U/L (15-37); SGPT/ALT < 6 U/L (13-61); SODIUM 139 mmol/L (136-145); TOT PROT 5.3 g/dl (6.4-8.2)
[2017-11-23] MEDS: SODIUM CHLORIDE 0.45% 1,000 ML IV SCH (10:40)
[2017-11-23] MEDS: PHYTONADIONE 10 MG/1 ML AMP SQ SCH (10:42)
[2017-11-23] MEDS: COLLAGENASE CLOSTRIDIUM HIST. 30 GRAMS TUBE TP SCH (10:54)
--- NOTE | 2017-11-23 11:43 | PN ---
Progress Note, Physician Chief Complaint: patient seen and examined lying in bed s/p bilateral nephrostomy tubes placement left heel wound dressing opened - Current Medication List Current Medications: Active Medications Acetaminophen (Tylenol -) 650 mg PO Q6H PRN PRN Reason: FEVER Albuterol Sulfate (Ventolin 0.083% Nebulizer Soln -) 1 amp NEB Q10M PRN PRN Reason: SHORT OF BREATH/WHEEZING Last Admin: 11/23/17 08:00 Dose: 1 amp Collagenase (Santyl -) 1 applic TP DAILY [facility]; Protocol Last Admin: 11/23/17 10:54 Dose: 1 applic Aztreonam 1 gm/ Dextrose 50 mls @ 100 mls/hr IVPB DAILY [facility]; Protocol Last Admin: 11/22/17 16:49 Dose: 100 mls/hr Sodium Chloride (1/2 Normal Saline) 1,000 mls @ 75 mls/hr IV ASDIR STEPHANIE Last Admin: 11/23/17 10:40 Dose: 75 mls/hr Insulin Aspart (Novolog Vial Sliding Scale -) 1 vial SQ ACHS [facility]; Protocol Last Admin: 11/23/17 06:47 Dose: 4 units Metronidazole (Flagyl -) 500 mg PO TID [facility] Last Admin: 11/23/17 06:42 Dose: 500 mg Morphine Sulfate (Morphine Sulfate) 4 mg IVPUSH Q4H PRN PRN Reason: PAIN LEVEL 7 - 10 Last Admin: 11/23/17 10:40 Dose: 4 mg Oxycodone HCl (Roxicodone -) 5 mg PO Q4H PRN PRN Reason: PAIN LEVEL 4 - 6 Last Admin: 11/22/17 22:04 Dose: 5 mg - Objective Vital Signs: Vital Signs Temperature 97.9 F 11/23/17 06:00 Pulse Rate 99 H 11/23/17 06:00 Respiratory Rate 20 11/23/17 06:00 Blood Pressure 115/61 11/23/17 06:00 O2 Sat by Pulse Oximetry (%) 100 11/22/17 11:33 Constitutional: Yes: Calm Cardiovascular: Yes: Regular Rate and Rhythm, S1, S2 Respiratory: Yes: CTA Bilaterally Gastrointestinal: Yes: Normal Bowel Sounds, Soft, Other (colostomy) Genitourinary: Yes: Other (neprosotmy tubes draining serosanginous discharge) Edema: No Wound/Incision: Yes: Dressing Removed, Other (left heel wound necrotic with slough) Neurological: Yes: Alert, Oriented Labs: CBC, BMP 11/23/17 06:15 11/23/17 07:00 INR, PTT INR 1.43 (0.83-1.09) H 11/22/17 07:00 Fibrinogen 616.0 mg/dL (238-498) H 11/22/17 07:00 Problem List - Problems (1) Anemia requiring transfusions Assessment/Plan: h/h 8.1/25 to 7.6- if further drops < 7 will transfuse hematuria [id number] h/h Code(s): D64.9 - ANEMIA, UNSPECIFIED (2) Thrombocytosis Assessment/Plan: metastatic cancer monitor platelet count Code(s): D47.3 - ESSENTIAL (HEMORRHAGIC) THROMBOCYTHEMIA (3) Bladder cancer metastasized to intrapelvic lymph nodes Assessment/Plan: s/p bilateral nephrostomy tube placement junior in place-[facility] urology follow up Code(s): C67.9 - MALIGNANT NEOPLASM OF BLADDER, UNSPECIFIED; C77.5 - SECONDARY AND UNSP MALIGNANT NEOPLASM OF INTRAPELV NODES (4) Leukocytosis Assessment/Plan: aztreonam and flagyl wbc trending down Code(s): D72.829 - ELEVATED WHITE BLOOD CELL COUNT, UNSPECIFIED (5) JOSSELYN (acute kidney injury) Assessment/Plan: JOSSELYN secondary to obstruction repeat labs in AM cr from 4-2.1-s/p nephrostomy tube placement s/p nephrosotmy tube placement potassium in better Code(s): N17.9 - ACUTE KIDNEY FAILURE, UNSPECIFIED (6) Ulcer of left heel Assessment/Plan: appreciate podiatry note collagenase iv abx Code(s): L97.429 - NON-PRS CHRONIC ULCER OF LEFT HEEL AND MIDFOOT W UNSP SEVERT Qualifiers: Non-pressure ulcer stage: unspecified non-pressure ulcer stage Qualified Code(s): L97.429 - Non-pressure chronic ulcer of left heel and midfoot with unspecified severity
[2017-11-23] MEDS: AZTREONAM 1 GM in DEXTROSE 5%-WATER - 50 ML IVPB SCH (12:22)
[2017-11-23] MEDS: oxyCODONE HCL 5 MG TABLET PO PRN (15:09)
--- NOTE | 2017-11-23 15:51 | PN ---
Progress Note, Physician History of Present Illness: Pt seen and examined at bedside. He is awake and appears more comfortable. - Current Medication List Current Medications: Active Medications Acetaminophen (Tylenol -) 650 mg PO Q6H PRN PRN Reason: FEVER Albuterol Sulfate (Ventolin 0.083% Nebulizer Soln -) 1 amp NEB Q10M PRN PRN Reason: SHORT OF BREATH/WHEEZING Last Admin: 11/23/17 08:00 Dose: 1 amp Collagenase (Santyl -) 1 applic TP DAILY [facility]; Protocol Last Admin: 11/23/17 10:54 Dose: 1 applic Aztreonam 1 gm/ Dextrose 50 mls @ 100 mls/hr IVPB DAILY [facility]; Protocol Last Admin: 11/23/17 12:22 Dose: 100 mls/hr Sodium Chloride (1/2 Normal Saline) 1,000 mls @ 75 mls/hr IV ASDIR STEPHANIE Last Admin: 11/23/17 10:40 Dose: 75 mls/hr Insulin Aspart (Novolog Vial Sliding Scale -) 1 vial SQ ACHS [facility]; Protocol Last Admin: 11/23/17 12:28 Dose: 2 units Metronidazole (Flagyl -) 500 mg PO TID [facility]IE Last Admin: 11/23/17 15:09 Dose: 500 mg Morphine Sulfate (Morphine Sulfate) 4 mg IVPUSH Q4H PRN PRN Reason: PAIN LEVEL 7 - 10 Last Admin: 11/23/17 10:40 Dose: 4 mg Oxycodone HCl (Roxicodone -) 5 mg PO Q4H PRN PRN Reason: PAIN LEVEL 4 - 6 Last Admin: 11/23/17 15:09 Dose: 5 mg - Objective Vital Signs: Vital Signs Temperature 97.9 F 11/23/17 06:00 Pulse Rate 99 H 11/23/17 06:00 Respiratory Rate 20 11/23/17 06:00 Blood Pressure 115/61 11/23/17 06:00 O2 Sat by Pulse Oximetry (%) 100 11/22/17 11:33 Constitutional: Yes: Calm Eyes: Yes: Conjunctiva Clear HENT: Yes: Atraumatic Cardiovascular: Yes: S1, S2 Respiratory: Yes: CTA Bilaterally Gastrointestinal: Yes: Soft Genitourinary: Yes: Brown Present, Other (bilateral nephrostomy tubes) Edema: No Neurological: Yes: Oriented Psychiatric: Yes: Oriented Labs: CBC, BMP 11/23/17 06:15 11/23/17 07:00 INR, PTT INR 1.43 (0.83-1.09) H 11/22/17 07:00 Fibrinogen 616.0 mg/dL (238-498) H 11/22/17 07:00 Problem List - Problems (1) JOSSELYN (acute kidney injury) Code(s): N17.9 - ACUTE KIDNEY FAILURE, UNSPECIFIED (2) Hyperkalemia Code(s): E87.5 - HYPERKALEMIA (3) Anemia requiring transfusions Code(s): D64.9 - ANEMIA, UNSPECIFIED (4) Urinary retention Code(s): R33.9 - RETENTION OF URINE, UNSPECIFIED (5) Anemia Code(s): D64.9 - ANEMIA, UNSPECIFIED Qualifiers: Anemia type: iron deficiency Iron deficiency anemia type: unspecified iron deficiency Qualified Code(s): D50.9 - Iron deficiency anemia, unspecified Assessment/Plan Current Medications Generic Name Dose Route Start Last Admin Trade Name Freq PRN Reason Stop Dose Admin Acetaminophen 650 mg 11/20/17 10:25 Tylenol - PO Q6H PRN FEVER Albuterol Sulfate 1 amp 11/20/17 14:49 11/23/17 08:00 Ventolin 0.083% Nebulizer Soln - NEB 1 amp Q10M PRN Administration SHORT OF BREATH/WHEEZING Collagenase 1 applic 11/21/17 15:45 11/23/17 10:54 Santyl - TP 1 applic DAILY STEPHANIE Administration Protocol Aztreonam 1 gm/ Dextrose 50 mls @ 100 mls/hr 11/21/17 10:00 11/23/17 12:22 IVPB 100 mls/hr DAILY STEPHANIE Administration Protocol Sodium Chloride 1,000 mls @ 75 mls/hr 11/23/17 08:45 11/23/17 10:40 1/2 Normal Saline IV 75 mls/hr ASDIR STEPHANIE Administration Insulin Aspart 1 vial 11/20/17 11:00 11/23/17 12:28 Novolog Vial Sliding Scale - SQ 2 units ACHS STEPHANIE Administration Protocol Metronidazole 500 mg 11/21/17 14:00 11/23/17 15:09 Flagyl - PO 500 mg TID STEPH[facility]IE Administration Morphine Sulfate 4 mg 11/21/17 17:51 11/23/17 10:40 Morphine Sulfate IVPUSH 4 mg Q4H PRN Administration PAIN LEVEL 7 - 10 Oxycodone HCl 5 mg 11/21/17 17:50 11/23/17 15:09 Roxicodone - PO 5 mg Q4H PRN Administration PAIN LEVEL 4 - 6 Impression 1. JOSSELYN 2. hyperkalemia 3. bladder cancer with mets to lung and colon 4. urinary obstruction 5. hematuria 6. anemia Plan - renal function is improving - I changed fluids to 1/2 ns this morning - monitor labs - repeat bmp in am - will follow - JOSSELYN from obstruction Dr Canales
--- NOTE | 2017-11-23 16:41 | PN ---
Progress Note, Physician History of Present Illness: S/P bilateral PCN awake and alert C/O L heel pain No fever/ chills Afebrile WBC improved 11k Vancomycin trough ordered ( on hold) - Current Medication List Current Medications: Active Medications Acetaminophen (Tylenol -) 650 mg PO Q6H PRN PRN Reason: FEVER Albuterol Sulfate (Ventolin 0.083% Nebulizer Soln -) 1 amp NEB Q10M PRN PRN Reason: SHORT OF BREATH/WHEEZING Last Admin: 11/23/17 08:00 Dose: 1 amp Collagenase (Santyl -) 1 applic TP DAILY [facility]; Protocol Last Admin: 11/23/17 10:54 Dose: 1 applic Aztreonam 1 gm/ Dextrose 50 mls @ 100 mls/hr IVPB DAILY [facility]; Protocol Last Admin: 11/23/17 12:22 Dose: 100 mls/hr Sodium Chloride (1/2 Normal Saline) 1,000 mls @ 75 mls/hr IV ASDIR STEPHANIE Last Admin: 11/23/17 10:40 Dose: 75 mls/hr Insulin Aspart (Novolog Vial Sliding Scale -) 1 vial SQ ACHS [facility]; Protocol Last Admin: 11/23/17 12:28 Dose: 2 units Metronidazole (Flagyl -) 500 mg PO TID [facility] Last Admin: 11/23/17 15:09 Dose: 500 mg Morphine Sulfate (Morphine Sulfate) 4 mg IVPUSH Q4H PRN PRN Reason: PAIN LEVEL 7 - 10 Last Admin: 11/23/17 10:40 Dose: 4 mg Oxycodone HCl (Roxicodone -) 5 mg PO Q4H PRN PRN Reason: PAIN LEVEL 4 - 6 Last Admin: 11/23/17 15:09 Dose: 5 mg - Objective Vital Signs: Vital Signs Temperature 97.8 F 11/23/17 15:52 Pulse Rate 99 H 11/23/17 15:52 Respiratory Rate 20 11/23/17 15:52 Blood Pressure 123/66 11/23/17 15:52 O2 Sat by Pulse Oximetry (%) 100 11/22/17 11:33 Constitutional: Yes: No Distress, Cachectic Eyes: Yes: Conjunctiva Clear Cardiovascular: Yes: Regular Rate and Rhythm, S1, S2 Respiratory: Yes: CTA Bilaterally Gastrointestinal: Yes: Normal Bowel Sounds, Soft. No: Tenderness Genitourinary: Yes: Other (bilateral PCN) Extremities: Yes: Other (L heel ulcer with drainage) Labs: CBC, BMP 11/23/17 06:15 11/23/17 07:00 INR, PTT INR 1.43 (0.83-1.09) H 11/22/17 07:00 Fibrinogen 616.0 mg/dL (238-498) H 11/22/17 07:00 Assessment/Plan Acute renal failure improved s/p PCN Gross hematuria Leukocytosis-improved Osteomyelitis, heel PCN allergy Hold vancomycin, repeat random level pending Continue aztreonam/ flagyl Local wound care
[2017-11-24] MEDS: MORPHINE SULFATE 2 MG/ML VIAL IVPUSH PRN ×5 (03:45→21:16)
[2017-11-24] MEDS: metroNIDAZOLE 250 MG TABLET PO SCH ×3 (06:18→21:17)
[2017-11-24] MEDS: INSULIN SLIDING SCALE (NOVOLOG) 1 VIAL SQ SCH ×4 (06:34→21:24)
--- NOTE | 2017-11-24 07:41 | PN ---
Progress Note (short form) - Note Progress Note: Podiatry F/U: Seen/evaluated at bedside NAD. Denies F/V/N/C/SOB/CP. S/p L heel debridement and bone biopsy for osteomyelitis. On iv abx. Presents from SNF for inability to urinate. DIOGO: L foot: heel diabetic ulcer all fibrotic, no purulent drainage, small amount of necrotic tissue superiorly, no bone exposed, no malodor, decreasing periwound erythema, no streaking cellulitis, no soft tissue crepitus, no signs of active infection Imp: 61 year old DM M with L heel diabetic ulcer and osteomyelitis s/p L heel debridement and bone biopsy 1. IV abx per ID 2. Santyl to L heel 3. Heel offloading measures 4. No operative management at this time. Will do bedside debridement on Sunday. Prognosis guarded given extent of comorbidities. Scott An DPM
[2017-11-24 08:37] LABS: BASO % 0.7 % (0-2.0); EOS % 6.3 % (0-4.5); HEMATOCRIT 24.5 % (35.4-49); HEMOGLOBIN 7.7 GM/dL (11.7-16.9); LYMPH % 16.5 % (8-40); MCH 26.6 pg (25.7-33.7); MCHC 31.3 g/dl (32.0-35.9); MEAN PLT VOLUME 6.3 fl (7.5-11.1); MONO % 10.6 % (3.8-10.2); NEUT % 65.9 % (42.8-82.8); PLATELET COUNT 683 K/MM3 (134-434); RBC 2.89 M/mm3 (4.00-5.60); RDW 18.4 % (11.9-15.9); WHITE BLOOD COUNT 8.3 K/mm3 (4.0-10.0)
[2017-11-24 09:07] LABS: ALBUMIN 1.2 g/dl (3.4-5.0); ALK PHOS 130 U/L (45-117); ANION GAP 8 MMOL/L (8-16); BILIRUBIN,TOTAL 0.2 mg/dL (0.2-1); BLOOD UREA NITROGEN 63 mg/dL (7-18); CALCIUM 7.6 mg/dL (8.5-10.1); CHLORIDE 111 mmol/L (98-107); CO2 24 mmol/L (21-32); CREATININE 1.4 mg/dL (0.55-1.3); GLUCOSE,RANDOM 140 mg/dL (74-106); SGOT/AST 12 U/L (15-37); SGPT/ALT < 6 U/L (13-61); SODIUM 143 mmol/L (136-145); TOT PROT 5.1 g/dl (6.4-8.2)
[2017-11-24] MEDS ORDERED: PT OWN MED DRAWER 7, Y5N ONE (09:51)
[2017-11-24] MEDS: AZTREONAM 1 GM in DEXTROSE 5%-WATER - 50 ML IVPB SCH ×2 (10:48→21:17)
[2017-11-24] MEDS: SODIUM CHLORIDE 0.45% 1,000 ML IV SCH (10:51)
[2017-11-24] MEDS: COLLAGENASE CLOSTRIDIUM HIST. 30 GRAMS TUBE TP SCH (10:52)
--- NOTE | 2017-11-24 11:45 | PN ---
Progress Note (short form) - Note Progress Note: nad s/p bilateral PCN no complaints Vital Signs Period Temp Pulse Resp BP Sys/Kevin Pulse Ox Last 24 Hr 97.7 F-98.0 F 89-99 20-21 111-126/56-66 cor-rrr lungs clear abd soft,nt +colostomy +bilateral PCN ext trace edema dressing intact CBC, BMP 11/24/17 07:00 11/24/17 07:00 Microbiology 11/20/17 00:25 Blood - Picc Line Blood Culture - Preliminary NO GROWTH OBTAINED AFTER 96 HOURS, INCUBATION TO CONTINUE FOR 1 DAYS. 11/20/17 00:25 Blood - Picc Line Blood Culture - Preliminary NO GROWTH OBTAINED AFTER 96 HOURS, INCUBATION TO CONTINUE FOR 1 DAYS. 11/22/17 11:00 Nephrostomy Tube Drainage Gram Stain - Final 11/22/17 11:00 Nephrostomy Tube Drainage Body Fluid Culture - Preliminary NO AEROBIC GROWTH, 24 HRS 11/22/17 11:00 Nephrostomy Tube Drainage Gram Stain - Final 11/22/17 11:00 Nephrostomy Tube Drainage Body Fluid Culture - Preliminary NO AEROBIC GROWTH, 24 HRS 11/19/17 22:40 Urine - Urine Brown Urine Culture - Final NO GROWTH OBTAINED a/p obstructive uropathy -s/p bilateral PCN heel osteo- check vanco level continue azactam, flagyl podiatry f/u metastatic bladder cancer penicillin allergy
--- NOTE | 2017-11-24 12:04 | PN ---
Progress Note, Physician Chief Complaint: AWAKE ALERT FEELING BETTER EVENTS AND NOTES REVIEWED - Current Medication List Current Medications: Active Medications Acetaminophen (Tylenol -) 650 mg PO Q6H PRN PRN Reason: FEVER Albuterol Sulfate (Ventolin 0.083% Nebulizer Soln -) 1 amp NEB Q10M PRN PRN Reason: SHORT OF BREATH/WHEEZING Last Admin: 11/23/17 08:00 Dose: 1 amp Collagenase (Santyl -) 1 applic TP DAILY [facility]; Protocol Last Admin: 11/24/17 10:52 Dose: 1 applic Sodium Chloride (1/2 Normal Saline) 1,000 mls @ 75 mls/hr IV ASDIR [facility] Last Admin: 11/24/17 10:51 Dose: 75 mls/hr Aztreonam 1 gm/ Dextrose 50 mls @ 100 mls/hr IVPB BID [facility]; Protocol Insulin Aspart (Novolog Vial Sliding Scale -) 1 vial SQ ACHS [facility]; Protocol Last Admin: 11/24/17 06:34 Dose: 2 units Metronidazole (Flagyl -) 500 mg PO TID [facility] Last Admin: 11/24/17 06:18 Dose: 500 mg Morphine Sulfate (Morphine Sulfate) 4 mg IVPUSH Q4H PRN PRN Reason: PAIN LEVEL 7 - 10 Last Admin: 11/24/17 08:23 Dose: 4 mg Oxycodone HCl (Roxicodone -) 5 mg PO Q4H PRN PRN Reason: PAIN LEVEL 4 - 6 Last Admin: 11/23/17 15:09 Dose: 5 mg - Objective Vital Signs: Vital Signs Temperature 98.0 F 11/24/17 08:17 Pulse Rate 89 11/24/17 08:17 Respiratory Rate 21 H 11/24/17 08:17 Blood Pressure 111/56 L 11/24/17 08:17 O2 Sat by Pulse Oximetry (%) 100 11/22/17 11:33 Constitutional: Yes: Mild Distress Eyes: Yes: WNL HENT: Yes: WNL Neck: Yes: WNL Cardiovascular: Yes: WNL Respiratory: Yes: Diminished, On Nasal O2 Gastrointestinal: Yes: Palpable Mass, Other Genitourinary: Yes: Burris Present Musculoskeletal: Yes: Muscle Weakness Extremities: Yes: Deformity, Other Edema: No Integumentary: Yes: Pressure Ulcer Wound/Incision: Yes: Dressing Dry and Intact Neurological: Yes: Pre-Existing Deficit ...Motor Strength: LLE, RLE Psychiatric: Yes: Other Labs: CBC, BMP 11/24/17 07:00 11/24/17 07:00 INR, PTT INR 1.43 (0.83-1.09) H 11/22/17 07:00 Fibrinogen 616.0 mg/dL (238-498) H 11/22/17 07:00 Problem List - Problems (1) JOSSELYN (acute kidney injury) Code(s): N17.9 - ACUTE KIDNEY FAILURE, UNSPECIFIED (2) Anemia requiring transfusions Code(s): D64.9 - ANEMIA, UNSPECIFIED (3) Hyperkalemia Code(s): E87.5 - HYPERKALEMIA (4) Urinary retention Code(s): R33.9 - RETENTION OF URINE, UNSPECIFIED (5) Anemia Code(s): D64.9 - ANEMIA, UNSPECIFIED Qualifiers: Anemia type: iron deficiency Iron deficiency anemia type: unspecified iron deficiency Qualified Code(s): D50.9 - Iron deficiency anemia, unspecified (6) Bladder cancer metastasized to intrapelvic lymph nodes Code(s): C67.9 - MALIGNANT NEOPLASM OF BLADDER, UNSPECIFIED; C77.5 - SECONDARY AND UNSP MALIGNANT NEOPLASM OF INTRAPELV NODES (7) Diabetes Code(s): E11.9 - TYPE 2 DIABETES MELLITUS WITHOUT COMPLICATIONS Qualifiers: Diabetes mellitus type: type 1 Diabetes mellitus complication status: with skin complications (8) Diabetic foot ulcer Code(s): E11.621 - TYPE 2 DIABETES MELLITUS WITH FOOT ULCER; L97.509 - NON- PRESSURE CHRONIC ULCER OTH PRT UNSP FOOT W UNSP SEVERITY Qualifiers: Diabetic foot ulcer location: heel Diabetes mellitus type: type 1 Laterality: left Non-pressure ulcer stage: with necrosis of muscle Qualified Code(s): E10.621 - Type 1 diabetes mellitus with foot ulcer; L97.423 - Non-pressure chronic ulcer of left heel and midfoot with necrosis of muscle (9) H/O carcinoma of bladder Code(s): Z85.51 - PERSONAL HISTORY OF MALIGNANT NEOPLASM OF BLADDER (10) Ulcer of left heel Code(s): L97.429 - NON-PRS CHRONIC ULCER OF LEFT HEEL AND MIDFOOT W UNSP SEVERT Qualifiers: Non-pressure ulcer stage: unspecified non-pressure ulcer stage Qualified Code(s): L97.429 - Non-pressure chronic ulcer of left heel and midfoot with unspecified severity (11) Osteomyelitis Code(s): M86.9 - OSTEOMYELITIS, UNSPECIFIED Assessment/Plan IV ABX PER ID OSTEOMYELITIS/SKIN ULCERS WITH WOUND CARE F/U CULTURES CHECKING LABS [facility] PAIN MEDS ADVANCED DIRECTIVES PER PATIENT FULL CODE
--- NOTE | 2017-11-24 19:52 | PN ---
Progress Note (short form) - Note Progress Note: 1. JOSSELYN 2. hyperkalemia 3. bladder cancer with mets to lung and colon 4. urinary obstruction 5. hematuria 6. anemia Current Medications Acetaminophen (Tylenol -) 650 mg PO Q6H PRN PRN Reason: FEVER Albuterol Sulfate (Ventolin 0.083% Nebulizer Soln -) 1 amp NEB Q10M PRN PRN Reason: SHORT OF BREATH/WHEEZING Last Admin: 11/23/17 08:00 Dose: 1 amp Collagenase (Santyl -) 1 applic TP DAILY [facility]; Protocol Last Admin: 11/24/17 10:52 Dose: 1 applic Sodium Chloride (1/2 Normal Saline) 1,000 mls @ 75 mls/hr IV ASDIR [facility] Last Admin: 11/24/17 10:51 Dose: 75 mls/hr Aztreonam 1 gm/ Dextrose 50 mls @ 100 mls/hr IVPB BID [facility]; Protocol Insulin Aspart (Novolog Vial Sliding Scale -) 1 vial SQ ACHS [facility]; Protocol Last Admin: 11/24/17 17:30 Dose: 4 units Metronidazole (Flagyl -) 500 mg PO TID [facility] Last Admin: 11/24/17 14:39 Dose: 500 mg Morphine Sulfate (Morphine Sulfate) 4 mg IVPUSH Q4H PRN PRN Reason: PAIN LEVEL 7 - 10 Last Admin: 11/24/17 17:30 Dose: 4 mg Oxycodone HCl (Roxicodone -) 5 mg PO Q4H PRN PRN Reason: PAIN LEVEL 4 - 6 Last Admin: 11/23/17 15:09 Dose: 5 mg Last Vital Signs Temp Pulse Resp BP Pulse Ox 98.3 F 102 H 20 123/68 100 11/24/17 18:46 11/24/17 18:46 11/24/17 18:46 11/24/17 18:46 11/22/17 11:33 CBC, BMP 11/24/17 07:00 11/24/17 07:00 IMP JOSSELYN improving steadily Plan - renal function is improving - I changed fluids to 1/2 ns this morning - monitor labs - repeat bmp in am - will follow - JOSSELYN from obstruction
[2017-11-25] MEDS: MORPHINE SULFATE 2 MG/ML VIAL IVPUSH PRN ×5 (01:16→21:56)
[2017-11-25] MEDS: SODIUM CHLORIDE 0.45% 1,000 ML IV SCH ×3 (01:16→17:26)
[2017-11-25] MEDS: metroNIDAZOLE 250 MG TABLET PO SCH ×3 (05:31→21:56)
[2017-11-25] MEDS: INSULIN SLIDING SCALE (NOVOLOG) 1 VIAL SQ SCH ×4 (06:35→21:59)
[2017-11-25] MEDS ORDERED: VANCOMYCIN 1,250 MG in DEXTROSE 5%-WATER - 250 ML IVPB ONE (09:00)
[2017-11-25] MEDS: AZTREONAM 1 GM in DEXTROSE 5%-WATER - 50 ML IVPB SCH ×2 (10:24→21:55)
[2017-11-25] MEDS: COLLAGENASE CLOSTRIDIUM HIST. 30 GRAMS TUBE TP SCH (10:25)
--- NOTE | 2017-11-25 11:40 | PN ---
Progress Note (short form) - Note Progress Note: nad s/p bilateral PCN no complaints Vital Signs Period Temp Pulse Resp BP Sys/Kevin Pulse Ox Last 24 Hr 98.0 F-98.8 F 91-102 20-20 121-132/61-68 cor-rrr lungs clear abd soft,nt bilateral PCN +colostomy heel ulcer unchanged CBC, BMP 11/24/17 07:00 11/24/17 07:00 vanco level 11.4 a/p obstructive uropathy -s/p bilateral PCN heel osteo- vancomycin 1 gram today check level and bmp in am azactamflagyl day #24 antibiotics podiatry f/u metastatic bladder cancer penicillin allergy
[2017-11-25] MEDS: oxyCODONE HCL 5 MG TABLET PO PRN (12:21)
--- NOTE | 2017-11-25 13:46 | PN ---
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 POOR - Current Medication List Current Medications: Active Medications Acetaminophen (Tylenol -) 650 mg PO Q6H PRN PRN Reason: FEVER Albuterol Sulfate (Ventolin 0.083% Nebulizer Soln -) 1 amp NEB Q10M PRN PRN Reason: SHORT OF BREATH/WHEEZING Last Admin: 11/23/17 08:00 Dose: 1 amp Collagenase (Santyl -) 1 applic TP DAILY [facility]; Protocol Last Admin: 11/25/17 10:25 Dose: 1 applic Sodium Chloride (1/2 Normal Saline) 1,000 mls @ 75 mls/hr IV ASDIR [facility] Last Admin: 11/25/17 10:46 Dose: Not Given Aztreonam 1 gm/ Dextrose 50 mls @ 100 mls/hr IVPB BID [facility]; Protocol Last Admin: 11/25/17 10:24 Dose: 100 mls/hr Insulin Aspart (Novolog Vial Sliding Scale -) 1 vial SQ ACHS [facility]; Protocol Last Admin: 11/25/17 12:21 Dose: 6 units Metronidazole (Flagyl -) 500 mg PO TID [facility] Last Admin: 11/25/17 05:31 Dose: 500 mg Morphine Sulfate (Morphine Sulfate) 4 mg IVPUSH Q4H PRN PRN Reason: PAIN LEVEL 7 - 10 Last Admin: 11/25/17 10:29 Dose: 4 mg Oxycodone HCl (Roxicodone -) 5 mg PO Q4H PRN PRN Reason: PAIN LEVEL 4 - 6 Last Admin: 11/25/17 12:21 Dose: 5 mg - Objective Vital Signs: Vital Signs Temperature 98.6 F 11/25/17 10:00 Pulse Rate 93 H 11/25/17 10:00 Respiratory Rate 19 11/25/17 10:00 Blood Pressure 115/59 L 11/25/17 10:00 O2 Sat by Pulse Oximetry (%) 100 11/22/17 11:33 Constitutional: Yes: Mild Distress Eyes: Yes: WNL HENT: Yes: WNL Neck: Yes: WNL Cardiovascular: Yes: WNL Respiratory: Yes: WNL Gastrointestinal: Yes: WNL Genitourinary: Yes: Burris Present Musculoskeletal: Yes: Muscle Weakness Extremities: Yes: Other Edema: No Peripheral Pulses WNL: Yes Integumentary: Yes: Rash, Skin Tear, Venous Stasis Changes Wound/Incision: Yes: Open to air Neurological: Yes: Pre-Existing Deficit ...Motor Strength: LLE, RLE Psychiatric: Yes: Other Labs: CBC, BMP 11/24/17 07:00 11/24/17 07:00 INR, PTT INR 1.43 (0.83-1.09) H 11/22/17 07:00 Fibrinogen 616.0 mg/dL (238-498) H 11/22/17 07:00 Problem List - Problems (1) JOSSELYN (acute kidney injury) Code(s): N17.9 - ACUTE KIDNEY FAILURE, UNSPECIFIED (2) Anemia requiring transfusions Code(s): D64.9 - ANEMIA, UNSPECIFIED (3) Hyperkalemia Code(s): E87.5 - HYPERKALEMIA (4) Urinary retention Code(s): R33.9 - RETENTION OF URINE, UNSPECIFIED (5) Anemia Code(s): D64.9 - ANEMIA, UNSPECIFIED Qualifiers: Anemia type: iron deficiency Iron deficiency anemia type: unspecified iron deficiency Qualified Code(s): D50.9 - Iron deficiency anemia, unspecified (6) Bladder cancer metastasized to intrapelvic lymph nodes Code(s): C67.9 - MALIGNANT NEOPLASM OF BLADDER, UNSPECIFIED; C77.5 - SECONDARY AND UNSP MALIGNANT NEOPLASM OF INTRAPELV NODES (7) Diabetes Code(s): E11.9 - TYPE 2 DIABETES MELLITUS WITHOUT COMPLICATIONS Qualifiers: Diabetes mellitus type: type 1 Diabetes mellitus complication status: with skin complications (8) Diabetic foot ulcer Code(s): E11.621 - TYPE 2 DIABETES MELLITUS WITH FOOT ULCER; L97.509 - NON- PRESSURE CHRONIC ULCER OTH PRT UNSP FOOT W UNSP SEVERITY Qualifiers: Diabetic foot ulcer location: heel Diabetes mellitus type: type 1 Laterality: left Non-pressure ulcer stage: with necrosis of muscle Qualified Code(s): E10.621 - Type 1 diabetes mellitus with foot ulcer; L97.423 - Non-pressure chronic ulcer of left heel and midfoot with necrosis of muscle (9) H/O carcinoma of bladder Code(s): Z85.51 - PERSONAL HISTORY OF MALIGNANT NEOPLASM OF BLADDER (10) Ulcer of left heel Code(s): L97.429 - NON-PRS CHRONIC ULCER OF LEFT HEEL AND MIDFOOT W UNSP SEVERT Qualifiers: Non-pressure ulcer stage: unspecified non-pressure ulcer stage Qualified Code(s): L97.429 - Non-pressure chronic ulcer of left heel and midfoot with unspecified severity (11) Osteomyelitis Code(s): M86.9 - OSTEOMYELITIS, UNSPECIFIED Assessment/Plan IV ABX PER ID OSTEOMYELITIS/SKIN ULCERS WITH WOUND CARE F/U CULTURES CHECKING LABS [facility] STILL WITH HEMATUREA PAIN MEDS ADVANCED DIRECTIVES PER PATIENT FULL CODE NUTRITIONAL SUPPLEMENTS
[2017-11-25] MEDS: AMINO ACIDS/PROTEIN HYDROLYS 30 ML LIQUID.PKT PO SCH (17:25)
--- NOTE | 2017-11-25 18:30 | PN ---
Progress Note (short form) - Note Progress Note: 1. JOSSELYN 2. hyperkalemia 3. bladder cancer with mets to lung and colon 4. urinary obstruction 5. hematuria 6. anemia Current Medications Acetaminophen (Tylenol -) 650 mg PO Q6H PRN PRN Reason: FEVER Albuterol Sulfate (Ventolin 0.083% Nebulizer Soln -) 1 amp NEB Q10M PRN PRN Reason: SHORT OF BREATH/WHEEZING Last Admin: 11/23/17 08:00 Dose: 1 amp Amino Acids (Prosource No Carb Liquid Pkt) 30 ml PO BID@0800,1730 [facility] Last Admin: 11/25/17 17:25 Dose: 30 ml Collagenase (Santyl -) 1 applic TP DAILY [facility]; Protocol Last Admin: 11/25/17 10:25 Dose: 1 applic Sodium Chloride (1/2 Normal Saline) 1,000 mls @ 75 mls/hr IV ASDIR [facility] Last Admin: 11/25/17 17:26 Dose: 75 mls/hr Aztreonam 1 gm/ Dextrose 50 mls @ 100 mls/hr IVPB BID [facility]; Protocol Last Admin: 11/25/17 10:24 Dose: 100 mls/hr Insulin Aspart (Novolog Vial Sliding Scale -) 1 vial SQ ACHS [facility]; Protocol Last Admin: 11/25/17 17:27 Dose: 4 units Metronidazole (Flagyl -) 500 mg PO TID [facility] Last Admin: 11/25/17 14:20 Dose: 500 mg Morphine Sulfate (Morphine Sulfate) 4 mg IVPUSH Q4H PRN PRN Reason: PAIN LEVEL 7 - 10 Last Admin: 11/25/17 17:28 Dose: 4 mg Oxycodone HCl (Roxicodone -) 5 mg PO Q4H PRN PRN Reason: PAIN LEVEL 4 - 6 Last Admin: 11/25/17 12:21 Dose: 5 mg Last Vital Signs Temp Pulse Resp BP Pulse Ox 97.5 F L 86 20 135/68 100 11/25/17 15:00 11/25/17 15:00 11/25/17 15:00 11/25/17 15:00 11/22/17 11:33 CBC, BMP 11/24/17 07:00 11/24/17 07:00 IMP JOSSELYN improving steadily Plan - renal function is improving - I changed fluids to 1/2 ns this morning - monitor labs - repeat bmp in am - will follow - JOSSELYN from obstruction
[2017-11-25] MEDS ORDERED: PT OWN MED DRAWER 7, Y5N ONE (21:51)
[2017-11-26] MEDS: MORPHINE SULFATE 2 MG/ML VIAL IVPUSH PRN ×5 (04:01→21:34)
[2017-11-26] MEDS: metroNIDAZOLE 250 MG TABLET PO SCH ×3 (06:14→21:34)
[2017-11-26] MEDS: SODIUM CHLORIDE 0.45% 1,000 ML IV SCH ×3 (06:14→21:35)
[2017-11-26] MEDS: INSULIN SLIDING SCALE (NOVOLOG) 1 VIAL SQ SCH ×4 (06:28→23:32)
[2017-11-26] MEDS: oxyCODONE HCL 5 MG TABLET PO PRN (07:07)
[2017-11-26 07:17] LABS: HEMATOCRIT 23.4 % (35.4-49); HEMOGLOBIN 7.5 GM/dL (11.7-16.9); MCH 27.3 pg (25.7-33.7); MEAN CELL VOLUME 85.3 fl (80-96); MEAN PLT VOLUME 6.5 fl (7.5-11.1); PLATELET COUNT 658 K/MM3 (134-434); RBC 2.75 M/mm3 (4.00-5.60); RDW 18.6 % (11.9-15.9); WHITE BLOOD COUNT 9.1 K/mm3 (4.0-10.0)
[2017-11-26 07:59] LABS: ANION GAP 7 MMOL/L (8-16); BLOOD UREA NITROGEN 33 mg/dL (7-18); CALCIUM 7.4 mg/dL (8.5-10.1); CHLORIDE 109 mmol/L (98-107); CO2 25 mmol/L (21-32); CREATININE 0.7 mg/dL (0.55-1.3); GLUCOSE,RANDOM 150 mg/dL (74-106); POTASSIUM 4.1 mmol/L (3.5-5.1); SODIUM 141 mmol/L (136-145)
[2017-11-26] MEDS ORDERED: PT OWN MED DRAWER 7, Y5N ONE ×2 (08:25→20:58)
[2017-11-26] MEDS: AMINO ACIDS/PROTEIN HYDROLYS 30 ML LIQUID.PKT PO SCH ×2 (08:41→17:31)
[2017-11-26] MEDS: AZTREONAM 1 GM in DEXTROSE 5%-WATER - 50 ML IVPB SCH ×2 (10:16→21:35)
--- NOTE | 2017-11-26 12:21 | PN ---
Progress Note, Physician Chief Complaint: patient seen and examined junior CBI with slight hematuria s/p bilateral PCN day 25 of abx - Current Medication List Current Medications: Active Medications Acetaminophen (Tylenol -) 650 mg PO Q6H PRN PRN Reason: FEVER Albuterol Sulfate (Ventolin 0.083% Nebulizer Soln -) 1 amp NEB Q10M PRN PRN Reason: SHORT OF BREATH/WHEEZING Last Admin: 11/23/17 08:00 Dose: 1 amp Amino Acids (Prosource No Carb Liquid Pkt) 30 ml PO BID@0800,1730 [facility] Last Admin: 11/26/17 08:41 Dose: 30 ml Collagenase (Santyl -) 1 applic TP DAILY [facility]; Protocol Last Admin: 11/25/17 10:25 Dose: 1 applic Sodium Chloride (1/2 Normal Saline) 1,000 mls @ 75 mls/hr IV ASDIR [facility] Last Admin: 11/26/17 08:49 Dose: Not Given Aztreonam 1 gm/ Dextrose 50 mls @ 100 mls/hr IVPB BID [facility]; Protocol Last Admin: 11/26/17 10:16 Dose: 100 mls/hr Insulin Aspart (Novolog Vial Sliding Scale -) 1 vial SQ ACHS [facility]; Protocol Last Admin: 11/26/17 11:27 Dose: Not Given Metronidazole (Flagyl -) 500 mg PO TID [facility] Last Admin: 11/26/17 06:14 Dose: 500 mg Morphine Sulfate (Morphine Sulfate) 4 mg IVPUSH Q4H PRN PRN Reason: PAIN LEVEL 7 - 10 Last Admin: 11/26/17 08:40 Dose: 4 mg Oxycodone HCl (Roxicodone -) 5 mg PO Q4H PRN PRN Reason: PAIN LEVEL 4 - 6 Last Admin: 11/26/17 07:07 Dose: 5 mg - Objective Vital Signs: Vital Signs Temperature 98.1 F 11/26/17 06:30 Pulse Rate 86 11/26/17 06:30 Respiratory Rate 20 11/26/17 06:30 Blood Pressure 117/65 11/26/17 06:30 O2 Sat by Pulse Oximetry (%) 100 11/22/17 11:33 Constitutional: Yes: Calm, Thin Cardiovascular: Yes: Regular Rate and Rhythm, S1, S2 Respiratory: Yes: Diminished Gastrointestinal: Yes: Normal Bowel Sounds, Soft Genitourinary: Yes: Junior Present, Other (PCN draining yellow urine) Edema: No Wound/Incision: Yes: Other (heel ulcer wrapped) Neurological: Yes: Alert Labs: CBC, BMP 11/26/17 06:00 11/26/17 06:00 INR, PTT INR 1.43 (0.83-1.09) H 11/22/17 07:00 Fibrinogen 616.0 mg/dL (238-498) H 11/22/17 07:00 Problem List - Problems (1) Anemia requiring transfusions Assessment/Plan: h/h 8.03/01 to 7.6- if further drops < 7 will transfuse hematuria [id number] h/h Code(s): D64.9 - ANEMIA, UNSPECIFIED (2) Thrombocytosis Assessment/Plan: metastatic cancer monitor platelet count Code(s): D47.3 - ESSENTIAL (HEMORRHAGIC) THROMBOCYTHEMIA (3) Bladder cancer metastasized to intrapelvic lymph nodes Assessment/Plan: s/p bilateral nephrostomy tube placement junior in place-[facility] urology follow up Code(s): C67.9 - MALIGNANT NEOPLASM OF BLADDER, UNSPECIFIED; C77.5 - SECONDARY AND UNSP MALIGNANT NEOPLASM OF INTRAPELV NODES (4) Leukocytosis Assessment/Plan: aztreonam and flagyl wbc trending down- now normal Code(s): D72.829 - ELEVATED WHITE BLOOD CELL COUNT, UNSPECIFIED (5) JOSSELYN (acute kidney injury) Assessment/Plan: JOSSELYN secondary to obstruction now bun /cr much improved repeat labs in AM cr from 4-2.1-s/p nephrostomy tube placement s/p nephrosotomy tube placement potassium in better Code(s): N17.9 - ACUTE KIDNEY FAILURE, UNSPECIFIED (6) Ulcer of left heel Assessment/Plan: appreciate podiatry note collagenase iv abx- day 25 for heel osteomyelitis Code(s): L97.429 - NON-PRS CHRONIC ULCER OF LEFT HEEL AND MIDFOOT W UNSP SEVERT Qualifiers: Non-pressure ulcer stage: unspecified non-pressure ulcer stage Qualified Code(s): L97.429 - Non-pressure chronic ulcer of left heel and midfoot with unspecified severity
[2017-11-26] MEDS: COLLAGENASE CLOSTRIDIUM HIST. 30 GRAMS TUBE TP SCH (15:11)
--- NOTE | 2017-11-26 16:07 | PN ---
Progress Note, Physician History of Present Illness: S/P bilateral PCN awake and alert No c/o of pain No fever/ chills Afebrile Vancomycin trough noted - Current Medication List Current Medications: Active Medications Acetaminophen (Tylenol -) 650 mg PO Q6H PRN PRN Reason: FEVER Albuterol Sulfate (Ventolin 0.083% Nebulizer Soln -) 1 amp NEB Q10M PRN PRN Reason: SHORT OF BREATH/WHEEZING Last Admin: 11/23/17 08:00 Dose: 1 amp Amino Acids (Prosource No Carb Liquid Pkt) 30 ml PO BID@0800,1730 [facility] Last Admin: 11/26/17 08:41 Dose: 30 ml Collagenase (Santyl -) 1 applic TP DAILY [facility]; Protocol Last Admin: 11/26/17 15:11 Dose: 1 applic Sodium Chloride (1/2 Normal Saline) 1,000 mls @ 75 mls/hr IV ASDIR [facility] Last Admin: 11/26/17 08:49 Dose: Not Given Aztreonam 1 gm/ Dextrose 50 mls @ 100 mls/hr IVPB BID [facility]; Protocol Last Admin: 11/26/17 10:16 Dose: 100 mls/hr Insulin Aspart (Novolog Vial Sliding Scale -) 1 vial SQ ACHS [facility]; Protocol Last Admin: 11/26/17 11:27 Dose: Not Given Metronidazole (Flagyl -) 500 mg PO TID [facility] Last Admin: 11/26/17 14:39 Dose: 500 mg Morphine Sulfate (Morphine Sulfate) 4 mg IVPUSH Q4H PRN PRN Reason: PAIN LEVEL 7 - 10 Last Admin: 11/26/17 12:20 Dose: 4 mg Oxycodone HCl (Roxicodone -) 5 mg PO Q4H PRN PRN Reason: PAIN LEVEL 4 - 6 Last Admin: 11/26/17 07:07 Dose: 5 mg - Objective Vital Signs: Vital Signs Temperature 98.3 F 11/26/17 14:54 Pulse Rate 86 11/26/17 14:54 Respiratory Rate 18 11/26/17 14:54 Blood Pressure 117/58 L 11/26/17 14:54 O2 Sat by Pulse Oximetry (%) 100 11/22/17 11:33 Constitutional: Yes: No Distress Eyes: Yes: Conjunctiva Clear Cardiovascular: Yes: Regular Rate and Rhythm, S1, S2 Respiratory: Yes: CTA Bilaterally Gastrointestinal: Yes: Normal Bowel Sounds, Soft, Other (+ ostomy + bilateral PCN Clear urine in collection bags). No: Tenderness Extremities: Yes: Other (L heel decubitus ulcer with drainage) Labs: CBC, BMP 11/26/17 06:00 11/26/17 06:00 INR, PTT INR 1.43 (0.83-1.09) H 11/22/17 07:00 Fibrinogen 616.0 mg/dL (238-498) H 11/22/17 07:00 Assessment/Plan Acute renal failure resolved s/p PCN Gross hematuria Leukocytosis-improved Osteomyelitis, heel PCN allergy Continue aztreonam/ flagyl Repeat vancomycin level am Local wound care
--- NOTE | 2017-11-26 16:13 | PN ---
Progress Note, Physician History of Present Illness: Pt seen and examined at bedside. He is awake and alert. He denies shortness of breath. - Current Medication List Current Medications: Active Medications Acetaminophen (Tylenol -) 650 mg PO Q6H PRN PRN Reason: FEVER Albuterol Sulfate (Ventolin 0.083% Nebulizer Soln -) 1 amp NEB Q10M PRN PRN Reason: SHORT OF BREATH/WHEEZING Last Admin: 11/23/17 08:00 Dose: 1 amp Amino Acids (Prosource No Carb Liquid Pkt) 30 ml PO BID@0800,1730 [facility] Last Admin: 11/26/17 08:41 Dose: 30 ml Collagenase (Santyl -) 1 applic TP DAILY [facility]; Protocol Last Admin: 11/26/17 15:11 Dose: 1 applic Sodium Chloride (1/2 Normal Saline) 1,000 mls @ 75 mls/hr IV ASDIR [facility] Last Admin: 11/26/17 08:49 Dose: Not Given Aztreonam 1 gm/ Dextrose 50 mls @ 100 mls/hr IVPB BID [facility]; Protocol Last Admin: 11/26/17 10:16 Dose: 100 mls/hr Insulin Aspart (Novolog Vial Sliding Scale -) 1 vial SQ ACHS [facility]; Protocol Last Admin: 11/26/17 11:27 Dose: Not Given Metronidazole (Flagyl -) 500 mg PO TID [facility] Last Admin: 11/26/17 14:39 Dose: 500 mg Morphine Sulfate (Morphine Sulfate) 4 mg IVPUSH Q4H PRN PRN Reason: PAIN LEVEL 7 - 10 Last Admin: 11/26/17 12:20 Dose: 4 mg Oxycodone HCl (Roxicodone -) 5 mg PO Q4H PRN PRN Reason: PAIN LEVEL 4 - 6 Last Admin: 11/26/17 07:07 Dose: 5 mg - Objective Vital Signs: Vital Signs Temperature 98.3 F 11/26/17 14:54 Pulse Rate 86 11/26/17 14:54 Respiratory Rate 18 11/26/17 14:54 Blood Pressure 117/58 L 11/26/17 14:54 O2 Sat by Pulse Oximetry (%) 100 11/22/17 11:33 Constitutional: Yes: Calm Eyes: Yes: Conjunctiva Clear HENT: Yes: Atraumatic Cardiovascular: Yes: S1, S2 Respiratory: Yes: CTA Bilaterally Gastrointestinal: Yes: Soft Genitourinary: Yes: Brown Present, Other (bilateral nephrostomy tubes) Musculoskeletal: Yes: WNL Edema: No Neurological: Yes: Oriented Psychiatric: Yes: Oriented Labs: CBC, BMP 11/26/17 06:00 11/26/17 06:00 INR, PTT INR 1.43 (0.83-1.09) H 11/22/17 07:00 Fibrinogen 616.0 mg/dL (238-498) H 11/22/17 07:00 Problem List - Problems (1) JOSSELYN (acute kidney injury) Code(s): N17.9 - ACUTE KIDNEY FAILURE, UNSPECIFIED (2) Hyperkalemia Code(s): E87.5 - HYPERKALEMIA (3) Anemia requiring transfusions Code(s): D64.9 - ANEMIA, UNSPECIFIED (4) Urinary retention Code(s): R33.9 - RETENTION OF URINE, UNSPECIFIED (5) Anemia Code(s): D64.9 - ANEMIA, UNSPECIFIED Qualifiers: Anemia type: iron deficiency Iron deficiency anemia type: unspecified iron deficiency Qualified Code(s): D50.9 - Iron deficiency anemia, unspecified Assessment/Plan Current Medications Generic Name Dose Route Start Last Admin Trade Name Freq PRN Reason Stop Dose Admin Acetaminophen 650 mg 11/20/17 10:25 Tylenol - PO Q6H PRN FEVER Albuterol Sulfate 1 amp 11/20/17 14:49 11/23/17 08:00 Ventolin 0.083% Nebulizer Soln - NEB 1 amp Q10M PRN Administration SHORT OF BREATH/WHEEZING Amino Acids 30 ml 11/25/17 17:30 11/26/17 08:41 Prosource No Carb Liquid Pkt PO 30 ml BID@0800,1730 [facility] Administration Collagenase 1 applic 11/21/17 15:45 11/26/17 15:11 Santyl - TP 1 applic DAILY [facility] Administration Protocol Sodium Chloride 1,000 mls @ 75 mls/hr 11/23/17 08:45 11/26/17 08:49 1/2 Normal Saline IV Not Given ASDIR [facility] Aztreonam 1 gm/ Dextrose 50 mls @ 100 mls/hr 11/24/17 22:00 11/26/17 10:16 IVPB 100 mls/hr BID [facility] Administration Protocol Insulin Aspart 1 vial 10/16/18 11:00 11/26/17 11:27 Novolog Vial Sliding Scale - SQ Not Given ACHS [facility] Protocol Metronidazole 500 mg 11/21/17 14:00 11/26/17 14:39 Flagyl - PO 500 mg TID [facility] Administration Morphine Sulfate 4 mg 11/21/17 17:51 11/26/17 12:20 Morphine Sulfate IVPUSH 4 mg Q4H PRN Administration PAIN LEVEL 7 - 10 Oxycodone HCl 5 mg 11/21/17 17:50 11/26/17 07:07 Roxicodone - PO 5 mg Q4H PRN Administration PAIN LEVEL 4 - 6 Impression 1. JOSSELYN 2. hyperkalemia 3. bladder cancer with mets to lung and colon 4. urinary obstruction 5. hematuria 6. anemia Plan - can decrease rate of fluids - repeat labs in am - renal function is improving - will follow - JOSSELYN from obstruction Dr Canales
[2017-11-27] MEDS: MORPHINE SULFATE 2 MG/ML VIAL IVPUSH PRN (03:56)
[2017-11-27] MEDS: INSULIN SLIDING SCALE (NOVOLOG) 1 VIAL SQ SCH ×4 (06:43→21:30)
[2017-11-27] MEDS: metroNIDAZOLE 250 MG TABLET PO SCH ×3 (06:44→21:39)
[2017-11-27] MEDS: SODIUM BICARBONATE 8.4% - 75 MEQ in SODIUM CHLORIDE 0.45% 1,000 ML IV SCH (07:36)
[2017-11-27 08:29] LABS: BASO % 0.8 % (0-2.0); HEMATOCRIT 25.2 % (35.4-49); HEMOGLOBIN 7.9 GM/dL (11.7-16.9); LYMPH % 18.8 % (8-40); MCH 27.1 pg (25.7-33.7); MCHC 31.3 g/dl (32.0-35.9); MEAN CELL VOLUME 86.4 fl (80-96); MEAN PLT VOLUME 6.5 fl (7.5-11.1); MONO % 5.5 % (3.8-10.2); NEUT % 69.9 % (42.8-82.8); PLATELET COUNT 627 K/MM3 (134-434); RBC 2.91 M/mm3 (4.00-5.60); RDW 18.8 % (11.9-15.9)
[2017-11-27] MEDS: morphine SULFATE 4 MG/ML VIAL IVPUSH PRN ×2 (08:45→13:27)
[2017-11-27 09:00] LABS: ALBUMIN 1.3 g/dl (3.4-5.0); ALK PHOS 112 U/L (45-117); ANION GAP 7 MMOL/L (8-16); BILIRUBIN,TOTAL 0.2 mg/dL (0.2-1); BLOOD UREA NITROGEN 29 mg/dL (7-18); CALCIUM 7.8 mg/dL (8.5-10.1); CHLORIDE 108 mmol/L (98-107); CO2 26 mmol/L (21-32); CREATININE 0.6 mg/dL (0.55-1.3); GLUCOSE,RANDOM 126 mg/dL (74-106); POTASSIUM 4.4 mmol/L (3.5-5.1); SGOT/AST 14 U/L (15-37); SGPT/ALT < 6 U/L (13-61); SODIUM 141 mmol/L (136-145); TOT PROT 5.2 g/dl (6.4-8.2)
[2017-11-27] MEDS ORDERED: PT OWN MED DRAWER 7, Y5N ONE ×2 (09:11→17:42)
[2017-11-27] MEDS: AMINO ACIDS/PROTEIN HYDROLYS 30 ML LIQUID.PKT PO SCH ×2 (09:31→17:39)
[2017-11-27] MEDS: AZTREONAM 1 GM in DEXTROSE 5%-WATER - 50 ML IVPB SCH ×2 (09:31→22:23)
[2017-11-27] MEDS: oxyCODONE HCL 5 MG TABLET PO PRN ×2 (09:35→21:39)
[2017-11-27] MEDS: ACETAMINOPHEN 325 MG TABLET (FP) PO PRN (09:36)
--- NOTE | 2017-11-27 14:44 | PN ---
Progress Note, Physician History of Present Illness: Pt seen and examined at bedside. He is awake and appears comfortable. He denies shortness of breath. - Current Medication List Current Medications: Active Medications Acetaminophen (Tylenol -) 650 mg PO Q6H PRN PRN Reason: FEVER Last Admin: 11/27/17 09:36 Dose: 650 mg Albuterol Sulfate (Ventolin 0.083% Nebulizer Soln -) 1 amp NEB Q10M PRN PRN Reason: SHORT OF BREATH/WHEEZING Last Admin: 11/23/17 08:00 Dose: 1 amp Amino Acids (Prosource No Carb Liquid Pkt) 30 ml PO BID@0800,1730 [facility] Last Admin: 11/27/17 09:31 Dose: 30 ml Collagenase (Santyl -) 1 applic TP DAILY [facility]; Protocol Last Admin: 11/26/17 15:11 Dose: 1 applic Aztreonam 1 gm/ Dextrose 50 mls @ 100 mls/hr IVPB BID [facility]; Protocol Last Admin: 11/27/17 09:31 Dose: 100 mls/hr Sodium Chloride (1/2 Normal Saline) 1,000 mls @ 42 mls/hr IV ASDIR [facility] Last Admin: 11/26/17 21:35 Dose: 42 mls/hr Insulin Aspart (Novolog Vial Sliding Scale -) 1 vial SQ ACHS [facility]; Protocol Last Admin: 11/27/17 12:40 Dose: 2 units Metronidazole (Flagyl -) 500 mg PO TID [facility] Last Admin: 11/27/17 13:28 Dose: 500 mg Morphine Sulfate (Morphine Sulfate) 4 mg IVPUSH Q4H PRN PRN Reason: PAIN LEVEL 7 - 10 Last Admin: 11/27/17 13:27 Dose: 4 mg Oxycodone HCl (Roxicodone -) 5 mg PO Q4H PRN PRN Reason: PAIN LEVEL 4 - 6 Last Admin: 11/27/17 09:35 Dose: 5 mg - Objective Vital Signs: Vital Signs Temperature 97.8 F 11/27/17 09:00 Pulse Rate 88 11/27/17 09:00 Respiratory Rate 18 11/27/17 09:00 Blood Pressure 118/62 11/27/17 09:00 O2 Sat by Pulse Oximetry (%) 99 11/27/17 09:00 Constitutional: Yes: Calm Eyes: Yes: Conjunctiva Clear HENT: Yes: Atraumatic Cardiovascular: Yes: S1, S2 Respiratory: Yes: CTA Bilaterally Gastrointestinal: Yes: Soft Genitourinary: Yes: Brown Present, Other (bilateral nephrostomy tubes) Edema: No Neurological: Yes: Oriented Psychiatric: Yes: Oriented Labs: CBC, BMP 11/27/17 07:20 11/27/17 07:20 INR, PTT INR 1.43 (0.83-1.09) H 11/22/17 07:00 Fibrinogen 616.0 mg/dL (238-498) H 11/22/17 07:00 Problem List - Problems (1) JOSSELYN (acute kidney injury) Code(s): N17.9 - ACUTE KIDNEY FAILURE, UNSPECIFIED (2) Hyperkalemia Code(s): E87.5 - HYPERKALEMIA (3) Anemia requiring transfusions Code(s): D64.9 - ANEMIA, UNSPECIFIED (4) Urinary retention Code(s): R33.9 - RETENTION OF URINE, UNSPECIFIED (5) Anemia Code(s): D64.9 - ANEMIA, UNSPECIFIED Qualifiers: Anemia type: iron deficiency Iron deficiency anemia type: unspecified iron deficiency Qualified Code(s): D50.9 - Iron deficiency anemia, unspecified Assessment/Plan Current Medications Generic Name Dose Route Start Last Admin Trade Name Freq PRN Reason Stop Dose Admin Acetaminophen 650 mg 11/20/17 10:25 11/27/17 09:36 Tylenol - PO 650 mg Q6H PRN Administration FEVER Albuterol Sulfate 1 amp 11/20/17 14:49 11/23/17 08:00 Ventolin 0.083% Nebulizer Soln - NEB 1 amp Q10M PRN Administration SHORT OF BREATH/WHEEZING Amino Acids 30 ml 11/25/17 17:30 11/27/17 09:31 Prosource No Carb Liquid Pkt PO 30 ml BID@0800,1730 [facility] Administration Collagenase 1 applic 11/21/17 15:45 11/26/17 15:11 Santyl - TP 1 applic DAILY [facility] Administration Protocol Aztreonam 1 gm/ Dextrose 50 mls @ 100 mls/hr 11/24/17 22:00 11/27/17 09:31 IVPB 100 mls/hr BID [facility] Administration Protocol Sodium Chloride 1,000 mls @ 42 mls/hr 11/26/17 16:13 10/22/18 21:35 1/2 Normal Saline IV 42 mls/hr ASDIR [facility] Administration Insulin Aspart 1 vial 11/20/17 11:00 11/27/17 12:40 Novolog Vial Sliding Scale - SQ 2 units ACHS [facility] Administration Protocol Metronidazole 500 mg 11/21/17 14:00 11/27/17 13:28 Flagyl - PO 500 mg TID [facility] Administration Morphine Sulfate 4 mg 11/27/17 04:02 11/27/17 13:27 Morphine Sulfate IVPUSH 4 mg Q4H PRN Administration PAIN LEVEL 7 - 10 Oxycodone HCl 5 mg 11/21/17 17:50 11/27/17 09:35 Roxicodone - PO 5 mg Q4H PRN Administration PAIN LEVEL 4 - 6 Impression 1. JOSSELYN 2. hyperkalemia 3. bladder cancer with mets to lung and colon 4. urinary obstruction 5. hematuria 6. anemia Plan - will keep on fluids for now - repeat labs in am - urine clearing up - urology follow up - JOSSELYN from obstruction Dr Canales
--- NOTE | 2017-11-27 15:09 | PN ---
Progress Note (short form) - Note Progress Note: CBI is clear. will clamp and remove junior tomorrow both nephrostomy tubes are draining clear urine discussed hospice with family members. Problem List - Problems (1) Urinary retention Code(s): R33.9 - RETENTION OF URINE, UNSPECIFIED (2) Bladder cancer metastasized to intrapelvic lymph nodes Code(s): C67.9 - MALIGNANT NEOPLASM OF BLADDER, UNSPECIFIED; C77.5 - SECONDARY AND UNSP MALIGNANT NEOPLASM OF INTRAPELV NODES
--- NOTE | 2017-11-27 15:43 | PN ---
Progress Note, Physician Chief Complaint: Urinary retention Anemia thrombocytosis History of Present Illness: NAD Brown intact-CBI running clear severe generalized pain S/P BL percutaneous nephrostomy Seen by Urology and oncology for metastatic bladder Ca - Current Medication List Current Medications: Active Medications Acetaminophen (Tylenol -) 650 mg PO Q6H PRN PRN Reason: FEVER Last Admin: 11/27/17 09:36 Dose: 650 mg Albuterol Sulfate (Ventolin 0.083% Nebulizer Soln -) 1 amp NEB Q10M PRN PRN Reason: SHORT OF BREATH/WHEEZING Last Admin: 11/23/17 08:00 Dose: 1 amp Amino Acids (Prosource No Carb Liquid Pkt) 30 ml PO BID@0800,1730 [facility] Last Admin: 11/27/17 09:31 Dose: 30 ml Collagenase (Santyl -) 1 applic TP DAILY [facility]; Protocol Last Admin: 11/26/17 15:11 Dose: 1 applic Aztreonam 1 gm/ Dextrose 50 mls @ 100 mls/hr IVPB BID [facility]; Protocol Last Admin: 11/27/17 09:31 Dose: 100 mls/hr Sodium Chloride (1/2 Normal Saline) 1,000 mls @ 42 mls/hr IV ASDIR [facility] Last Admin: 11/26/17 21:35 Dose: 42 mls/hr Insulin Aspart (Novolog Vial Sliding Scale -) 1 vial SQ ACHS [facility]; Protocol Last Admin: 11/27/17 12:40 Dose: 2 units Metronidazole (Flagyl -) 500 mg PO TID [facility] Last Admin: 11/27/17 13:28 Dose: 500 mg Morphine Sulfate (Morphine Sulfate) 4 mg IVPUSH Q4H PRN PRN Reason: PAIN LEVEL 7 - 10 Last Admin: 11/27/17 13:27 Dose: 4 mg Oxycodone HCl (Roxicodone -) 5 mg PO Q4H PRN PRN Reason: PAIN LEVEL 4 - 6 Last Admin: 11/27/17 09:35 Dose: 5 mg - Objective Vital Signs: Vital Signs Temperature 98.7 F 11/27/17 15:00 Pulse Rate 83 11/27/17 15:00 Respiratory Rate 17 11/27/17 15:00 Blood Pressure 120/63 11/27/17 15:00 O2 Sat by Pulse Oximetry (%) 99 11/27/17 09:00 Constitutional: Yes: Well Nourished, No Distress, Calm Cardiovascular: Yes: Regular Rate and Rhythm Respiratory: Yes: Regular Gastrointestinal: Yes: Normal Bowel Sounds, Soft Genitourinary: Yes: Brown Present Musculoskeletal: Yes: Muscle Weakness Edema: No Peripheral Pulses WNL: Yes Neurological: Yes: Alert, Oriented Psychiatric: Yes: Alert, Oriented Labs: CBC, BMP 11/27/17 07:20 11/27/17 07:20 INR, PTT INR 1.43 (0.83-1.09) H 11/22/17 07:00 Fibrinogen 616.0 mg/dL (238-498) H 11/22/17 07:00 Problem List - Problems (1) Anemia requiring transfusions Assessment/Plan: -received 3 units of PRBC this admission -Also Guaiac positive -Chronic anemia, transfuse if Hg below 7.0 Code(s): D64.9 - ANEMIA, UNSPECIFIED (2) Urinary retention Assessment/Plan: -Seen by Urology -Brown catheter-CBI running clear -S/P BL nephrostomy Code(s): R33.9 - RETENTION OF URINE, UNSPECIFIED (3) Bladder cancer metastasized to intrapelvic lymph nodes Assessment/Plan: -Palliative consult -Pain management Code(s): C67.9 - MALIGNANT NEOPLASM OF BLADDER, UNSPECIFIED; C77.5 - SECONDARY AND UNSP MALIGNANT NEOPLASM OF INTRAPELV NODES (4) Hypoalbuminemia Assessment/Plan: -2/2 to decreased PO intake -On prosource Code(s): E88.09 - OTH DISORDERS OF PLASMA-PROTEIN METABOLISM, NEC (5) Hydronephrosis Assessment/Plan: -Seen by Urology -Brown catheter-CBI running clear -S/P BL nephrostomy Code(s): N13.30 - UNSPECIFIED HYDRONEPHROSIS Assessment/Plan see problem list Physical therapy Teds
[2017-11-27] MEDS: SODIUM CHLORIDE 0.45% 1,000 ML IV SCH ×2 (17:41→22:24)
[2017-11-27] MEDS: COLLAGENASE CLOSTRIDIUM HIST. 30 GRAMS TUBE TP SCH (17:43)
[2017-11-27] MEDS ORDERED: VANCOMYCIN 1 GRAM (PRE-DOCKED) 1,000 MG/250 ML BAG IVPB SCH (19:00)
[2017-11-27] MEDS ORDERED: INSULIN (NOVOLOG) ASPART 100 UNITS/ML 10ML VIAL ONE (19:35)
[2017-11-28] MEDS: morphine SULFATE 4 MG/ML VIAL IVPUSH PRN ×5 (03:23→20:44)
[2017-11-28] MEDS: INSULIN SLIDING SCALE (NOVOLOG) 1 VIAL SQ SCH ×4 (06:20→21:45)
[2017-11-28] MEDS: metroNIDAZOLE 250 MG TABLET PO SCH ×2 (06:20→21:40)
[2017-11-28] MEDS ORDERED: PT OWN MED DRAWER 7, Y5N ONE ×2 (08:19→20:16)
[2017-11-28] MEDS: AMINO ACIDS/PROTEIN HYDROLYS 30 ML LIQUID.PKT PO SCH ×2 (08:29→17:35)
[2017-11-28 08:52] LABS: ANION GAP 6 MMOL/L (8-16); BLOOD UREA NITROGEN 25 mg/dL (7-18); CALCIUM 7.6 mg/dL (8.5-10.1); CHLORIDE 109 mmol/L (98-107); CO2 27 mmol/L (21-32); CREATININE 0.6 mg/dL (0.55-1.3); GLUCOSE,RANDOM 122 mg/dL (74-106); POTASSIUM 4.4 mmol/L (3.5-5.1); SODIUM 142 mmol/L (136-145)
[2017-11-28] MEDS: AZTREONAM 1 GM in DEXTROSE 5%-WATER - 50 ML IVPB SCH ×2 (09:30→21:40)
--- NOTE | 2017-11-28 11:52 | PN ---
Progress Note, Physician History of Present Illness: Pt seen and examined at bedside. He is awake and appears comfortable. - Current Medication List Current Medications: Active Medications Acetaminophen (Tylenol -) 650 mg PO Q6H PRN PRN Reason: FEVER Last Admin: 11/27/17 09:36 Dose: 650 mg Albuterol Sulfate (Ventolin 0.083% Nebulizer Soln -) 1 amp NEB Q10M PRN PRN Reason: SHORT OF BREATH/WHEEZING Last Admin: 11/23/17 08:00 Dose: 1 amp Amino Acids (Prosource No Carb Liquid Pkt) 30 ml PO BID@0800,1730 [facility] Last Admin: 11/28/17 08:29 Dose: 30 ml Collagenase (Santyl -) 1 applic TP DAILY [facility]; Protocol Last Admin: 11/27/17 17:43 Dose: 1 applic Aztreonam 1 gm/ Dextrose 50 mls @ 100 mls/hr IVPB BID [facility]; Protocol Last Admin: 11/28/17 09:30 Dose: 100 mls/hr Sodium Chloride (1/2 Normal Saline) 1,000 mls @ 42 mls/hr IV ASDIR [facility] Last Admin: 11/27/17 22:24 Dose: 42 mls/hr Vancomycin HCl (Vancomycin (Pre-Docked)) 1,000 mg in 250 mls @ 200 mls/hr IVPB DAILY@2000 [facility]; Protocol Insulin Aspart (Novolog Vial Sliding Scale -) 1 vial SQ ACHS [facility]; Protocol Last Admin: 11/28/17 11:27 Dose: Not Given Metronidazole (Flagyl -) 500 mg PO TID [facility] Last Admin: 11/28/17 06:20 Dose: 500 mg Morphine Sulfate (Morphine Sulfate) 4 mg IVPUSH Q4H PRN PRN Reason: PAIN LEVEL 7 - 10 Last Admin: 11/28/17 08:27 Dose: 4 mg Oxycodone HCl (Roxicodone -) 5 mg PO Q4H PRN PRN Reason: PAIN LEVEL 4 - 6 Last Admin: 11/27/17 21:39 Dose: 5 mg - Objective Vital Signs: Vital Signs Temperature 97.9 F 11/28/17 06:00 Pulse Rate 88 11/28/17 08:49 Respiratory Rate 18 11/28/17 08:49 Blood Pressure 122/72 11/28/17 08:49 O2 Sat by Pulse Oximetry (%) 99 11/27/17 21:00 Constitutional: Yes: Calm, Cachectic Neck: Yes: Supple Cardiovascular: Yes: S1, S2 Respiratory: Yes: CTA Bilaterally Gastrointestinal: Yes: Soft, Other (colostomy) Genitourinary: Yes: Brown Present, Hematuria, Other (bilateral nephrostomy tubes with clear urine) Musculoskeletal: Yes: WNL Edema: No Neurological: Yes: Oriented Psychiatric: Yes: Oriented Labs: CBC, BMP 11/27/17 07:20 11/28/17 06:00 INR, PTT INR 1.43 (0.83-1.09) H 11/22/17 07:00 Fibrinogen 616.0 mg/dL (238-498) H 11/22/17 07:00 Problem List - Problems (1) JOSSELYN (acute kidney injury) Code(s): N17.9 - ACUTE KIDNEY FAILURE, UNSPECIFIED (2) Hyperkalemia Code(s): E87.5 - HYPERKALEMIA (3) Anemia requiring transfusions Code(s): D64.9 - ANEMIA, UNSPECIFIED (4) Urinary retention Code(s): R33.9 - RETENTION OF URINE, UNSPECIFIED (5) Anemia Code(s): D64.9 - ANEMIA, UNSPECIFIED Qualifiers: Anemia type: iron deficiency Iron deficiency anemia type: unspecified iron deficiency Qualified Code(s): D50.9 - Iron deficiency anemia, unspecified Assessment/Plan Current Medications Generic Name Dose Route Start Last Admin Trade Name Freq PRN Reason Stop Dose Admin Acetaminophen 650 mg 11/20/17 10:25 11/27/17 09:36 Tylenol - PO 650 mg Q6H PRN Administration FEVER Albuterol Sulfate 1 amp 11/20/17 14:49 11/23/17 08:00 Ventolin 0.083% Nebulizer Soln - NEB 1 amp Q10M PRN Administration SHORT OF BREATH/WHEEZING Amino Acids 30 ml 11/25/17 17:30 11/28/17 08:29 Prosource No Carb Liquid Pkt PO 30 ml BID@0800,1730 [facility] Administration Collagenase 1 applic 11/21/17 15:45 11/27/17 17:43 Santyl - TP 1 applic DAILY [facility] Administration Protocol Aztreonam 1 gm/ Dextrose 50 mls @ 100 mls/hr 11/24/17 22:00 11/28/17 09:30 IVPB 100 mls/hr BID [facility] Administration Protocol Sodium Chloride 1,000 mls @ 42 mls/hr 11/26/17 16:13 11/27/17 22:24 1/2 Normal Saline IV 42 mls/hr ASDIR [facility] Administration Vancomycin HCl 1,000 mg in 250 mls @ 200 mls/hr 11/28/17 08:15 Vancomycin (Pre-Docked) IVPB DAILY@1999 [facility] Protocol Insulin Aspart 1 vial 11/20/17 11:00 11/28/17 11:27 Novolog Vial Sliding Scale - SQ Not Given ACHS [facility] Protocol Metronidazole 500 mg 11/21/17 14:00 11/28/17 06:20 Flagyl - PO 500 mg TID [facility] Administration Morphine Sulfate 4 mg 11/27/17 04:02 11/28/17 08:27 Morphine Sulfate IVPUSH 4 mg Q4H PRN Administration PAIN LEVEL 7 - 10 Oxycodone HCl 5 mg 11/21/17 17:50 11/27/17 21:39 Roxicodone - PO 5 mg Q4H PRN Administration PAIN LEVEL 4 - 6 Impression 1. JOSSELYN 2. hyperkalemia 3. bladder cancer with mets to lung and colon 4. urinary obstruction 5. hematuria 6. anemia Plan - will cont fluids - renal function stable - bun improving - will need nephrostomy tube care after discharge - JOSSELYN from obstruction Dr Canales
[2017-11-28] MEDS ORDERED: metroNIDAZOLE 500 MG TABLET PO SCH (16:15)
[2017-11-28] MEDS: COLLAGENASE CLOSTRIDIUM HIST. 30 GRAMS TUBE TP SCH (17:36)
--- NOTE | 2017-11-28 17:54 | PN ---
Progress Note, Physician Chief Complaint: Urinary retention Anemia thrombocytosis History of Present Illness: NAD Junior intact-CBI running clear severe generalized pain S/P BL percutaneous nephrostomy Seen by Urology and oncology for metastatic bladder Ca Seen by Palliative care team, after discussion with the family, patient doesn't wish to be DNR/DNI, wants everything done and wants to be sent back to [facility] when medically stable. - Current Medication List Current Medications: Active Medications Acetaminophen (Tylenol -) 650 mg PO Q6H PRN PRN Reason: FEVER Last Admin: 11/27/17 09:36 Dose: 650 mg Albuterol Sulfate (Ventolin 0.083% Nebulizer Soln -) 1 amp NEB Q10M PRN PRN Reason: SHORT OF BREATH/WHEEZING Last Admin: 11/23/17 08:00 Dose: 1 amp Amino Acids (Prosource No Carb Liquid Pkt) 30 ml PO BID@0800,1730 REPLACED BY [facility] Last Admin: 11/28/17 17:35 Dose: 30 ml Collagenase (Santyl -) 1 applic TP DAILY REPLACED BY [facility]; Protocol Last Admin: 11/28/17 17:36 Dose: 1 applic Aztreonam 1 gm/ Dextrose 50 mls @ 100 mls/hr IVPB BID REPLACED BY [facility]; Protocol Last Admin: 11/28/17 09:30 Dose: 100 mls/hr Sodium Chloride (1/2 Normal Saline) 1,000 mls @ 42 mls/hr IV ASDIR REPLACED BY [facility] Last Admin: 11/27/17 22:24 Dose: 42 mls/hr Vancomycin HCl (Vancomycin (Pre-Docked)) 1,000 mg in 250 mls @ 200 mls/hr IVPB DAILY@2000 REPLACED BY [facility]; Protocol Insulin Aspart (Novolog Vial Sliding Scale -) 1 vial SQ ACHS REPLACED BY [facility]; Protocol Last Admin: 11/28/17 17:36 Dose: 4 units Metronidazole (Flagyl -) 500 mg PO TID REPLACED BY [facility] Last Admin: 11/28/17 16:11 Dose: 500 mg Morphine Sulfate (Morphine Sulfate) 4 mg IVPUSH Q4H PRN PRN Reason: PAIN LEVEL 7 - 10 Last Admin: 11/28/17 16:33 Dose: 4 mg Oxycodone HCl (Roxicodone -) 5 mg PO Q4H PRN PRN Reason: PAIN LEVEL 4 - 6 Last Admin: 11/27/17 21:39 Dose: 5 mg - Objective Vital Signs: Vital Signs Temperature 98 F 11/28/17 14:31 Pulse Rate 85 11/28/17 14:31 Respiratory Rate 17 11/28/17 14:31 Blood Pressure 137/70 11/28/17 14:31 O2 Sat by Pulse Oximetry (%) 99 11/28/17 09:00 Constitutional: Yes: Well Nourished, No Distress, Calm Cardiovascular: Yes: Regular Rate and Rhythm Respiratory: Yes: Regular Gastrointestinal: Yes: Normal Bowel Sounds, Soft Musculoskeletal: Yes: WNL Extremities: Yes: WNL Edema: No Peripheral Pulses WNL: Yes Wound/Incision: Yes: Dressing Dry and Intact Neurological: Yes: Alert, Oriented Psychiatric: Yes: Alert, Oriented Labs: CBC, BMP 11/27/17 07:20 11/28/17 06:00 INR, PTT INR 1.43 (0.83-1.09) H 11/22/17 07:00 Fibrinogen 616.0 mg/dL (238-498) H 11/22/17 07:00 Problem List - Problems (1) Anemia requiring transfusions Assessment/Plan: -received 3 units of PRBC this admission -Also Guaiac positive -Chronic anemia, transfuse if Hg below 7.0 Code(s): D64.9 - ANEMIA, UNSPECIFIED (2) Urinary retention Assessment/Plan: -Seen by Urology -S/P BL nephrostomy Code(s): R33.9 - RETENTION OF URINE, UNSPECIFIED (3) Bladder cancer metastasized to intrapelvic lymph nodes Assessment/Plan: -Palliative consult -Pain management Code(s): C67.9 - MALIGNANT NEOPLASM OF BLADDER, UNSPECIFIED; C77.5 - SECONDARY AND UNSP MALIGNANT NEOPLASM OF INTRAPELV NODES (4) Hypoalbuminemia Assessment/Plan: -2/2 to decreased PO intake -On prosource Code(s): E88.09 - OTH DISORDERS OF PLASMA-PROTEIN METABOLISM, NEC (5) Hydronephrosis Assessment/Plan: -Seen by Urology -Junior catheter-CBI discontinued yesterday -S/P BL nephrostomy -D/C junior Code(s): N13.30 - UNSPECIFIED HYDRONEPHROSIS (6) Chronic osteomyelitis involving ankle and foot Assessment/Plan: -Seen by ID -On flagyl, Vanco and Azetreonem -Has PICC line -Santyl -Offloading -Vit C -Zinc -Multivitamin Qualifiers: Laterality: left Qualified Code(s): M86.672 - Other chronic osteomyelitis, left ankle and foot (7) Sacral decubitus ulcer Assessment/Plan: -daily santyl -offloading -prosource -vit C -Zinc -Multivitamin Code(s): L89.159 - PRESSURE ULCER OF SACRAL REGION, UNSPECIFIED STAGE Qualifiers: Pressure injury stage: unstageable Qualified Code(s): L89.150 - Pressure ulcer of sacral region, unstageable Assessment/Plan see problem list Physical therapy SCD's Cleared by Nephrology and ID to be transferred back to [facility]
[2017-11-28] MEDS: VANCOMYCIN 1 GRAM (PRE-DOCKED) 1,000 MG/250 ML BAG IVPB SCH (20:06)
[2017-11-28] MEDS ORDERED: metroNIDAZOLE 250 MG TABLET PO SCH (20:42)
--- NOTE | 2017-11-28 22:32 | DS ---
Physical Examination Vital Signs: Vital Signs Temperature 98.5 F 11/28/17 19:30 Pulse Rate 84 11/28/17 19:30 Respiratory Rate 18 11/28/17 19:30 Blood Pressure 129/63 11/28/17 19:30 O2 Sat by Pulse Oximetry (%) 99 11/28/17 09:00 Findings/Remarks: Patient is a 61 year old male with a significant past medical history of bladder cancer with mets to lung and colon (has colostomy bag placed 1 year ago ) and chronic sacral wounds. His other medical history includes DM. Patient was recently discharged October 2017 for left foot non healing wound and was sent to [facility] to continue IV antibiotics via right PICC line. He presents to the ED from [facility] for inability to urinate starting on . He had a junior placed 2 days ago and was still unable to urinate completely and started to develop worsening abdominal pain and discomfort. He also started to have gross blood in the junior. He states he started to have fever and chills and worsening back pain. In the ED he was transfused 2 units of prbc for hmg of 4.9. A bladder/ ultrasound shows moderate right sided hydronephrosos and prostatic enlargement. Urology consulted by the ED (Dr. Bello) who recommended placement of a 22 croatian junior. Further, patient was given Aztronam 2 grams IV for chest xray findings concerning for RLL pneumonia. Constitutional: Yes: Well Nourished, No Distress, Calm Cardiovascular: Yes: Regular Rate and Rhythm Respiratory: Yes: Regular Gastrointestinal: Yes: Normal Bowel Sounds, Soft Renal/: Yes: Other (BL nephrostomy tube) Musculoskeletal: Yes: Muscle Weakness Extremities: Yes: WNL Edema: Yes Peripheral Pulses WNL: Yes Integumentary: Yes: Pressure Ulcer (sacral unstageable decubiti) Wound/Incision: Yes: Dressing Dry and Intact (left heel) Neurological: Yes: Alert, Oriented Psychiatric: Yes: Alert, Oriented Labs: CBC, BMP 11/27/17 07:20 11/28/17 06:00 Discharge Summary Reason For Visit: RETENTION OF URINE, ANEMIA Current Active Problems JOSSELYN (acute kidney injury) (Acute) Anemia requiring transfusions (Acute) Chronic osteomyelitis involving ankle and foot (Acute) Coagulopathy (Acute) Hydronephrosis (Acute) Hyperkalemia (Acute) Hypoalbuminemia (Acute) Leukocytosis (Acute) Osteomyelitis (Acute) Sacral decubitus ulcer (Acute) Thrombocytosis (Acute) Urinary retention (Acute) Hospital Course: Laboratory Last Values WBC 9.0 K/mm3 (4.0-10.0) 11/27/17 07:20 RBC 2.91 M/mm3 (4.00-5.60) L 11/27/17 07:20 Hgb 7.9 GM/dL (11.7-16.9) L 11/27/17 07:20 Hct 25.2 % (35.4-49) L 11/27/17 07:20 MCV 86.4 fl (80-96) 11/27/17 07:20 MCH 27.1 pg (25.7-33.7) 11/27/17 07:20 MCHC 31.3 g/dl (32.0-35.9) L 11/27/17 07:20 RDW 18.8 % (11.9-15.9) H 11/27/17 07:20 Plt Count 627 K/MM3 (134-434) H 11/27/17 07:20 MPV 6.5 fl (7.5-11.1) L 11/27/17 07:20 Absolute Neuts (auto) 6.3 K/mm3 (1.5-8.0) 11/27/17 07:20 Neutrophils % 69.9 % (42.8-82.8) 11/27/17 07:20 Neutrophils % (Manual) 84.0 % (42.8-82.8) H 11/19/17 22:27 Band Neutrophils % 3.0 % 11/19/17 22:27 Lymphocytes % 18.8 % (8-40) 11/27/17 07:20 Lymphocytes % (Manual) 11.0 % (8-40) 11/19/17 22:27 Monocytes % 5.5 % (3.8-10.2) 11/27/17 07:20 Monocytes % (Manual) 2 % (3.8-10.2) L 11/19/17 22:27 Eosinophils % 5.0 % (0-4.5) H 11/27/17 07:20 Eosinophils % (Manual) 0.0 % (0-4.5) 11/19/17 22:27 Basophils % 0.8 % (0-2.0) 11/27/17 07:20 Basophils % (Manual) 0.0 % (0-2.0) 11/19/17 22: Nucleated RBC % 0 % (0-0) 11/27/17 07:20 Hypochromia 1+ 11/19/17: Platelet Estimate Increased 11/19/17 22: Platelet Comment No clumping noted 11/19/17 22: Anisocytosis 2+ 11/19/17 22: PT with INR 16.90 SEC (9.7-13.0) H 11/22/17 07:00 INR 1.43 (0.83-1.09) H 11/22/17 07:00 PTT (Actin FS) 33.5 SECONDS (25.2-36.5) 11/22/17 07:00 Fibrinogen 616.0 mg/dL (238-498) H 11/22/17 07:00 Sodium 142 mmol/L (136-145) 11/28/17 06:00 Potassium 4.4 mmol/L (3.5-5.1) 11/28/17 06:00 Chloride 109 mmol/L (98-107) H 11/28/17 06:00 Carbon Dioxide 27 mmol/L (21-32) 11/28/17 06:00 Anion Gap 6 MMOL/L (8-16) L 11/28/17 06:00 BUN 25 mg/dL (7-18) H 11/28/17 06:00 Creatinine 0.6 mg/dL (0.55-1.3) 11/28/17 06:00 Creat Clearance w eGFR > 60 (>60) 11/28/17 06:00 POC Glucometer 139 UNITS (80-120) 11/28/17 21:43 Random Glucose 122 mg/dL (74-106) H 11/28/17 06:00 Calcium 7.6 mg/dL (8.5-10.1) L 11/28/17 06:00 Magnesium 2.5 mg/dL (1.8-2.4) H 11/21/17 06:30 Ferritin 98.8 ng/ml (8-388) 11/27/17 18:00 Total Bilirubin 0.2 mg/dL (0.2-1) 11/27/17 07:20 AST 14 U/L (15-37) L 11/27/17 07:20 ALT < 6 U/L (13-61) L 11/27/17 07:20 Alkaline Phosphatase 112 U/L (45-117) 11/27/17 07:20 Creatine Kinase 82 IU/L (26-308) 11/19/17 22:27 Troponin I < 0.02 ng/ml (0.00-0.05) 11/19/17 22:27 Total Protein 5.2 g/dl (6.4-8.2) L 11/27/17 07:20 Albumin 1.3 g/dl (3.4-5.0) L 11/27/17 07:20 Vitamin B12 774 pg/ml (193-986) 11/27/17 18:00 Urine Color Serena 11/19/17 22:40 Urine Appearance Cloudy 11/19/17 22:40 Urine pH 6.0 (5.0-8.0) 11/19/17 22:40 Ur Specific [place] 1.025 (1.010-1.035) 11/19/17 22:40 Urine Protein 3+ (NEGATIVE) H D 11/19/17 22:40 Urine Glucose (UA) Negative (NEGATIVE) 11/19/17 22:40 Urine Ketones Negative (NEGATIVE) 11/19/17 22:40 Urine Blood 3+ (NEGATIVE) H 11/19/17 22:40 Urine Nitrite Negative (NEGATIVE) 11/19/17 22:40 Urine Bilirubin Negative (<2.0 mg/dL) 11/19/17 22:40 Urine Urobilinogen Negative mg/dL (0.2-1.0) 11/19/17 22:40 Ur Leukocyte Esterase Negative (NEGATIVE) 11/19/17 22:40 Urine WBC (Auto) 25 /hpf (3-5) 11/19/17 22:40 Urine RBC (Auto) 1959 /hpf (0-3) 11/19/17 22:40 Random Vancomycin 9.7 ug/ml (18-26) L 11/27/17 06:00 Blood Type O POSITIVE 11/19/17 22:27 Antibody Screen Negative 11/19/17 22:27 Crossmatch See Detail 11/19/17 22:27 Microbiology 11/20/17 00:25 Blood - Picc Line Blood Culture - Final NO GROWTH AFTER 5 DAYS INCUBATION 11/20/17 00:25 Blood - Picc Line Blood Culture - Final NO GROWTH AFTER 5 DAYS INCUBATION 11/22/17 11:00 Nephrostomy Tube Drainage Gram Stain - Final 11/22/17 11:00 Nephrostomy Tube Drainage Body Fluid Culture - Final NO GROWTH OF AEROBIC ORGANISMS AFTER 48 HOURS INCUBATION 11/22/17 11:00 Nephrostomy Tube Drainage Anaerobic Culture - Final NO ANAEROBES WERE ISOLATED 11/22/17 11:00 Nephrostomy Tube Drainage Gram Stain - Final 11/22/17 11:00 Nephrostomy Tube Drainage Body Fluid Culture - Final NO GROWTH OF AEROBIC ORGANISMS AFTER 48 HOURS INCUBATION 11/22/17 11:00 Nephrostomy Tube Drainage Anaerobic Culture - Final NO ANAEROBES WERE ISOLATED 11/19/17 22:40 Urine - Urine Junior Urine Culture - Final NO GROWTH OBTAINED Vital Signs Period Temp Pulse Resp BP Sys/Kevin Pulse Ox Last 24 Hr 97.9 F-98.5 F 84-88 17-18 122-137/63-72 99 Condition: Fair - Instructions Disposition: ASSISTED FACILITY - Home Medications Comprehensive Discharge Medication List: Ambulatory Orders Acetaminophen [Tylenol .Regular Strength -] 650 mg PO Q6H PRN tablet 11/15/17 Collagenase Clostridium Hist. [Santyl -] 1 applic TP DAILY tube 11/15/17 Lactobacillus Acidophilus [Bacid -] 1 tab PO DAILY tab 11/15/17 Picc Line Flush [Picc Line Flush -] 8 ml IVPUSH PRN PRN ml 11/15/17 Sodium Hypochlorite [Dakin's Solution 0.25% (Half-Strength) -] 1 applic TP DAILY ml 11/15/17 Vancomycin 750 mg IVPB Q24H vial 11/15/17 metroNIDAZOLE [Flagyl -] 500 mg PO TID tablet 11/15/17 Melatonin/Pyridoxine HCl (B6) [Melatonin 5 mg Tablet] 1 each PO HS 11/20/17 Acetaminophen [Tylenol .Regular Strength -] 650 mg PO Q6H PRN tablet 11/28/17 Albuterol 0.083% Nebulizer Jeanine [Ventolin 0.083% Nebulizer Soln -] 1 amp NEB Q10M PRN amp 11/28/17 Amino Acids/Protein Hydrolys [Prosource No Carb Liquid Pkt] 30 ml PO BID@0800, 1730 packet 11/28/17 Ascorbic Acid [Vitamin C -] 500 mg PO BID tablet 11/28/17 Aztreonam [Azactam (Restricted To Id) -] 1 gm IVPB BID vial 11/28/17 Collagenase Clostridium Hist. [Santyl -] 1 applic TP DAILY tube 11/28/17 Insulin Sliding Scale [Novolog Vial Sliding Scale -] 1 vial SQ ACHS units 11/28 Morphine Sulfate [Morphine Sulfate ER] 15 mg PO BID #60 tablet.er MDD 2 Multivitamins [Multivit ([facility] Formul[facility])] 1 tab PO DAILY tab 11/28/17 Zinc Sulfate [Orazinc -] 220 mg PO BID capsule 11/28/17 metroNIDAZOLE [Flagyl -] 500 mg PO TID tablet 11/28/17 oxyCODONE HCL [Roxicodone -] 5 mg PO Q4H PRN #120 tablet MDD 3 11/28/17 oxyCODONE HCL [Roxicodone -] 10 mg PO Q4H PRN #240 tab MDD 30mg 11/28/17
[2017-11-28] MEDS: oxyCODONE HCL 5 MG TABLET PO PRN (23:09)
[2017-11-28] MEDS: ACETAMINOPHEN 325 MG TABLET (FP) PO PRN (23:10)
[2017-11-29] MEDS: SODIUM CHLORIDE 0.45% 1,000 ML IV SCH ×2 (01:29→01:39)
[2017-11-29] MEDS: morphine SULFATE 4 MG/ML VIAL IVPUSH PRN ×6 (01:39→23:39)
[2017-11-29] MEDS: metroNIDAZOLE 250 MG TABLET PO SCH ×3 (05:48→21:58)
[2017-11-29] MEDS: INSULIN SLIDING SCALE (NOVOLOG) 1 VIAL SQ SCH ×4 (06:56→21:58)
[2017-11-29] MEDS: AMINO ACIDS/PROTEIN HYDROLYS 30 ML LIQUID.PKT PO SCH ×2 (08:20→16:59)
[2017-11-29] MEDS ORDERED: PT OWN MED DRAWER 7, Y5N ONE ×2 (10:04→17:56)
[2017-11-29] MEDS: MULTIVITAMINS (DAILY MVI) TABLET (FP) PO SCH (10:11)
[2017-11-29] MEDS: ASCORBIC ACID 500 MG TABLET (FP) PO SCH ×2 (10:11→21:58)
[2017-11-29] MEDS: ZINC SULFATE 220 MG CAPSULE (FP) PO SCH ×2 (10:16→21:58)
[2017-11-29] MEDS: AZTREONAM 1 GM in DEXTROSE 5%-WATER - 50 ML IVPB SCH ×2 (10:25→22:51)
--- NOTE | 2017-11-29 12:55 | PN ---
Progress Note, Physician Chief Complaint: patient seen in bed no distress awaiting to go to [facility] - Current Medication List Current Medications: Active Medications Acetaminophen (Tylenol -) 650 mg PO Q6H PRN PRN Reason: FEVER Last Admin: 11/28/17 23:10 Dose: 650 mg Albuterol Sulfate (Ventolin 0.083% Nebulizer Soln -) 1 amp NEB Q10M PRN PRN Reason: SHORT OF BREATH/WHEEZING Last Admin: 11/23/17 08:00 Dose: 1 amp Amino Acids (Prosource No Carb Liquid Pkt) 30 ml PO BID@0800,1730 [facility] Last Admin: 11/29/17 08:20 Dose: 30 ml Ascorbic Acid (Vitamin C -) 500 mg PO BID [facility] Last Admin: 11/29/17 10:11 Dose: 500 mg Collagenase (Santyl -) 1 applic TP DAILY [facility]; Protocol Aztreonam 1 gm/ Dextrose 50 mls @ 100 mls/hr IVPB BID [facility]; Protocol Last Admin: 11/29/17 10:25 Dose: 100 mls/hr Sodium Chloride (1/2 Normal Saline) 1,000 mls @ 42 mls/hr IV ASDIR [facility] Last Admin: 11/29/17 01:39 Dose: 42 mls/hr Vancomycin HCl (Vancomycin (Pre-Docked)) 1,000 mg in 250 mls @ 200 mls/hr IVPB DAILY@2000 [facility]; Protocol Last Admin: 11/28/17 20:06 Dose: 200 mls/hr Insulin Aspart (Novolog Vial Sliding Scale -) 1 vial SQ ACHS [facility]; Protocol Last Admin: 11/29/17 11:59 Dose: Not Given Metronidazole (Flagyl -) 500 mg PO TID [facility] Last Admin: 11/29/17 05:48 Dose: 500 mg Morphine Sulfate (Morphine Sulfate) 4 mg IVPUSH Q4H PRN PRN Reason: PAIN LEVEL 7 - 10 Last Admin: 11/29/17 10:09 Dose: 4 mg Multivitamins/Minerals/Vitamin C (Tab-A-Vit -) 1 tab PO DAILY [facility] Last Admin: 11/29/17 10:11 Dose: 1 tab Oxycodone HCl (Roxicodone -) 5 mg PO Q4H PRN PRN Reason: PAIN LEVEL 4 - 6 Last Admin: 11/28/17 23:09 Dose: 5 mg Zinc Sulfate (Orazinc -) 220 mg PO BID STEPHANIE Last Admin: 11/29/17 10:16 Dose: 220 mg - Objective Vital Signs: Vital Signs Temperature 97.6 F 11/29/17 09:30 Pulse Rate 80 11/29/17 09:30 Respiratory Rate 20 11/29/17 09:30 Blood Pressure 109/58 L 11/29/17 09:30 O2 Sat by Pulse Oximetry (%) 99 11/28/17 09:00 Constitutional: Yes: Calm Cardiovascular: Yes: Regular Rate and Rhythm, S1, S2 Respiratory: Yes: CTA Bilaterally Gastrointestinal: Yes: Normal Bowel Sounds, Soft, Other (colostomy) ...Rectal Exam: Yes: Other (bilateral nephrostomy tubes) Labs: CBC, BMP 11/27/17 07:20 11/28/17 06:00 INR, PTT INR 1.43 (0.83-1.09) H 11/22/17 07:00 Fibrinogen 616.0 mg/dL (238-498) H 11/22/17 07:00 Problem List - Problems (1) Anemia requiring transfusions Assessment/Plan: h/h 8.03/01 to 7.6- if further drops < 7 will transfuse hematuria now resolved [id number] h/h Code(s): D64.9 - ANEMIA, UNSPECIFIED (2) Thrombocytosis Assessment/Plan: metastatic cancer monitor platelet count Code(s): D47.3 - ESSENTIAL (HEMORRHAGIC) THROMBOCYTHEMIA (3) Bladder cancer metastasized to intrapelvic lymph nodes Assessment/Plan: s/p bilateral nephrostomy tube placement junior in place-CBI- per urology to clamp and remove junior urology follow up noted Code(s): C67.9 - MALIGNANT NEOPLASM OF BLADDER, UNSPECIFIED; C77.5 - SECONDARY AND UNSP MALIGNANT NEOPLASM OF INTRAPELV NODES (4) Leukocytosis Assessment/Plan: aztreonam and flagyl wbc trending down- now normal Code(s): D72.829 - ELEVATED WHITE BLOOD CELL COUNT, UNSPECIFIED (5) JOSSELYN (acute kidney injury) Assessment/Plan: JOSSELYN secondary to obstruction now bun /cr much improved repeat labs in AM cr from 4-2.1- o.6-s/p nephrostomy tube placement s/p nephrosotomy tube placement potassium in better Code(s): N17.9 - ACUTE KIDNEY FAILURE, UNSPECIFIED (6) Ulcer of left heel Assessment/Plan: appreciate podiatry note collagenase iv abx- day 28 for heel osteomyelitis via picc line for total of 42 days Code(s): L97.429 - NON-PRS CHRONIC ULCER OF LEFT HEEL AND MIDFOOT W UNSP SEVERT Qualifiers: Non-pressure ulcer stage: unspecified non-pressure ulcer stage Qualified Code(s): L97.429 - Non-pressure chronic ulcer of left heel and midfoot with unspecified severity
[2017-11-29] MEDS: COLLAGENASE CLOSTRIDIUM HIST. 30 GRAMS TUBE TP SCH (14:45)
--- NOTE | 2017-11-29 14:54 | PN ---
Progress Note, Physician History of Present Illness: Pt seen and examined at bedside. He is awake and appears comfortable. he denies shortness of breath. - Current Medication List Current Medications: Active Medications Acetaminophen (Tylenol -) 650 mg PO Q6H PRN PRN Reason: FEVER Last Admin: 11/28/17 23:10 Dose: 650 mg Albuterol Sulfate (Ventolin 0.083% Nebulizer Soln -) 1 amp NEB Q10M PRN PRN Reason: SHORT OF BREATH/WHEEZING Last Admin: 11/23/17 08:00 Dose: 1 amp Amino Acids (Prosource No Carb Liquid Pkt) 30 ml PO BID@0800,1730 [facility] Last Admin: 11/29/17 08:20 Dose: 30 ml Ascorbic Acid (Vitamin C -) 500 mg PO BID [facility] Last Admin: 11/29/17 10:11 Dose: 500 mg Collagenase (Santyl -) 1 applic TP DAILY [facility]; Protocol Aztreonam 1 gm/ Dextrose 50 mls @ 100 mls/hr IVPB BID [facility]; Protocol Last Admin: 11/29/17 10:25 Dose: 100 mls/hr Sodium Chloride (1/2 Normal Saline) 1,000 mls @ 42 mls/hr IV ASDIR [facility] Last Admin: 11/29/17 01:39 Dose: 42 mls/hr Vancomycin HCl (Vancomycin (Pre-Docked)) 1,000 mg in 250 mls @ 200 mls/hr IVPB DAILY@2000 [facility]; Protocol Last Admin: 11/28/17 20:06 Dose: 200 mls/hr Insulin Aspart (Novolog Vial Sliding Scale -) 1 vial SQ ACHS [facility]; Protocol Last Admin: 11/29/17 11:59 Dose: Not Given Metronidazole (Flagyl -) 500 mg PO TID [facility] Last Admin: 11/29/17 14:26 Dose: 500 mg Morphine Sulfate (Morphine Sulfate) 4 mg IVPUSH Q4H PRN PRN Reason: PAIN LEVEL 7 - 10 Last Admin: 11/29/17 14:24 Dose: 4 mg Multivitamins/Minerals/Vitamin C (Tab-A-Vit -) 1 tab PO DAILY [facility] Last Admin: 11/29/17 10:11 Dose: 1 tab Oxycodone HCl (Roxicodone -) 5 mg PO Q4H PRN PRN Reason: PAIN LEVEL 4 - 6 Last Admin: 11/28/17 23:09 Dose: 5 mg Zinc Sulfate (Orazinc -) 220 mg PO BID STEPHANIE Last Admin: 11/29/17 10:16 Dose: 220 mg - Objective Vital Signs: Vital Signs Temperature 97.6 F 11/29/17 09:30 Pulse Rate 80 11/29/17 09:30 Respiratory Rate 20 11/29/17 09:30 Blood Pressure 109/58 L 11/29/17 09:30 O2 Sat by Pulse Oximetry (%) 99 11/28/17 09:00 Constitutional: Yes: Calm Eyes: Yes: Conjunctiva Clear HENT: Yes: Atraumatic Cardiovascular: Yes: S1, S2 Respiratory: Yes: CTA Bilaterally Gastrointestinal: Yes: Soft, Other (colostomy) Genitourinary: Yes: Brown Present, Other (bilateral nephrostomy) Musculoskeletal: Yes: WNL Edema: No Neurological: Yes: Oriented Psychiatric: Yes: Oriented Labs: CBC, BMP 11/27/17 07:20 11/28/17 06:00 INR, PTT INR 1.43 (0.83-1.09) H 11/22/17 07:00 Fibrinogen 616.0 mg/dL (238-498) H 11/22/17 07:00 Problem List - Problems (1) JOSSELYN (acute kidney injury) Code(s): N17.9 - ACUTE KIDNEY FAILURE, UNSPECIFIED (2) Hyperkalemia Code(s): E87.5 - HYPERKALEMIA (3) Anemia requiring transfusions Code(s): D64.9 - ANEMIA, UNSPECIFIED (4) Urinary retention Code(s): R33.9 - RETENTION OF URINE, UNSPECIFIED (5) Anemia Code(s): D64.9 - ANEMIA, UNSPECIFIED Qualifiers: Anemia type: iron deficiency Iron deficiency anemia type: unspecified iron deficiency Qualified Code(s): D50.9 - Iron deficiency anemia, unspecified Assessment/Plan Current Medications Generic Name Dose Route Start Last Admin Trade Name Freq PRN Reason Stop Dose Admin Acetaminophen 650 mg 11/20/17 10:25 11/28/17 23:10 Tylenol - PO 650 mg Q6H PRN Administration FEVER Albuterol Sulfate 1 amp 11/20/17 14:49 11/23/17 08:00 Ventolin 0.083% Nebulizer Soln - NEB 1 amp Q10M PRN Administration SHORT OF BREATH/WHEEZING Amino Acids 30 ml 11/25/17 17:30 11/29/17 08:20 Prosource No Carb Liquid Pkt PO 30 ml BID@0800,1730 STEPHANIE Administration Ascorbic Acid 500 mg 11/29/17 10:00 11/29/17 10:11 Vitamin C - PO 500 mg BID STEPHANIE Administration Collagenase 1 applic 11/28/17 18:49 Santyl - TP DAILY STEPHANIE Protocol Aztreonam 1 gm/ Dextrose 50 mls @ 100 mls/hr 11/24/17 22:00 11/29/17 10:25 IVPB 100 mls/hr BID STEPHANIE Administration Protocol Sodium Chloride 1,000 mls @ 42 mls/hr 11/26/17 16:13 11/29/17 01:39 1/2 Normal Saline IV 42 mls/hr ASDIR STEPHANIE Administration Vancomycin HCl 1,000 mg in 250 mls @ 200 mls/hr 11/28/17 08:15 11/28/17 20:06 Vancomycin (Pre-Docked) IVPB 200 mls/hr DAILY@1999 STEPHANIE Administration Protocol Insulin Aspart 1 vial 11/20/17 11:00 11/29/17 11:59 Novolog Vial Sliding Scale - SQ Not Given ACHS [facility] Protocol Metronidazole 500 mg 11/28/17 22:00 11/29/17 14:26 Flagyl - PO 500 mg TID STEPHANIE Administration Morphine Sulfate 4 mg 11/27/17 04:02 11/29/17 14:24 Morphine Sulfate IVPUSH 4 mg Q4H PRN Administration PAIN LEVEL 7 - 10 Multivitamins/Minerals/Vitamin C 1 tab 11/29/17 10:00 11/29/17 10:11 Tab-A-Vit - PO 1 tab DAILY [facility]PHANIE Administration Oxycodone HCl 5 mg 11/21/17 17:50 11/28/17 23:09 Roxicodone - PO 5 mg Q4H PRN Administration PAIN LEVEL 4 - 6 Zinc Sulfate 220 mg 11/29/17 10:00 11/29/17 10:16 Orazinc - PO 220 mg BID STEPHANIE Administration Impression 1. JOSSELYN 2. hyperkalemia 3. bladder cancer with mets to lung and colon 4. urinary obstruction 5. hematuria 6. anemia Plan - monitor renal function after discharge - can stop fluids - encourage PO intake - will need nephrostomy tube care after discharge - JOSSELYN from obstruction Dr Canales
--- NOTE | 2017-11-29 16:12 | PN ---
Progress Note, Physician History of Present Illness: S/P bilateral PCN awake and alert C/O L heel pain No fever/ chills Afebrile - Current Medication List Current Medications: Active Medications Acetaminophen (Tylenol -) 650 mg PO Q6H PRN PRN Reason: FEVER Last Admin: 11/28/17 23:10 Dose: 650 mg Albuterol Sulfate (Ventolin 0.083% Nebulizer Soln -) 1 amp NEB Q10M PRN PRN Reason: SHORT OF BREATH/WHEEZING Last Admin: 11/23/17 08:00 Dose: 1 amp Amino Acids (Prosource No Carb Liquid Pkt) 30 ml PO BID@0800,1730 [facility] Last Admin: 11/29/17 08:20 Dose: 30 ml Ascorbic Acid (Vitamin C -) 500 mg PO BID [facility] Last Admin: 11/29/17 10:11 Dose: 500 mg Collagenase (Santyl -) 1 applic TP DAILY [facility]; Protocol Last Admin: 11/29/17 14:45 Dose: 1 applic Aztreonam 1 gm/ Dextrose 50 mls @ 100 mls/hr IVPB BID [facility]; Protocol Last Admin: 11/29/17 10:25 Dose: 100 mls/hr Vancomycin HCl (Vancomycin (Pre-Docked)) 1,000 mg in 250 mls @ 200 mls/hr IVPB DAILY@2000 [facility]; Protocol Last Admin: 11/28/17 20:06 Dose: 200 mls/hr Insulin Aspart (Novolog Vial Sliding Scale -) 1 vial SQ ACHS [facility]; Protocol Last Admin: 11/29/17 11:59 Dose: Not Given Metronidazole (Flagyl -) 500 mg PO TID [facility] Last Admin: 11/29/17 14:26 Dose: 500 mg Morphine Sulfate (Morphine Sulfate) 4 mg IVPUSH Q4H PRN PRN Reason: PAIN LEVEL 7 - 10 Last Admin: 11/29/17 14:24 Dose: 4 mg Multivitamins/Minerals/Vitamin C (Tab-A-Vit -) 1 tab PO DAILY [facility] Last Admin: 11/29/17 10:11 Dose: 1 tab Oxycodone HCl (Roxicodone -) 5 mg PO Q4H PRN PRN Reason: PAIN LEVEL 4 - 6 Last Admin: 11/28/17 23:09 Dose: 5 mg Zinc Sulfate (Orazinc -) 220 mg PO BID [facility] Last Admin: 11/29/17 10:16 Dose: 220 mg - Objective Vital Signs: Vital Signs Temperature 98.1 F 11/29/17 15:05 Pulse Rate 89 11/29/17 15:05 Respiratory Rate 18 11/29/17 15:05 Blood Pressure 121/75 11/29/17 15:05 O2 Sat by Pulse Oximetry (%) 98 11/29/17 10:00 Constitutional: Yes: Cachectic Cardiovascular: Yes: Regular Rate and Rhythm, S1, S2 Respiratory: Yes: CTA Bilaterally Gastrointestinal: Yes: Normal Bowel Sounds, Soft. No: Tenderness Genitourinary: Yes: Other (+ bilateral PCN urine clear) Extremities: Yes: Other (L heel ulcer) Labs: CBC, BMP 11/27/17 07:20 11/28/17 06:00 INR, PTT INR 1.43 (0.83-1.09) H 11/22/17 07:00 Fibrinogen 616.0 mg/dL (238-498) H 11/22/17 07:00 Assessment/Plan Acute renal failure resolved s/p PCN Gross hematuria Leukocytosis-resolved Osteomyelitis, heel Metastatic ca PCN allergy Continue aztreonam/ flagyl / vancomycin Day # Local wound care
[2017-11-29 17:40] LABS: SERUM IRON SATURATION 13 % (15-55); TOTAL IRON BINDING CAPACITY 124 ug/dL (250-450); UIBC 108 ug/dL (111-343)
[2017-11-29] MEDS ORDERED: INSULIN (NOVOLOG) ASPART 100 UNITS/ML 10ML VIAL ONE (21:38)
[2017-11-29] MEDS: VANCOMYCIN 1 GRAM (PRE-DOCKED) 1,000 MG/250 ML BAG IVPB SCH (21:44)
[2017-11-30] MEDS: morphine SULFATE 4 MG/ML VIAL IVPUSH PRN ×2 (04:15→08:28)
[2017-11-30] MEDS: INSULIN SLIDING SCALE (NOVOLOG) 1 VIAL SQ SCH ×4 (06:56→22:26)
[2017-11-30] MEDS: metroNIDAZOLE 250 MG TABLET PO SCH ×3 (06:56→22:25)
[2017-11-30] MEDS: AMINO ACIDS/PROTEIN HYDROLYS 30 ML LIQUID.PKT PO SCH ×2 (08:28→17:25)
[2017-11-30] MEDS: ALBUTEROL SO4 0.083% IH SOL 2.5 MG/3 ML VIAL.NEB. NEB PRN (08:45)
[2017-11-30] MEDS ORDERED: PT OWN MED DRAWER 7, Y5N ONE (10:25)
[2017-11-30] MEDS: COLLAGENASE CLOSTRIDIUM HIST. 30 GRAMS TUBE TP SCH (10:43)
[2017-11-30] MEDS: MULTIVITAMINS (DAILY MVI) TABLET (FP) PO SCH (10:43)
[2017-11-30] MEDS: ASCORBIC ACID 500 MG TABLET (FP) PO SCH ×2 (10:43→22:25)
[2017-11-30] MEDS: AZTREONAM 1 GM in DEXTROSE 5%-WATER - 50 ML IVPB SCH ×2 (10:43→22:25)
[2017-11-30] MEDS: ZINC SULFATE 220 MG CAPSULE (FP) PO SCH ×2 (10:43→22:26)
--- NOTE | 2017-11-30 11:05 | PN ---
Progress Note, Physician History of Present Illness: Pt seen and examined at bedside. He is awake and alert. He denies shortness of breath. Urine is clear. - Current Medication List Current Medications: Active Medications Acetaminophen (Tylenol -) 650 mg PO Q6H PRN PRN Reason: FEVER Last Admin: 11/28/17 23:10 Dose: 650 mg Albuterol Sulfate (Ventolin 0.083% Nebulizer Soln -) 1 amp NEB Q10M PRN PRN Reason: SHORT OF BREATH/WHEEZING Last Admin: 11/23/17 08:00 Dose: 1 amp Amino Acids (Prosource No Carb Liquid Pkt) 30 ml PO BID@0800,1730 [facility]S [facility] BEDS AT [facility] Last Admin: 11/30/17 08:28 Dose: 30 ml Ascorbic Acid (Vitamin C -) 500 mg PO BID COUNTS INCLUDE 234 BEDS AT THE [facility] Last Admin: 11/30/17 10:43 Dose: 500 mg Collagenase (Santyl -) 1 applic TP DAILY [facility]S [facility] 234 BEDS AT [facility]; Protocol Last Admin: 11/30/17 10:43 Dose: 1 applic Aztreonam 1 gm/ Dextrose 50 mls @ 100 mls/hr IVPB BID [facility]S [facility]CLUDE 234 BEDS AT [facility]; Protocol Last Admin: 11/30/17 10:43 Dose: 100 mls/hr Vancomycin HCl (Vancomycin (Pre-Docked)) 1,000 mg in 250 mls @ 200 mls/hr IVPB DAILY@2000 [facility]S [facility] 234 BEDS AT [facility]; Protocol Last Admin: 11/29/17 21:44 Dose: 200 mls/hr Insulin Aspart (Novolog Vial Sliding Scale -) 1 vial SQ ACHS [facility]S [facility]CLUDE 234 BEDS AT [facility]; Protocol Last Admin: 11/30/17 06:56 Dose: Not Given Metronidazole (Flagyl -) 500 mg PO TID COUNTS [facility]CLUDE 234 BEDS AT [facility] Last Admin: 11/30/17 06:56 Dose: 500 mg Morphine Sulfate (Morphine Sulfate) 4 mg IVPUSH Q4H PRN PRN Reason: PAIN LEVEL 7 - 10 Last Admin: 11/30/17 08:28 Dose: 4 mg Multivitamins/Minerals/Vitamin C (Tab-A-Vit -) 1 tab PO DAILY [facility]S [facility]CLUDE 234 BEDS AT [facility] Last Admin: 11/30/17 10:43 Dose: 1 tab Oxycodone HCl (Roxicodone -) 5 mg PO Q4H PRN PRN Reason: PAIN LEVEL 4 - 6 Last Admin: 11/28/17 23:09 Dose: 5 mg Zinc Sulfate (Orazinc -) 220 mg PO BID COUNTS [facility]CLUDE 234 BEDS AT [facility] Last Admin: 11/30/17 10:43 Dose: 220 mg - Objective Vital Signs: Vital Signs Temperature 97.8 F 11/30/17 06:00 Pulse Rate 83 11/30/17 06:00 Respiratory Rate 20 11/30/17 06:00 Blood Pressure 108/59 L 11/30/17 06:00 O2 Sat by Pulse Oximetry (%) 98 11/29/17 21:00 Constitutional: Yes: Calm Eyes: Yes: Conjunctiva Clear HENT: Yes: Atraumatic Neck: Yes: Supple Cardiovascular: Yes: S1, S2 Respiratory: Yes: CTA Bilaterally Gastrointestinal: Yes: Normal Bowel Sounds, Soft Genitourinary: Yes: Other (bilateral nephrostomy tubes) Extremities: Yes: WNL Edema: No Neurological: Yes: Oriented Psychiatric: Yes: Oriented Labs: CBC, BMP 11/27/17 07:20 11/28/17 06:00 INR, PTT INR 1.43 (0.83-1.09) H 11/22/17 07:00 Fibrinogen 616.0 mg/dL (238-498) H 11/22/17 07:00 Problem List - Problems (1) JOSSELYN (acute kidney injury) Code(s): N17.9 - ACUTE KIDNEY FAILURE, UNSPECIFIED (2) Hyperkalemia Code(s): E87.5 - HYPERKALEMIA (3) Anemia requiring transfusions Code(s): D64.9 - ANEMIA, UNSPECIFIED (4) Urinary retention Code(s): R33.9 - RETENTION OF URINE, UNSPECIFIED (5) Anemia Code(s): D64.9 - ANEMIA, UNSPECIFIED Qualifiers: Anemia type: iron deficiency Iron deficiency anemia type: unspecified iron deficiency Qualified Code(s): D50.9 - Iron deficiency anemia, unspecified Assessment/Plan Current Medications Generic Name Dose Route Start Last Admin Trade Name Freq PRN Reason Stop Dose Admin Acetaminophen 650 mg 11/20/17 10:25 11/28/17 23:10 Tylenol - PO 650 mg Q6H PRN Administration FEVER Albuterol Sulfate 1 amp 11/20/17 14:49 11/23/17 08:00 Ventolin 0.083% Nebulizer Soln - NEB 1 amp Q10M PRN Administration SHORT OF BREATH/WHEEZING Amino Acids 30 ml 11/25/17 17:30 11/30/17 08:28 Prosource No Carb Liquid Pkt PO 30 ml BID@0800,1730 STEPHANIE Administration Ascorbic Acid 500 mg 11/29/17 10:00 11/30/17 10:43 Vitamin C - PO 500 mg BID STEPHANIE Administration Collagenase 1 applic 11/28/17 18:49 11/30/17 10:43 Santyl - TP 1 applic DAILY STEPHANIE Administration Protocol Aztreonam 1 gm/ Dextrose 50 mls @ 100 mls/hr 11/24/17 22:00 11/30/17 10:43 IVPB 100 mls/hr BID STEPHANIE Administration Protocol Vancomycin HCl 1,000 mg in 250 mls @ 200 mls/hr 11/28/17 08:15 11/29/17 21:44 Vancomycin (Pre-Docked) IVPB 200 mls/hr DAILY@1999 COUNTS [facility]CLUDE 234 BEDS AT THE [facility] Administration Protocol Insulin Aspart 1 vial 11/20/17 11:00 11/30/17 06:56 Novolog Vial Sliding Scale - SQ Not Given ACHS COUNTS INCLUDE 234 BEDS AT THE [facility] Protocol Metronidazole 500 mg 11/28/17 22:00 11/30/17 06:56 Flagyl - PO 500 mg TID STEPHANIE Administration Morphine Sulfate 4 mg 11/27/17 04:02 11/30/17 08:28 Morphine Sulfate IVPUSH 4 mg Q4H PRN Administration PAIN LEVEL 7 - 10 Multivitamins/Minerals/Vitamin C 1 tab 11/29/17 10:00 11/30/17 10:43 Tab-A-Vit - PO 1 tab DAILY STEPHANIE Administration Oxycodone HCl 5 mg 11/21/17 17:50 11/28/17 23:09 Roxicodone - PO 5 mg Q4H PRN Administration PAIN LEVEL 4 - 6 Zinc Sulfate 220 mg 11/29/17 10:00 11/30/17 10:43 Orazinc - PO 220 mg BID STEPHANIE Administration Impression 1. JOSSELYN 2. hyperkalemia 3. bladder cancer with mets to lung and colon 4. urinary obstruction 5. hematuria 6. anemia Plan - no new labs - maintain hydration and oral intake - monitor renal function - monitor urine output, urine is clear - will need nephrostomy tube care after discharge - JOSSELYN from obstruction Dr Canales
[2017-11-30] MEDS ORDERED: oxyCODONE HCL 5 MG TABLET PO PRN ×2 (11:24→15:25)
[2017-11-30] MEDS ORDERED: morphine SO4 SUSTAINED ACTING 30 MG TABLET.SA PO SCH ×2 (11:30)
--- NOTE | 2017-11-30 11:34 | PN ---
Progress Note, Physician Chief Complaint: patient seen and examined refused to go yesterday to [facility] today will change to po pain medications and stop iv pain meds to have him go to [facility] - Current Medication List Current Medications: Active Medications Acetaminophen (Tylenol -) 650 mg PO Q6H PRN PRN Reason: FEVER Last Admin: 11/28/17 23:10 Dose: 650 mg Albuterol Sulfate (Ventolin 0.083% Nebulizer Soln -) 1 amp NEB Q10M PRN PRN Reason: SHORT OF BREATH/WHEEZING Last Admin: 11/23/17 08:00 Dose: 1 amp Amino Acids (Prosource No Carb Liquid Pkt) 30 ml PO BID@0800,1730 [facility] Last Admin: 11/30/17 08:28 Dose: 30 ml Ascorbic Acid (Vitamin C -) 500 mg PO BID [facility] Last Admin: 11/30/17 10:43 Dose: 500 mg Collagenase (Santyl -) 1 applic TP DAILY [facility]; Protocol Last Admin: 11/30/17 10:43 Dose: 1 applic Aztreonam 1 gm/ Dextrose 50 mls @ 100 mls/hr IVPB BID [facility]; Protocol Last Admin: 11/30/17 10:43 Dose: 100 mls/hr Vancomycin HCl (Vancomycin (Pre-Docked)) 1,000 mg in 250 mls @ 200 mls/hr IVPB DAILY@2000 [facility]; Protocol Last Admin: 11/29/17 21:44 Dose: 200 mls/hr Insulin Aspart (Novolog Vial Sliding Scale -) 1 vial SQ ACHS [facility]; Protocol Last Admin: 11/30/17 06:56 Dose: Not Given Metronidazole (Flagyl -) 500 mg PO TID [facility] Last Admin: 11/30/17 06:56 Dose: 500 mg Morphine Sulfate (Ms Contin -) 30 mg PO Q8H [facility] Multivitamins/Minerals/Vitamin C (Tab-A-Vit -) 1 tab PO DAILY [facility] Last Admin: 11/30/17 10:43 Dose: 1 tab Oxycodone HCl (Roxicodone -) 10 mg PO Q4H PRN PRN Reason: PAIN LEVEL 4 - 6 Zinc Sulfate (Orazinc -) 220 mg PO BID [facility] Last Admin: 11/30/17 10:43 Dose: 220 mg - Objective Vital Signs: Vital Signs Temperature 97.8 F 11/30/17 06:00 Pulse Rate 83 11/30/17 06:00 Respiratory Rate 20 11/30/17 06:00 Blood Pressure 108/59 L 11/30/17 06:00 O2 Sat by Pulse Oximetry (%) 98 11/29/17 21:00 Constitutional: Yes: Calm Cardiovascular: Yes: Regular Rate and Rhythm, S1, S2 Respiratory: Yes: CTA Bilaterally Gastrointestinal: Yes: Normal Bowel Sounds, Soft ...Rectal Exam: Yes: Other Genitourinary: Yes: Other (bilateral PCN draining yellow urine) Edema: No Neurological: Yes: Alert, Oriented Labs: CBC, BMP 11/27/17 07:20 11/28/17 06:00 INR, PTT INR 1.43 (0.83-1.09) H 11/22/17 07:00 Fibrinogen 616.0 mg/dL (238-498) H 11/22/17 07:00 Problem List - Problems (1) Anemia requiring transfusions Assessment/Plan: h/h 8.1/25 to 7.6- if further drops < 7 will transfuse hematuria now resolved [id number] h/h Code(s): D64.9 - ANEMIA, UNSPECIFIED (2) Thrombocytosis Assessment/Plan: metastatic cancer monitor platelet count Code(s): D47.3 - ESSENTIAL (HEMORRHAGIC) THROMBOCYTHEMIA (3) Bladder cancer metastasized to intrapelvic lymph nodes Assessment/Plan: s/p bilateral nephrostomy tube placement pain medications increased patient to decide his code status- he is still full code palliative is on board Code(s): C67.9 - MALIGNANT NEOPLASM OF BLADDER, UNSPECIFIED; C77.5 - SECONDARY AND UNSP MALIGNANT NEOPLASM OF INTRAPELV NODES (4) Leukocytosis Assessment/Plan: aztreonam and flagyl wbc trending down- now normal Code(s): D72.829 - ELEVATED WHITE BLOOD CELL COUNT, UNSPECIFIED (5) JOSSELYN (acute kidney injury) Assessment/Plan: JOSSELYN secondary to obstruction now bun /cr much improved repeat labs in AM cr from 4-2.1- o.6-s/p nephrostomy tube placement s/p nephrosotomy tube placement potassium in better Code(s): N17.9 - ACUTE KIDNEY FAILURE, UNSPECIFIED (6) Ulcer of left heel Assessment/Plan: appreciate podiatry note collagenase iv abx- day 28 for heel osteomyelitis via picc line for total of 42 days Code(s): L97.429 - NON-PRS CHRONIC ULCER OF LEFT HEEL AND MIDFOOT W UNSP SEVERT Qualifiers: Non-pressure ulcer stage: unspecified non-pressure ulcer stage Qualified Code(s): L97.429 - Non-pressure chronic ulcer of left heel and midfoot with unspecified severity
[2017-11-30] MEDS ORDERED: INSULIN (NOVOLOG) ASPART 100 UNITS/ML 10ML VIAL ONE (12:01)
[2017-11-30] MEDS: VANCOMYCIN 1 GRAM (PRE-DOCKED) 1,000 MG/250 ML BAG IVPB SCH (20:42)
[2017-11-30] MEDS: morphine SO4 SUSTAINED ACTING 15 MG TABLET.SA PO SCH (22:25)
[2017-12-01] MEDS: oxyCODONE HCL 5 MG TABLET PO PRN ×2 (01:00→15:08)
[2017-12-01] MEDS: metroNIDAZOLE 250 MG TABLET PO SCH ×3 (06:42→21:47)
[2017-12-01] MEDS: INSULIN SLIDING SCALE (NOVOLOG) 1 VIAL SQ SCH ×4 (06:42→21:48)
[2017-12-01] MEDS ORDERED: PT OWN MED DRAWER 7, Y5N ONE (09:47)
[2017-12-01] MEDS: ZINC SULFATE 220 MG CAPSULE (FP) PO SCH ×2 (10:04→21:47)
[2017-12-01] MEDS: morphine SO4 SUSTAINED ACTING 15 MG TABLET.SA PO SCH ×2 (10:05→21:48)
[2017-12-01] MEDS: ASCORBIC ACID 500 MG TABLET (FP) PO SCH ×2 (10:05→21:48)
[2017-12-01] MEDS: MULTIVITAMINS (DAILY MVI) TABLET (FP) PO SCH (10:05)
[2017-12-01] MEDS: AMINO ACIDS/PROTEIN HYDROLYS 30 ML LIQUID.PKT PO SCH ×2 (10:06→17:45)
[2017-12-01] MEDS: AZTREONAM 1 GM in DEXTROSE 5%-WATER - 50 ML IVPB SCH ×2 (10:06→21:47)
--- NOTE | 2017-12-01 12:05 | PN ---
Progress Note, Physician Chief Complaint: Urinary retention Anemia thrombocytosis History of Present Illness: NAD Brown intact-CBI running clear severe generalized pain S/P BL percutaneous nephrostomy Seen by Urology and oncology for metastatic bladder Ca Seen by Palliative care team, after discussion with the family, patient doesn't wish to be DNR/DNI, wants everything done and [facility] due to not being able to get IV pain medications - Current Medication List Current Medications: Active Medications Acetaminophen (Tylenol -) 650 mg PO Q6H PRN PRN Reason: FEVER Last Admin: 11/28/17 23:10 Dose: 650 mg Amino Acids (Prosource No Carb Liquid Pkt) 30 ml PO BID@0800,1730 [facility] Last Admin: 12/01/17 10:06 Dose: 30 ml Ascorbic Acid (Vitamin C -) 500 mg PO BID [facility] Last Admin: 12/01/17 10:05 Dose: 500 mg Collagenase (Santyl -) 1 applic TP DAILY [facility]; Protocol Last Admin: 11/30/17 10:43 Dose: 1 applic Aztreonam 1 gm/ Dextrose 50 mls @ 100 mls/hr IVPB BID [facility]; Protocol Last Admin: 12/01/17 10:06 Dose: 100 mls/hr Vancomycin HCl (Vancomycin (Pre-Docked)) 1,000 mg in 250 mls @ 200 mls/hr IVPB DAILY@2000 [facility]; Protocol Last Admin: 11/30/17 20:42 Dose: 200 mls/hr Insulin Aspart (Novolog Vial Sliding Scale -) 1 vial SQ ACHS [facility]; Protocol Last Admin: 12/01/17 06:42 Dose: 2 units Metronidazole (Flagyl -) 500 mg PO TID [facility] Last Admin: 12/01/17 06:42 Dose: 500 mg Morphine Sulfate (Ms Contin -) 15 mg PO BID [facility] Last Admin: 12/01/17 10:05 Dose: 15 mg Multivitamins/Minerals/Vitamin C (Tab-A-Vit -) 1 tab PO DAILY [facility] Last Admin: 12/01/17 10:05 Dose: 1 tab Oxycodone HCl (Roxicodone -) 5 mg PO Q6H PRN PRN Reason: PAIN LEVEL 1-5 Oxycodone HCl (Roxicodone -) 10 mg PO Q6H PRN PRN Reason: PAIN LEVEL 7 - 10 Last Admin: 12/01/17 01:00 Dose: 10 mg Zinc Sulfate (Orazinc -) 220 mg PO BID [facility] Last Admin: 12/01/17 10:04 Dose: 220 mg - Objective Vital Signs: Vital Signs Temperature 98.2 F 12/01/17 06:00 Pulse Rate 94 H 12/01/17 06:00 Respiratory Rate 20 12/01/17 06:00 Blood Pressure 123/66 12/01/17 06:00 O2 Sat by Pulse Oximetry (%) 97 11/30/17 21:00 Constitutional: Yes: Well Nourished, No Distress, Calm Cardiovascular: Yes: Regular Rate and Rhythm Respiratory: Yes: Regular Gastrointestinal: Yes: Normal Bowel Sounds, Soft Genitourinary: Yes: Other (BL nephrostomy) Musculoskeletal: Yes: Muscle Weakness Edema: No Peripheral Pulses WNL: Yes Wound/Incision: Yes: Dressing Dry and Intact Neurological: Yes: Alert, Oriented Psychiatric: Yes: Alert, Oriented Labs: CBC, BMP 11/27/17 07:20 11/28/17 06:00 INR, PTT INR 1.43 (0.83-1.09) H 11/22/17 07:00 Fibrinogen 616.0 mg/dL (238-498) H 11/22/17 07:00 Problem List - Problems (1) Anemia requiring transfusions Assessment/Plan: -received 3 units of PRBC this admission -Also Guaiac positive -Chronic anemia, transfuse if Hg below 7.0 Code(s): D64.9 - ANEMIA, UNSPECIFIED (2) Urinary retention Assessment/Plan: -Seen by Urology -S/P BL nephrostomy Code(s): R33.9 - RETENTION OF URINE, UNSPECIFIED (3) Bladder cancer metastasized to intrapelvic lymph nodes Assessment/Plan: -Palliative consult -Pain management Code(s): C67.9 - MALIGNANT NEOPLASM OF BLADDER, UNSPECIFIED; C77.5 - SECONDARY AND UNSP MALIGNANT NEOPLASM OF INTRAPELV NODES (4) Hypoalbuminemia Assessment/Plan: -2/2 to decreased PO intake -On prosource Code(s): E88.09 - OTH DISORDERS OF PLASMA-PROTEIN METABOLISM, NEC (5) Hydronephrosis Assessment/Plan: -Seen by Urology -S/P BL nephrostomy Code(s): N13.30 - UNSPECIFIED HYDRONEPHROSIS (6) Chronic osteomyelitis involving ankle and foot Assessment/Plan: -Seen by ID -On flagyl, Oho and Azetreonem -Has PICC line -Santyl -Offloading -Vit C -Zinc -Multivitamin Qualifiers: Laterality: left Qualified Code(s): M86.672 - Other chronic osteomyelitis, left ankle and foot (7) Sacral decubitus ulcer Assessment/Plan: -daily santyl -offloading -prosource -vit C -Zinc -Multivitamin Code(s): L89.159 - PRESSURE ULCER OF SACRAL REGION, UNSPECIFIED STAGE Qualifiers: Pressure injury stage: unstageable Qualified Code(s): L89.150 - Pressure ulcer of sacral region, unstageable Assessment/Plan see problem list Physical therapy SCD's return to [facility], or patient to fill an appeal form for discharge
--- NOTE | 2017-12-01 16:33 | PN ---
Progress Note, Physician History of Present Illness: Pt seen and examined. He denies shortness of breath. He does not want to go to [facility]. - Current Medication List Current Medications: Active Medications Acetaminophen (Tylenol -) 650 mg PO Q6H PRN PRN Reason: FEVER Last Admin: 11/28/17 23:10 Dose: 650 mg Amino Acids (Prosource No Carb Liquid Pkt) 30 ml PO BID@0800,1730 [facility] Last Admin: 12/01/17 10:06 Dose: 30 ml Ascorbic Acid (Vitamin C -) 500 mg PO BID [facility] Last Admin: 12/01/17 10:05 Dose: 500 mg Collagenase (Santyl -) 1 applic TP DAILY [facility]; Protocol Last Admin: 11/30/17 10:43 Dose: 1 applic Aztreonam 1 gm/ Dextrose 50 mls @ 100 mls/hr IVPB BID [facility]; Protocol Last Admin: 12/01/17 10:06 Dose: 100 mls/hr Vancomycin HCl (Vancomycin (Pre-Docked)) 1,000 mg in 250 mls @ 200 mls/hr IVPB DAILY@2000 [facility]; Protocol Last Admin: 11/30/17 20:42 Dose: 200 mls/hr Insulin Aspart (Novolog Vial Sliding Scale -) 1 vial SQ ACHS [facility]; Protocol Last Admin: 12/01/17 12:03 Dose: 2 units Metronidazole (Flagyl -) 500 mg PO TID [facility] Last Admin: 12/01/17 14:49 Dose: 500 mg Morphine Sulfate (Ms Contin -) 15 mg PO BID [facility] Last Admin: 12/01/17 10:05 Dose: 15 mg Multivitamins/Minerals/Vitamin C (Tab-A-Vit -) 1 tab PO DAILY [facility] Last Admin: 12/01/17 10:05 Dose: 1 tab Oxycodone HCl (Roxicodone -) 5 mg PO Q6H PRN PRN Reason: PAIN LEVEL 1-5 Oxycodone HCl (Roxicodone -) 10 mg PO Q6H PRN PRN Reason: PAIN LEVEL 7 - 10 Last Admin: 12/01/17 15:08 Dose: 10 mg Zinc Sulfate (Orazinc -) 220 mg PO BID [facility] Last Admin: 12/01/17 10:04 Dose: 220 mg - Objective Vital Signs: Vital Signs Temperature 97.7 F 12/01/17 14:43 Pulse Rate 82 10/27/18 14:43 Respiratory Rate 17 12/01/17 14:43 Blood Pressure 96/61 12/01/17 14:43 O2 Sat by Pulse Oximetry (%) 97 11/30/17 21:00 Constitutional: Yes: Calm Eyes: Yes: Conjunctiva Clear HENT: Yes: Atraumatic Neck: Yes: Supple Cardiovascular: Yes: S1, S2 Respiratory: Yes: CTA Bilaterally Gastrointestinal: Yes: Soft, Other (colostomy) Genitourinary: Yes: Other (bilateral nephrostomy tubes) Edema: No Neurological: Yes: Oriented Psychiatric: Yes: Oriented Labs: CBC, BMP 11/27/17 07:20 11/28/17 06:00 INR, PTT INR 1.43 (0.83-1.09) H 11/22/17 07:00 Fibrinogen 616.0 mg/dL (238-498) H 11/22/17 07:00 Problem List - Problems (1) JOSSELYN (acute kidney injury) Code(s): N17.9 - ACUTE KIDNEY FAILURE, UNSPECIFIED (2) Hyperkalemia Code(s): E87.5 - HYPERKALEMIA (3) Anemia requiring transfusions Code(s): D64.9 - ANEMIA, UNSPECIFIED (4) Urinary retention Code(s): R33.9 - RETENTION OF URINE, UNSPECIFIED (5) Anemia Code(s): D64.9 - ANEMIA, UNSPECIFIED Qualifiers: Anemia type: iron deficiency Iron deficiency anemia type: unspecified iron deficiency Qualified Code(s): D50.9 - Iron deficiency anemia, unspecified Assessment/Plan Current Medications Generic Name Dose Route Start Last Admin Trade Name Freq PRN Reason Stop Dose Admin Acetaminophen 650 mg 11/20/17 10:25 11/28/17 23:10 Tylenol - PO 650 mg Q6H PRN Administration FEVER Amino Acids 30 ml 11/25/17 17:30 12/01/17 10:06 Prosource No Carb Liquid Pkt PO 30 ml BID@0800,1730 STEPHANIE Administration Ascorbic Acid 500 mg 11/29/17 10:00 12/01/17 10:05 Vitamin C - PO 500 mg BID STEPHANIE Administration Collagenase 1 applic 11/28/17 18:49 11/30/17 10:43 Santyl - TP 1 applic DAILY STEPHANIE Administration Protocol Aztreonam 1 gm/ Dextrose 50 mls @ 100 mls/hr 11/24/17 22:00 12/01/17 10:06 IVPB 100 mls/hr BID STEPHANIE Administration Protocol Vancomycin HCl 1,000 mg in 250 mls @ 200 mls/hr 11/28/17 08:15 11/30/17 20:42 Vancomycin (Pre-Docked) IVPB 200 mls/hr DAILY@2000 STEPHANIE Administration Protocol Insulin Aspart 1 vial 11/20/17 11:00 12/01/17 12:03 Novolog Vial Sliding Scale - SQ 2 units ACHS STEPHANIE Administration Protocol Metronidazole 500 mg 11/28/17 22:00 12/01/17 14:49 Flagyl - PO 500 mg TID STEPHANIE Administration Morphine Sulfate 15 mg 11/30/17 22:00 12/01/17 10:05 Ms Contin - PO 15 mg BID STEPHANIE Administration Multivitamins/Minerals/Vitamin C 1 tab 11/29/17 10:00 12/01/17 10:05 Tab-A-Vit - PO 1 tab DAILY STEPHANIE Administration Oxycodone HCl 5 mg 11/30/17 15:25 Roxicodone - PO Q6H PRN PAIN LEVEL 1-5 Oxycodone HCl 10 mg 11/30/17 15:26 12/01/17 15:08 Roxicodone - PO 10 mg Q6H PRN Administration PAIN LEVEL 7 - 10 Zinc Sulfate 220 mg 11/29/17 10:00 12/01/17 10:04 Orazinc - PO 220 mg BID STEPHANIE Administration Impression 1. JOSSELYN 2. hyperkalemia 3. bladder cancer with mets to lung and colon 4. urinary obstruction 5. hematuria 6. anemia Plan - will order bmp to evaluate lytes and renal function - urine from nephrostomy tubes is clear - will need placement - avoid nsaids - JOSSELYN from obstruction Dr Canales
[2017-12-01] MEDS: COLLAGENASE CLOSTRIDIUM HIST. 30 GRAMS TUBE TP SCH (17:44)
[2017-12-01] MEDS ORDERED: INSULIN (NOVOLOG) ASPART 100 UNITS/ML 10ML VIAL ONE (19:01)
[2017-12-01] MEDS: VANCOMYCIN 1 GRAM (PRE-DOCKED) 1,000 MG/250 ML BAG IVPB SCH (20:13)
[2017-12-02] MEDS: oxyCODONE HCL 5 MG TABLET PO PRN ×4 (04:19→21:04)
[2017-12-02] MEDS: metroNIDAZOLE 250 MG TABLET PO SCH ×3 (06:57→21:00)
[2017-12-02] MEDS: INSULIN SLIDING SCALE (NOVOLOG) 1 VIAL SQ SCH ×4 (06:57→21:15)
[2017-12-02] MEDS ORDERED: INSULIN (NOVOLOG) ASPART 100 UNITS/ML 10ML VIAL ONE (07:05)
[2017-12-02] MEDS: AMINO ACIDS/PROTEIN HYDROLYS 30 ML LIQUID.PKT PO SCH ×2 (08:37→17:43)
[2017-12-02 08:53] LABS: ANION GAP 7 MMOL/L (8-16); BLOOD UREA NITROGEN 24 mg/dL (7-18); CHLORIDE 106 mmol/L (98-107); CO2 28 mmol/L (21-32); CREATININE 0.7 mg/dL (0.55-1.3); GLUCOSE,RANDOM 114 mg/dL (74-106); POTASSIUM 4.6 mmol/L (3.5-5.1); SODIUM 141 mmol/L (136-145)
[2017-12-02] MEDS ORDERED: PT OWN MED DRAWER 7, Y5N ONE ×2 (09:08→20:42)
[2017-12-02] MEDS: AZTREONAM 1 GM in DEXTROSE 5%-WATER - 50 ML IVPB SCH ×2 (10:06→22:30)
[2017-12-02] MEDS: morphine SO4 SUSTAINED ACTING 15 MG TABLET.SA PO SCH ×2 (10:07→21:15)
[2017-12-02] MEDS: ZINC SULFATE 220 MG CAPSULE (FP) PO SCH ×2 (10:08→21:00)
[2017-12-02] MEDS: COLLAGENASE CLOSTRIDIUM HIST. 30 GRAMS TUBE TP SCH (10:09)
[2017-12-02] MEDS: MULTIVITAMINS (DAILY MVI) TABLET (FP) PO SCH (10:09)
[2017-12-02] MEDS: ASCORBIC ACID 500 MG TABLET (FP) PO SCH ×2 (10:09→21:00)
--- NOTE | 2017-12-02 11:28 | PN ---
Progress Note, Physician Chief Complaint: Urinary retention Anemia thrombocytosis History of Present Illness: NAD Brown intact-CBI running clear severe generalized pain S/P BL percutaneous nephrostomy Seen by Urology and oncology for metastatic bladder Ca Seen by Palliative care team, after discussion with the family, patient doesn't wish to be DNR/DNI, wants everything done and wants to be [facility] to go to [facility] yesterday due to not being able to get IV pain medications - Current Medication List Current Medications: Active Medications Acetaminophen (Tylenol -) 650 mg PO Q6H PRN PRN Reason: FEVER Last Admin: 11/28/17 23:10 Dose: 650 mg Amino Acids (Prosource No Carb Liquid Pkt) 30 ml PO BID@0800,1730 [facility] Last Admin: 12/02/17 08:37 Dose: 30 ml Ascorbic Acid (Vitamin C -) 500 mg PO BID [facility] Last Admin: 12/02/17 10:09 Dose: 500 mg Collagenase (Santyl -) 1 applic TP DAILY [facility]; Protocol Last Admin: 12/02/17 10:09 Dose: 1 applic Aztreonam 1 gm/ Dextrose 50 mls @ 100 mls/hr IVPB BID [facility]; Protocol Last Admin: 12/02/17 10:06 Dose: 100 mls/hr Vancomycin HCl (Vancomycin (Pre-Docked)) 1,000 mg in 250 mls @ 200 mls/hr IVPB DAILY@2000 [facility]; Protocol Last Admin: 12/01/17 20:13 Dose: 200 mls/hr Insulin Aspart (Novolog Vial Sliding Scale -) 1 vial SQ ACHS [facility]; Protocol Last Admin: 12/02/17 06:57 Dose: Not Given Metronidazole (Flagyl -) 500 mg PO TID [facility] Last Admin: 12/02/17 06:57 Dose: 500 mg Morphine Sulfate (Ms Contin -) 15 mg PO BID [facility] Last Admin: 12/02/17 10:07 Dose: 15 mg Multivitamins/Minerals/Vitamin C (Tab-A-Vit -) 1 tab PO DAILY [facility] Last Admin: 12/02/17 10:09 Dose: 1 tab Oxycodone HCl (Roxicodone -) 5 mg PO Q6H PRN PRN Reason: PAIN LEVEL 1-5 Last Admin: 12/02/17 08:56 Dose: 5 mg Oxycodone HCl (Roxicodone -) 10 mg PO Q6H PRN PRN Reason: PAIN LEVEL 7 - 10 Last Admin: 12/02/17 04:19 Dose: 10 mg Zinc Sulfate (Orazinc -) 220 mg PO BID [facility] Last Admin: 12/02/17 10:08 Dose: 220 mg - Objective Vital Signs: Vital Signs Temperature 97.8 F 12/02/17 06:00 Pulse Rate 80 12/02/17 06:00 Respiratory Rate 20 12/02/17 06:00 Blood Pressure 128/60 12/02/17 06:00 O2 Sat by Pulse Oximetry (%) 97 12/01/17 21:00 Constitutional: Yes: Well Nourished, No Distress, Calm Cardiovascular: Yes: Regular Rate and Rhythm Respiratory: Yes: Regular Gastrointestinal: Yes: Normal Bowel Sounds, Soft Musculoskeletal: Yes: Muscle Weakness Edema: No Peripheral Pulses WNL: Yes Wound/Incision: Yes: Dressing Dry and Intact Neurological: Yes: Alert, Oriented Psychiatric: Yes: Alert, Oriented Labs: CBC, BMP 11/27/17 07:20 12/02/17 07:15 INR, PTT INR 1.43 (0.83-1.09) H 11/22/17 07:00 Fibrinogen 616.0 mg/dL (238-498) H 11/22/17 07:00 Problem List - Problems (1) Anemia requiring transfusions Assessment/Plan: -received 3 units of PRBC this admission -Also Guaiac positive -Chronic anemia, transfuse if Hg below 7.0 Code(s): D64.9 - ANEMIA, UNSPECIFIED (2) Urinary retention Assessment/Plan: -Seen by Urology -S/P BL nephrostomy Code(s): R33.9 - RETENTION OF URINE, UNSPECIFIED (3) Bladder cancer metastasized to intrapelvic lymph nodes Assessment/Plan: -Palliative consult -Pain management Code(s): C67.9 - MALIGNANT NEOPLASM OF BLADDER, UNSPECIFIED; C77.5 - SECONDARY AND UNSP MALIGNANT NEOPLASM OF INTRAPELV NODES (4) Hypoalbuminemia Assessment/Plan: -2/2 to decreased PO intake -On prosource Code(s): E88.09 - OTH DISORDERS OF PLASMA-PROTEIN METABOLISM, NEC (5) Hydronephrosis Assessment/Plan: -Seen by Urology -S/P BL nephrostomy Code(s): N13.30 - UNSPECIFIED HYDRONEPHROSIS (6) Chronic osteomyelitis involving ankle and foot Assessment/Plan: -Seen by ID -On flagyl, Oho and Azetreonem -Has PICC line -Santyl -Offloading -Vit C -Zinc -Multivitamin Qualifiers: Laterality: left Qualified Code(s): M86.672 - Other chronic osteomyelitis, left ankle and foot (7) Sacral decubitus ulcer Assessment/Plan: -daily santyl -offloading -prosource -vit C -Zinc -Multivitamin Code(s): L89.159 - PRESSURE ULCER OF SACRAL REGION, UNSPECIFIED STAGE Qualifiers: Pressure injury stage: unstageable Qualified Code(s): L89.150 - Pressure ulcer of sacral region, unstageable Assessment/Plan see problem list Physical therapy SCD's return to [facility], or patient to fill an appeal form for discharge
--- NOTE | 2017-12-02 16:44 | PN ---
Progress Note, Physician History of Present Illness: Pt seen and examined at bedside. He is awake and alert. He denies shortness of breath. - Current Medication List Current Medications: Active Medications Acetaminophen (Tylenol -) 650 mg PO Q6H PRN PRN Reason: FEVER Last Admin: 11/28/17 23:10 Dose: 650 mg Amino Acids (Prosource No Carb Liquid Pkt) 30 ml PO BID@0800,1730 [facility] Last Admin: 12/02/17 08:37 Dose: 30 ml Ascorbic Acid (Vitamin C -) 500 mg PO BID [facility] Last Admin: 12/02/17 10:09 Dose: 500 mg Collagenase (Santyl -) 1 applic TP DAILY [facility]; Protocol Last Admin: 12/02/17 10:09 Dose: 1 applic Aztreonam 1 gm/ Dextrose 50 mls @ 100 mls/hr IVPB BID [facility]; Protocol Last Admin: 12/02/17 10:06 Dose: 100 mls/hr Vancomycin HCl (Vancomycin (Pre-Docked)) 1,000 mg in 250 mls @ 200 mls/hr IVPB DAILY@2000 [facility]; Protocol Last Admin: 12/01/17 20:13 Dose: 200 mls/hr Insulin Aspart (Novolog Vial Sliding Scale -) 1 vial SQ ACHS [facility]; Protocol Last Admin: 12/02/17 12:36 Dose: 2 units Metronidazole (Flagyl -) 500 mg PO TID [facility] Last Admin: 12/02/17 14:54 Dose: 500 mg Morphine Sulfate (Ms Contin -) 15 mg PO BID [facility] Last Admin: 12/02/17 10:07 Dose: 15 mg Multivitamins/Minerals/Vitamin C (Tab-A-Vit -) 1 tab PO DAILY [facility] Last Admin: 12/02/17 10:09 Dose: 1 tab Oxycodone HCl (Roxicodone -) 5 mg PO Q6H PRN PRN Reason: PAIN LEVEL 1-5 Last Admin: 12/02/17 08:56 Dose: 5 mg Oxycodone HCl (Roxicodone -) 10 mg PO Q6H PRN PRN Reason: PAIN LEVEL 7 - 10 Last Admin: 12/02/17 04:19 Dose: 10 mg Zinc Sulfate (Orazinc -) 220 mg PO BID [facility] Last Admin: 12/02/17 10:08 Dose: 220 mg - Objective Vital Signs: Vital Signs Temperature 97.6 F 12/02/17 15:10 Pulse Rate 79 12/02/17 15:10 Respiratory Rate 16 12/02/17 15:10 Blood Pressure 116/65 12/02/17 15:10 O2 Sat by Pulse Oximetry (%) 99 12/02/17 09:00 Constitutional: Yes: Calm Eyes: Yes: Conjunctiva Clear HENT: Yes: Atraumatic Cardiovascular: Yes: S1, S2 Respiratory: Yes: CTA Bilaterally Gastrointestinal: Yes: Soft Genitourinary: Yes: Brown Present, Other (bilateral nephrostomy tubes) Musculoskeletal: Yes: WNL Edema: No Integumentary: Yes: Tattoos Neurological: Yes: Oriented Psychiatric: Yes: Oriented Labs: CBC, BMP 11/27/17 07:20 12/02/17 07:15 INR, PTT INR 1.43 (0.83-1.09) H 11/22/17 07:00 Fibrinogen 616.0 mg/dL (238-498) H 11/22/17 07:00 Problem List - Problems (1) JOSSELYN (acute kidney injury) Code(s): N17.9 - ACUTE KIDNEY FAILURE, UNSPECIFIED (2) Hyperkalemia Code(s): E87.5 - HYPERKALEMIA (3) Anemia requiring transfusions Code(s): D64.9 - ANEMIA, UNSPECIFIED (4) Urinary retention Code(s): R33.9 - RETENTION OF URINE, UNSPECIFIED (5) Anemia Code(s): D64.9 - ANEMIA, UNSPECIFIED Qualifiers: Anemia type: iron deficiency Iron deficiency anemia type: unspecified iron deficiency Qualified Code(s): D50.9 - Iron deficiency anemia, unspecified Assessment/Plan Current Medications Generic Name Dose Route Start Last Admin Trade Name Freq PRN Reason Stop Dose Admin Acetaminophen 650 mg 11/20/17 10:25 11/28/17 23:10 Tylenol - PO 650 mg Q6H PRN Administration FEVER Amino Acids 30 ml 11/25/17 17:30 12/02/17 08:37 Prosource No Carb Liquid Pkt PO 30 ml BID@0800,1730 [facility] Administration Ascorbic Acid 500 mg 11/29/17 10:00 12/02/17 10:09 Vitamin C - PO 500 mg BID [facility]IE Administration Collagenase 1 applic 11/28/17 18:49 12/02/17 10:09 Santyl - TP 1 applic DAILY [facility] Administration Protocol Aztreonam 1 gm/ Dextrose 50 mls @ 100 mls/hr 11/24/17 22:00 12/02/17 10:06 IVPB 100 mls/hr BID [facility]IE Administration Protocol Vancomycin HCl 1,000 mg in 250 mls @ 200 mls/hr 11/28/17 08:15 12/01/17 20:13 Vancomycin (Pre-Docked) IVPB 200 mls/hr DAILY@1999 [facility]IE Administration Protocol Insulin Aspart 1 vial 11/20/17 11:00 12/02/17 12:36 Novolog Vial Sliding Scale - SQ 2 units ACHS [facility] Administration Protocol Metronidazole 500 mg 11/28/17 22:00 12/02/17 14:54 Flagyl - PO 500 mg TID [facility]IE Administration Morphine Sulfate 15 mg 11/30/17 22:00 12/02/17 10:07 Ms Contin - PO 15 mg BID [facility]IE Administration Multivitamins/Minerals/Vitamin C 1 tab 11/29/17 10:00 12/02/17 10:09 Tab-A-Vit - PO 1 tab DAILY [facility] Administration Oxycodone HCl 5 mg 11/30/17 15:25 12/02/17 08:56 Roxicodone - PO 5 mg Q6H PRN Administration PAIN LEVEL 1-5 Oxycodone HCl 10 mg 11/30/17 15:26 12/02/17 04:19 Roxicodone - PO 10 mg Q6H PRN Administration PAIN LEVEL 7 - 10 Zinc Sulfate 220 mg 11/29/17 10:00 12/02/17 10:08 Orazinc - PO 220 mg BID [facility]IE Administration Impression 1. JOSSELYN 2. hyperkalemia 3. bladder cancer with mets to lung and colon 4. urinary obstruction 5. hematuria 6. anemia Plan - labs reviewed - monitor output and color of urine from nephrostomy - check labs every few days for now - will follow PRN - urine from nephrostomy tubes is clear - avoid nsaids - JOSSELYN from obstruction Dr Canales
[2017-12-02] MEDS: VANCOMYCIN 1 GRAM (PRE-DOCKED) 1,000 MG/250 ML BAG IVPB SCH (20:57)
[2017-12-02] MEDS: MELATONIN 5 MG TABLETS PO PRN (23:48)
[2017-12-03] MEDS: oxyCODONE HCL 5 MG TABLET PO PRN ×4 (02:12→22:34)
[2017-12-03] MEDS: metroNIDAZOLE 250 MG TABLET PO SCH (06:12)
[2017-12-03] MEDS: INSULIN SLIDING SCALE (NOVOLOG) 1 VIAL SQ SCH ×4 (06:17→22:31)
[2017-12-03] MEDS: AMINO ACIDS/PROTEIN HYDROLYS 30 ML LIQUID.PKT PO SCH ×2 (08:00→17:14)
[2017-12-03] MEDS ORDERED: PT OWN MED DRAWER 7, Y5N ONE (09:59)
[2017-12-03] MEDS: ASCORBIC ACID 500 MG TABLET (FP) PO SCH ×2 (10:22→22:31)
[2017-12-03] MEDS: morphine SO4 SUSTAINED ACTING 15 MG TABLET.SA PO SCH ×2 (10:22→23:00)
[2017-12-03] MEDS: AZTREONAM 1 GM in DEXTROSE 5%-WATER - 50 ML IVPB SCH (10:22)
[2017-12-03] MEDS: MULTIVITAMINS (DAILY MVI) TABLET (FP) PO SCH (10:23)
[2017-12-03] MEDS: ZINC SULFATE 220 MG CAPSULE (FP) PO SCH ×2 (10:23→22:31)
[2017-12-03] MEDS: COLLAGENASE CLOSTRIDIUM HIST. 30 GRAMS TUBE TP SCH (10:24)
--- NOTE | 2017-12-03 15:17 | PN ---
Progress Note, Physician Chief Complaint: patient seen and examined doesnot want to go to [facility] spoke to telephonic nurse case manager about his other options - Current Medication List Current Medications: Active Medications Acetaminophen (Tylenol -) 650 mg PO Q6H PRN PRN Reason: FEVER Last Admin: 11/28/17 23:10 Dose: 650 mg Amino Acids (Prosource No Carb Liquid Pkt) 30 ml PO BID@0800,1730 [facility] Last Admin: 12/03/17 08:00 Dose: 30 ml Ascorbic Acid (Vitamin C -) 500 mg PO BID [facility] Last Admin: 12/03/17 10:22 Dose: 500 mg Collagenase (Santyl -) 1 applic TP DAILY [facility]; Protocol Last Admin: 12/03/17 10:24 Dose: 1 applic Aztreonam 1 gm/ Dextrose 50 mls @ 100 mls/hr IVPB BID [facility]; Protocol Last Admin: 12/03/17 10:22 Dose: 100 mls/hr Vancomycin HCl (Vancomycin (Pre-Docked)) 1,000 mg in 250 mls @ 200 mls/hr IVPB DAILY@2000 [facility]; Protocol Last Admin: 12/02/17 20:57 Dose: 200 mls/hr Insulin Aspart (Novolog Vial Sliding Scale -) 1 vial SQ ACHS [facility]; Protocol Last Admin: 12/03/17 12:56 Dose: Not Given Melatonin (Melatonin) 5 mg PO HS PRN PRN Reason: INSOMNIA Last Admin: 12/02/17 23:48 Dose: 5 mg Morphine Sulfate (Ms Contin -) 15 mg PO BID [facility] Last Admin: 12/03/17 10:22 Dose: 15 mg Multivitamins/Minerals/Vitamin C (Tab-A-Vit -) 1 tab PO DAILY [facility] Last Admin: 12/03/17 10:23 Dose: 1 tab Oxycodone HCl (Roxicodone -) 5 mg PO Q6H PRN PRN Reason: PAIN LEVEL 1-5 Last Admin: 12/03/17 06:12 Dose: 5 mg Oxycodone HCl (Roxicodone -) 10 mg PO Q6H PRN PRN Reason: PAIN LEVEL 7 - 10 Last Admin: 12/03/17 02:12 Dose: 10 mg Zinc Sulfate (Orazinc -) 220 mg PO BID [facility] Last Admin: 12/03/17 10:23 Dose: 220 mg - Objective Vital Signs: Vital Signs Temperature 97.5 F L 12/03/17 10:00 Pulse Rate 96 H 12/03/17 10:00 Respiratory Rate 20 12/03/17 10:00 Blood Pressure 109/70 12/03/17 10:00 O2 Sat by Pulse Oximetry (%) 99 12/02/17 21:00 Constitutional: Yes: Calm Cardiovascular: Yes: Regular Rate and Rhythm, S1, S2 Respiratory: Yes: CTA Bilaterally Gastrointestinal: Yes: Normal Bowel Sounds, Soft Genitourinary: Yes: Other (bilateral PCN clear urine) Wound/Incision: Yes: Dressing Dry and Intact (on the foot) Labs: CBC, BMP 11/27/17 07:20 12/02/17 07:15 INR, PTT INR 1.43 (0.83-1.09) H 11/22/17 07:00 Fibrinogen 616.0 mg/dL (238-498) H 11/22/17 07:00 Problem List - Problems (1) Anemia requiring transfusions Assessment/Plan: h/h 8.1/25 to 7.6- if further drops < 7 will transfuse hematuria now resolved [id number] h/h Code(s): D64.9 - ANEMIA, UNSPECIFIED (2) Thrombocytosis Assessment/Plan: metastatic cancer monitor platelet count Code(s): D47.3 - ESSENTIAL (HEMORRHAGIC) THROMBOCYTHEMIA (3) Bladder cancer metastasized to intrapelvic lymph nodes Assessment/Plan: s/p bilateral nephrostomy tube placement pain medications increased patient to decide his code status- he is still full code palliative is on board Code(s): C67.9 - MALIGNANT NEOPLASM OF BLADDER, UNSPECIFIED; C77.5 - SECONDARY AND UNSP MALIGNANT NEOPLASM OF INTRAPELV NODES (4) Leukocytosis Assessment/Plan: aztreonam and flagyl wbc trending down- now normal Code(s): D72.829 - ELEVATED WHITE BLOOD CELL COUNT, UNSPECIFIED (5) JOSSELYN (acute kidney injury) Assessment/Plan: JOSSELYN secondary to obstruction now bun /cr much improved repeat labs in AM cr from 4-2.1- o.6-s/p nephrostomy tube placement s/p nephrosotomy tube placement potassium in better Code(s): N17.9 - ACUTE KIDNEY FAILURE, UNSPECIFIED (6) Ulcer of left heel Assessment/Plan: appreciate podiatry note collagenase iv abx- day 31 for heel osteomyelitis via picc line for total of 42 days Code(s): L97.429 - NON-PRS CHRONIC ULCER OF LEFT HEEL AND MIDFOOT W UNSP SEVERT Qualifiers: Non-pressure ulcer stage: unspecified non-pressure ulcer stage Qualified Code(s): L97.429 - Non-pressure chronic ulcer of left heel and midfoot with unspecified severity
[2017-12-03] MEDS ORDERED: oxyCODONE HCL 5 MG TABLET PO PRN ×2 (15:38→15:42)
[2017-12-03] MEDS: VANCOMYCIN 1 GRAM (PRE-DOCKED) 1,000 MG/250 ML BAG IVPB SCH (22:30)
[2017-12-03] MEDS: MELATONIN 5 MG TABLETS PO PRN (22:31)
[2017-12-04] MEDS: AZTREONAM 1 GM in DEXTROSE 5%-WATER - 50 ML IVPB SCH ×2 (00:05→10:32)
[2017-12-04] MEDS: oxyCODONE HCL 5 MG TABLET PO PRN ×2 (06:01→17:23)
[2017-12-04] MEDS: INSULIN SLIDING SCALE (NOVOLOG) 1 VIAL SQ SCH ×3 (06:08→17:25)
[2017-12-04 07:12] LABS: BASO % 0.8 % (0-2.0); EOS % 4.3 % (0-4.5); HEMATOCRIT 24.8 % (35.4-49); HEMOGLOBIN 7.9 GM/dL (11.7-16.9); MCH 27.4 pg (25.7-33.7); MCHC 31.8 g/dl (32.0-35.9); MEAN CELL VOLUME 86.3 fl (80-96); MEAN PLT VOLUME 7.5 fl (7.5-11.1); MONO % 7.1 % (3.8-10.2); NEUT % 71.8 % (42.8-82.8); PLATELET COUNT 500 K/MM3 (134-434); RBC 2.87 M/mm3 (4.00-5.60); RDW 18.7 % (11.9-15.9); WHITE BLOOD COUNT 6.5 K/mm3 (4.0-10.0)
[2017-12-04] MEDS: AMINO ACIDS/PROTEIN HYDROLYS 30 ML LIQUID.PKT PO SCH (08:00)
[2017-12-04] MEDS: COLLAGENASE CLOSTRIDIUM HIST. 30 GRAMS TUBE TP SCH (10:00)
[2017-12-04] MEDS ORDERED: PT OWN MED DRAWER 7, Y5N ONE (10:05)
[2017-12-04] MEDS: ZINC SULFATE 220 MG CAPSULE (FP) PO SCH (10:31)
[2017-12-04] MEDS: MULTIVITAMINS (DAILY MVI) TABLET (FP) PO SCH (10:32)
[2017-12-04] MEDS: morphine SO4 SUSTAINED ACTING 15 MG TABLET.SA PO SCH (10:32)
[2017-12-04] MEDS: ASCORBIC ACID 500 MG TABLET (FP) PO SCH (10:32)
--- NOTE | 2017-12-04 11:13 | PN ---
Progress Note, Physician Chief Complaint: Urinary retention Anemia thrombocytosis History of Present Illness: NAD Brown intact-CBI running clear severe generalized pain S/P BL percutaneous nephrostomy Seen by Urology and oncology for metastatic bladder Ca Seen by Palliative care team, after discussion with the family, patient doesn't wish to be DNR/DNI, wants everything done Refusing to go back to [facility], accepted at [facility] - Current Medication List Current Medications: Active Medications Acetaminophen (Tylenol -) 650 mg PO Q6H PRN PRN Reason: FEVER Last Admin: 11/28/17 23:10 Dose: 650 mg Amino Acids (Prosource No Carb Liquid Pkt) 30 ml PO BID@0800,1730 [facility] Last Admin: 12/04/17 08:00 Dose: 30 ml Ascorbic Acid (Vitamin C -) 500 mg PO BID [facility] Last Admin: 12/04/17 10:32 Dose: 500 mg Collagenase (Santyl -) 1 applic TP DAILY [facility]; Protocol Last Admin: 12/03/17 10:24 Dose: 1 applic Aztreonam 1 gm/ Dextrose 50 mls @ 100 mls/hr IVPB BID [facility]; Protocol Last Admin: 12/04/17 10:32 Dose: 100 mls/hr Vancomycin HCl (Vancomycin (Pre-Docked)) 1,000 mg in 250 mls @ 200 mls/hr IVPB DAILY@2000 [facility]; Protocol Last Admin: 12/03/17 22:30 Dose: 200 mls/hr Insulin Aspart (Novolog Vial Sliding Scale -) 1 vial SQ ACHS [facility]; Protocol Last Admin: 12/04/17 06:08 Dose: 2 units Melatonin (Melatonin) 5 mg PO HS PRN PRN Reason: INSOMNIA Last Admin: 12/03/17 22:31 Dose: 5 mg Morphine Sulfate (Ms Contin -) 15 mg PO BID [facility] Last Admin: 12/04/17 10:32 Dose: 15 mg Multivitamins/Minerals/Vitamin C (Tab-A-Vit -) 1 tab PO DAILY [facility] Last Admin: 12/04/17 10:32 Dose: 1 tab Oxycodone HCl (Roxicodone -) 10 mg PO Q6H PRN PRN Reason: PAIN LEVEL 6-10 Last Admin: 12/04/17 06:01 Dose: 10 mg Oxycodone HCl (Roxicodone -) 5 mg PO Q6H PRN PRN Reason: PAIN LEVEL 1-5 Zinc Sulfate (Orazinc -) 220 mg PO BID [facility] Last Admin: 12/04/17 10:31 Dose: 220 mg - Objective Vital Signs: Vital Signs Temperature 98.2 F 12/04/17 06:00 Pulse Rate 91 H 12/04/17 06:00 Respiratory Rate 20 12/04/17 06:00 Blood Pressure 102/54 L 12/04/17 06:00 O2 Sat by Pulse Oximetry (%) 99 12/03/17 21:00 Constitutional: Yes: Well Nourished, No Distress, Calm Cardiovascular: Yes: Regular Rate and Rhythm Respiratory: Yes: Regular Gastrointestinal: Yes: Normal Bowel Sounds, Soft Genitourinary: Yes: Brown Present Musculoskeletal: Yes: Muscle Weakness Edema: No Peripheral Pulses WNL: Yes Neurological: Yes: Alert, Oriented Psychiatric: Yes: Alert, Oriented Labs: CBC, BMP 12/04/17 06:30 12/02/17 07:15 INR, PTT INR 1.43 (0.83-1.09) H 11/22/17 07:00 Fibrinogen 616.0 mg/dL (238-498) H 11/22/17 07:00 Problem List - Problems (1) Anemia requiring transfusions Assessment/Plan: -received 3 units of PRBC this admission -Also Guaiac positive -Chronic anemia, transfuse if Hg below 7.0 Code(s): D64.9 - ANEMIA, UNSPECIFIED (2) Urinary retention Assessment/Plan: -Seen by Urology -S/P BL nephrostomy Code(s): R33.9 - RETENTION OF URINE, UNSPECIFIED (3) Bladder cancer metastasized to intrapelvic lymph nodes Assessment/Plan: -Palliative consult -Pain management Code(s): C67.9 - MALIGNANT NEOPLASM OF BLADDER, UNSPECIFIED; C77.5 - SECONDARY AND UNSP MALIGNANT NEOPLASM OF INTRAPELV NODES (4) Hypoalbuminemia Assessment/Plan: -2/2 to decreased PO intake -On prosource Code(s): E88.09 - OTH DISORDERS OF PLASMA-PROTEIN METABOLISM, NEC (5) Hydronephrosis Assessment/Plan: -Seen by Urology -S/P BL nephrostomy Code(s): N13.30 - UNSPECIFIED HYDRONEPHROSIS (6) Chronic osteomyelitis involving ankle and foot Assessment/Plan: -Seen by ID -On flagyl, Oho and Azetreonem -Has PICC line -Santyl -Offloading -Vit C -Zinc -Multivitamin Qualifiers: Laterality: left Qualified Code(s): M86.672 - Other chronic osteomyelitis, left ankle and foot (7) Sacral decubitus ulcer Assessment/Plan: -daily santyl -offloading -prosource -vit C -Zinc -Multivitamin Code(s): L89.159 - PRESSURE ULCER OF SACRAL REGION, UNSPECIFIED STAGE Qualifiers: Pressure injury stage: unstageable Qualified Code(s): L89.150 - Pressure ulcer of sacral region, unstageable Assessment/Plan see problem list Physical therapy SCD's D/C SNF
[2017-12-04 15:35] VITALS: BP 115/56; PULSE 75; TEMP 97.8
== END 2017-12-04 18:04 | DRG 710 ==
LOC: JER 18:38 → JERBED 11-20 06:44 → J5S 11-20 13:58
PROVIDERS: ADMIT Internal Medicine; ATTEND Family Medicine
PROC: 30233N1 Transfusion of Nonautologous Red Blood Cells into Peripheral Vein, Percutaneous Approach (ICD-10-PCS; 2017-11-20)
PROC: 0T9430Z Drainage of Left Kidney Pelvis with Drainage Device, Percutaneous Approach (ICD-10-PCS; principal; 2017-11-22)
PROC: 0T9030Z Drainage of Right Kidney with Drainage Device, Percutaneous Approach (ICD-10-PCS; 2017-11-22)
DX: A41.9 Sepsis, unspecified organism (principal); D62 Acute posthemorrhagic anemia; R33.9 Retention of urine, unspecified; C67.9 Malignant neoplasm of bladder, unspecified; C77.5 Secondary and unspecified malignant neoplasm of intrapelvic lymph nodes; E88.09 Other disorders of plasma-protein metabolism, not elsewhere classified; N13.30 Unspecified hydronephrosis; M86.672 Other chronic osteomyelitis, left ankle and foot; L89.150 Pressure ulcer of sacral region, unstageable; D47.3 Essential (hemorrhagic) thrombocythemia; D72.829 Elevated white blood cell count, unspecified; E87.5 Hyperkalemia; N17.9 Acute kidney failure, unspecified; R31.0 Gross hematuria; R64 Cachexia; Z68.24 Body mass index [BMI] 24.0-24.9, adult; D68.9 Coagulation defect, unspecified; Z88.0 Allergy status to penicillin; R00.0 Tachycardia, unspecified; C78.00 Secondary malignant neoplasm of unspecified lung; C78.5 Secondary malignant neoplasm of large intestine and rectum; E11.9 Type 2 diabetes mellitus without complications; E87.1 Hypo-osmolality and hyponatremia
CPT/HCPCS: 36415; 36430; 50432; 71045-TC-FY; 74176-TC; 76000-TC-FY; 76098-TC-FY; 76775-TC; 76856-TC; 76998-TC; 80048; 80053; 81003; 81015; 82550; 82607; 82728; 82962; 83540; 83550; 83735; 84132; 84484; 85025; 85027; 85384; 85610; 85730; 86850; 86900; 86901; 86922; 87040; 87070; 87075; 87086; 87205; 87899; 93005; 93010; 94640; 97162-GP; 99282-25; A4358; C1729; C1769; G0480; J7030; P9038; P9058

== ENCOUNTER 2018-02-05 15:52 | Inpatient (IN) | payer OTHER ==
--- NOTE | 2018-02-05 16:57 | PDOC ---
History of Present Illness - History of Present Illness Initial Comments: 02/05/18 17:28 Patient is a 62 year old female with past medical history of diabetes, bladder carcinoma (s/p nephrostomy tube, with mets to the colon s/p colectomy and lungs) , history of left diabetic foot ulcer (s/p I&D and PICC line for antibiotics) who was sent to the ED from [facility] for evaluation of anemia. As per paperwork, his hemoglobin today was 5 and he was sent in. The patient in the ED has no complaints. He denies any abdominal pain, diarrhea, melena, or hematochezia, nausea, vomiting, or hematemesis. He denies any fevers or chills. Patient was seen in the ED two months ago for urinary retention where he was treated. He reports a few days ago he had some hematuria which has since resolved. He denies any further urinary symptoms. Denies any lightheadedness, presyncope or syncope. PCP: Dr. Vargas <Donita Fernandez - Last Filed: 02/05/18 17:41> - General History Source: Patient Exam Limitations: No Limitations <Will Bryant - Last Filed: 02/09/18 07:26> - General Stated Complaint: LOW HEMOGLOBIN Time Seen by Provider: 02/05/18 16:47 Past History <Donita Fernandez - Last Filed: 02/05/18 17:41> - Past Medical History Anemia: No Cancer: Yes (lung,bladder,colon) Cardiac Disorders: No CVA: No COPD: No Diabetes: Yes - Surgical History Abdominal Surgery: Yes (colon resection, with colostomy) Appendectomy: Yes - Suicide/Smoking/Psychosocial Hx Smoking History: Former smoker Have you smoked in the past 12 months: No Hx Alcohol Use: No Drug/Substance Use Hx: No Substance Use Type: None Hx Substance Use Treatment: No <Will Bryant - Last Filed: 02/09/18 07:26> - Past Medical History Allergies/Adverse Reactions: Allergies Allergy/AdvReac Type Severity Reaction Status Date / Time Penicillins Allergy Verified 02/05/18 19:59 Home Medications: Ambulatory Orders Acetaminophen [Tylenol .Regular Strength -] 650 mg PO Q6H PRN tablet 11/15/17 Collagenase Clostridium Hist. [Santyl -] 1 applic TP DAILY tube 11/15/17 Melatonin/Pyridoxine HCl (B6) [Melatonin 5 mg Tablet] 1 each PO HS 11/20/17 Ascorbic Acid [Vitamin C -] 500 mg PO BID tablet 11/28/17 Multivitamins [Multivit ([facility] Formulary)] 1 tab PO DAILY tab 11/28/17 Zinc Sulfate [Orazinc -] 220 mg PO BID capsule 11/28/17 Albuterol 0.083% Nebulizer Jeanine [Ventolin 0.083%] 1 neb NEB TID PRN 02/05/18 Lactobacillus Acidophilus [Acidophilus] 1 each PO DAILY 02/05/18 Nystatin Powder [Nystop Topical Powder -] 15 gm TP BID 02/05/18 Ranitidine [Zantac -] 150 mg PO BID 02/05/18 Ferrous Sulfate [Feosol] 325 mg PO BIDWM ud 02/08/18 Morphine *Sr* [Ms Contin -] 15 mg PO BID #20 tablet.sa MDD 2 02/08/18 Review of Systems - Review of Systems Able to Perform ROS?: Yes Comments:: 02/05/18 17:29 CONSTITUTIONAL: No reported: Fever, Chills, Diaphoresis, Generalized Weakness, Malaise, Loss of Appetite HEENT: No reported: Rhinorrhea, Nasal Congestion, Throat Pain, Throat Swelling, Difficulty Swallowing, Mouth Swelling, Ear Pain, Eye Pain, Visual Changes CARDIOVASCULAR: No reported: Chest Pain, Syncope, Palpitations, Irregular Heart Rate, Lightheadedness, Peripheral Edema RESPIRATORY: No reported: Cough, Shortness of Breath, SOB with Exertion, Orthopnea, Wheezing , Stridor, Hemoptysis GASTROINTESTINAL: No reported: Abdominal pain, Abdominal Distension, Nausea, Vomiting, Diarrhea, Constipation, Melena, Hematochezia GENITOURINARY: No reported: Dysuria, Frequency, Urgency, Hesitancy, Flank Pain, Genital Pain MUSCULOSKELETAL: No reported: Myalgia, Arthralgia, Joint Swelling, Back pain, Neck Pain SKIN: No reported: Rash, Itching, Pallor HEMEATOLOGIC/IMMUNOLOGIC: No reported: Easy Bleeding, Easy Bruising, Lymphadenopathy, Frequent infections ENDOCRINE: No reported: Unexplained Weight Gain, Unexplained Weight Loss, Heat Intolerance , Cold Intolerance NEUROLOGIC: No reported: Headache, Focal Weakness, Paresthesias, Vertigo, Lightheadedness, Unsteady Gait, Seizure, Mental Status Changes, Incontinence PSYCHIATRIC: No reported: Anxiety, Depression All Other Systems: Reviewed and Negative <Donita Fernandez - Last Filed: 02/05/18 17:41> *Physical Exam - Physical Exam Comments: 02/05/18 17:00 GENERAL: The patient is awake, alert, and fully oriented, Nontoxic - in no acute distressh. Cacectic HEAD: Normocephalic, atraumatic. EYES: extraocular movements intact, pale appearing ENT: Normal voice, Moist mucous membranes. NECK: Normal range of motion, supple LUNGS: Breath sounds equal, clear to auscultation bilaterally. No wheezes, no rhonchi, no rales. HEART: Regular rate and rhythm, normal S1 and S2 without murmur, rub or gallop. ABDOMEN: Soft, nontender, colostomy bag in place, neprhostomy tube in R flank EXTREMITIES: Normal range of motion, NEUROLOGICAL: No facial assymetry, Normal speech, moving all 4 extremities spontaneously and symmetriclly PSYCH: Normal mood, normal affect. SKIN: Warm, Dry, normal turgor, sacral ulcer in sacrum, pink, no discharge <Will Bryant - Last Filed: 02/09/18 07:26> ED Treatment Course - LABORATORY CBC & Chemistry Diagram: 02/08/18 06:25 02/08/18 06:25 <Will Bryant - Last Filed: 02/09/18 07:26> Medical Decision Making - Medical Decision Making 02/05/18 17:02 sent for anemia, no obvious cause/loss will ck labs, transfuse if anemic <Will Bryant - Last Filed: 02/09/18 07:26> *DC/Admit/Observation/Transfer - Attestations Scribe Attestion: 02/05/18 17:29 Documentation prepared by Donita Fernandez, acting as program medical director for Will Bryant MD. <Donita Fernandez - Last Filed: 02/05/18 17:41> <Will Bryant - Last Filed: 02/09/18 07:26> Diagnosis at time of Disposition: Anemia, H/O carcinoma of bladder - Discharge Dispostion Disposition: HALFWAY FACILITY Condition at time of disposition: Guarded
--- NOTE | 2018-02-05 19:45 | PDOC ---
ED Treatment Course - LABORATORY CBC & Chemistry Diagram: 02/05/18 20:44 02/05/18 20:55 Medical Decision Making - Medical Decision Making Pt was signed out to me by Dr. Bryant, who explained the presentation, ED course, any pending results, and needed interventions. Pending results include labs, potential transfusion. Pt is currently stable and is lying comfortably. 02/05/18 19:44 CBC: Hgb 5.5, Hct 17.1, platelets 626 CMP: K 5.3, BUN 30 Troponin 0.58 -- likely demand ECG showed slight poor R wave progression, no significant ST segment changes. Intervals WNL. Ordered 2 units of blood, consent for blood obtained and signed by pt. Providing 2mg IV morphine for pt pain. Cardiology on-call (Dr. [place]) paged to discuss troponin. No aspirin given due to pt bleeding. Hospitalist was called and pt was accepted for admission, under Dr. Poe. Decision to admit order was placed. 02/05/18 22:29 *DC/Admit/Observation/Transfer Diagnosis at time of Disposition: H/O carcinoma of bladder Anemia Qualifiers: Anemia type: unspecified type Qualified Code(s): D64.9 - Anemia, unspecified - Discharge Dispostion Condition at time of disposition: Guarded Decision to Admit order: Yes - Referrals Referrals: Narda Vargas MD [Primary Care Provider] - - Patient Instructions - Post Discharge Activity
[2018-02-05 21:24] LABS: INR 1.21 (0.83-1.09); PROTHROMBIN TIME (PATIENT) 14.3 SEC (9.7-13.0)
[2018-02-05 21:28] LABS: BASO % 0.8 % (0-2.0); EOS % 1.5 % (0-4.5); LYMPH % 17.5 % (8-40); MCHC 29.4 g/dl (32.0-35.9); MEAN CELL VOLUME 78.3 fl (80-96); MEAN PLT VOLUME 7.7 fl (7.5-11.1); MONO % 3.8 % (3.8-10.2); NEUT % 76.4 % (42.8-82.8); RBC 2.23 M/mm3 (4.00-5.60); RDW 17.9 % (11.9-15.9); WHITE BLOOD COUNT 9.4 K/mm3 (4.0-10.0)
[2018-02-05 21:31] LABS: HEMATOCRIT 17.1 % (35.4-49)
[2018-02-05 21:32] LABS: HEMOGLOBIN 5.5 GM/dL (11.7-16.9)
[2018-02-05 21:52] LABS: ALBUMIN 1.4 g/dl (3.4-5.0); ALK PHOS 98 U/L (45-117); ANION GAP 7 MMOL/L (8-16); BILIRUBIN,TOTAL 0.2 mg/dL (0.2-1); BLOOD UREA NITROGEN 30 mg/dL (7-18); CALCIUM 8.1 mg/dL (8.5-10.1); CHLORIDE 110 mmol/L (98-107); CO2 20 mmol/L (21-32); GLUCOSE,RANDOM 163 mg/dL (74-106); POTASSIUM 5.3 mmol/L (3.5-5.1); SGOT/AST 10 U/L (15-37); SGPT/ALT 8 U/L (13-61); SODIUM 137 mmol/L (136-145); TOT PROT 6.8 g/dl (6.4-8.2)
[2018-02-05 21:58] LABS: PLATELET COUNT 626 K/MM3 (134-434); PLATELET ESTIMATE INCREASED
[2018-02-05] MEDS ORDERED: morphine CARPU-JECT 4 MG/1 ML DISP.SYRIN IVPUSH ONE (22:12)
[2018-02-05] MEDS ORDERED: MORPHINE SULFATE 2 MG/ML VIAL ONE (22:20)
[2018-02-05] MEDS ORDERED: ALBUTEROL SO4 0.083% IH SOL 2.5 MG/3 ML VIAL.NEB. NEB PRN (22:46)
--- NOTE | 2018-02-05 23:36 | HP ---
CHIEF COMPLAINT: generalized pain, pain to flank area and pale in color PCP:Dr. Fofana HISTORY OF PRESENT ILLNESS: 62 year old male with history of bladder/colon cancer with a nephrostomy tube and colostomy and metastasis to lung who [facility] with complaints of generalized pain. He was found to be severely anemic at the facility and he was refrred to the ER. Upon evaluation in the Er he was found to have a hemoglobin of 5.5 and hematocrit of 17.1. He is going to be transfused with 2 Units of PRBC's now. He reports having generalized pain and he is requesting morphine. Labs also notable for an elevated troponin of .58. EKG is abnormal with T wave inversions in lead II, III, and ST depression in V6. He denies chest pain, shortness of breath, dizziness, syncopy or palpitations. ER course was notable for: (1)Severe Anemia (2)Elevated troponin Recent Travel:Denies PAST MEDICAL/Surgical HISTORY: Bladder and colon cancer with nephrostomy tube and colostomy Social History: Smoking:former smoker Alcohol:Denies Drugs: Denies Family History: Allergies Penicillins Allergy (Verified 02/05/18 19:59) HOME MEDICATIONS: Home Medications Medication Instructions Recorded Acetaminophen [Tylenol .Regular 650 mg PO Q6H PRN tablet 11/15/17 Strength -] Collagenase Clostridium Hist. 1 applic TP DAILY tube 11/15/17 [Santyl -] Lactobacillus Acidophilus [Bacid -] 1 tab PO DAILY tab 11/15/17 Picc Line Flush [Picc Line Flush -] 8 ml IVPUSH PRN PRN ml 11/15/17 Sodium Hypochlorite [Dakin's 1 applic TP DAILY ml 11/15/17 Solution 0.25% (Half-Strength) -] Vancomycin 750 mg IVPB Q24H vial 11/15/17 metroNIDAZOLE [Flagyl -] 500 mg PO TID tablet 11/15/17 Melatonin/Pyridoxine HCl (B6) 1 each PO HS 11/20/17 [Melatonin 5 mg Tablet] Acetaminophen [Tylenol .Regular 650 mg PO Q6H PRN tablet 11/28/17 Strength -] Albuterol 0.083% Nebulizer Jeanine 1 amp NEB Q10M PRN amp 11/28/17 [Ventolin 0.083% Nebulizer Soln -] Amino Acids/Protein Hydrolys 30 ml PO BID@0800,1730 packet 11/28/17 [Prosource No Carb Liquid Pkt] Ascorbic Acid [Vitamin C -] 500 mg PO BID tablet 11/28/17 Aztreonam [Azactam (Restricted To 1 gm IVPB BID vial 11/28/17 Id) -] Collagenase Clostridium Hist. 1 applic TP DAILY tube 11/28/17 [Santyl -] Insulin Sliding Scale [Novolog 1 vial SQ ACHS units 11/28/17 Vial Sliding Scale -] Morphine Sulfate [Morphine Sulfate 15 mg PO BID #60 tablet.er MDD 2 11/28/17 ER] Multivitamins [Multivit ([facility] 1 tab PO DAILY tab 11/28/17 Formulary)] Zinc Sulfate [Orazinc -] 220 mg PO BID capsule 11/28/17 metroNIDAZOLE [Flagyl -] 500 mg PO TID tablet 11/28/17 oxyCODONE HCL [Roxicodone -] 5 mg PO Q4H PRN #120 tablet MDD 3 11/28/17 oxyCODONE HCL [Roxicodone -] 10 mg PO Q4H PRN #240 tab MDD 30mg 11/28/17 Collagenase Clostridium Hist. 1 applic TP DAILY tube 11/29/17 [Santyl -] Morphine *Sr* [Ms Contin -] 15 mg PO Q12H 1 Days #7 tablet.sa 11/29/17 MDD 2 metroNIDAZOLE [Flagyl -] 500 mg PO TID tablet 11/29/17 REVIEW OF SYSTEMS CONSTITUTIONAL: Absent: fever, chills, diaphoresis, generalized weakness, malaise, loss of appetite, weight change HEENT: Absent: rhinorrhea, nasal congestion, throat pain, throat swelling, difficulty swallowing, mouth swelling, ear pain, eye pain, visual changes CARDIOVASCULAR: Absent: chest pain, syncope, palpitations, irregular heart rate, lightheadedness , peripheral edema RESPIRATORY: Absent: cough, shortness of breath, dyspnea with exertion, orthopnea, wheezing, stridor, hemoptysis GASTROINTESTINAL: Absent: abdominal pain and flank pain , denies melena , hemoptysis, hematuria GENITOURINARY: Absent: dysuria, frequency, urgency, hesitancy, hematuria, flank pain, genital pain MUSCULOSKELETAL: Absent: myalgia, arthralgia, joint swelling, back pain, neck pain SKIN: Absent: rash, itching, pallor HEMATOLOGIC/IMMUNOLOGIC: Absent: easy bleeding, easy bruising, lymphadenopathy, frequent infections ENDOCRINE: Absent: unexplained weight gain, unexplained weight loss, heat intolerance, cold intolerance NEUROLOGIC: Absent: headache, focal weakness or paresthesias, dizziness, unsteady gait, seizure, mental status changes, bladder or bowel incontinence PSYCHIATRIC: Absent: anxiety, depression, suicidal or homicidal ideation, hallucinations. PHYSICAL EXAMINATION Vital Signs - 24 hr 02/05/18 15:55 Temperature 98.0 F Pulse Rate 103 H Respiratory 15 Rate Blood Pressure 109/66 O2 Sat by Pulse 95 Oximetry (%) GENERAL: awake, alert and fully oriented, no acute distress HEAD: normal with no signs of trauma. EYES: pupils equal, round and reactive to light EARS, NOSE, THROAT: ears normal, nares patent, oropharynx clear without exudates NECK: neck supple LUNGS: breath sounds equal, clear to auscultation bilaterally. No wheezes, and no crackles. No accessory muscle use HEART: regular rate and rhythm, no significant murmur ABDOMEN: soft, nontender, not distended, colostomy bag in place with stool present MUSCULOSKELETAL: normal range of motion at all joints. No bony deformities or tenderness UPPER EXTREMITIES: 2+ pulses, warm, No cyanosis. No clubbing. No peripheral edema LOWER EXTREMITIES: 2+ pulses, warm, No calf tenderness. No peripheral edema NEUROLOGICAL: no focal deficits, speech clear PSYCHIATRIC: cooperative and calm SKIN: warm, dry, very pale color, no rashes or lesions noted, normal capillary refill Laboratory Results - last 24 hr 02/05/18 02/05/18 02/05/18 20:44 20:44 20:55 WBC 9.4 RBC 2.23 L Hgb 5.5 L* Hct 17.1 L D MCV 78.3 L MCH 23.0 L D MCHC 29.4 L RDW 17.9 H Plt Count 626 H D MPV 7.7 Absolute Neuts (auto) 7.2 Neutrophils % 76.4 Lymphocytes % 17.5 Monocytes % 3.8 Eosinophils % 1.5 Basophils % 0.8 Nucleated RBC % 0 Platelet Estimate Increased Platelet Comment Giant platelets Retic Count 2.19 H PT with INR 14.30 H INR 1.21 H Sodium Potassium Chloride Carbon Dioxide Anion Gap BUN Creatinine Creat Clearance w eGFR Random Glucose Calcium Ferritin Total Bilirubin AST ALT Alkaline Phosphatase Creatine Kinase Troponin I Total Protein Albumin Blood Type Antibody Screen Crossmatch 02/05/18 02/05/18 02/05/18 20:55 20:55 20:55 WBC RBC Hgb Hct MCV MCH MCHC RDW Plt Count MPV Absolute Neuts (auto) Neutrophils % Lymphocytes % Monocytes % Eosinophils % Basophils % Nucleated RBC % Platelet Estimate Platelet Comment Retic Count PT with INR INR Sodium 137 Potassium 5.3 H Chloride 110 H Carbon Dioxide 20 L Anion Gap 7 L BUN 30 H Creatinine 1.0 Creat Clearance w eGFR > 60 Random Glucose 163 H Calcium 8.1 L Ferritin 97.6 Total Bilirubin 0.2 AST 10 L ALT 8 L Alkaline Phosphatase 98 Creatine Kinase 40 Troponin I 0.58 H Total Protein 6.8 Albumin 1.4 L Blood Type O POSITIVE Antibody Screen Negative Crossmatch See Detail ASSESSMENT/PLAN: 62 year old male with history of bladder/colon cancer with a nephrostomy tube and colostomyand metastasis to lung who presented from a [facility] with complaints of generalized pain and flank pain. He is severely anemic with a hemoglobin of 5.5 and hematocrit of 17.1. He also had an elevated troponin of 0.58 and an abnormal EKG in this setting. Severe Anemia Patient has no active signs of active bleeding and etiology of anemia is unknown. He has o symptoms of chest pain or dyspnea and no significant murmur. Ferritin is normal, iron level and TIBC is pending, thrombosis present with platelets of 628, would consider Heme evaluation in the morning. Patient is going to be transfused 2 Units PRBC's overnight with close monitoring of respiratory status. May need to get IV lasix in between transfusions. No IV fluids ordered now to prevent acute CHF exacebation. Repeat CBC post transfusion in am. Stool for blood occult pending. Consulted Gastroenterology. Will keep NPO in anticipation of GI workup to exclude GI bleed. Elevated troponin Patient denies active anginal symptoms and this likely is demand medicated ischemia. EKG is abnormal, no acute ST elevations. Continue to trend troponins. No aspirin in setting of severe anemia. Consulted Cardiology- Dr. Clark. Flank Pain No evience of leukocytosis, patient is afebrile. No evidence of hypotension or tachycardia. UA is pending. DVT Prophylaxsis SCD's FEN NPO after midnight. Visit type - Emergency Visit Emergency Visit: Yes ED Registration Date: 02/05/18 Care time: The patient presented to the Emergency Department on the above date and was hospitalized for further evaluation of their emergent condition. - New Patient This patient is new to me today: Yes Date on this admission: 02/05/18 - Critical Care Critical Care patient: No
[2018-02-06 03:04] LABS: URINE APPEARANCE SLCLOUDY; URINE BILIRUBIN NEGATIVE (<2.0 mg/dL); URINE COLOR YELLOW; URINE GLUCOSE (UA) NEGATIVE (NEGATIVE); URINE KETONE NEGATIVE (NEGATIVE); URINE LEUK ESTERASE 1+ (NEGATIVE); URINE NITRITE POSITIVE (NEGATIVE); URINE PROTEIN NEGATIVE (NEGATIVE); URINE UROBILINOGEN NEGATIVE mg/dL (0.2-1.0)
--- NOTE | 2018-02-06 03:08 | CON.CARD ---
Consult Consult Specialty:: cardiology Reason for Consultation:: elevated TNI - History of Present Illness Chief Complaint: Pt is alert; weak; no chest pain; dyspneic on mild exertion History of Present Illness: Patient is a 62 year old female with past medical history of diabetes, bladder carcinoma (s/p nephrostomy tube, with mets to the lungs and colon--s/p colectomy ), history of left diabetic foot ulcer (s/p I&D and PICC line for antibiotics) who was sent to the ED from [facility] for evaluation of anemia. As per paperwork, his hemoglobin today was 5, and he was sent in. The patient in the ED has no complaints. He denies any abdominal pain, diarrhea, melena, or hematochezia, nausea, vomiting, or hematemesis. He denies any fevers or chills. Patient was seen in the ED two months ago for urinary retention where he was treated. He reports a few days ago he had some hematuria which has since resolved. He denies any further urinary symptoms. Denies any lightheadedness, presyncope or syncope. PCP: Dr. 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 [Santyl -] 1 applic TP DAILY tube 11/15/17 Melatonin/Pyridoxine HCl (B6) [Melatonin 5 mg Tablet] 1 each PO HS 11/20/17 Ascorbic Acid [Vitamin C -] 500 mg PO BID tablet 11/28/17 Multivitamins [Multivit ([facility] Formulary)] 1 tab PO DAILY tab 11/28/17 Zinc Sulfate [Orazinc -] 220 mg PO BID capsule 11/28/17 Albuterol 0.083% Nebulizer Jeanine [Ventolin 0.083%] 1 neb NEB TID PRN 02/05/18 Amoxicillin/Potassium Clav [Augmentin 875-125 Tablet] 1 each PO Q12H 02/05/18 Cholecalciferol (Vitamin D3) [Decara] 50,000 unit PO WEEKLY 02/05/18 Doxycycline Hyclate 100 mg PO Q12H 02/05/18 Ferrous Gluconate [Fergon -] 324 mg PO DAILY 02/05/18 Insulin Detemir [Levemir Flextouch] 10 unit SQ HS 02/05/18 Lactobacillus Acidophilus [Acidophilus] 1 each PO DAILY 02/05/18 Morphine *Immediate Release* [Msir -] 15 mg PO Q6H PRN 02/05/18 Nystatin Powder [Nystop Topical Powder -] 15 gm TP BID 02/05/18 Ranitidine [Zantac -] 150 mg PO BID 02/05/18 Family Disease History - Family Disease History Family Disease History: Other: Mother ( of PUD) Vital Signs: Vital Signs Temperature 98.9 F 02/06/18 03:01 Pulse Rate 102 H 02/06/18 03:01 Respiratory Rate 18 02/06/18 03:01 Blood Pressure 101/70 02/06/18 03:01 O2 Sat by Pulse Oximetry (%) 96 02/06/18 03:01 - Other Data Labs, Other Data: CBC, BMP 02/05/18 20:44 02/05/18 20:55 INR, PTT INR 1.21 (0.83-1.09) H 02/05/18 20:55 Troponin, BNP 02/05/18 20:55 Troponin I 0.58 H Troponin, BNP 02/05/18 20:55 Troponin I 0.58 H Problem List - Problems (1) Elevated troponin Assessment/Plan: TNI 0.58; normal CK. EKG: normal study. ECHO 10/2017: normal LVEF; abnormal diastolic compliance. Elevation of TNI likely due to demand ischemia from acute and severe anemia; doubt ACS. F/u serial TNI, EKGs. Code(s): R74.8 - ABNORMAL LEVELS OF OTHER SERUM ENZYMES (2) H/O carcinoma of bladder Assessment/Plan: f/u with oncologist. Code(s): Z85.51 - PERSONAL HISTORY OF MALIGNANT NEOPLASM OF BLADDER (3) Anemia requiring transfusions Assessment/Plan: PRBCs; f/u anemia w/u. Avoid dehydration; f/u BUn/Cr. Code(s): D64.9 - ANEMIA, UNSPECIFIED (4) Bladder cancer metastasized to intrapelvic lymph nodes Code(s): C67.9 - MALIGNANT NEOPLASM OF BLADDER, UNSPECIFIED; C77.5 - SECONDARY AND UNSP MALIGNANT NEOPLASM OF INTRAPELV NODES (5) Diabetic foot ulcer Code(s): E11.621 - TYPE 2 DIABETES MELLITUS WITH FOOT ULCER; L97.509 - NON- PRESSURE CHRONIC ULCER OTH PRT UNSP FOOT W UNSP SEVERITY Qualifiers: Diabetic foot ulcer location: heel Diabetes mellitus type: type 1 Laterality: left Non-pressure ulcer stage: with necrosis of muscle Qualified Code(s): E10.621 - Type 1 diabetes mellitus with foot ulcer; L97.423 - Non-pressure chronic ulcer of left heel and midfoot with necrosis of muscle (6) Hypoalbuminemia Code(s): E88.09 - OTH DISORDERS OF PLASMA-PROTEIN METABOLISM, NEC (7) Hyperkalemia Assessment/Plan: treat K elevation. Code(s): E87.5 - HYPERKALEMIA
[2018-02-06 03:13] LABS: URINE BACTERIA RARE /hpf (NONE SEEN); URINE HYALINE CAST 4 /lpf; URINE MUCUS RARE; YEAST FEW
[2018-02-06 05:59] VITALS: BMI 19.9
[2018-02-06] MEDS ORDERED: INSULIN SLIDING SCALE (NOVOLOG) 1 VIAL SQ SCH (07:00)
[2018-02-06 07:26] LABS: BASO % 1.2 % (0-2.0); EOS % 1.2 % (0-4.5); HEMATOCRIT 15.4 % (35.4-49); MCH 23.3 pg (25.7-33.7); MEAN CELL VOLUME 77.5 fl (80-96); MEAN PLT VOLUME 6.7 fl (7.5-11.1); MONO % 8.6 % (3.8-10.2); PLATELET COUNT 569 K/MM3 (134-434); RBC 1.98 M/mm3 (4.00-5.60); RDW 17.8 % (11.9-15.9); WHITE BLOOD COUNT 5.5 K/mm3 (4.0-10.0)
[2018-02-06 07:37] LABS: HEMOGLOBIN 4.6 GM/dL (11.7-16.9)
[2018-02-06 07:56] LABS: ANION GAP 7 MMOL/L (8-16); BLOOD UREA NITROGEN 29 mg/dL (7-18); CALCIUM 8.2 mg/dL (8.5-10.1); CHLORIDE 111 mmol/L (98-107); CO2 19 mmol/L (21-32); CREATININE 0.9 mg/dL (0.55-1.3); GLUCOSE,RANDOM 146 mg/dL (74-106); POTASSIUM 5.6 mmol/L (3.5-5.1); SODIUM 137 mmol/L (136-145)
[2018-02-06] MEDS: AMINO ACIDS/PROTEIN HYDROLYS 30 ML LIQUID.PKT PO SCH ×2 (09:52→19:38)
--- NOTE | 2018-02-06 10:47 | CON.GI ---
Consult Consult Specialty:: Gastroenterology Reason for Consultation:: Severe anemia - History of Present Illness History of Present Illness: 62yo male h/o metastatic bladder ca s/p nephrostomy and colonic resection s/p colostomy presents from snf with severe anemia. Pt reports low Hb (~5.5) prompting ED evaluation. He reports ongoing generalized pain however denies otherwise new or worsening symptoms. Pt denies nausea/vomiting, hematemesis or abdominal pain. Denies change in ostomy output, melena or hematochezia. Per records, report of hematuria a few days ago which resolved. Pt denies chest pain, palpitations, fever/chills. Unclear of last colonoscopy reportedly within the past 1 year at [facility] per pt ( details unclear). Denies prior EGD. Denies NSAID use. Hb found to be 5.5, with repeat Hb 4.6 this am, currently receiving prbc transfusion. No overt bleeding. Also hyperkalemic with elevated troponins and EKG changes pending transfer to telemetry and further cardiology eval. 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 [Santyl -] 1 applic TP DAILY tube 11/15/17 Melatonin/Pyridoxine HCl (B6) [Melatonin 5 mg Tablet] 1 each PO HS 11/20/17 Ascorbic Acid [Vitamin C -] 500 mg PO BID tablet 11/28/17 Multivitamins [Multivit ([facility] Form[facility])] 1 tab PO DAILY tab 11/28/17 Zinc Sulfate [Orazinc -] 220 mg PO BID capsule 11/28/17 Albuterol 0.083% Nebulizer Jeanine [Ventolin 0.083%] 1 neb NEB TID PRN 02/05/18 Amoxicillin/Potassium Clav [Augmentin 875-125 Tablet] 1 each PO Q12H 02/05/18 Cholecalciferol (Vitamin D3) [Decara] 50,000 unit PO WEEKLY 02/05/18 Doxycycline Hyclate 100 mg PO Q12H 02/05/18 Ferrous Gluconate [Fergon -] 324 mg PO DAILY 02/05/18 Insulin Detemir [Levemir Flextouch] 10 unit SQ HS 02/05/18 Lactobacillus Acidophilus [Acidophilus] 1 each PO DAILY 02/05/18 Morphine *Immediate Release* [Msir -] 15 mg PO Q6H PRN 02/05/18 Nystatin Powder [Nystop Topical Powder -] 15 gm TP BID 02/05/18 Ranitidine [Zantac -] 150 mg PO BID 02/05/18 Family Disease History - Family Disease History Family Disease History: Other: Mother ( of PUD) Review of Systems - Review of Systems Constitutional: reports: No Symptoms Cardiovascular: reports: No Symptoms Respiratory: reports: No Symptoms Gastrointestinal: reports: No Symptoms Physical Exam-GI Vital Signs: Vital Signs Temperature 98.4 F 02/06/18 09:20 Pulse Rate 103 H 02/06/18 09:20 Respiratory Rate 20 02/06/18 09:20 Blood Pressure 121/68 02/06/18 09:20 O2 Sat by Pulse Oximetry (%) 94 L 02/06/18 04:32 Constitutional: Yes: Well Nourished, No Distress Cardiovascular: Yes: WNL, Regular Rate and Rhythm Respiratory: Yes: WNL, Regular, CTA Bilaterally Gastrointestinal Inspection: Yes: Other (Abdomen soft, nontender, nondistended, ostomy in LLQ with brown stool, no blood seen) Labs: CBC, BMP 02/06/18 06:30 02/06/18 06:30 INR, PTT INR 1.21 (0.83-1.09) H 02/05/18 20:55 Imaging - Results Chest X-ray: Report Reviewed Problem List - Problems (1) Anemia Assessment/Plan: 62yo male h/o metastatic bladder ca s/p nephrostomy, colonic resection s/p colostomy presents from snf with severe anemia (Hb ~5) with microcytosis, without overt GI bleeding. Unclear exact etiology for acute on chronic anemia, cannot exclude underlying PUD, AVMs, possible recurrent malignancy vs renal or urological source. Brown stool in ostomy and hemodynamically stable. Also with elevated troponins and EKG changes pending further cardiology workup. -Continue to closely monitor Hb and for evidence of bleeding -Continue resuscitative measures and prbc transfusions, aim Hb >7 -Check iron studies/ferritin (on pre-transfusion labs if possible) -PPI daily -Follow up cardiology recommendations (following serial trops/EKGs) -Monitor and correct electrolytes as needed -Once pt further optimized, electrolytes normalized, and pending cardiology workup, would consider EGD and colonoscopy for further evaluation -In the interim if pt develops overt GI bleeding (melena or hematochezia) with further acute drop in Hb, not responding to prbc transfusion, please call ICU evaluation and notify GI for possible more urgent intervention. Attempted to contact primary team, await call back. Code(s): D64.9 - ANEMIA, UNSPECIFIED Qualifiers: Anemia type: unspecified type Qualified Code(s): D64.9 - Anemia, unspecified
[2018-02-06] MEDS: morphine SO4 SUSTAINED ACTING 15 MG TABLET.SA PO SCH ×2 (11:37→21:40)
[2018-02-06] MEDS: ASCORBIC ACID 500 MG TABLET (FP) PO SCH ×2 (11:38→21:41)
[2018-02-06] MEDS: MULTIVITAMINS (DAILY MVI) TABLET (FP) PO SCH (11:38)
--- NOTE | 2018-02-06 11:45 | EKG ---
Test Reason : Blood Pressure : / mmHG Vent. Rate : 097 BPM Atrial Rate : 097 BPM P-R Int : 136 ms QRS Dur : 084 ms QT Int : 340 ms P-R-T Axes : 060 034 045 degrees QTc Int : 431 ms NORMAL SINUS RHYTHM LOW VOLTAGE QRS NONSPECIFIC ST AND T WAVE ABNORMALITY ABNORMAL ECG WHEN COMPARED WITH ECG OF 05-FEB-2018 18:12, MINIMAL CRITERIA FOR ANTERIOR INFARCT ARE NO LONGER PRESENT Confirmed by MIRIAM THOMAS, ALYCE ([id number]) on 02/06/2018 11:44:55 AM Referred By: AUREA BYRNE Confirmed By:ALYCE PINEDA MD
--- NOTE | 2018-02-06 12:36 | PN ---
Progress Note, Physician Chief Complaint: Anemia UTI Hyperkalemia History of Present Illness: NAD BL nephrostomy tube, left not draining also has colostomy bag receiving 2nd unit of PRBC - Current Medication List Current Medications: Active Medications Acetaminophen (Tylenol -) 650 mg PO Q6H PRN PRN Reason: PAIN LEVEL 1 - 3 Albuterol Sulfate (Ventolin 0.083% Nebulizer Soln -) 1 amp NEB Q10M PRN PRN Reason: SHORT OF BREATH/WHEEZING Amino Acids (Prosource No Carb Liquid Pkt) 30 ml PO BID@0800,1730 [facility] Last Admin: 02/06/18 09:52 Dose: Not Given Ascorbic Acid (Vitamin C -) 500 mg PO BID [facility] Last Admin: 02/06/18 11:38 Dose: 500 mg Collagenase (Santyl -) 1 applic TP DAILY [facility]; Protocol Melatonin (Melatonin) 5 mg PO HS [facility] Morphine Sulfate (Ms Contin -) 15 mg PO BID [facility] Last Admin: 02/06/18 11:37 Dose: 15 mg Multivitamins/Minerals/Vitamin C (Tab-A-Vit -) 1 tab PO DAILY [facility] Last Admin: 02/06/18 11:38 Dose: 1 tab - Objective Vital Signs: Vital Signs Temperature 98 F 02/06/18 10:30 Pulse Rate 99 H 02/06/18 10:30 Respiratory Rate 20 02/06/18 10:30 Blood Pressure 113/63 02/06/18 10:30 O2 Sat by Pulse Oximetry (%) 94 L 02/06/18 04:32 Constitutional: Yes: No Distress, Calm, Cachectic Cardiovascular: Yes: Regular Rate and Rhythm Respiratory: Yes: Regular Gastrointestinal: Yes: Normal Bowel Sounds, Soft, Other (colostomy) Genitourinary: Yes: Other (nephrostomy) Musculoskeletal: Yes: Muscle Weakness Extremities: Yes: WNL Edema: No Peripheral Pulses WNL: Yes Neurological: Yes: Alert, Oriented Psychiatric: Yes: Alert, Oriented Labs: CBC, BMP 02/06/18 06:30 02/06/18 06:30 INR, PTT INR 1.21 (0.83-1.09) H 02/05/18 20:55 Problem List - Problems (1) Protein calorie malnutrition Assessment/Plan: -Prosource -RD consult Code(s): E46 - UNSPECIFIED PROTEIN-CALORIE MALNUTRITION (2) Anemia Assessment/Plan: -PATSY back in 11/2017 -repeat iron profile pending -B12 unremarkable -Stool OB and Thyroid profile pending -monitor trend -Hematology consult -Seen by GI -receiving 2nd units of PRBC -repeat CBC at 6 pm -Started on Ferrous sulfate -Iron sucrose x 1 Code(s): D64.9 - ANEMIA, UNSPECIFIED Qualifiers: Anemia type: unspecified type Qualified Code(s): D64.9 - Anemia, unspecified (3) Elevated troponin Assessment/Plan: -Seen by cardiology -likely 2/2 to demand ischemia+ Anemia -Tele monitoring Code(s): R74.8 - ABNORMAL LEVELS OF OTHER SERUM ENZYMES (4) Diabetes Assessment/Plan: -recheck A1c -BGM ACHS -Novolog sliding scale Code(s): E11.9 - TYPE 2 DIABETES MELLITUS WITHOUT COMPLICATIONS Qualifiers: Diabetes mellitus type: type 2 Diabetes mellitus complication status: with skin complications (5) Hyperkalemia Code(s): E87.5 - HYPERKALEMIA (6) Hypoalbuminemia Code(s): E88.09 - OTH DISORDERS OF PLASMA-PROTEIN METABOLISM, NEC
[2018-02-06] MEDS ORDERED: SODIUM CHLORIDE 0.45% 1,000 ML IV SCH (12:45)
[2018-02-06] MEDS ORDERED: INSULIN REGULAR HUMAN 100 UNITS/ML *VIAL SQ ONE (13:38)
[2018-02-06] MEDS ORDERED: DEXTROSE 50%-WATER - 25 GM/50 ML VIAL IVPUSH ONE (13:39)
--- NOTE | 2018-02-06 13:42 | CONSULT ---
Consultation: REQUESTING PROVIDER: CONSULT REQUEST: We have been asked to medically evaluate this patient for JOSSELYN and hyperkalemia. HISTORY OF PRESENT ILLNESS: Pt is a 62 y/o M with PMH bladder and colon cancer with nephrostomy tube and colostomy, who was sent from [place] because of low Hb Pt feels relatively well, albeit fatigued. PMH: colon CA with resection and ostomy, bladder CA PSH: b/l nephrostomy tubes, colostomy FH: denies Soc: former smoker. denies etoh, drugs Rx: tylenol, santyl, bacid, vanco, flagyl, melatonin, prosource, ascorbic acid, aztreonam, ISS, morphine All: PCN REVIEW OF SYSTEMS: CONSTITUTIONAL: generalized weakness Absent: fever, chills, diaphoresis, , malaise, loss of appetite, weight change HEENT: Absent: rhinorrhea, nasal congestion, throat pain, throat swelling, difficulty swallowing, mouth swelling, ear pain, eye pain, visual changes CARDIOVASCULAR: Absent: chest pain, syncope, palpitations, irregular heart rate, lightheadedness , peripheral edema RESPIRATORY: Absent: cough, shortness of breath, dyspnea with exertion, orthopnea, wheezing, stridor, hemoptysis GASTROINTESTINAL: Absent: abdominal pain, abdominal distension, nausea, vomiting, diarrhea, constipation, melena, hematochezia GENITOURINARY: Absent: dysuria, frequency, urgency, hesitancy, hematuria, flank pain, genital pain MUSCULOSKELETAL: Absent: myalgia, arthralgia, joint swelling, back pain, neck pain SKIN: Absent: rash, itching, pallor HEMATOLOGIC/IMMUNOLOGIC: Absent: easy bleeding, easy bruising, lymphadenopathy, frequent infections ENDOCRINE: Absent: unexplained weight gain, unexplained weight loss, heat intolerance, cold intolerance NEUROLOGIC: Absent: headache, focal weakness or paresthesias, dizziness, unsteady gait, seizure, mental status changes, bladder or bowel incontinence PSYCHIATRIC: Absent: anxiety, depression, suicidal or homicidal ideation, hallucinations. PHYSICAL EXAMINATION Vital Signs - 24 hr 02/05/18 02/06/18 02/06/18 15:55 03:01 04:32 Temperature 98.0 F 98.9 F 98.6 F Pulse Rate 103 H 103 H Pulse Rate [ 102 H Right Radial] Respiratory 15 18 18 Rate Blood Pressure 109/66 113/53 L Blood Pressure 101/70 [Right Arm] O2 Sat by Pulse 95 96 94 L Oximetry (%) 02/06/18 02/06/18 09:20 10:30 Temperature 98.4 F 98 F Pulse Rate 103 H 99 H Pulse Rate [ Right Radial] Respiratory 20 20 Rate Blood Pressure 121/68 113/63 Blood Pressure [Right Arm] O2 Sat by Pulse Oximetry (%) GEN: weak-appearing, cachexia HEENT: NCAT, EOMI Neck: no jvd Cardio: rrr, normal s1s2 Pulm: cta Abd: colostomy, b/l nephrostomy Ext: no edema Laboratory Results - last 24 hr 02/05/18 02/05/18 02/05/18 02:49 20:44 20:44 WBC 9.4 RBC 2.23 L Hgb 5.5 L* Hct 17.1 L D MCV 78.3 L MCH 23.0 L D MCHC 29.4 L RDW 17.9 H Plt Count 626 H D MPV 7.7 Absolute Neuts (auto) 7.2 Neutrophils % 76.4 Lymphocytes % 17.5 Monocytes % 3.8 Eosinophils % 1.5 Basophils % 0.8 Nucleated RBC % 0 Platelet Estimate Increased Platelet Comment Giant platelets Retic Count 2.19 H PT with INR INR Sodium Potassium Chloride Carbon Dioxide Anion Gap BUN Creatinine Creat Clearance w eGFR Random Glucose Calcium Ferritin Total Bilirubin AST ALT Alkaline Phosphatase Creatine Kinase Troponin I Total Protein Albumin Urine Color Yellow Urine Appearance Slcloudy Urine pH 7.0 Ur Specific Sheldon 1.012 Urine Protein Negative Urine Glucose (UA) Negative Urine Ketones Negative Urine Blood Negative Urine Nitrite Positive Urine Bilirubin Negative Urine Urobilinogen Negative Ur Leukocyte Esterase 1+ H Urine WBC (Auto) 8 Urine RBC (Auto) 3 Urine Bacteria Rare Hyaline Casts 4 Urine Mucus Rare Urine Yeast Few Blood Type Antibody Screen Crossmatch 02/05/18 02/05/18 02/05/18 20:55 20:55 20:55 WBC RBC Hgb Hct MCV MCH MCHC RDW Plt Count MPV Absolute Neuts (auto) Neutrophils % Lymphocytes % Monocytes % Eosinophils % Basophils % Nucleated RBC % Platelet Estimate Platelet Comment Retic Count PT with INR 14.30 H INR 1.21 H Sodium 137 Potassium 5.3 H Chloride 110 H Carbon Dioxide 20 L Anion Gap 7 L BUN 30 H Creatinine 1.0 Creat Clearance w eGFR > 60 Random Glucose 163 H Calcium 8.1 L Ferritin Total Bilirubin 0.2 AST 10 L ALT 8 L Alkaline Phosphatase 98 Creatine Kinase 40 Troponin I 0.58 H Total Protein 6.8 Albumin 1.4 L Urine Color Urine Appearance Urine pH Ur Specific Sheldon Urine Protein Urine Glucose (UA) Urine Ketones Urine Blood Urine Nitrite Urine Bilirubin Urine Urobilinogen Ur Leukocyte Esterase Urine WBC (Auto) Urine RBC (Auto) Urine Bacteria Hyaline Casts Urine Mucus Urine Yeast Blood Type O POSITIVE Antibody Screen Negative Crossmatch See Detail 02/05/18 02/06/18 02/06/18 20:55 06:30 06:30 WBC 5.5 RBC 1.98 L Hgb 4.6 L* Hct 15.4 L MCV 77.5 L MCH 23.3 L MCHC 30.0 L RDW 17.8 H Plt Count 569 H MPV 6.7 L D Absolute Neuts (auto) 3.6 Neutrophils % 66.0 Lymphocytes % 23.0 D Monocytes % 8.6 D Eosinophils % 1.2 Basophils % 1.2 Nucleated RBC % 0 Platelet Estimate Platelet Comment Retic Count PT with INR INR Sodium 137 Potassium 5.6 H Chloride 111 H Carbon Dioxide 19 L Anion Gap 7 L BUN 29 H Creatinine 0.9 Creat Clearance w eGFR > 60 Random Glucose 146 H Calcium 8.2 L Ferritin 97.6 Total Bilirubin AST ALT Alkaline Phosphatase Creatine Kinase 44 Troponin I 0.71 H* Total Protein Albumin Urine Color Urine Appearance Urine pH Ur Specific Sheldon Urine Protein Urine Glucose (UA) Urine Ketones Urine Blood Urine Nitrite Urine Bilirubin Urine Urobilinogen Ur Leukocyte Esterase Urine WBC (Auto) Urine RBC (Auto) Urine Bacteria Hyaline Casts Urine Mucus Urine Yeast Blood Type Antibody Screen Crossmatch Active Medications Generic Name Dose Route Start Last Admin Trade Name Freq PRN Reason Stop Dose Admin Acetaminophen 650 mg 02/05/18 22:46 Tylenol - PO Q6H PRN PAIN LEVEL 1 - 3 Albuterol Sulfate 1 amp 02/05/18 22:46 Ventolin 0.083% Nebulizer Soln - NEB Q10M PRN SHORT OF BREATH/WHEEZING Amino Acids 30 ml 02/06/18 08:00 02/06/18 09:52 Prosource No Carb Liquid Pkt PO Not Given BID@0800,1730 STEPHANIE Ascorbic Acid 500 mg 02/06/18 10:00 02/06/18 11:38 Vitamin C - PO 500 mg BID STEPHANIE Administration Collagenase 1 applic 02/06/18 10:00 Santyl - TP DAILY STEPHANIE Protocol Ferrous Sulfate 325 mg 02/07/18 10:00 Feosol - PO DAILY STEPHANIE Iron Sucrose 300 mg/ Sodium 250 mls @ 166.667 mls/hr 02/06/18 14:00 Chloride IVPB 02/06/18 15:29 ONCE ONE Sodium Chloride 1,000 mls @ 42 mls/hr 02/06/18 12:45 1/2 Normal Saline IV ASDIR STEPHANIE Insulin Aspart 1 vial 02/06/18 16:30 Novolog Vial Sliding Scale - SQ TIDAC STEPH[facility]IE Protocol Melatonin 5 mg 02/06/18 22:00 Melatonin PO HS [facility] Morphine Sulfate 15 mg 02/06/18 10:00 02/06/18 11:37 Ms Contin - PO 15 mg BID STEPHANIE Administration Multivitamins/Minerals/Vitamin C 1 tab 02/06/18 10:00 02/06/18 11:38 Tab-A-Vit - PO 1 tab DAILY STEPHANIE Administration ASSESSMENT/PLAN: Pt is a 62 y/o M with pmh Bladder and colon cancer with nephrostomy tube and colostomy who was sent to [facility] for severe symptomatic anemia. Nephrology was called for kidney failure and hyperkalemia. #Anemia microcytic, hypochromic -Hb 4.6 today -pt receiving PRBCs #Hyperkalemia -5.6 today -will give Ins, D50, albuterol and fluid repletion -repeat K level #Nephrostomy tubes -patent and functional #colostomy -functioning well Dispo: We will continue to follow the patient. Thank you for this consultative opportunity. Estevan Koch MD PGY-2 IM - Nephrology Visit type - Emergency Visit Emergency Visit: No - New Patient This patient is new to me today: Yes Date on this admission: 02/06/18 - Critical Care Critical Care patient: No
--- NOTE | 2018-02-06 13:58 | PN ---
Teaching Attending Note Name of Resident: Estevan Koch (Nephrology) ATTENDING PHYSICIAN STATEMENT I saw and evaluated the patient. I reviewed the resident's note and discussed the case with the resident. I agree with the resident's findings and plan as documented. Nephrology Pt is a 62 year old male with pmhx of bladder cancer, patrick, and DM who was sent in for worsening anemia. He is getting prbc transfusions. He complains of decrease output from his left nephrostomy. He denies chest pain. pmhx patrick dm bladder cancer pshx nephrostomy tubes family hx non contrib social hx denies all pcn Current Medications Generic Name Dose Route Start Last Admin Trade Name Freq PRN Reason Stop Dose Admin Acetaminophen 650 mg 02/05/18 22:46 Tylenol - PO Q6H PRN PAIN LEVEL 1 - 3 Albuterol Sulfate 1 amp 02/05/18 22:46 Ventolin 0.083% Nebulizer Soln - NEB Q10M PRN SHORT OF BREATH/WHEEZING Albuterol Sulfate 1 amp 02/06/18 13:40 Ventolin 0.083% Nebulizer Soln - NEB 02/06/18 13:41 ONCE ONE Amino Acids 30 ml 02/06/18 08:00 02/06/18 09:52 Prosource No Carb Liquid Pkt PO Not Given BID@0800,1730 [facility] Ascorbic Acid 500 mg 02/06/18 10:00 02/06/18 11:38 Vitamin C - PO 500 mg BID STEPHANIE Administration Collagenase 1 applic 02/06/18 10:00 Santyl - TP DAILY [facility] Protocol Dextrose 25 gm 02/06/18 13:39 D50w (Vial) - IVPUSH 02/06/18 13:40 NOW ONE Ferrous Sulfate 325 mg 02/07/18 10:00 Feosol - PO DAILY [facility] Iron Sucrose 300 mg/ Sodium 250 mls @ 166.667 mls/hr 02/06/18 14:00 Chloride IVPB 02/06/18 15:29 ONCE ONE Sodium Chloride 1,000 mls @ 42 mls/hr 02/06/18 12:45 1/2 Normal Saline IV ASDIR STEPHANIE Insulin Aspart 1 vial 02/06/18 16:30 Novolog Vial Sliding Scale - SQ TIDAC [facility] Protocol Insulin Human Regular 10 units 02/06/18 13:38 Novolin R Vial *For Ivpush Or Iv Drip Only* SQ 02/06/18 13:39 ONCE ONE Melatonin 5 mg 02/06/18 22:00 Melatonin PO HS [facility] Morphine Sulfate 15 mg 02/06/18 10:00 02/06/18 11:37 Ms Contin - PO 15 mg BID [facility] Administration Multivitamins/Minerals/Vitamin C 1 tab 02/06/18 10:00 02/06/18 11:38 Tab-A-Vit - PO 1 tab DAILY [facility] Administration Last Vital Signs Temp Pulse Resp BP Pulse Ox 98 F 99 H 20 113/63 94 L 02/06/18 10:30 02/06/18 10:30 02/06/18 10:30 02/06/18 10:30 02/06/18 04:32 Laboratory Tests 02/05/18 02/05/18 02/06/18 20:44 20:55 06:30 Hgb 5.5 L* 4.6 L* Potassium 5.3 H BUN Creatinine 02/06/18 06:30 Hgb Potassium 5.6 H BUN 29 H Creatinine 0.9 Impression 1. azotemia 2. hyperkalemia 3. bladder cancer with mets to lung and colon 4. urinary obstruction s/p bilateral nephrostomy tubes 5. hematuria 6. anemia Plan - transfuse prbc - start fluids - will treat potassium medically - repeat labs to check hg and potassium - urology eval - will follow Dr Canales
[2018-02-06] MEDS ORDERED: IRON SUCROSE INJECTION 300 MG in SODIUM CHLORIDE 235 ML IVPB ONE (14:00)
--- NOTE | 2018-02-06 14:50 | PROC ---
Procedure Note Procedure: Called by patient's RN as german placed a 20ga angiocath into patient's RUE cephalic vein. Now it's not working after multiple attempts to reposition/ aspirate/flush. Needs peripheral access as he needs PRBCs. At patient's request, used clippers to remove all his facial hair. Prepped left neck with chlohexidine. Placed 20ga angiocath into his LEFT EJ. Aspirates and flushes easily. Secured with tegaderm. Ok to use line.
[2018-02-06] MEDS ORDERED: ALBUTEROL SO4 0.083% IH SOL 2.5 MG/3 ML VIAL.NEB. NEB ONE (15:00)
[2018-02-06] MEDS ORDERED: INSULIN REGULAR HUMAN 100 UNITS/ML *VIAL IVPUSH ONE (15:04)
[2018-02-06 16:25] LABS: ANION GAP 7 MMOL/L (8-16); BLOOD UREA NITROGEN 29 mg/dL (7-18); CALCIUM 8.4 mg/dL (8.5-10.1); CHLORIDE 110 mmol/L (98-107); CO2 21 mmol/L (21-32); CREATININE 0.9 mg/dL (0.55-1.3); GLUCOSE,RANDOM 130 mg/dL (74-106); POTASSIUM 5.8 mmol/L (3.5-5.1); SODIUM 138 mmol/L (136-145)
[2018-02-06] MEDS ORDERED: DEXTROSE 50%-WATER 25 GM/50 ML DISP.SYRIN IVPUSH ONE (16:45)
[2018-02-06 17:52] LABS: HEMATOCRIT 19.4 % (35.4-49); LYMPH % 21.6 % (8-40); MCH 25.6 pg (25.7-33.7); MCHC 32.3 g/dl (32.0-35.9); MEAN CELL VOLUME 79.4 fl (80-96); MEAN PLT VOLUME 7.2 fl (7.5-11.1); MONO % 7.9 % (3.8-10.2); NEUT % 68.5 % (42.8-82.8); PLATELET COUNT 624 K/MM3 (134-434); RBC 2.44 M/mm3 (4.00-5.60); RDW 17.9 % (11.9-15.9); WHITE BLOOD COUNT 5.5 K/mm3 (4.0-10.0)
[2018-02-06] MEDS: SODIUM CHLORIDE 0.45% 1,000 ML IV SCH (17:52)
[2018-02-06] MEDS ORDERED: DEXTROSE 50%-WATER 25 GM/50 ML DISP.SYRIN ONE (17:56)
[2018-02-06] MEDS: INSULIN SLIDING SCALE (NOVOLOG) 1 VIAL SQ SCH (18:09)
[2018-02-06 18:12] LABS: HEMOGLOBIN 6.3 GM/dL (11.7-16.9)
--- NOTE | 2018-02-06 18:59 | EKG ---
Test Reason : Blood Pressure : / mmHG Vent. Rate : 100 BPM Atrial Rate : 100 BPM P-R Int : 134 ms QRS Dur : 084 ms QT Int : 346 ms P-R-T Axes : 077 026 -53 degrees QTc Int : 446 ms NORMAL SINUS RHYTHM LOW VOLTAGE QRS CANNOT RULE OUT ANTERIOR INFARCT , AGE UNDETERMINED ABNORMAL ECG WHEN COMPARED WITH ECG OF 19-NOV-2017 20:43, MINIMAL CRITERIA FOR ANTERIOR INFARCT ARE NOW PRESENT NONSPECIFIC T WAVE ABNORMALITY, WORSE IN INFERIOR LEADS Confirmed by ALYCE PINEDA MD ([id number]) on 02/06/2018 6:58:57 PM Referred By: Confirmed By:ALYCE PINEDA MD
[2018-02-06 19:14] LABS: BASO % 0.9 % (0-2.0); EOS % 0.7 % (0-4.5); HEMATOCRIT 19.1 % (35.4-49); LYMPH % 18.8 % (8-40); MCH 26.1 pg (25.7-33.7); MEAN PLT VOLUME 6.8 fl (7.5-11.1); MONO % 9.5 % (3.8-10.2); NEUT % 70.1 % (42.8-82.8); PLATELET COUNT 638 K/MM3 (134-434); RBC 2.42 M/mm3 (4.00-5.60); WHITE BLOOD COUNT 6.1 K/mm3 (4.0-10.0)
[2018-02-06 19:18] LABS: HEMOGLOBIN 6.3 GM/dL (11.7-16.9)
[2018-02-06] MEDS ORDERED: SODIUM POLYSTYRENE SULFONATE 15 GM/60 ML BOTTLE PO ONE (19:30)
[2018-02-06] MEDS: COLLAGENASE CLOSTRIDIUM HIST. 30 GRAMS TUBE TP SCH (19:38)
--- NOTE | 2018-02-06 20:11 | CONSULT ---
Consult Consult Specialty:: endocrine Referred by:: marito vargas np Reason for Consultation:: dm uncontrolled/ abnormal tfts - History of Present Illness Chief Complaint: weak and tremors History of Present Illness: 62 year old male with history of bladder/colon cancer with a nephrostomy tube and colostomy and metastasis to lung who presents from a senior care with complaints of generalized pain. He was found to be severely anemic at the facility and he was refrred to the ER. Upon evaluation in the Er he was found to have a hemoglobin of 5.5 and hematocrit of 17.1. He is going to be transfused with 2 Units of PRBC's now. He reports having generalized pain and tremulous weak,poor appetite. 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 [Santyl -] 1 applic TP DAILY tube 11/15/17 Melatonin/Pyridoxine HCl (B6) [Melatonin 5 mg Tablet] 1 each PO HS 11/20/17 Ascorbic Acid [Vitamin C -] 500 mg PO BID tablet 11/28/17 Multivitamins [Multivit ([facility] Formulary)] 1 tab PO DAILY tab 11/28/17 Zinc Sulfate [Orazinc -] 220 mg PO BID capsule 11/28/17 Albuterol 0.083% Nebulizer Jeanine [Ventolin 0.083%] 1 neb NEB TID PRN 02/05/18 Amoxicillin/Potassium Clav [Augmentin 875-125 Tablet] 1 each PO Q12H 02/05/18 Cholecalciferol (Vitamin D3) [Decara] 50,000 unit PO WEEKLY 02/05/18 Doxycycline Hyclate 100 mg PO Q12H 02/05/18 Ferrous Gluconate [Fergon -] 324 mg PO DAILY 02/05/18 Insulin Detemir [Levemir Flextouch] 10 unit SQ HS 02/05/18 Lactobacillus Acidophilus [Acidophilus] 1 each PO DAILY 02/05/18 Morphine *Immediate Release* [Msir -] 15 mg PO Q6H PRN 02/05/18 Nystatin Powder [Nystop Topical Powder -] 15 gm TP BID 02/05/18 Ranitidine [Zantac -] 150 mg PO BID 02/05/18 Family Disease History - Family Disease History Family Disease History: Other: Mother ( of PUD) Review of Systems - Review of Systems Constitutional: reports: Lethargy, Loss of Appetite, Unintentional Wgt. Loss, Weakness Eyes: reports: No Symptoms HENT: reports: No Symptoms Neck: reports: No Symptoms Cardiovascular: reports: Shortness of Breath Respiratory: reports: Exercise Intolerance, SOB on Exertion Gastrointestinal: reports: Nausea Breasts: reports: No Symptoms Reported Musculoskeletal: reports: Joint Pain, Joint Swelling, Muscle Cramps Neurological: reports: Numbness, Tremors, Weakness Physical Exam Vital Signs: Vital Signs Temperature 98.3 F 02/06/18 14:00 Pulse Rate 102 H 02/06/18 14:00 Respiratory Rate 20 02/06/18 11:00 Blood Pressure 127/71 02/06/18 14:00 O2 Sat by Pulse Oximetry (%) 96 02/06/18 11:00 Constitutional: Yes: Anxious Eyes: Yes: EOM Intact HENT: Yes: Normocephalic Neck: Yes: Trachea Midline Cardiovascular: Yes: Regular Rate and Rhythm Respiratory: Yes: CTA Bilaterally Gastrointestinal: Yes: Normal Bowel Sounds ...Rectal Exam: Yes: Deferred Renal/: Yes: WNL Breast(s): Yes: WNL Edema: No Neurological: Yes: Alert, Oriented Labs: CBC, BMP 02/06/18 18:45 02/06/18 15:00 Problem List - Problems (1) Anemia Code(s): D64.9 - ANEMIA, UNSPECIFIED Qualifiers: Anemia type: unspecified type Qualified Code(s): D64.9 - Anemia, unspecified (2) Protein calorie malnutrition Code(s): E46 - UNSPECIFIED PROTEIN-CALORIE MALNUTRITION (3) Anemia requiring transfusions Code(s): D64.9 - ANEMIA, UNSPECIFIED (4) Bladder cancer metastasized to intrapelvic lymph nodes Code(s): C67.9 - MALIGNANT NEOPLASM OF BLADDER, UNSPECIFIED; C77.5 - SECONDARY AND UNSP MALIGNANT NEOPLASM OF INTRAPELV NODES (5) Chronic osteomyelitis involving ankle and foot Qualifiers: Laterality: left Qualified Code(s): M86.672 - Other chronic osteomyelitis, left ankle and foot Assessment/Plan Current Active Problems Anemia (Acute) Elevated troponin (Acute) H/O carcinoma of bladder (Acute) Protein calorie malnutrition (Acute) dm 2 neuropathy abnormal tft, euthyroid Abnormal Lab Results 02/05/18 02/05/18 02/05/18 02:49 20:44 20:44 RBC 2.23 L Hgb 5.5 L* Hct 17.1 L D MCV 78.3 L MCH 23.0 L D MCHC 29.4 L RDW 17.9 H Plt Count 626 H D MPV Retic Count 2.19 H PT with INR INR Potassium Chloride Carbon Dioxide Anion Gap BUN Random Glucose Calcium AST ALT Troponin I Albumin TSH Ur Leukocyte Esterase 1+ H Crossmatch 02/05/18 02/05/18 02/05/18 20:55 20:55 20:55 RBC Hgb Hct MCV MCH MCHC RDW Plt Count MPV Retic Count PT with INR 14.30 H INR 1.21 H Potassium 5.3 H Chloride 110 H Carbon Dioxide 20 L Anion Gap 7 L BUN 30 H Random Glucose 163 H Calcium 8.1 L AST 10 L ALT 8 L Troponin I 0.58 H Albumin 1.4 L TSH Ur Leukocyte Esterase Crossmatch See Detail 02/06/18 02/06/18 02/06/18 06:30 06:30 15:00 RBC 1.98 L Hgb 4.6 L* Hct 15.4 L MCV 77.5 L MCH 23.3 L MCHC 30.0 L RDW 17.8 H Plt Count 569 H MPV 6.7 L D Retic Count PT with INR INR Potassium 5.6 H 5.8 H Chloride 111 H 110 H Carbon Dioxide 19 L Anion Gap 7 L 7 L BUN 29 H 29 H Random Glucose 146 H 130 H Calcium 8.2 L 8.4 L AST ALT Troponin I 0.71 H* Albumin TSH 0.35 L Ur Leukocyte Esterase Crossmatch 02/06/18 02/06/18 16:00 18:45 RBC 2.44 L 2.42 L Hgb 6.3 L* 6.3 L* Hct 19.4 L D 19.1 L MCV 79.4 L 79.0 L MCH 25.6 L MCHC RDW 17.9 H 18.0 H Plt Count 624 H 638 H MPV 7.2 L 6.8 L Retic Count PT with INR INR Potassium Chloride Carbon Dioxide Anion Gap BUN Random Glucose Calcium AST ALT Troponin I Albumin TSH Ur Leukocyte Esterase Crossmatch Laboratory Tests 02/05/18 02/06/18 02/06/18 20:55 06:30 13:00 Sodium Potassium Chloride Carbon Dioxide Anion Gap BUN Creat Clearance w eGFR POC Glucometer Random Glucose 146 H Hemoglobin A1c % < 5.0 Calcium Albumin 1.4 L TSH 02/06/18 02/06/18 15:00 17:50 Sodium 138 Potassium 5.8 H Chloride 110 H Carbon Dioxide 21 Anion Gap 7 L BUN 29 H Creat Clearance w eGFR > 60 POC Glucometer 151 Random Glucose 130 H Hemoglobin A1c % Calcium 8.4 L Albumin TSH 0.35 L plan: nutrition calorie count free t4 fasting glucose increase calorie count as nutrition source limited
[2018-02-06] MEDS: MELATONIN 5 MG TABLETS PO SCH (21:40)
[2018-02-06] MEDS ORDERED: PT OWN MED DRAWER 7, Y5N ONE (22:54)
[2018-02-07 04:15] LABS: SERUM IRON SATURATION 6 % (15-55); TOTAL IRON BINDING CAPACITY 141 ug/dL (250-450); UIBC 133 ug/dL (111-343)
[2018-02-07] MEDS: INSULIN SLIDING SCALE (NOVOLOG) 1 VIAL SQ SCH ×3 (06:59→17:37)
[2018-02-07 07:01] LABS: BASO % 0.9 % (0-2.0); EOS % 1.5 % (0-4.5); HEMATOCRIT 26.1 % (35.4-49); HEMOGLOBIN 8.3 GM/dL (11.7-16.9); LYMPH % 20.7 % (8-40); MCH 25.7 pg (25.7-33.7); MCHC 31.9 g/dl (32.0-35.9); MEAN CELL VOLUME 80.7 fl (80-96); MEAN PLT VOLUME 6.8 fl (7.5-11.1); MONO % 10.4 % (3.8-10.2); NEUT % 66.5 % (42.8-82.8); PLATELET COUNT 572 K/MM3 (134-434); RBC 3.23 M/mm3 (4.00-5.60); RDW 18.1 % (11.9-15.9); WHITE BLOOD COUNT 5.3 K/mm3 (4.0-10.0)
[2018-02-07 07:27] LABS: ALBUMIN 1.5 g/dl (3.4-5.0); ALK PHOS 93 U/L (45-117); ANION GAP 7 MMOL/L (8-16); BILIRUBIN,TOTAL 0.4 mg/dL (0.2-1); BLOOD UREA NITROGEN 27 mg/dL (7-18); CALCIUM 8.4 mg/dL (8.5-10.1); CHLORIDE 113 mmol/L (98-107); CO2 18 mmol/L (21-32); CREATININE 0.8 mg/dL (0.55-1.3); GLUCOSE,RANDOM 100 mg/dL (74-106); POTASSIUM 4.9 mmol/L (3.5-5.1); SGOT/AST 15 U/L (15-37); SGPT/ALT 8 U/L (13-61); SODIUM 137 mmol/L (136-145)
--- NOTE | 2018-02-07 10:01 | PN ---
Progress Note, Physician Chief Complaint: AWAKE ALERT WEAK AND TIRED POOR APPETITE - Current Medication List Current Medications: Active Medications Acetaminophen (Tylenol -) 650 mg PO Q6H PRN PRN Reason: PAIN LEVEL 1 - 3 Albuterol Sulfate (Ventolin 0.083% Nebulizer Soln -) 1 amp NEB Q10M PRN PRN Reason: SHORT OF BREATH/WHEEZING Amino Acids (Prosource No Carb Liquid Pkt) 30 ml PO BID@0800,1730 [facility] Last Admin: 02/06/18 19:38 Dose: Not Given Ascorbic Acid (Vitamin C -) 500 mg PO BID [facility] Last Admin: 02/06/18 21:41 Dose: 500 mg Collagenase (Santyl -) 1 applic TP DAILY [facility]; Protocol Last Admin: 02/06/18 19:38 Dose: Not Given Ferrous Sulfate (Feosol -) 325 mg PO DAILY [facility] Sodium Chloride (1/2 Normal Saline) 1,000 mls @ 55 mls/hr IV ASDIR [facility] Last Admin: 02/06/18 17:52 Dose: 55 mls/hr Insulin Aspart (Novolog Vial Sliding Scale -) 1 vial SQ TIDAC [facility]; Protocol Last Admin: 02/07/18 06:59 Dose: Not Given Melatonin (Melatonin) 5 mg PO HS [facility] Last Admin: 02/06/18 21:40 Dose: 5 mg Morphine Sulfate (Ms Contin -) 15 mg PO BID [facility] Last Admin: 02/06/18 21:40 Dose: 15 mg Multivitamins/Minerals/Vitamin C (Tab-A-Vit -) 1 tab PO DAILY [facility] Last Admin: 02/06/18 11:38 Dose: 1 tab - Objective Vital Signs: Vital Signs Temperature 97.3 F L 02/07/18 06:00 Pulse Rate 88 02/07/18 09:42 Respiratory Rate 18 02/07/18 09:42 Blood Pressure 110/60 02/07/18 09:42 O2 Sat by Pulse Oximetry (%) 100 02/06/18 21:00 Constitutional: Yes: Cachectic, Mild Distress Eyes: Yes: WNL HENT: Yes: WNL Neck: Yes: WNL Cardiovascular: Yes: WNL Respiratory: Yes: Diminished Gastrointestinal: Yes: Other (COLOSTOMY) Genitourinary: Yes: Other (NEPHROSTOMY) Musculoskeletal: Yes: Muscle Weakness Extremities: Yes: Other Edema: No Integumentary: Yes: Other Neurological: Yes: Weakness Labs: CBC, BMP 02/07/18 05:30 02/07/18 06:00 INR, PTT INR 1.21 (0.83-1.09) H 02/05/18 20:55 Problem List - Problems (1) Anemia Code(s): D64.9 - ANEMIA, UNSPECIFIED Qualifiers: Anemia type: unspecified type Qualified Code(s): D64.9 - Anemia, unspecified (2) Elevated troponin Code(s): R74.8 - ABNORMAL LEVELS OF OTHER SERUM ENZYMES (3) H/O carcinoma of bladder Code(s): Z85.51 - PERSONAL HISTORY OF MALIGNANT NEOPLASM OF BLADDER (4) Protein calorie malnutrition Code(s): E46 - UNSPECIFIED PROTEIN-CALORIE MALNUTRITION (5) Anemia requiring transfusions Code(s): D64.9 - ANEMIA, UNSPECIFIED (6) Bladder cancer metastasized to intrapelvic lymph nodes Code(s): C67.9 - MALIGNANT NEOPLASM OF BLADDER, UNSPECIFIED; C77.5 - SECONDARY AND UNSP MALIGNANT NEOPLASM OF INTRAPELV NODES (7) Diabetes Code(s): E11.9 - TYPE 2 DIABETES MELLITUS WITHOUT COMPLICATIONS Qualifiers: Diabetes mellitus type: type 2 Diabetes mellitus complication status: with skin complications (8) Hypoalbuminemia Code(s): E88.09 - OT DISORDERS OF PLASMA-PROTEIN METABOLISM, NEC Assessment/Plan IVF TRANSFUSE PRBC NEEDED ONCE OPTIMIZED MEDICALLY CAN TRANSFER BACK TO ID. PALLIATIVE CARE CONSULT OVERALL QUALITY OF LIFE IS POOR
[2018-02-07] MEDS ORDERED: PT OWN MED DRAWER 7, Y5N ONE (10:21)
[2018-02-07] MEDS: MULTIVITAMINS (DAILY MVI) TABLET (FP) PO SCH (10:44)
[2018-02-07] MEDS: ACETAMINOPHEN 325 MG TABLET (FP) PO PRN (10:44)
[2018-02-07] MEDS: FERROUS SO4 325 MG TABLET (FP) PO SCH (10:45)
[2018-02-07] MEDS: morphine SO4 SUSTAINED ACTING 15 MG TABLET.SA PO SCH ×2 (10:45→21:44)
[2018-02-07] MEDS: AMINO ACIDS/PROTEIN HYDROLYS 30 ML LIQUID.PKT PO SCH ×2 (10:45→17:40)
[2018-02-07] MEDS: ASCORBIC ACID 500 MG TABLET (FP) PO SCH ×2 (10:45→21:45)
--- NOTE | 2018-02-07 13:28 | PN ---
GI Progress Note Subjective: Patient laying in bed. states feeling weak No acute events No overt GI bleeding Described hematuria prior to admission - Objective Vital Signs: Vital Signs Temperature 97.3 F L 02/07/18 06:00 Pulse Rate 88 02/07/18 09:42 Respiratory Rate 18 02/07/18 09:42 Blood Pressure 110/60 02/07/18 09:42 O2 Sat by Pulse Oximetry (%) 100 02/06/18 21:00 Constitutional: Calm Eyes: No: Sclera Icterus Cardiovascular: Yes: Regular Rate and Rhythm Respiratory: Yes: Diminished (at bases with poor insp. effort) Gastrointestinal Inspection: Yes: Other (colostomy in left paramedian abdomen: light brown stool). No: Distention, Scars ...Auscultate: Yes: Normoactive Bowel Sounds ...Palpate: No: Hepatomegaly, Splenomegaly, Tenderness ...Percussion: No: Tympanitic Edema: No (No LE edema) Neurological: Yes: Alert Labs: CBC, BMP 02/07/18 05:30 02/07/18 06:00 INR, PTT INR 1.21 (0.83-1.09) H 02/05/18 20:55 Problem List - Problems (1) Anemia Assessment/Plan: Unclear etiology of significant anemia: no overt GI bleeding reported. + hematuria history. I discussed both EGD and colonoscopy with Mr. Rajan, to exclude any potential intraluminal sources of bleeding that contributed to his anemia such as bleeding blood vessels, polyps, ulcers or tumors of the intestinal tract such as colon cancer. We discussed potential risks of the procedures like but not limited to bleeding, perforation requiring surgery to repair, infection, sedation medication effects all of which could be potentially life thretening. He stated that he did not want to take the risks of having procedures performed at this time and would settle for observation. I explained that he did not have to make a decision right now and could think about that option. In the interim: Cardio evaluating: suspected demand ischemia Urology input re: hematuria Spoke with PMD: planning to discuss hospice option with patient Please recall if patient amenable to endoscopic evaluation. Will sign off. Code(s): D64.9 - ANEMIA, UNSPECIFIED Qualifiers: Anemia type: unspecified type Qualified Code(s): D64.9 - Anemia, unspecified
--- NOTE | 2018-02-07 13:41 | CONSULT ---
Consult Consult Specialty:: Hematology-Oncology Referred by:: Helen Reason for Consultation:: Anemia - History of Present Illness Chief Complaint: referred from [place] for anemia History of Present Illness: 62 yr old man with hx of bladder cancer with metastasis to lungs and colon s/p hemicolectomy with colostomy(placed 1 yr ago), hx of DM, nonhealing left foot ulcer. denies any hematuria in nephrostomy tubes, hematochezia in colostomy bag, hemotpysis, trauma, easy bruising, epitaxis. no overt signs of bleeding. Pt currently has no complaints, declined any further work-up of bladder cancer or anemia. As per chart review, pt has outlived his previous prognosis of 1 yr by 5 yrs. 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 [Santyl -] 1 applic TP DAILY tube 11/15/17 Melatonin/Pyridoxine HCl (B6) [Melatonin 5 mg Tablet] 1 each PO HS 11/20/17 Ascorbic Acid [Vitamin C -] 500 mg PO BID tablet 11/28/17 Multivitamins [Multivit ([facility] Formulary)] 1 tab PO DAILY tab 11/28/17 Zinc Sulfate [Orazinc -] 220 mg PO BID capsule 11/28/17 Albuterol 0.083% Nebulizer Jeanine [Ventolin 0.083%] 1 neb NEB TID PRN 02/05/18 Amoxicillin/Potassium Clav [Augmentin 875-125 Tablet] 1 each PO Q12H 02/05/18 Cholecalciferol (Vitamin D3) [Decara] 50,000 unit PO WEEKLY 02/05/18 Doxycycline Hyclate 100 mg PO Q12H 02/05/18 Ferrous Gluconate [Fergon -] 324 mg PO DAILY 02/05/18 Insulin Detemir [Levemir Flextouch] 10 unit SQ HS 02/05/18 Lactobacillus Acidophilus [Acidophilus] 1 each PO DAILY 02/05/18 Morphine *Immediate Release* [Msir -] 15 mg PO Q6H PRN 02/05/18 Nystatin Powder [Nystop Topical Powder -] 15 gm TP BID 02/05/18 Ranitidine [Zantac -] 150 mg PO BID 02/05/18 Family Disease History - Family Disease History Family Disease History: Other: Mother ( of PUD) Review of Systems - Review of Systems Constitutional: denies: Fever, Lethargy, Loss of Appetite Eyes: reports: No Symptoms HENT: denies: Difficult Swallowing, Throat Pain Neck: denies: Stiffness Cardiovascular: denies: Chest Pain, Palpitations, Shortness of Breath Respiratory: denies: Cough Hematology/Lymphatic: denies: Easily Bruised, Excessive Bleeding Physical Exam Vital Signs: Vital Signs Temperature 97.3 F L 02/07/18 06:00 Pulse Rate 88 02/07/18 09:42 Respiratory Rate 18 02/07/18 09:42 Blood Pressure 110/60 02/07/18 09:42 O2 Sat by Pulse Oximetry (%) 100 02/06/18 21:00 Constitutional: Yes: No Distress, Cachectic Eyes: Yes: Conjunctiva Clear, EOM Intact, Other (conjuctival pallor) HENT: Yes: Atraumatic, Normocephalic. No: Hoarseness, Thrush Neck: Yes: Supple, Trachea Midline Cardiovascular: Yes: Regular Rate and Rhythm. No: Murmur Respiratory: Yes: Regular, CTA Bilaterally Gastrointestinal: Yes: Normal Bowel Sounds, Other (ostomy patent with brown stool) Edema: No Neurological: Yes: Alert, Oriented Labs: CBC, BMP 02/07/18 05:30 02/07/18 06:00 Assessment/Plan Active Medications Acetaminophen (Tylenol -) 650 mg PO Q6H PRN PRN Reason: PAIN LEVEL 1 - 3 Last Admin: 02/07/18 10:44 Dose: 650 mg Albuterol Sulfate (Ventolin 0.083% Nebulizer Soln -) 1 amp NEB Q10M PRN PRN Reason: SHORT OF BREATH/WHEEZING Amino Acids (Prosource No Carb Liquid Pkt) 30 ml PO BID@0800,1730 [facility] Last Admin: 02/07/18 10:45 Dose: 30 ml Ascorbic Acid (Vitamin C -) 500 mg PO BID [facility] Last Admin: 02/07/18 10:45 Dose: 500 mg Collagenase (Santyl -) 1 applic TP DAILY [facility]; Protocol Last Admin: 02/06/18 19:38 Dose: Not Given Ferrous Sulfate (Feosol -) 325 mg PO DAILY [facility] Last Admin: 02/07/18 10:45 Dose: 325 mg Sodium Chloride (1/2 Normal Saline) 1,000 mls @ 55 mls/hr IV ASDIR [facility] Last Admin: 02/06/18 17:52 Dose: 55 mls/hr Insulin Aspart (Novolog Vial Sliding Scale -) 1 vial SQ TIDAC [facility]; Protocol Last Admin: 02/07/18 12:31 Dose: Not Given Melatonin (Melatonin) 5 mg PO HS [facility] Last Admin: 02/06/18 21:40 Dose: 5 mg Morphine Sulfate (Ms Contin -) 15 mg PO BID [facility] Last Admin: 02/07/18 10:45 Dose: 15 mg Multivitamins/Minerals/Vitamin C (Tab-A-Vit -) 1 tab PO DAILY [facility] Last Admin: 02/07/18 10:44 Dose: 1 tab Laboratory Tests 11/27/17 02/05/18 02/05/18 18:00 20:44 20:55 Retic Count 2.19 H Iron TIBC Iron Saturation Ferritin 97.6 Vitamin B12 774 02/05/18 20:55 Retic Count Iron 8 L TIBC 141 L Iron Saturation 6 L Ferritin Vitamin B12 62 yr old man with hx og metastatic bladder cancer s/p colostomy placement and nephrostomy placement, DM presents with severe anemia Problem List: anemia, normocytic thrombocytosis, chronic metastatic bladder cancer DM A/P ferritin normal, iron deficiency, likely PATSY with component of acute blood loss. currently on po iron + Vitamin C, reticulocytic production index is 0.3, inadequate [place] marrow response to anemia, continue iron supplementation. can increase po iron to TID, if patient tolerates pt with decr QOL, declining further investigations, hospice to be considered. pt returning to [place] post-transfusions
--- NOTE | 2018-02-07 16:29 | PN ---
Progress Note, Physician History of Present Illness: Pt seen and examined at bedside. He is awake and alert. he denies shortness of breath. - Current Medication List Current Medications: Active Medications Acetaminophen (Tylenol -) 650 mg PO Q6H PRN PRN Reason: PAIN LEVEL 1 - 3 Last Admin: 02/07/18 10:44 Dose: 650 mg Albuterol Sulfate (Ventolin 0.083% Nebulizer Soln -) 1 amp NEB Q10M PRN PRN Reason: SHORT OF BREATH/WHEEZING Amino Acids (Prosource No Carb Liquid Pkt) 30 ml PO BID@0800,1730 [facility] Last Admin: 02/07/18 10:45 Dose: 30 ml Ascorbic Acid (Vitamin C -) 500 mg PO BID [facility] Last Admin: 02/07/18 10:45 Dose: 500 mg Collagenase (Santyl -) 1 applic TP DAILY [facility]; Protocol Last Admin: 02/06/18 19:38 Dose: Not Given Ferrous Sulfate (Feosol -) 325 mg PO DAILY [facility] Last Admin: 02/07/18 10:45 Dose: 325 mg Sodium Chloride (1/2 Normal Saline) 1,000 mls @ 55 mls/hr IV ASDIR [facility] Last Admin: 02/06/18 17:52 Dose: 55 mls/hr Insulin Aspart (Novolog Vial Sliding Scale -) 1 vial SQ TIDAC [facility]; Protocol Last Admin: 02/07/18 12:31 Dose: Not Given Melatonin (Melatonin) 5 mg PO HS [facility] Last Admin: 02/06/18 21:40 Dose: 5 mg Morphine Sulfate (Ms Contin -) 15 mg PO BID [facility] Last Admin: 02/07/18 10:45 Dose: 15 mg Multivitamins/Minerals/Vitamin C (Tab-A-Vit -) 1 tab PO DAILY [facility] Last Admin: 02/07/18 10:44 Dose: 1 tab - Objective Vital Signs: Vital Signs Temperature 97.3 F L 02/07/18 14:00 Pulse Rate 95 H 02/07/18 14:00 Respiratory Rate 18 02/07/18 09:42 Blood Pressure 124/69 02/07/18 14:00 O2 Sat by Pulse Oximetry (%) 100 02/06/18 21:00 Constitutional: Yes: Calm Eyes: Yes: Conjunctiva Clear HENT: Yes: Atraumatic Cardiovascular: Yes: S1, S2 Respiratory: Yes: CTA Bilaterally Gastrointestinal: Yes: Soft Genitourinary: Yes: Other (bilateral nephrostomy tubes) Musculoskeletal: Yes: WNL Edema: No Neurological: Yes: Oriented Psychiatric: Yes: Oriented Labs: CBC, BMP 02/07/18 05:30 02/07/18 06:00 INR, PTT INR 1.21 (0.83-1.09) H 02/05/18 20:55 Problem List - Problems (1) Hyperkalemia Code(s): E87.5 - HYPERKALEMIA (2) Anemia Code(s): D64.9 - ANEMIA, UNSPECIFIED Qualifiers: Anemia type: unspecified type Qualified Code(s): D64.9 - Anemia, unspecified Assessment/Plan Current Medications Generic Name Dose Route Start Last Admin Trade Name Freq PRN Reason Stop Dose Admin Acetaminophen 650 mg 02/05/18 22:46 02/07/18 10:44 Tylenol - PO 650 mg Q6H PRN Administration PAIN LEVEL 1 - 3 Albuterol Sulfate 1 amp 02/05/18 22:46 Ventolin 0.083% Nebulizer Soln - NEB Q10M PRN SHORT OF BREATH/WHEEZING Amino Acids 30 ml 02/06/18 08:00 02/07/18 10:45 Prosource No Carb Liquid Pkt PO 30 ml BID@0800,1730 [facility] Administration Ascorbic Acid 500 mg 02/06/18 10:00 02/07/18 10:45 Vitamin C - PO 500 mg BID [facility] Administration Collagenase 1 applic 02/06/18 10:00 02/06/18 19:38 Santyl - TP Not Given DAILY [facility] Protocol Ferrous Sulfate 325 mg 02/07/18 10:00 02/07/18 10:45 Feosol - PO 325 mg DAILY [facility] Administration Sodium Chloride 1,000 mls @ 55 mls/hr 02/06/18 13:59 02/06/18 17:52 1/2 Normal Saline IV 55 mls/hr ASDIR [facility] Administration Insulin Aspart 1 vial 02/06/18 16:30 02/07/18 12:31 Novolog Vial Sliding Scale - SQ Not Given TIDAC [facility] Protocol Melatonin 5 mg 02/06/18 22:00 02/06/18 21:40 Melatonin PO 5 mg HS [facility] Administration Morphine Sulfate 15 mg 02/06/18 10:00 02/07/18 10:45 Ms Contin - PO 15 mg BID [facility] Administration Multivitamins/Minerals/Vitamin C 1 tab 02/06/18 10:00 02/07/18 10:44 Tab-A-Vit - PO 1 tab DAILY [facility] Administration Impression 1. azotemia 2. hyperkalemia 3. bladder cancer with mets to lung and colon 4. urinary obstruction s/p bilateral nephrostomy tubes 5. hematuria 6. anemia Plan - hg improving - potassium stabilized - repeat labs in am - avoid nephrotoxins - low potassium diet - urology eval - will follow
[2018-02-07] MEDS: SODIUM CHLORIDE 0.45% 1,000 ML IV SCH (17:37)
[2018-02-07] MEDS: COLLAGENASE CLOSTRIDIUM HIST. 30 GRAMS TUBE TP SCH (17:39)
--- NOTE | 2018-02-07 19:10 | PN ---
Teaching Attending Note Name of Resident: Nilo Gonzalez ATTENDING PHYSICIAN STATEMENT I saw and evaluated the patient. I reviewed the resident's note and discussed the case with the resident. I agree with the resident's findings and plan as documented. ASSESSMENT AND PLAN: 62 yr old man with hx og metastatic bladder cancer s/p colostomy placement and nephrostomy placement, DM presents with severe anemia Advanced disease Anemia of chronic disease reactive thrombocytosis very poor performance status palliative/supportive care recommended
[2018-02-07] MEDS: MELATONIN 5 MG TABLETS PO SCH (21:44)
[2018-02-08] MEDS: INSULIN SLIDING SCALE (NOVOLOG) 1 VIAL SQ SCH ×2 (06:25→11:35)
[2018-02-08 06:48] VITALS: TEMP 98.2
[2018-02-08 07:10] LABS: BASO % 0.6 % (0-2.0); EOS % 1.6 % (0-4.5); HEMATOCRIT 25.3 % (35.4-49); HEMOGLOBIN 7.9 GM/dL (11.7-16.9); LYMPH % 16.9 % (8-40); MCH 25.4 pg (25.7-33.7); MCHC 31.4 g/dl (32.0-35.9); MEAN CELL VOLUME 80.9 fl (80-96); MEAN PLT VOLUME 6.9 fl (7.5-11.1); MONO % 8.8 % (3.8-10.2); NEUT % 72.1 % (42.8-82.8); PLATELET COUNT 588 K/MM3 (134-434); RBC 3.12 M/mm3 (4.00-5.60); RDW 18.4 % (11.9-15.9); WHITE BLOOD COUNT 7.2 K/mm3 (4.0-10.0)
[2018-02-08 07:53] LABS: ALBUMIN 1.5 g/dl (3.4-5.0); ALK PHOS 87 U/L (45-117); ANION GAP 10 MMOL/L (8-16); BILIRUBIN,TOTAL 0.2 mg/dL (0.2-1); BLOOD UREA NITROGEN 24 mg/dL (7-18); CALCIUM 8.5 mg/dL (8.5-10.1); CHLORIDE 109 mmol/L (98-107); CO2 19 mmol/L (21-32); CREATININE 0.7 mg/dL (0.55-1.3); GLUCOSE,RANDOM 116 mg/dL (74-106); POTASSIUM 4.6 mmol/L (3.5-5.1); SGOT/AST 19 U/L (15-37); SGPT/ALT 7 U/L (13-61); SODIUM 138 mmol/L (136-145); TOT PROT 7.1 g/dl (6.4-8.2)
[2018-02-08] MEDS: FERROUS SO4 325 MG TABLET (FP) PO SCH (11:34)
[2018-02-08] MEDS: ACETAMINOPHEN 325 MG TABLET (FP) PO PRN (11:34)
[2018-02-08] MEDS: MULTIVITAMINS (DAILY MVI) TABLET (FP) PO SCH (11:34)
[2018-02-08] MEDS: morphine SO4 SUSTAINED ACTING 15 MG TABLET.SA PO SCH (11:34)
[2018-02-08] MEDS: ASCORBIC ACID 500 MG TABLET (FP) PO SCH (11:34)
[2018-02-08] MEDS: AMINO ACIDS/PROTEIN HYDROLYS 30 ML LIQUID.PKT PO SCH (11:34)
--- NOTE | 2018-02-08 11:43 | DS ---
Physical Examination Vital Signs: Vital Signs Temperature 98.2 F 02/08/18 06:00 Pulse Rate 102 H 02/08/18 06:00 Respiratory Rate 18 02/08/18 06:00 Blood Pressure 119/68 02/08/18 06:00 O2 Sat by Pulse Oximetry (%) 96 02/08/18 09:00 Constitutional: Yes: Calm, Cachectic, Thin Cardiovascular: Yes: Regular Rate and Rhythm, S1, S2 Respiratory: Yes: CTA Bilaterally Gastrointestinal: Yes: Normal Bowel Sounds, Soft, Other (colostomy) Renal/: Yes: Other (nephrostomy) Edema: No Labs: CBC, BMP 02/08/18 06:25 02/08/18 06:25 Discharge Summary Reason For Visit: HISTORY OF CARCINOMA OF BLADDER,ANEMIA Current Active Problems Anemia (Acute) Elevated troponin (Acute) H/O carcinoma of bladder (Acute) Hyperkalemia (Acute) Protein calorie malnutrition (Acute) Hospital Course: PCP:Dr. Fofana HISTORY OF PRESENT ILLNESS: 62 year old male with history of bladder/colon cancer with a nephrostomy tube and colostomy and metastasis to lung who presents from a half-way with complaints of generalized pain. He was found to be severely anemic at the facility and he was refrred to the ER. Upon evaluation in the Er he was found to have a hemoglobin of 5.5 and hematocrit of 17.1. He is going to be transfused with 2 Units of PRBC's now. He reports having generalized pain and he is requesting morphine. Labs also notable for an elevated troponin of .58. EKG is abnormal with T wave inversions in lead II, III, and ST depression in V6. He denies chest pain, shortness of breath, dizziness, syncopy or palpitations. ER course was notable for: (1)Severe Anemia (2)Elevated troponin Recent Travel:Denies PAST MEDICAL/Surgical HISTORY: Bladder and colon cancer with nephrostomy tube and colostomy in hospital got PRBC seen by [facility]- [facility] rachael cancer pain contorl poor prognosis refusing hospice anemia vitamin C and iron po bid stool sfotners pateint refusing to get egd and colonscopy at this time elevated troponin secondary to demand ischemia Condition: Guarded - Instructions Referrals: Narda Vargas MD [Primary Care Provider] - Disposition: [facility] - Home Medications Comprehensive Discharge Medication List: Ambulatory Orders Acetaminophen [Tylenol .Regular Strength -] 650 mg PO Q6H PRN tablet 11/15/17 Collagenase Clostridium Hist. [Santyl -] 1 applic TP DAILY tube 11/15/17 Melatonin/Pyridoxine HCl (B6) [Melatonin 5 mg Tablet] 1 each PO HS 11/20/17 Ascorbic Acid [Vitamin C -] 500 mg PO BID tablet 11/28/17 Multivitamins [Multivit ([facility] Formulary)] 1 tab PO DAILY tab 11/28/17 Zinc Sulfate [Orazinc -] 220 mg PO BID capsule 11/28/17 Albuterol 0.083% Nebulizer Jeanine [Ventolin 0.083%] 1 neb NEB TID PRN 02/05/18 Amoxicillin/Potassium Clav [Augmentin 875-125 Tablet] 1 each PO Q12H 02/05/18 Cholecalciferol (Vitamin D3) [Decara] 50,000 unit PO WEEKLY 02/05/18 Doxycycline Hyclate 100 mg PO Q12H 02/05/18 Ferrous Gluconate [Fergon -] 324 mg PO DAILY 02/05/18 Insulin Detemir [Levemir Flextouch] 10 unit SQ HS 02/05/18 Lactobacillus Acidophilus [Acidophilus] 1 each PO DAILY 02/05/18 Morphine *Immediate Release* [Msir -] 15 mg PO Q6H PRN 02/05/18 Nystatin Powder [Nystop Topical Powder -] 15 gm TP BID 02/05/18 Ranitidine [Zantac -] 150 mg PO BID 02/05/18
[2018-02-08 13:42] VITALS: BP 125/65; PULSE 88
--- NOTE | 2018-02-08 14:05 | PN ---
Progress Note, Physician History of Present Illness: Pt seen and examined at bedside. He is awake and alert. He denies shortness of breath. - Current Medication List Current Medications: Active Medications Acetaminophen (Tylenol -) 650 mg PO Q6H PRN PRN Reason: PAIN LEVEL 1 - 3 Last Admin: 02/08/18 11:34 Dose: 650 mg Albuterol Sulfate (Ventolin 0.083% Nebulizer Soln -) 1 amp NEB Q10M PRN PRN Reason: SHORT OF BREATH/WHEEZING Amino Acids (Prosource No Carb Liquid Pkt) 30 ml PO BID@0800,1730 [facility] Last Admin: 02/08/18 11:34 Dose: 30 ml Ascorbic Acid (Vitamin C -) 500 mg PO BID [facility] Last Admin: 02/08/18 11:34 Dose: 500 mg Collagenase (Santyl -) 1 applic TP DAILY [facility]; Protocol Last Admin: 02/07/18 17:39 Dose: 1 applic Ferrous Sulfate (Feosol -) 325 mg PO BIDWM [facility] Sodium Chloride (1/2 Normal Saline) 1,000 mls @ 55 mls/hr IV ASDIR [facility] Last Admin: 02/07/18 17:37 Dose: Not Given Insulin Aspart (Novolog Vial Sliding Scale -) 1 vial SQ TIDAC [facility]; Protocol Last Admin: 02/08/18 11:35 Dose: Not Given Melatonin (Melatonin) 5 mg PO HS [facility] Last Admin: 02/07/18 21:44 Dose: 5 mg Morphine Sulfate (Ms Contin -) 15 mg PO BID [facility] Last Admin: 02/08/18 11:34 Dose: 15 mg Multivitamins/Minerals/Vitamin C (Tab-A-Vit -) 1 tab PO DAILY [facility] Last Admin: 02/08/18 11:34 Dose: 1 tab - Objective Vital Signs: Vital Signs Temperature 98.2 F 02/08/18 06:00 Pulse Rate 88 02/08/18 10:00 Respiratory Rate 18 02/08/18 10:00 Blood Pressure 125/65 02/08/18 10:00 O2 Sat by Pulse Oximetry (%) 96 02/08/18 09:00 Constitutional: Yes: Calm Eyes: Yes: Conjunctiva Clear HENT: Yes: Atraumatic Cardiovascular: Yes: S1, S2 Gastrointestinal: Yes: Soft, Other (colostomy) Genitourinary: Yes: Other (bilateral nephrostomy tubes) Edema: No Neurological: Yes: Oriented Psychiatric: Yes: Oriented Labs: CBC, BMP 02/08/18 06:25 02/08/18 06:25 INR, PTT INR 1.21 (0.83-1.09) H 02/05/18 20:55 Problem List - Problems (1) Hyperkalemia Code(s): E87.5 - HYPERKALEMIA (2) Anemia Code(s): D64.9 - ANEMIA, UNSPECIFIED Qualifiers: Anemia type: unspecified type Qualified Code(s): D64.9 - Anemia, unspecified Assessment/Plan Current Medications Generic Name Dose Route Start Last Admin Trade Name Freq PRN Reason Stop Dose Admin Acetaminophen 650 mg 02/05/18 22:46 02/08/18 11:34 Tylenol - PO 650 mg Q6H PRN Administration PAIN LEVEL 1 - 3 Albuterol Sulfate 1 amp 02/05/18 22:46 Ventolin 0.083% Nebulizer Soln - NEB Q10M PRN SHORT OF BREATH/WHEEZING Amino Acids 30 ml 02/06/18 08:00 02/08/18 11:34 Prosource No Carb Liquid Pkt PO 30 ml BID@0800,1730 STEPHANIE Administration Ascorbic Acid 500 mg 02/06/18 10:00 02/08/18 11:34 Vitamin C - PO 500 mg BID STEPHANIE Administration Collagenase 1 applic 02/06/18 10:00 02/07/18 17:39 Santyl - TP 1 applic DAILY STEPHANIE Administration Protocol Ferrous Sulfate 325 mg 02/08/18 17:30 Feosol - PO BIDWM [facility]PH[facility]IE Sodium Chloride 1,000 mls @ 55 mls/hr 02/06/18 13:59 02/07/18 17:37 1/2 Normal Saline IV Not Given ASDIR [facility]PHANIE Insulin Aspart 1 vial 02/06/18 16:30 02/08/18 11:35 Novolog Vial Sliding Scale - SQ Not Given TIDAC [facility] Protocol Melatonin 5 mg 02/06/18 22:00 02/07/18 21:44 Melatonin PO 5 mg HS STEPHANIE Administration Morphine Sulfate 15 mg 02/06/18 10:00 02/08/18 11:34 Ms Contin - PO 15 mg BID STEPHANIE Administration Multivitamins/Minerals/Vitamin C 1 tab 02/06/18 10:00 02/08/18 11:34 Tab-A-Vit - PO 1 tab DAILY STEPHANIE Administration Impression 1. azotemia 2. hyperkalemia 3. bladder cancer with mets to lung and colon 4. urinary obstruction s/p bilateral nephrostomy tubes 5. hematuria 6. anemia Plan - renal function stabilizing - monitor hg - potassium stable - will decrease rate of fluids - avoid nephrotoxins - will follow
[2018-02-08] MEDS ORDERED: FERROUS SO4 325 MG TABLET (FP) PO SCH (17:30)
== END 2018-02-08 14:40 | DRG 461 ==
LOC: JER 15:52 → SUPCPDRO 15:52 → JERBED 22:10 → J6S 02-06 04:00 → J4W 02-06 11:10
PROVIDERS: ADMIT Internal Medicine; ATTEND Family Medicine
PROC: 30233N1 Transfusion of Nonautologous Red Blood Cells into Peripheral Vein, Percutaneous Approach (ICD-10-PCS; 2018-02-05)
PROC: 05HQ33Z Insertion of Infusion Device into Left External Jugular Vein, Percutaneous Approach (ICD-10-PCS; principal; 2018-02-06)
DX: C67.9 Malignant neoplasm of bladder, unspecified (principal); D63.0 Anemia in neoplastic disease; C78.00 Secondary malignant neoplasm of unspecified lung; C78.5 Secondary malignant neoplasm of large intestine and rectum; C77.5 Secondary and unspecified malignant neoplasm of intrapelvic lymph nodes; E87.5 Hyperkalemia; E11.9 Type 2 diabetes mellitus without complications; N13.8 Other obstructive and reflux uropathy; I24.8 Other forms of acute ischemic heart disease; E46 Unspecified protein-calorie malnutrition; R64 Cachexia; Z68.1 Body mass index [BMI] 19.9 or less, adult; R74.8 Abnormal levels of other serum enzymes; D47.3 Essential (hemorrhagic) thrombocythemia; E88.09 Other disorders of plasma-protein metabolism, not elsewhere classified; N39.0 Urinary tract infection, site not specified; E11.40 Type 2 diabetes mellitus with diabetic neuropathy, unspecified; M86.672 Other chronic osteomyelitis, left ankle and foot; E11.621 Type 2 diabetes mellitus with foot ulcer; L97.528 Non-pressure chronic ulcer of other part of left foot with other specified severity; Z93.3 Colostomy status; Z87.891 Personal history of nicotine dependence
CPT/HCPCS: 36415; 36430; 71045-TC-FY; 80048; 80053; 81003; 81015; 82550; 82728; 82962; 83036; 83540; 83550; 84439; 84443; 84484; 85025; 85044; 85610; 86850; 86900; 86901; 86922; 93005; 93010; 97161-GP; 99282-25; E0372; J1756; P9038; P9058